=== PATIENT | female | born 1980 | race Caucasian/White ===

== ENCOUNTER 2019-12-10 08:49 | Outpatient (CLI) | payer MEDICARE, MEDICAID, SELFPAY ==
--- NOTE | 2019-12-10 06:00 | DI.RAD_ITS ---
EXAM: XR PAIN CLINIC LUMBAR SP 2V CLINICAL HISTORY: Dx: Lumbar Spondylosis TECHNIQUE: 2D and realtime digital imaging was performed. CONTRAST MATERIAL: Refer to procedure report. COMPARISON: No exams were available for comparison FINDINGS: Fluoroscopy was provided for Dr. Ortega during the performance of a lumbar medial branch block. Please refer to the procedure report for complete details. Fluoro time: 48.8 seconds IMPRESSION:
[2019-12-10 09:15] VITALS: BP 132/88; PULSE 89; RESP 18; TEMP 36.8; O2SAT 98
--- NOTE | 2019-12-10 09:17 | PDOC.PAIN_ITS ---
Pain Clinic Procedure Note Procedure Note Procedure Note: Lumbar/Sacral Medial Branch Blocks RENETTA DODGE has been referred to the [facility] for lumbar/sacral medial branch blocks. COMMENTS: patient received good pain relief from prior left sided diagnostic lumbar medial branch nerve block performed by Dr Cerna. She is here for confirmatory left sided lumbar medial branch nerve block Patient was interviewed and the medical record reviewed. There were no medical, pharmacologic, radiographic or other structural contraindications to attempting fluoroscopically guided local anesthetic lumbar/sacral medial branch blocks. Risks and expected side effects as well as potential benefit of the procedure were reviewed and voiced concerns addressed. The printed consent form was signed and witnessed. Standard time-out procedure was performed. Patient was placed in the prone position on the fluoroscopy table and automated blood pressure cuff and pulse oximeter applied. The skin entry points for approaching the anatomic target points of the segmental medial branches of left L3, L4, L5-DR were identified with anfluoroscopy and marked. Following thorough Chlorhexadine preparation of the skin and draping and 1% lidocaine infiltration of the skin entry points and subcutaneous tissues, a 5'' 22 gauge spinal needle was placed under fluoroscopic guidance down on to the target point for each respective segmental medial branch.Position was confirmed in A/P, oblique and lateral views with 0.25ml of omnipaque 240. Using this method 0.5ml of 2% Lidocaine was injected at each site. Vital signs were stable throughout the procedure and were as recorded in the docflowsheet by the nursing staff. Follow up plans and appointments were discussed and was instructed to keep careful note of how the usual pain was modified by these injections. Specifically was asked to keep a pain diary for the next 24 hours using a numeric pain scale of 0-10 and report these results at the follow-up visit. Post procedure instruction was given as documented in the nursing documentation and having met discharge criteria. Patient was discharged from the [facility]. Based on the medial branches blocked today, if the patient has adequate relief and we are able to proceed to radiofrequency ablation, the treatment should result in the denervation of the left L4-5, L5-S1 facets. We would expect to denervate a total of 2 facets during the radiofrequency ablation. COMMENTS: patient reported pre-procedure pain level as 7 out of 10 and post- procedure pain level as 0 out of 10. Please note patient was very tearful and sensitive to needle placement throughout the procedure, she was tachycardic with HR to 120s briefly because she felt it was a shooting pain down the left buttock. Her vital signs were monitored and remained stable. She was able to finish the rest of her procedure. I performed the entire procedure. Parul Ortega MD Pain Management CC: Maggi Orr
[2019-12-10] MEDS: Lidocaine 2% Pres-Free 5 ML VIAL IJ (10:19)
[2019-12-10] MEDS: Omnipaque 240 MG/ML 50 ML BTL IJ (10:19)
== END 2019-12-10 09:09 ==
PROVIDERS: PCP Nurse Practitioner; Visit Provider Internal Medicine
DX: M47.816 Spondylosis without myelopathy or radiculopathy, lumbar region (principal)
CPT/HCPCS: 64493; 64494; 64495; 72100; Q9967

== ENCOUNTER 2020-02-25 07:38 | Outpatient (CLI) | payer MEDICARE, MEDICAID, SELFPAY ==
--- NOTE | 2020-02-25 06:00 | DI.RAD_ITS ---
EXAM: XR PAIN CLINIC LUMBAR SP 2V CLINICAL HISTORY: Lumbar Spondylosis TECHNIQUE: 2D and realtime digital imaging was performed. Fluoroscopy was provided in the OR COMPARISON: No exams were available for comparison FINDINGS: C-arm fluoroscopy was lysed by Dr. Guzman. Please see Dr. Guzman is procedure note. Hard copy show needles pl aced on the left laterally at what appear to be the L4, L5, S1 levels. IMPRESSION: Fluoroscopy time was 61.6 seconds. RADIATION DOSE DELIVERED:
[2020-02-25 08:02] VITALS: BP 103/62; PULSE 88; RESP 20; TEMP 36.6; O2SAT 100
[2020-02-25] MEDS: Midazolam 2 MG/2 ML VIAL IVP (08:53)
[2020-02-25] MEDS: fentaNYL 100 MCG/2 ML VIAL IVP ×3 (08:54→09:20)
[2020-02-25] MEDS: Lactated Ringers 1,000 ML 80 ML IV (08:54)
[2020-02-25] MEDS: Lidocaine 2% Pres-Free 5 ML VIAL IJ (09:27)
[2020-02-25 09:28] VITALS: BP 140/69; PULSE 68; RESP 18; O2SAT 100
[2020-02-25] MEDS: Bupivacaine 0.5% Pres-Free 10 ML VIAL IJ (09:28)
[2020-02-25] MEDS: Lidocaine 1% Pres-Free 5 ML VIAL IJ (09:28)
[2020-02-25] MEDS: methylPREDNISolone ACETATE 80 MG/ML VIAL IJ (09:30)
--- NOTE | 2020-02-25 09:39 | PDOC.PAIN ---
Pain Clinic Procedure Note Procedure Note Procedure Note: Left Lumbar Radiofrequency with Coolief Machine PROCEDURE NOTE Date of Service: February 25, 2020 Patient: RENETTA DODGE Provider: NANCY CHONG MD Pre Operative Diagnosis: lumbar spondylosis Post Operative Diagnosis: same as above PROCEDURE: Radiofrequency Ablation of medial branches - LEFT L3, L4, L5-DR RENETTA DODGE was brought into the fluoroscopy suite and positioned into the prone position on the fluoroscopy table and allowed to adjust to a position of comfort. A grounding pad was placed on the left thigh. The lumbar region was widely prepped with a chloraprep solution, allowed to air dry and draped in standard sterile surgical fashion. Local anesthesia was provided by 10 mL of 1 % lidocaine delivered with a 25g needle. A 17g 100mm radiofrequency introducer needle was placed to the planned anatomic targets guided with intermittent fluoroscopy with a perpendicular approach to terminally place at the junction of the superior articular process and the transverse process of the left L3, L4, L5-DR and the base of the sacral ala on the left side for the L5 medial branch nerve. The stylets were removed and radiofrequency probes with a 4mm active tip were then inserted. Needle tip position of the probes was verified in the AP, oblique, and lateral views. At each site, the medial branch nerve was stimulated at 2 Hz to a maximum 1-2 volts determined to finalize safe needle and electrode placement. The patient was awake and responsive during this portion of the procedure. Each target was anesthetized with 1mL of 2% LIDOCAINE for anesthesia for lesioning and then each target was lesioned at 80 degrees Celsius for 2 minutes and 30 seconds. Tissue impedences were noted to be between 250 and 500 Ohms. Electrodes and needles were then removed and bandages placed over the needle placement sites, the patient then returned to the supine position on a stretcher and transported to the recovery room without hemodynamic, neurologic, or allergic reactions. Fluoroscopic images were printed for hard copy recording and digitally archived. POST PROCEDURE EVALUATION: IMPRESSION: 1. Summary of procedure. Patient has history of vagal response, extra procedure time was alloted 2. Received total of 1mg of IV versed and 75mcg of IV Fentanyl 4. Patient was particularly sensitive with left L5-DR probe, however, stimulation at 2Hz revealed no myotomal stimulation. patient was able to tolerate procedure without issue. Follow up plans and appointments were discussed with the RENETTA . Post procedure instruction was given as documented in nursing documentation and having met discharge criteria, RENETTA was discharged from the [facility]. COMMENTS: No complications. F/U with our office as needed. I personally performed this entire procedure. Nancy Chong MD Attending Physician
== END 2020-02-25 07:58 ==
PROVIDERS: PCP Nurse Practitioner; Visit Provider Internal Medicine
DX: M47.816 Spondylosis without myelopathy or radiculopathy, lumbar region (principal)
CPT/HCPCS: 64635; 64636; 72100; J1040; J2250; J3010

== ENCOUNTER 2021-11-02 01:06 | Outpatient (CLI) | payer MEDICARE, MEDICAID, SELFPAY ==
--- NOTE | 2021-11-02 08:04 | DI.RAD_ITS ---
Exam(s) XR CHEST 2V PA LATERAL EXAM: XR CHEST 2V PA LATERAL CLINICAL HISTORY: f/u pleural effusion,asthma TECHNIQUE: 2D digital imaging was performed of the chest. Two images were obtained. PA and lateral views were obtained. COMPARISON: No exams were available for comparison FINDINGS: MEDIASTINUM: Normal. HEART: Normal. PULMONARY VASCULATURE: Normal. LUNGS: Linear scarring, atelectasis or pneumonia is seen in the right upper and right middle lobes. The left lung is clear. PLEURAL SPACE: There is a small right pleural effusion. No pneumothorax or left pleural effusion is seen. BONE:Within normal limits for the patient's age. OTHER FINDINGS:Normal. IMPRESSION: 1. Small right pleural effusion. 2. Infiltrate, atelectasis or scarring in the right lung. Please correlate clinically. DATA REPOSITORY: RADIATION DOSE DELIVERED:
== END 2021-11-02 01:26 ==
PROVIDERS: PCP Nurse Practitioner; Visit Provider Surgery
DX: J90 Pleural effusion, not elsewhere classified; R91.8 Other nonspecific abnormal finding of lung field; J45.909 Unspecified asthma, uncomplicated
CPT/HCPCS: 99203; 71046

== ENCOUNTER 2021-11-02 09:20 | Inpatient (IN) | payer MEDICARE, MEDICAID, SELFPAY ==
--- NOTE | 2021-11-02 | DI.CT_ITS ---
Exam(s) CT CHEST WO EXAM: CT CHEST WO CLINICAL HISTORY: chronic cough adn pain. TECHNIQUE: Imaging protocol: Axial computed tomography images were obtained and coronal and sagittal reformatted images were created and reviewed. COMPARISON: CR XR PORTABLE CHEST AP POST LINE from 11/02/2021 FINDINGS: The examination is limited due to patient motion artifact. Tracheobronchial tree: Patent where visualized. Pulmonary parenchyma: Linear infiltrates are seen in the right middle lobe and right lower lobe. The re is a moderate size right effusion. There does appear to be some high-density material in the depe ndent portion of the effusion. The patient had a thoracentesis today prior to the CT scan and air is seen in the right lung base. The high density material may be secondary to the thoracentesis. Ther e is a subjacent atelectasis present. No architectural distortion. Mediastinum and Mili: No dominant adenopathy or fluid collection. There are postsurgical changes in t he stomach and gastroesophageal junction. Thyroid gland: Unremarkable. Pleura: No left pleural effusion or pneumothorax. Heart: The heart is not dilated. No coronary artery calcifications are seen. No pericardial effusion. Aorta: Thoracic aorta non-dilated. Upper abdomen: Status post cholecystectomy. Lymph nodes: Within normal limits. Soft tissues: Unremarkable. Bones:Within normal limits for the patient's age. IMPRESSION: 1. The patient is status post right thoracentesis. There is a tiny basilar pneumothorax. 2. Moderate size right pleural effusion. There is some high density material seen in the dependent p ortion of the effusion which may represent hemorrhage. Soft tissue masses cannot be excluded. 3. Linear infiltrates in the right middle and right lower lobes. This may represent atelectasis, sca rring or pneumonia. 4. Postsurgical changes seen at the gastroesophageal junction and stomach. RADIATION DOSE DELIVERED: 710.89mGy.cm Total DLP 710.89mGy.cm Total DLP DATA REPOSITORY: All CT scans at this facility are submitted to the National Radiology Data Registry (NRDR) Dose Index Registry (DIR) with the [employer] (ACR). RADIATION OPTIMIZATION: All CT scans at this facility use at least one of these dose optimization te chniques: automated exposure control; mA and/or kV adjustment per patient size (includes targeted exa ms where dose is matched to clinical indication); or iterative reconstruction.
[2021-11-02 09:47] VITALS: BP 132/87; PULSE 90; RESP 16; TEMP 36.6; O2SAT 97
[2021-11-02 10:08] LABS: Source Nasal/Nares
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
[2021-11-02] MEDS: Acetaminophen 325 MG TAB 650 MG PO (12:16)
[2021-11-02 12:22] LABS: COVID-19 PCR Negative (Negative)
[2021-11-02 12:45] VITALS: BP 138/85; PULSE 88; RESP 17; TEMP 36.9; O2SAT 95
[2021-11-02] MEDS: Sodium Bicarbonate 50 MEQ/50 ML VIAL (13:08)
[2021-11-02] MEDS: Lidocaine 1% Pres-Free 5 ML VIAL IJ (13:08)
[2021-11-02] MEDS: Lidocaine 1% Multi-Dose 50 ML VIAL (13:15)
--- NOTE | 2021-11-02 13:20 | PAPNONF_PTH ---
PATIENT: Shirley Hooper LOC: U#:[id number] AGE/SX: 41/F ROOM: RE11/03/[address]: Cristal Arevalo : 1980 BED: A DIS: 11/10/2021 SPEC #: [id number] RECD: 11/02/21 18:10 STATUS: TRAVIS REQ #: [id number] [place]: 11/02/21 13:[address]: Angella Martinez DEPT: [facility] Cytology RECD BY: Kellie Cline ENTERED: 11/02/21 18:11 SP TYPE: ALTA FERNANDEZ DR: Maggi Orr MD Tissues: 1 - BODY FLUID CYTO(NOT S/U/N/EM)[facility] Procedures: BODY FLUID CYTO(NOT SPU/UR/NIP/ENDOM)[facility] Comments: [id number] (TOTAL VOLUME = 35 ml, SENT FRESH)
--- NOTE | 2021-11-02 13:33 | ROE_ITS ---
Date of service: 11/02/21 Time of Service: 13:34 Operative Note Operative Note DATE OF PROCEDURE: 11/02/21 PRE-OP DIAGNOSIS: pleural effusioin POST-OP DIAGNOSIS: same PROCEDURE: right thorcocentisi SURGEON: Janine Hinton ANESTHESIA TYPE: Local By Surgeon Refer to Anesthesia Record ESTIMATED BLOOD LOSS: 0 PATHOLOGY: other COMPLICATIONS: None Patient was transported to: PACU Patient's condition: stable Procedure Description: REPORT OF OPERATION Operative Note Operative Note Pt is here today for thoracentesis for symptoms of shortness of breath. Chest x-ray was reviewed prior to beginning the procedure. Informed consent was obtained explaining risks and benefits of the procedure, including but not limited to bleeding, infection, pneumothorax, recurrence, complications of anesthesia, and other unforetold complications. PROCEDURE: The patient is brought to the procedure room and placed in the seated position. Ultrasound is used to localize the pocket on the right chest. The area is marked and then prepped and draped in the usual sterile fashion using a ChloraPrep scrub solution. 25 cc's of 1% Lidocaine is used to an esthetize the T10 interspace. The small jemal is made with a #11 blade. The needle and catheter is then inserted over the top of the rib, aspirating as it is inserted. The needle is then removed. 110 cc's of bloody fluid is evacuated. The catheter is removed; pressure is held. Sterile compression dressing is applied. Portable chest x-ray shows no pneumothorax. Pt is given instructions in wound care, activity, medications, and warning signs: SOB, increasing in pain, chest pain, redness or temperature- if these occur, come to ED.
--- NOTE | 2021-11-02 13:59 | DI.RAD_ITS ---
Exam(s) XR PORTABLE CHEST AP POST LINE EXAM: XR PORTABLE CHEST AP POST LINE CLINICAL HISTORY: s/p thoro TECHNIQUE: 2D digital imaging was performed of the chest. One image was obtained. An AP view was ob tained. COMPARISON: CR XR CHEST 2V PA LATERAL from 11/02/2021 FINDINGS: MEDIASTINUM: Normal. HEART: Normal. PULMONARY VASCULATURE: Normal. LUNGS: Stable linear densities are seen in the right lung base. PLEURAL SPACE: There is a persistent small right pleural effusion. There does not appear to be any s ignificant change compared to the prior examination from earlier in the day. No pneumothorax is pres ent. BONE:Within normal limits for the patient's age. OTHER FINDINGS:Normal. IMPRESSION: Small pleural effusion. No pneumothorax following thoracentesis. DATA REPOSITORY: RADIATION DOSE DELIVERED:
[2021-11-02] MEDS: Gabapentin 600 MG TAB PO ×2 (14:16→19:55)
[2021-11-02] MEDS: Docusate Sodium 100 MG CAP PO (14:17)
[2021-11-02 15:01] LABS: Mononuclear Cells 54 %; Polynuclear Cells 46 %
[2021-11-02 15:23] VITALS: RESP 8
[2021-11-02] MEDS: Baclofen 10 MG TAB PO ×2 (15:23→19:55)
[2021-11-02] MEDS: Albuterol/Ipratropium 3 ML UPD VIAL UPD (15:23)
[2021-11-02 15:41] VITALS: BP 130/74; PULSE 92; RESP 16; TEMP 36.2; O2SAT 96
[2021-11-02 16:22] LABS: Abs Immature Grans 0.04 10^3/uL (0.0-0.06); Absolute Basophil Count 0.08 10^3/uL (0.0-0.2); Absolute Eosinophil Count 0.58 10^3/uL (0.0-0.7); Absolute Lymphocyte Count 1.42 10^3/uL (1.2-3.4); Absolute Monocyte Count 0.49 10^3/uL (0.1-0.8); Absolute Neutrophil Count 5.76 10^3/uL (1.2-6.7); Eosinophils % 6.9; HCT 32.6 % (36.0-46.0); HGB 9.7 g/dL (11.2-15.7); Immature Grans % 0.5; MCH 27.9 pg (27.0-33.0); MCHC 29.8 % (32.0-36.0); MCV 93.7 fL (80-95); MPV 8.6 fL (8.0-11.0); Monocytes % 5.9; Neutrophils % 68.7; Nucleated RBC 0 %; Platelet Count 267 10^3/uL (130-400); RBC 3.48 10^6/uL (3.93-5.22); RDW 13.8 % (11.7-14.6); RDW-SD 47.6 fL; WBC 8.37 10^3/uL (4.4-10.8)
[2021-11-02 16:36] LABS: ALT 24 U/L (14-59); AST 17 U/L (15-37); Alkaline Phosphatase 119 U/L (46-116); Anion Gap 6.3 mmol/L (3-11); BUN 15 mg/dL (7-18); Bilirubin, Total 0.2 mg/dL (0.2-1.0); CO2 28.7 mmol/L (21.0-32.0); CREATININE 0.9 mg/dL (0.55-1.02); Calcium 8.7 mg/dL (8.5-10.1); Chloride 102 mmol/L (98-107); Glucose 118 mg/dL (74-106); LDH 254 U/L (81-234); Sodium 137 mmol/L (136-145); Total Protein 7.3 g/dL (6.4-8.2)
[2021-11-02 17:18] VITALS: PULSE 86; RESP 20; O2SAT 96
[2021-11-02] MEDS: buPROPion 100 MG TAB 200 MG PO (19:54)
[2021-11-02] MEDS: Celecoxib 100 MG CAP PO (19:55)
[2021-11-02] MEDS: busPIRone 5 MG TAB 10 MG PO (19:55)
[2021-11-02] MEDS: Budesonide/Formoterol 80/4.5 6.9 GM 60 PUFF INH IH (19:56)
[2021-11-02] MEDS: Amitriptyline 50 MG TAB 100 MG PO (21:37)
[2021-11-02] MEDS: Benzonatate 100 MG CAP PO (21:38)
[2021-11-02] MEDS: cloNIDine 0.1 MG TAB 0.2 MG PO (21:38)
[2021-11-02] MEDS: Pantoprazole 40 MG TABCR PO (21:38)
[2021-11-02] MEDS: diphenhydrAMINE 25 MG CAP PO (21:38)
[2021-11-02 22:55] LABS: Glucose, Fluid 105 mg/dL (See Note)
[2021-11-02 23:42] VITALS: BP 123/74; PULSE 90; RESP 16; TEMP 36.6; O2SAT 97
[2021-11-03] MEDS: Acetaminophen 325 MG TAB 650 MG PO ×3 (05:42→21:15)
[2021-11-03 07:25] LABS: Abs Immature Grans 0.03 10^3/uL (0.0-0.06); Absolute Basophil Count 0.08 10^3/uL (0.0-0.2); Absolute Eosinophil Count 0.58 10^3/uL (0.0-0.7); Absolute Lymphocyte Count 1.44 10^3/uL (1.2-3.4); Absolute Monocyte Count 0.63 10^3/uL (0.1-0.8); Absolute Neutrophil Count 5.28 10^3/uL (1.2-6.7); Eosinophils % 7.2; HCT 30.5 % (36.0-46.0); Immature Grans % 0.4; Lymphocytes % 17.9; MCH 27.4 pg (27.0-33.0); MCHC 29.5 % (32.0-36.0); MPV 8.5 fL (8.0-11.0); Monocytes % 7.8; Neutrophils % 65.7; Nucleated RBC 0 %; Platelet Count 249 10^3/uL (130-400); RBC 3.28 10^6/uL (3.93-5.22); RDW 13.9 % (11.7-14.6); RDW-SD 47.6 fL; WBC 8.04 10^3/uL (4.4-10.8)
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
[2021-11-03 07:33] LABS: Anion Gap 6.1 mmol/L (3-11); BUN 15 mg/dL (7-18); CO2 28.9 mmol/L (21.0-32.0); CREATININE 0.8 mg/dL (0.55-1.02); Calcium 8.1 mg/dL (8.5-10.1); Chloride 104 mmol/L (98-107); Glucose 97 mg/dL (74-106); Potassium 4.5 mmol/L (3.5-5.1); Sodium 139 mmol/L (136-145)
[2021-11-03 07:39] VITALS: BP 122/81; PULSE 82; RESP 18; TEMP 36.5; O2SAT 95
[2021-11-03] MEDS: Baclofen 10 MG TAB PO ×3 (07:48→21:16)
[2021-11-03] MEDS: Budesonide/Formoterol 80/4.5 6.9 GM 60 PUFF INH IH (07:49)
[2021-11-03] MEDS: Cetirizine 10 MG TAB PO (07:50)
[2021-11-03] MEDS: Celecoxib 100 MG CAP PO ×2 (07:50→21:15)
[2021-11-03] MEDS: busPIRone 5 MG TAB 10 MG PO ×2 (07:50→21:17)
[2021-11-03] MEDS: buPROPion 100 MG TAB 200 MG PO ×2 (07:50→21:17)
--- NOTE | 2021-11-03 07:50 | W.PM.PROGNOT ---
Date of Service Date of service: 11/03/21 Time of Service: 07:50 Assessment and Plan Assessment and plan (1) Pleuritic chest pain: Status: Acute (2) Pleural effusion: Status: Acute Assessment and plan: s/p thoracentesis yesterday 11/02; Only 110ccs of bloody fluid was evacuated Ecchymosis around thoracentesis incision site. Appears she is developing a hematoma. Encouraged continued use of ice. Awaiting fluid sample results Encouraged sitting in a chair and ambulating as tolerated. Subjective Subjective Interval history since last seen: Arrive with the patient sitting up in the chair. She states she slept with the CPAP machine last night and that went well. She expressed the right side of her back is sore this morning and she currently has an ice pack on it. Denies any chest pain or SOB. Exam Const General: cooperative, healthy appearing and comfortable Orientation: alert and oriented x3 Resp Effort & Inspection: normal respiratory effort, no audible wheezes and cough Auscultation: diminished lung sounds Skin Other: Right side of back- Thoracentesis incision noted. Mild swelling around this location with ecchymosis. Objective Last Vital Signs Temp 36.5 C 11/03/21 07:39 Pulse 82 11/03/21 07:39 Resp 18 11/03/21 07:39 BP 122/81 11/03/21 07:39 Pulse Ox 95 11/03/21 07:39 Laboratory Results - last 24 hr 11/02/21 11/02/21 11/02/21 10:00 13:20 13:20 WBC RBC Hgb Hct MCV MCH MCHC RDW Plt Count MPV Immature Gran % Neutrophils % Lymphocytes % Monocytes % Eosinophils % Basophils % Nucleated RBC % Absolute Neutrophils Absolute Lymphocytes Absolute Monocytes Absolute Eosinophils Absolute Basophils Sodium Potassium Chloride Carbon Dioxide Anion Gap BUN Creatinine Estimated GFR/1.73 m2 Glucose Calcium Total Bilirubin AST ALT Alkaline Phosphatase Lactate Dehydrogenase Total Protein Albumin Fluid Type Fluid Source Fluid Color Fluid Clarity Fluid pH Fluid WBC Fld Polynuclear WBCs % 46 Fluid Mononuclear Cell 54 Fluid Other Cells Fluid Glucose 105 Fluid Total Protein Fluid Albumin Fluid LDH Fluid Lipase CSF Lyme DNA Comment CSF B.burgdorferi (PCR) CSF B.mayonii (PCR) CSF B.eron/afzel PCR Lyme Specimen Source COVID-19 Source Nasal/Nares SARS-CoV-2 (PCR) Negative AFB Source AFB Bld Cult Final Res AFB Report Status Path Cons Comment 11/02/21 11/02/21 11/02/21 13:32 13:33 13:38 WBC RBC Hgb Hct MCV MCH MCHC RDW Plt Count MPV Immature Gran % Neutrophils % Lymphocytes % Monocytes % Eosinophils % Basophils % Nucleated RBC % Absolute Neutrophils Absolute Lymphocytes Absolute Monocytes Absolute Eosinophils Absolute Basophils Sodium Potassium Chloride Carbon Dioxide Anion Gap BUN Creatinine Estimated GFR/1.73 m2 Glucose Calcium Total Bilirubin AST ALT Alkaline Phosphatase Lactate Dehydrogenase Total Protein Albumin Fluid Type Fluid Source Cancelled Fluid Color Fluid Clarity Fluid pH Cancelled Fluid WBC Fld Polynuclear WBCs % Fluid Mononuclear Cell Fluid Other Cells Fluid Glucose Fluid Total Protein Fluid Albumin Fluid LDH Fluid Lipase CSF Lyme DNA Comment Cancelled CSF B.burgdorferi (PCR) Cancelled CSF B.mayonii (PCR) Cancelled CSF B.eron/afzel PCR Cancelled Lyme Specimen Source Cancelled COVID-19 Source SARS-CoV-2 (PCR) AFB Source Cancelled AFB Bld Cult Final Res Cancelled AFB Report Status Cancelled Path Cons Comment 11/02/21 11/02/21 11/02/21 13:39 13:40 13:43 WBC RBC Hgb Hct MCV MCH MCHC RDW Plt Count MPV Immature Gran % Neutrophils % Lymphocytes % Monocytes % Eosinophils % Basophils % Nucleated RBC % Absolute Neutrophils Absolute Lymphocytes Absolute Monocytes Absolute Eosinophils Absolute Basophils Sodium Potassium Chloride Carbon Dioxide Anion Gap BUN Creatinine Estimated GFR/1.73 m2 Glucose Calcium Total Bilirubin AST ALT Alkaline Phosphatase Lactate Dehydrogenase Total Protein Albumin Fluid Type Cancelled Fluid Source Cancelled Fluid Color Fluid Clarity Fluid pH Cancelled Fluid WBC Fld Polynuclear WBCs % Fluid Mononuclear Cell Fluid Other Cells Fluid Glucose Cancelled Fluid Total Protein Fluid Albumin Fluid LDH Cancelled Fluid Lipase CSF Lyme DNA Comment CSF B.burgdorferi (PCR) CSF B.mayonii (PCR) CSF B.eron/afzel PCR Lyme Specimen Source COVID-19 Source SARS-CoV-2 (PCR) AFB Source AFB Bld Cult Final Res AFB Report Status Path Cons Comment 11/02/21 11/02/21 11/02/21 13:44 13:55 13:55 WBC RBC Hgb Hct MCV MCH MCHC RDW Plt Count MPV Immature Gran % Neutrophils % Lymphocytes % Monocytes % Eosinophils % Basophils % Nucleated RBC % Absolute Neutrophils Absolute Lymphocytes Absolute Monocytes Absolute Eosinophils Absolute Basophils Sodium Potassium Chloride Carbon Dioxide Anion Gap BUN Creatinine Estimated GFR/1.73 m2 Glucose Calcium Total Bilirubin AST ALT Alkaline Phosphatase Lactate Dehydrogenase Total Protein Albumin Fluid Type Cancelled Cancelled Fluid Source Cancelled Fluid Color Cancelled Fluid Clarity Cancelled Fluid pH Fluid WBC Cancelled Fld Polynuclear WBCs % Cancelled Fluid Mononuclear Cell Cancelled Fluid Other Cells Cancelled Fluid Glucose Fluid Total Protein Cancelled Fluid Albumin Cancelled Fluid LDH Fluid Lipase Cancelled CSF Lyme DNA Comment CSF B.burgdorferi (PCR) CSF B.mayonii (PCR) CSF B.eron/afzel PCR Lyme Specimen Source COVID-19 Source SARS-CoV-2 (PCR) AFB Source AFB Bld Cult Final Res AFB Report Status Path Cons Comment Cancelled 11/02/21 11/02/21 11/03/21 16:10 16:10 07:10 WBC 8.37 RBC 3.48 L Hgb 9.7 L Hct 32.6 L MCV 93.7 MCH 27.9 MCHC 29.8 L RDW 13.8 Plt Count 267 MPV 8.6 Immature Gran % 0.5 Neutrophils % 68.7 Lymphocytes % 17.0 Monocytes % 5.9 Eosinophils % 6.9 Basophils % 1.0 Nucleated RBC % 0 Absolute Neutrophils 5.76 Absolute Lymphocytes 1.42 Absolute Monocytes 0.49 Absolute Eosinophils 0.58 Absolute Basophils 0.08 Sodium 137 139 Potassium 4.0 4.5 Chloride 102 104 Carbon Dioxide 28.7 28.9 Anion Gap 6.3 6.1 BUN 15 15 Creatinine 0.9 0.8 Estimated GFR/1.73 m2 >= 60.00 >= 60.00 Glucose 118 H 97 Calcium 8.7 8.1 L Total Bilirubin 0.2 AST 17 ALT 24 Alkaline Phosphatase 119 H Lactate Dehydrogenase 254 H Total Protein 7.3 Albumin 3.0 L Fluid Type Fluid Source Fluid Color Fluid Clarity Fluid pH Fluid WBC Fld Polynuclear WBCs % Fluid Mononuclear Cell Fluid Other Cells Fluid Glucose Fluid Total Protein Fluid Albumin Fluid LDH Fluid Lipase CSF Lyme DNA Comment CSF B.burgdorferi (PCR) CSF B.mayonii (PCR) CSF B.eron/afzel PCR Lyme Specimen Source COVID-19 Source SARS-CoV-2 (PCR) AFB Source AFB Bld Cult Final Res AFB Report Status Path Cons Comment 11/03/21 07:10 WBC 8.04 RBC 3.28 L Hgb 9.0 L Hct 30.5 L MCV 93.0 MCH 27.4 MCHC 29.5 L RDW 13.9 Plt Count 249 MPV 8.5 Immature Gran % 0.4 Neutrophils % 65.7 Lymphocytes % 17.9 Monocytes % 7.8 Eosinophils % 7.2 Basophils % 1.0 Nucleated RBC % 0 Absolute Neutrophils 5.28 Absolute Lymphocytes 1.44 Absolute Monocytes 0.63 Absolute Eosinophils 0.58 Absolute Basophils 0.08 Sodium Potassium Chloride Carbon Dioxide Anion Gap BUN Creatinine Estimated GFR/1.73 m2 Glucose Calcium Total Bilirubin AST ALT Alkaline Phosphatase Lactate Dehydrogenase Total Protein Albumin Fluid Type Fluid Source Fluid Color Fluid Clarity Fluid pH Fluid WBC Fld Polynuclear WBCs % Fluid Mononuclear Cell Fluid Other Cells Fluid Glucose Fluid Total Protein Fluid Albumin Fluid LDH Fluid Lipase CSF Lyme DNA Comment CSF B.burgdorferi (PCR) CSF B.mayonii (PCR) CSF B.eron/afzel PCR Lyme Specimen Source COVID-19 Source SARS-CoV-2 (PCR) AFB Source AFB Bld Cult Final Res AFB Report Status Path Cons Comment
[2021-11-03] MEDS: Gabapentin 600 MG TAB PO ×3 (07:51→21:16)
[2021-11-03] MEDS: Pantoprazole 40 MG TABCR PO ×2 (07:52→21:17)
[2021-11-03] MEDS: Benzonatate 100 MG CAP PO ×2 (08:34→21:17)
[2021-11-03] MEDS: Normal Saline Flush 10 ML SYR IVP ×2 (08:35→15:42)
--- NOTE | 2021-11-03 08:47 | PGE_ITS ---
Assessment and Plan Assessment and plan (1) Pleural effusion: Status: Acute Assessment and plan: This is a 41 yo female who is admitted for a pleural effusion in whom I was asked to see for this reason. She is status post thoracentesis that found bloody fluid. On repeat chest CT there is concern for blood in the fluid with a significant amount of fluid still on the right. I see pleural thickening which is concerning for lung entrapment. Ideally the fluid would be fully evacuated to assess whether her lung re-inflates or not. We will await the return of the pleural and blood studies and I will set her up to see me in clinic to review these and come up with a plan moving forward. Right Pleural effusion - would recommend re-attempt at thoracentesis to try and evacuate the space - will await all results to return - will arrange for outpatient follow up Asthma - I will increase her Symbicort back up to the 160-4.5 dosing as there is no active infection suspected - albuterol HFA prn - Duoneb prn General Date Of Service Date of service: 11/03/21 Time of Service: 08:47 Reason for Consult: Pleural Effusion Subjective 24 Hour Events: Had thoracentesis yesterday, only 100cc's of bloody fluid able to be liberated Had chest CT Note Note: She is doing ok today. She is having more pain on the right side with coughing since the thora. Thus far the only pleural fluid studies that have returned are glucose (normal) and a few white cells. She also had a chest CT that has double density in the fluid concerning for blood and I do see a thickened pleura concerning for a subacute to chronic process. There was a small amount of air in the space. These findings together have me concerned for lung entrapment versus trapped lung. Given the time course of her symptoms lung entrapment seems most likely. Exam Const General: no acute distress Nutritional Appearance: well nourished [facility] Head: normocephalic Ears: external ears normal and no periauricular adenopathy General nose exam: nasal mucous membranes and turbinates normal Face and sinus: sinuses nontender Mouth: oropharynx normal and moist mucous membranes Teeth and gingiva: dentition normal Eyes General: appearance normal, both eyes and all related structures Pupils: PERRL Neck Neck: normal visual inspection and no lymphadenopathy Chest Chest: normal inspection of the chest Resp Effort & Inspection: normal respiratory effort Auscultation: clear to auscultation bilaterally, diminished lung sounds on the right in the lower lung romero, no rales, no rhonchi and no wheezes Cardio Rate: regular rate Rhythm: regular rhythm Heart Sounds: S1 normal, S2 normal and no murmurs Pulses: radial pulses present bilaterally GI Inspection: normal to inspection Palpation: soft Skin General skin exam: no rashes or lesions noted Neuro General: patient alert, patient awake and patient oriented x3 Extrem General: no clubbing, no cyanosis and edema Laterality: bilateral Psych Mental Status: mental status grossly normal Affect: normal affect Attitude: cooperative Objective Last Vital Signs Temp 36.5 C 11/03/21 07:39 Pulse 82 11/03/21 07:39 Resp 18 11/03/21 07:39 BP 122/81 11/03/21 07:39 Pulse Ox 95 11/03/21 07:39 Laboratory Results - last 24 hr 11/02/21 11/02/21 11/02/21 10:00 13:20 13:20 WBC RBC Hgb Hct MCV MCH MCHC RDW Plt Count MPV Immature Gran % Neutrophils % Lymphocytes % Monocytes % Eosinophils % Basophils % Nucleated RBC % Absolute Neutrophils Absolute Lymphocytes Absolute Monocytes Absolute Eosinophils Absolute Basophils Sodium Potassium Chloride Carbon Dioxide Anion Gap BUN Creatinine Estimated GFR/1.73 m2 Glucose Calcium Total Bilirubin AST ALT Alkaline Phosphatase Lactate Dehydrogenase Total Protein Albumin Fluid Type Fluid Source Fluid Color Fluid Clarity Fluid pH Fluid WBC Fld Polynuclear WBCs % 46 Fluid Mononuclear Cell 54 Fluid Other Cells Fluid Glucose 105 Fluid Total Protein Fluid Albumin Fluid LDH Fluid Lipase CSF Lyme DNA Comment CSF B.burgdorferi (PCR) CSF B.mayonii (PCR) CSF B.eron/afzel PCR Lyme Specimen Source COVID-19 Source Nasal/Nares SARS-CoV-2 (PCR) Negative AFB Source AFB Bld Cult Final Res AFB Report Status Path Cons Comment Add-On Test Request 11/02/21 11/02/21 11/02/21 13:32 13:33 13:38 WBC RBC Hgb Hct MCV MCH MCHC RDW Plt Count MPV Immature Gran % Neutrophils % Lymphocytes % Monocytes % Eosinophils % Basophils % Nucleated RBC % Absolute Neutrophils Absolute Lymphocytes Absolute Monocytes Absolute Eosinophils Absolute Basophils Sodium Potassium Chloride Carbon Dioxide Anion Gap BUN Creatinine Estimated GFR/1.73 m2 Glucose Calcium Total Bilirubin AST ALT Alkaline Phosphatase Lactate Dehydrogenase Total Protein Albumin Fluid Type Fluid Source Cancelled Fluid Color Fluid Clarity Fluid pH Cancelled Fluid WBC Fld Polynuclear WBCs % Fluid Mononuclear Cell Fluid Other Cells Fluid Glucose Fluid Total Protein Fluid Albumin Fluid LDH Fluid Lipase CSF Lyme DNA Comment Cancelled CSF B.burgdorferi (PCR) Cancelled CSF B.mayonii (PCR) Cancelled CSF B.eron/afzel PCR Cancelled Lyme Specimen Source Cancelled COVID-19 Source SARS-CoV-2 (PCR) AFB Source Cancelled AFB Bld Cult Final Res Cancelled AFB Report Status Cancelled Path Cons Comment Add-On Test Request 11/02/21 11/02/21 11/02/21 13:39 13:40 13:43 WBC RBC Hgb Hct MCV MCH MCHC RDW Plt Count MPV Immature Gran % Neutrophils % Lymphocytes % Monocytes % Eosinophils % Basophils % Nucleated RBC % Absolute Neutrophils Absolute Lymphocytes Absolute Monocytes Absolute Eosinophils Absolute Basophils Sodium Potassium Chloride Carbon Dioxide Anion Gap BUN Creatinine Estimated GFR/1.73 m2 Glucose Calcium Total Bilirubin AST ALT Alkaline Phosphatase Lactate Dehydrogenase Total Protein Albumin Fluid Type Cancelled Fluid Source Cancelled Fluid Color Fluid Clarity Fluid pH Cancelled Fluid WBC Fld Polynuclear WBCs % Fluid Mononuclear Cell Fluid Other Cells Fluid Glucose Cancelled Fluid Total Protein Fluid Albumin Fluid LDH Cancelled Fluid Lipase CSF Lyme DNA Comment CSF B.burgdorferi (PCR) CSF B.mayonii (PCR) CSF B.eron/afzel PCR Lyme Specimen Source COVID-19 Source SARS-CoV-2 (PCR) AFB Source AFB Bld Cult Final Res AFB Report Status Path Cons Comment Add-On Test Request 11/02/21 11/02/21 11/02/21 13:44 13:55 13:55 WBC RBC Hgb Hct MCV MCH MCHC RDW Plt Count MPV Immature Gran % Neutrophils % Lymphocytes % Monocytes % Eosinophils % Basophils % Nucleated RBC % Absolute Neutrophils Absolute Lymphocytes Absolute Monocytes Absolute Eosinophils Absolute Basophils Sodium Potassium Chloride Carbon Dioxide Anion Gap BUN Creatinine Estimated GFR/1.73 m2 Glucose Calcium Total Bilirubin AST ALT Alkaline Phosphatase Lactate Dehydrogenase Total Protein Albumin Fluid Type Cancelled Cancelled Fluid Source Cancelled Fluid Color Cancelled Fluid Clarity Cancelled Fluid pH Fluid WBC Cancelled Fld Polynuclear WBCs % Cancelled Fluid Mononuclear Cell Cancelled Fluid Other Cells Cancelled Fluid Glucose Fluid Total Protein Cancelled Fluid Albumin Cancelled Fluid LDH Fluid Lipase Cancelled CSF Lyme DNA Comment CSF B.burgdorferi (PCR) CSF B.mayonii (PCR) CSF B.eron/afzel PCR Lyme Specimen Source COVID-19 Source SARS-CoV-2 (PCR) AFB Source AFB Bld Cult Final Res AFB Report Status Path Cons Comment Cancelled Add-On Test Request 11/02/21 11/02/21 11/03/21 16:10 16:10 07:10 WBC 8.37 RBC 3.48 L Hgb 9.7 L Hct 32.6 L MCV 93.7 MCH 27.9 MCHC 29.8 L RDW 13.8 Plt Count 267 MPV 8.6 Immature Gran % 0.5 Neutrophils % 68.7 Lymphocytes % 17.0 Monocytes % 5.9 Eosinophils % 6.9 Basophils % 1.0 Nucleated RBC % 0 Absolute Neutrophils 5.76 Absolute Lymphocytes 1.42 Absolute Monocytes 0.49 Absolute Eosinophils 0.58 Absolute Basophils 0.08 Sodium 137 139 Potassium 4.0 4.5 Chloride 102 104 Carbon Dioxide 28.7 28.9 Anion Gap 6.3 6.1 BUN 15 15 Creatinine 0.9 0.8 Estimated GFR/1.73 m2 >= 60.00 >= 60.00 Glucose 118 H 97 Calcium 8.7 8.1 L Total Bilirubin 0.2 AST 17 ALT 24 Alkaline Phosphatase 119 H Lactate Dehydrogenase 254 H Total Protein 7.3 Albumin 3.0 L Fluid Type Fluid Source Fluid Color Fluid Clarity Fluid pH Fluid WBC Fld Polynuclear WBCs % Fluid Mononuclear Cell Fluid Other Cells Fluid Glucose Fluid Total Protein Fluid Albumin Fluid LDH Fluid Lipase CSF Lyme DNA Comment CSF B.burgdorferi (PCR) CSF B.mayonii (PCR) CSF B.eron/afzel PCR Lyme Specimen Source COVID-19 Source SARS-CoV-2 (PCR) AFB Source AFB Bld Cult Final Res AFB Report Status Path Cons Comment Add-On Test Request 11/03/21 11/03/21 07:10 Unknown WBC 8.04 RBC 3.28 L Hgb 9.0 L Hct 30.5 L MCV 93.0 MCH 27.4 MCHC 29.5 L RDW 13.9 Plt Count 249 MPV 8.5 Immature Gran % 0.4 Neutrophils % 65.7 Lymphocytes % 17.9 Monocytes % 7.8 Eosinophils % 7.2 Basophils % 1.0 Nucleated RBC % 0 Absolute Neutrophils 5.28 Absolute Lymphocytes 1.44 Absolute Monocytes 0.63 Absolute Eosinophils 0.58 Absolute Basophils 0.08 Sodium Potassium Chloride Carbon Dioxide Anion Gap BUN Creatinine Estimated GFR/1.73 m2 Glucose Calcium Total Bilirubin AST ALT Alkaline Phosphatase Lactate Dehydrogenase Total Protein Albumin Fluid Type Fluid Source Fluid Color Fluid Clarity Fluid pH Fluid WBC Fld Polynuclear WBCs % Fluid Mononuclear Cell Fluid Other Cells Fluid Glucose Fluid Total Protein Fluid Albumin Fluid LDH Fluid Lipase CSF Lyme DNA Comment CSF B.burgdorferi (PCR) CSF B.mayonii (PCR) CSF B.eron/afzel PCR Lyme Specimen Source COVID-19 Source SARS-CoV-2 (PCR) AFB Source AFB Bld Cult Final Res AFB Report Status Path Cons Comment Add-On Test Request TNP Results Medications Medications: Active Medications Generic Name Dose Route Start Last Admin Trade Name Freq PRN Reason Stop Dose Admin Acetaminophen 650 mg 11/02/21 09:19 11/03/21 05:42 Acetaminophen 325 Mg Tab PO 650 mg Q4H PRN PRN Administration Pain Hydrocodone Bitart/Acetaminophen 1 tab 11/02/21 09:25 11/03/21 02:34 Hydrocodone 7.5/Acetaminophen 325 Tab PO 1 tab Q8H PRN PRN Administration Al Hydrox/Mg Hydrox/Simethicone 30 ml 11/02/21 09:19 Mylanta Suspension 30 Ml Cup PO Q4H PRN PRN Albuterol Sulfate 2 puff 11/02/21 13:28 Albuterol Hfa 8 Gm 60 Puff Inh IH Q4H PRN PRN Albuterol/Ipratropium 3 ml 11/02/21 13:27 11/02/21 15:23 Albuterol/Ipratropium 3 Ml Upd Vial UPD 3 ml Q4H PRN PRN Administration Amitriptyline HCl 100 mg 11/02/21 22:00 11/02/21 21:37 Amitriptyline 50 Mg Tab PO 100 mg HS ANNIE Administration Baclofen 10 mg 11/02/21 14:00 11/03/21 07:48 Baclofen 10 Mg Tab PO 10 mg TID ANNIE Administration Benzonatate 100 mg 11/02/21 18:51 11/03/21 08:34 Benzonatate 100 Mg Cap PO 100 mg TID PRN PRN Administration cough Budesonide/Formoterol Fumarate 2 puff 11/02/21 20:00 11/03/21 07:49 Budesonide/Formoterol 80/4.5 6.9 Gm 60 Puff Inh IH 2 puffs BID ANNIE Administration Bupropion HCl 200 mg 11/02/21 20:00 11/03/21 07:50 Bupropion 100 Mg Tab PO 200 mg BID ANNIE Administration Buspirone HCl 10 mg 11/02/21 20:00 11/03/21 07:50 Buspirone 5 Mg Tab PO 10 mg BID ANNIE Administration Celecoxib 100 mg 11/02/21 20:00 11/03/21 07:50 Celecoxib 100 Mg Cap PO 100 mg BID ANNIE Administration Cetirizine HCl 10 mg 11/03/21 08:30 11/03/21 07:50 Cetirizine 10 Mg Tab PO 10 mg DAILY ANNIE Administration Clonidine 0.2 mg 11/02/21 14:00 11/02/21 21:38 Clonidine 0.1 Mg Tab PO 0.2 mg TID PRN PRN Administration Device 1 each 11/02/21 10:00 Inhaler, Assist Device MC DIRECTED ANNIE Diphenhydramine HCl 25 mg 11/02/21 20:38 11/02/21 21:38 Diphenhydramine 25 Mg Cap PO 25 mg HS PRN PRN Administration Docusate Sodium 100 mg 11/02/21 14:00 11/03/21 07:51 Docusate Sodium 100 Mg Cap PO Not Given TID ANNIE Gabapentin 600 mg 11/02/21 14:00 11/03/21 07:51 Gabapentin 600 Mg Tab PO 600 mg TID ANNIE Administration Sodium Chloride 500 mls @ 0 mls/hr 11/02/21 09:19 Saline 500ml Bag IV PRN PRN As Directed IV Miscellaneous Supplies 1 each 11/02/21 09:30 Iv Access IV DIRECTED ANNIE Magnesium Hydroxide 30 ml 11/02/21 09:19 Milk Of Magnesia 30 Ml Cup PO DIRECTED PRN Ondansetron HCl 4 mg 11/02/21 09:19 Ondansetron 4 Mg/2 Ml Vial IVP Q4H PRN PRN Ondansetron HCl 4 mg 11/02/21 09:25 Ondansetron O.D.T. 4 Mg Tabef PO Q8H PRN PRN Pantoprazole Sodium 40 mg 11/03/21 07:30 11/03/21 07:52 Pantoprazole 40 Mg Tabcr PO 40 mg BID@0730,1999 ANNIE Administration Pt's Own Phentermine 1 each 11/03/21 07:30 11/03/21 08:35 37.5 Mg Tablet PO 1 each DAILY@0730 [facility] Administration Sodium Chloride 0 ml 11/02/21 09:19 11/03/21 08:35 Normal Saline Flush 10 Ml Syr IVP 10 ml PRN PRN Administration Allergies ampicillin Allergy (Intermediate, Unverified 11/02/21 08:26) rash cephalexin [From Keflex] Allergy (Intermediate, Unverified 11/02/21 08:26) Itching enoxaparin [From Lovenox] Allergy (Intermediate, Unverified 11/02/21 08:26) hives heparin Allergy (Intermediate, Unverified 11/02/21 08:26) hives ketorolac [From Toradol] Allergy (Intermediate, Unverified 11/02/21 08:26) hives tramadol Allergy (Intermediate, Unverified 11/02/21 08:26) itching diclofenac Allergy (Unknown, Unverified 11/02/21 08:26) meperidine Allergy (Verified 11/02/21 08:26) hives erythromycin base Adverse Reaction (Intermediate, Unverified 11/02/21 08:26) stomach ache morphine Adverse Reaction (Intermediate, Unverified 11/02/21 08:26) hallucinations codeine Adverse Reaction (Mild, Unverified 11/02/21 08:26) constipation Labs Result Diagrams: 11/03/21 07:10 11/03/21 07:10 Labs: 11/02/21 13:37 Pleural Body Fluid Culture - Pending 11/02/21 13:37 Pleural Gram Stain - Final 11/02/21 13:37 Pleural Anaerobic Culture - Pending Laboratory Tests Range/Units 11/02/21 11/02/21 11/02/21 10:00 13:20 13:20 WBC (4.4-10.8) 10^3/uL RBC (3.93-5.22) 10^6/uL Hgb (11.2-15.7) g/dL Hct (36.0-46.0) % MCV (80-95) fL MCH (27.0-33.0) pg MCHC (32.0-36.0) % RDW (11.7-14.6) % Plt Count (130-400) 10^3/uL MPV (8.0-11.0) fL Immature Gran % Neutrophils % Lymphocytes % Monocytes % Eosinophils % Basophils % Nucleated RBC % % Absolute Neutrophils (1.2-6.7) 10^3/uL Absolute Lymphocytes (1.2-3.4) 10^3/uL Absolute Monocytes (0.1-0.8) 10^3/uL Absolute Eosinophils (0.0-0.7) 10^3/uL Absolute Basophils (0.0-0.2) 10^3/uL Sodium (136-145) mmol/L Potassium (3.5-5.1) mmol/L Chloride (98-107) mmol/L Carbon Dioxide (21.0-32.0) mmol/L Anion Gap (3-11) mmol/L BUN (7-18) mg/dL Creatinine (0.55-1.02) mg/dL Estimated GFR/1.73 m2 (mL/min/1.73m2) Glucose (74-106) mg/dL Calcium (8.5-10.1) mg/dL Total Bilirubin (0.2-1.0) mg/dL AST (15-37) U/L ALT (14-59) U/L Alkaline Phosphatase (46-116) U/L Lactate Dehydrogenase (81-234) U/L Total Protein (6.4-8.2) g/dL Albumin (3.4-5.0) g/dL Fluid Type Fluid Source Fluid Color Fluid Clarity Fluid pH Fluid WBC Fld Polynuclear WBCs % % 46 Fluid Mononuclear Cell % 54 Fluid Other Cells Fluid Glucose (See Note) mg/dL 105 Fluid Total Protein Fluid Albumin Fluid LDH Fluid Lipase CSF Lyme DNA Comment CSF B.burgdorferi (PCR) CSF B.mayonii (PCR) CSF B.eron/afzel PCR Lyme Specimen Source COVID-19 Source Nasal/Nares SARS-CoV-2 (PCR) (Negative) Negative AFB Source AFB Bld Cult Final Res AFB Report Status Path Cons Comment Add-On Test Request Range/Units 11/02/21 11/02/21 11/02/21 13:32 13:33 13:38 WBC (4.4-10.8) 10^3/uL RBC (3.93-5.22) 10^6/uL Hgb (11.2-15.7) g/dL Hct (36.0-46.0) % MCV (80-95) fL MCH (27.0-33.0) pg MCHC (32.0-36.0) % RDW (11.7-14.6) % Plt Count (130-400) 10^3/uL MPV (8.0-11.0) fL Immature Gran % Neutrophils % Lymphocytes % Monocytes % Eosinophils % Basophils % Nucleated RBC % % Absolute Neutrophils (1.2-6.7) 10^3/uL Absolute Lymphocytes (1.2-3.4) 10^3/uL Absolute Monocytes (0.1-0.8) 10^3/uL Absolute Eosinophils (0.0-0.7) 10^3/uL Absolute Basophils (0.0-0.2) 10^3/uL Sodium (136-145) mmol/L Potassium (3.5-5.1) mmol/L Chloride (98-107) mmol/L Carbon Dioxide (21.0-32.0) mmol/L Anion Gap (3-11) mmol/L BUN (7-18) mg/dL Creatinine (0.55-1.02) mg/dL Estimated GFR/1.73 m2 (mL/min/1.73m2) Glucose (74-106) mg/dL Calcium (8.5-10.1) mg/dL Total Bilirubin (0.2-1.0) mg/dL AST (15-37) U/L ALT (14-59) U/L Alkaline Phosphatase (46-116) U/L Lactate Dehydrogenase (81-234) U/L Total Protein (6.4-8.2) g/dL Albumin (3.4-5.0) g/dL Fluid Type Fluid Source Cancelled Fluid Color Fluid Clarity Fluid pH Cancelled Fluid WBC Fld Polynuclear WBCs % % Fluid Mononuclear Cell % Fluid Other Cells Fluid Glucose (See Note) mg/dL Fluid Total Protein Fluid Albumin Fluid LDH Fluid Lipase CSF Lyme DNA Comment Cancelled CSF B.burgdorferi (PCR) Cancelled CSF B.mayonii (PCR) Cancelled CSF B.eron/afzel PCR Cancelled Lyme Specimen Source Cancelled COVID-19 Source SARS-CoV-2 (PCR) (Negative) AFB Source Cancelled AFB Bld Cult Final Res Cancelled AFB Report Status Cancelled Path Cons Comment Add-On Test Request Range/Units 11/02/21 11/02/21 11/02/21 13:39 13:40 13:43 WBC (4.4-10.8) 10^3/uL RBC (3.93-5.22) 10^6/uL Hgb (11.2-15.7) g/dL Hct (36.0-46.0) % MCV (80-95) fL MCH (27.0-33.0) pg MCHC (32.0-36.0) % RDW (11.7-14.6) % Plt Count (130-400) 10^3/uL MPV (8.0-11.0) fL Immature Gran % Neutrophils % Lymphocytes % Monocytes % Eosinophils % Basophils % Nucleated RBC % % Absolute Neutrophils (1.2-6.7) 10^3/uL Absolute Lymphocytes (1.2-3.4) 10^3/uL Absolute Monocytes (0.1-0.8) 10^3/uL Absolute Eosinophils (0.0-0.7) 10^3/uL Absolute Basophils (0.0-0.2) 10^3/uL Sodium (136-145) mmol/L Potassium (3.5-5.1) mmol/L Chloride (98-107) mmol/L Carbon Dioxide (21.0-32.0) mmol/L Anion Gap (3-11) mmol/L BUN (7-18) mg/dL Creatinine (0.55-1.02) mg/dL Estimated GFR/1.73 m2 (mL/min/1.73m2) Glucose (74-106) mg/dL Calcium (8.5-10.1) mg/dL Total Bilirubin (0.2-1.0) mg/dL AST (15-37) U/L ALT (14-59) U/L Alkaline Phosphatase (46-116) U/L Lactate Dehydrogenase (81-234) U/L Total Protein (6.4-8.2) g/dL Albumin (3.4-5.0) g/dL Fluid Type Cancelled Fluid Source Cancelled Fluid Color Fluid Clarity Fluid pH Cancelled Fluid WBC Fld Polynuclear WBCs % % Fluid Mononuclear Cell % Fluid Other Cells Fluid Glucose (See Note) mg/dL Cancelled Fluid Total Protein Fluid Albumin Fluid LDH Cancelled Fluid Lipase CSF Lyme DNA Comment CSF B.burgdorferi (PCR) CSF B.mayonii (PCR) CSF B.eron/afzel PCR Lyme Specimen Source COVID-19 Source SARS-CoV-2 (PCR) (Negative) AFB Source AFB Bld Cult Final Res AFB Report Status Path Cons Comment Add-On Test Request Range/Units 11/02/21 11/02/21 11/02/21 13:44 13:55 13:55 WBC (4.4-10.8) 10^3/uL RBC (3.93-5.22) 10^6/uL Hgb (11.2-15.7) g/dL Hct (36.0-46.0) % MCV (80-95) fL MCH (27.0-33.0) pg MCHC (32.0-36.0) % RDW (11.7-14.6) % Plt Count (130-400) 10^3/uL MPV (8.0-11.0) fL Immature Gran % Neutrophils % Lymphocytes % Monocytes % Eosinophils % Basophils % Nucleated RBC % % Absolute Neutrophils (1.2-6.7) 10^3/uL Absolute Lymphocytes (1.2-3.4) 10^3/uL Absolute Monocytes (0.1-0.8) 10^3/uL Absolute Eosinophils (0.0-0.7) 10^3/uL Absolute Basophils (0.0-0.2) 10^3/uL Sodium (136-145) mmol/L Potassium (3.5-5.1) mmol/L Chloride (98-107) mmol/L Carbon Dioxide (21.0-32.0) mmol/L Anion Gap (3-11) mmol/L BUN (7-18) mg/dL Creatinine (0.55-1.02) mg/dL Estimated GFR/1.73 m2 (mL/min/1.73m2) Glucose (74-106) mg/dL Calcium (8.5-10.1) mg/dL Total Bilirubin (0.2-1.0) mg/dL AST (15-37) U/L ALT (14-59) U/L Alkaline Phosphatase (46-116) U/L Lactate Dehydrogenase (81-234) U/L Total Protein (6.4-8.2) g/dL Albumin (3.4-5.0) g/dL Fluid Type Cancelled Cancelled Fluid Source Cancelled Fluid Color Cancelled Fluid Clarity Cancelled Fluid pH Fluid WBC Cancelled Fld Polynuclear WBCs % % Cancelled Fluid Mononuclear Cell % Cancelled Fluid Other Cells Cancelled Fluid Glucose (See Note) mg/dL Fluid Total Protein Cancelled Fluid Albumin Cancelled Fluid LDH Fluid Lipase Cancelled CSF Lyme DNA Comment CSF B.burgdorferi (PCR) CSF B.mayonii (PCR) CSF B.eron/afzel PCR Lyme Specimen Source COVID-19 Source SARS-CoV-2 (PCR) (Negative) AFB Source AFB Bld Cult Final Res AFB Report Status Path Cons Comment Cancelled Add-On Test Request Range/Units 11/02/21 11/02/21 11/03/21 16:10 16:10 07:10 WBC (4.4-10.8) 10^3/uL 8.37 RBC (3.93-5.22) 10^6/uL 3.48 L Hgb (11.2-15.7) g/dL 9.7 L Hct (36.0-46.0) % 32.6 L MCV (80-95) fL 93.7 MCH (27.0-33.0) pg 27.9 MCHC (32.0-36.0) % 29.8 L RDW (11.7-14.6) % 13.8 Plt Count (130-400) 10^3/uL 267 MPV (8.0-11.0) fL 8.6 Immature Gran % 0.5 Neutrophils % 68.7 Lymphocytes % 17.0 Monocytes % 5.9 Eosinophils % 6.9 Basophils % 1.0 Nucleated RBC % % 0 Absolute Neutrophils (1.2-6.7) 10^3/uL 5.76 Absolute Lymphocytes (1.2-3.4) 10^3/uL 1.42 Absolute Monocytes (0.1-0.8) 10^3/uL 0.49 Absolute Eosinophils (0.0-0.7) 10^3/uL 0.58 Absolute Basophils (0.0-0.2) 10^3/uL 0.08 Sodium (136-145) mmol/L 137 139 Potassium (3.5-5.1) mmol/L 4.0 4.5 Chloride (98-107) mmol/L 102 104 Carbon Dioxide (21.0-32.0) mmol/L 28.7 28.9 Anion Gap (3-11) mmol/L 6.3 6.1 BUN (7-18) mg/dL 15 15 Creatinine (0.55-1.02) mg/dL 0.9 0.8 Estimated GFR/1.73 m2 (mL/min/1.73m2) >= 60.00 >= 60.00 Glucose (74-106) mg/dL 118 H 97 Calcium (8.5-10.1) mg/dL 8.7 8.1 L Total Bilirubin (0.2-1.0) mg/dL 0.2 AST (15-37) U/L 17 ALT (14-59) U/L 24 Alkaline Phosphatase (46-116) U/L 119 H Lactate Dehydrogenase (81-234) U/L 254 H Total Protein (6.4-8.2) g/dL 7.3 Albumin (3.4-5.0) g/dL 3.0 L Fluid Type Fluid Source Fluid Color Fluid Clarity Fluid pH Fluid WBC Fld Polynuclear WBCs % % Fluid Mononuclear Cell % Fluid Other Cells Fluid Glucose (See Note) mg/dL Fluid Total Protein Fluid Albumin Fluid LDH Fluid Lipase CSF Lyme DNA Comment CSF B.burgdorferi (PCR) CSF B.mayonii (PCR) CSF B.eron/afzel PCR Lyme Specimen Source COVID-19 Source SARS-CoV-2 (PCR) (Negative) AFB Source AFB Bld Cult Final Res AFB Report Status Path Cons Comment Add-On Test Request Range/Units 11/03/21 11/03/21 07:10 Unknown WBC (4.4-10.8) 10^3/uL 8.04 RBC (3.93-5.22) 10^6/uL 3.28 L Hgb (11.2-15.7) g/dL 9.0 L Hct (36.0-46.0) % 30.5 L MCV (80-95) fL 93.0 MCH (27.0-33.0) pg 27.4 MCHC (32.0-36.0) % 29.5 L RDW (11.7-14.6) % 13.9 Plt Count (130-400) 10^3/uL 249 MPV (8.0-11.0) fL 8.5 Immature Gran % 0.4 Neutrophils % 65.7 Lymphocytes % 17.9 Monocytes % 7.8 Eosinophils % 7.2 Basophils % 1.0 Nucleated RBC % % 0 Absolute Neutrophils (1.2-6.7) 10^3/uL 5.28 Absolute Lymphocytes (1.2-3.4) 10^3/uL 1.44 Absolute Monocytes (0.1-0.8) 10^3/uL 0.63 Absolute Eosinophils (0.0-0.7) 10^3/uL 0.58 Absolute Basophils (0.0-0.2) 10^3/uL 0.08 Sodium (136-145) mmol/L Potassium (3.5-5.1) mmol/L Chloride (98-107) mmol/L Carbon Dioxide (21.0-32.0) mmol/L Anion Gap (3-11) mmol/L BUN (7-18) mg/dL Creatinine (0.55-1.02) mg/dL Estimated GFR/1.73 m2 (mL/min/1.73m2) Glucose (74-106) mg/dL Calcium (8.5-10.1) mg/dL Total Bilirubin (0.2-1.0) mg/dL AST (15-37) U/L ALT (14-59) U/L Alkaline Phosphatase (46-116) U/L Lactate Dehydrogenase (81-234) U/L Total Protein (6.4-8.2) g/dL Albumin (3.4-5.0) g/dL Fluid Type Fluid Source Fluid Color Fluid Clarity Fluid pH Fluid WBC Fld Polynuclear WBCs % % Fluid Mononuclear Cell % Fluid Other Cells Fluid Glucose (See Note) mg/dL Fluid Total Protein Fluid Albumin Fluid LDH Fluid Lipase CSF Lyme DNA Comment CSF B.burgdorferi (PCR) CSF B.mayonii (PCR) CSF B.eron/afzel PCR Lyme Specimen Source COVID-19 Source SARS-CoV-2 (PCR) (Negative) AFB Source AFB Bld Cult Final Res AFB Report Status Path Cons Comment Add-On Test Request MIGDALIA
[2021-11-03 09:01] LABS: Cyclic Citrullinated Peptide <2.5 U/mL (<5.0)
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
[2021-11-03 11:14] VITALS: BP 132/94; PULSE 110; RESP 20; TEMP 37.3; O2SAT 96
[2021-11-03] MEDS: Ondansetron 4 MG/2 ML VIAL IVP ×2 (14:49→21:31)
--- NOTE | 2021-11-03 15:00 | DI.RAD_ITS ---
Exam(s) XR PORTABLE CHEST AP EXAM: XR PORTABLE CHEST AP CLINICAL HISTORY: s/p thoracenthesis. TECHNIQUE: 2D digital imaging was performed. COMPARISON: CR XR PORTABLE CHEST AP POST LINE from 11/02/2021 FINDINGS: Heart size is upper normal. The mediastinum is not widened. Left lung is clear. Some mild infiltrate in the right lung base is again evident and there is mild b lunting of right costophrenic angle but less than yesterday. No pneumothorax evident. No significan t osseous findings. IMPRESSION: Mild right lung base infiltrate. Small amount of remaining right pleural fluid, less than yesterday. No pneumothorax. DATA REPOSITORY: RADIATION DOSE DELIVERED: All CT scans at this facility use at least one of these dose optimization techniques: automated exposure control; mA and/or kV adjustment per patient size (includes targeted e xams where dose is matched to clinical indication); or iterative reconstruction.
[2021-11-03] MEDS: HYDROmorphone 2 MG/ML VIAL 1 MG IVP (15:05)
[2021-11-03 15:11] LABS: ANA Interpretation Negative (Negative)
--- NOTE | 2021-11-03 15:30 | W.PM.OP ---
Date of service: 11/03/21 Time of Service: 14:30 Operative Note Operative Note DATE OF PROCEDURE: 11/02/21 PRE-OP DIAGNOSIS: Right Pleural effusion, chronic cough POST-OP DIAGNOSIS: same PROCEDURE: Right sided thoracenthesis SURGEON: Angella Martinez ANESTHESIA TYPE: Local By Surgeon (30 cc of 1% Lidocaine) Refer to Anesthesia Record ESTIMATED BLOOD LOSS: 0 PATHOLOGY: none sent COMPLICATIONS: None Patient was transported to: no change Patient's condition: stable Procedure Description: After informed consent was obtained the patient was asked to sit at the edge of the bed with her feet on a step stool. The patient was given a table with a pillow to lean against. The back was exposed. The patients name, , procedure to be done and side, allergies and antibiotic given were reviewed. Fire risk was assessed. Next the back was prepped and draped in a standard fashion with chlorhexidine around the previous thoracenthesis site. The thoracenthesis kit was opened in a sterile fashion. 10 cc of 1% Lidocaine was injected into the dermis, subcutaneous tissue and down between the ribs. 20 cc of 2% Lidocaine was injected in the subcutaneous tissue down to the pleura. A small incision was then made with an 11 blade. The needle and sheath were then slowly introduced until I was able to suction some fluid. At this point the sheath was advanced and the needle was pulled back. The sheeth was then attached to tubing and to a suction bottle. 50 cc of fluid was removed. I felt that I was not getting all the way into the chest cavity. The sheeth was removed. A percutaneous chest tube was opened and introduced into the chest cavity. As soon as I was able to aspirate some fluid the needle was removed. 600 cc of bloody fluid was removed. The chest tube was removed and a band aid was applied. The patient was placed back on the [facility] and taken back to [facility] in stable condition. The patient tolerated the procedure well and there were no immediate complications. A chest XRay was ordered and there was no pneumothorax.
[2021-11-03] MEDS: Ketorolac 30 MG/ML VIAL IVP ×2 (15:42→20:54)
[2021-11-03 15:54] VITALS: BP 118/79; PULSE 95; RESP 18; TEMP 36.9; O2SAT 95
--- NOTE | 2021-11-03 16:31 | DI.RAD_ITS ---
Exam(s) XR PORTABLE CHEST AP EXAM: XR PORTABLE CHEST AP CLINICAL HISTORY: Dyspnea after thorocentesis. TECHNIQUE: 2D digital imaging was performed. COMPARISON: CT CT CHEST WO from 11/02/2021 CR XR PORTABLE CHEST AP from 11/03/2021 FINDINGS: Heart size is upper normal. The mediastinum is not widened. Small right-sided pneumothorax. However, this is probably related to the new absence of the previous ly present right pleural effusion. Mild increased markings in the lower half the right lung field. Opposite-left lung is clear. No pleural effusion on the left side. IMPRESSION: Post evacuation pneumothorax right side DATA REPOSITORY: RADIATION DOSE DELIVERED: All CT scans at this facility use at least one of these dose optimization techniques: automated exposure control; mA and/or kV adjustment per patient size (includes targeted e xams where dose is matched to clinical indication); or iterative reconstruction.
[2021-11-03 20:36] LABS: Rheumatoid Factor <8.6 IU/mL (<12.0)
[2021-11-03] MEDS: diphenhydrAMINE 25 MG CAP PO (21:15)
[2021-11-03] MEDS: Docusate Sodium 100 MG CAP PO (21:16)
[2021-11-03] MEDS: Amitriptyline 50 MG TAB 100 MG PO (21:16)
[2021-11-03] MEDS: cloNIDine 0.1 MG TAB 0.2 MG PO (21:17)
[2021-11-03] MEDS: Budesonide/Formoterol 160/4.5 6 GM 60 PUFF INH IH (21:17)
[2021-11-03 23:23] VITALS: BP 120/78; PULSE 93; RESP 18; TEMP 36.6; O2SAT 95
[2021-11-04] VITALS (74 sets, daily range): BP systolic 106–139; BP diastolic 61–97; PULSE 98–154; RESP 11–32; TEMP 36.3–39.5; O2SAT 80–100; BMI 36.8
--- NOTE | 2021-11-04 | DI.RAD_ITS ---
Exam(s) XR PORTABLE CHEST AP POST LINE EXAM: XR PORTABLE CHEST AP POST LINE CLINICAL HISTORY: s/p chest tube TECHNIQUE: 2D digital imaging was performed of the chest. Images were obtained. PA and lateral v iews were obtained. COMPARISON: CR XR PORTABLE CHEST AP POST LINE from 11/02/2021 CR XR PORTABLE CHEST AP from 11/03/2021 CR XR PORTABLE CHEST AP from 11/04/[address] CHEST/ABD/PEL W from 11/04/2021 FINDINGS: MEDIASTINUM: Normal. HEART: Normal. PULMONARY VASCULATURE: Normal. LUNGS: Multifocal airspace opacities are again seen without significant change. PLEURAL SPACE: There is a small right pneumothorax. There is a new opacity seen in the right mid kiko g which may represent a large right pleural effusion or possible new lung consolidation. No left ple ural effusion or left pneumothorax. BONE:Within normal limits for the patient's age. OTHER FINDINGS:There is been interval placement of a right-sided chest tube. This tip is directed me dially at the right mid hemithorax. The distal side hole of the chest tube appears to reside outside the rib margin. IMPRESSION: 1. New right chest tube. The distal side hole appears to reside outside of the rib margin. Please c orrelate clinically. 2. Right pleural effusion and right pneumothorax. 3. Multifocal opacities in the lungs consistent with pneumonia. No significant change. 4. New large opacity in the right mid lung. This may represent pleural effusion or possible new lung consolidation. DATA REPOSITORY: RADIATION DOSE DELIVERED:
--- NOTE | 2021-11-04 | DI.US_ITS ---
APPROVED REPORT EXAM: Comprehensive 2D, Doppler, and color-flow Echocardiogram Patient Location: In-Patient Investigator Cash Shortage: Hamida Chamberlain RDCS (AE) Indications: Obese HTN, Pleural effusion, Chest pain Other Information Study Quality: Fair. Technically limited study due to body habitus, inability to position patient exa m done supine bedside. Conclusion Normal left ventricular size and systolic function. Estimated ejection fraction is 60%. Wall motion is normal The right ventricle appears mildly dilated. Right ventricular systolic function could not be accurat jame assessed The left atrium is normal in size. The right atrium appears mildly dilated There is no structural or hemodynamically significant valvular disease Sinus tachycardia was present throughout the test, rate approximately 125 Wall motion Left Ventricle The left ventricle is normal size. The left ventricular systolic function is normal. The left ventric ular ejection fraction is within the normal range. There is normal left ventricular wall thickness. T here is normal LV segmental wall motion. There is no ventricular septal defect visualized. LVEF is 58 %. Right Ventricle Right ventricle is borderline dilated. Right ventricular systolic function is grossly normal. Atria The left atrium size is normal. Right atrium is mildly dilated. The interatrial septum is intact with no evidence for an atrial septal defect. Aortic Valve The aortic valve is normal in structure. Aortic valve is trileaflet. There is no aortic valvular sten osis. No aortic regurgitation is present. Mitral Valve The mitral valve is normal in structure. No evidence of mitral valve stenosis. Trace mitral regurgita tion. Tricuspid Valve The tricuspid valve is normal in structure. There is no tricuspid valve stenosis. Trace tricuspid reg urgitation. Pulmonic Valve The pulmonary valve is normal in structure. There is no pulmonic valvular stenosis. Trace pulmonic re gurgitation. Great Vessels The aortic root is normal in size. The ascending aorta is normal in size. Aortic arch is not well vis ualized. The IVC was not visualized. Pericardium Technically limited sub costal imaging. 2D Dimensions IVSD d PLAX 0.92 cm F: 0.6-1.0 LV Vol A2C d MOD 147.9 mL LVPW d PLAX 0.95 cm F: 0.6 - 1.0 LV Vol A4C d MOD 134.0 mL LVID d PLAX 4.96 cm F: 3.8 - 5.2 LA vol/ BSA A4C s A-L 20.2 mL/m2 LVDs 3.40 cm F: 2.2 - 3.5 LA Area A4C s MOD 17.32 cm2 Ao Root d 2.89 cm F: 2.7 - 3.3 LV EF A4C MOD 58.4 % Ao Asc Diam d 3.36 cm F: 2.3 - 3.1 LV EF A2C MOD 57.1 % LV EF Teichholz 58.6 % LV EF Biplane MOD 57.5 % LVEF (Yun's) 57.50 % F: 54 - 74 SV 82.00 mL LV Volume 101.34 mL F: 46 - 106 SV Index 34.55 mL/m2 LV Volume Index 42.75 mL/m2 F: 29 - 61 LV Vol Biplane MOD 142.6 mL FS 31.05 % M-Mode TAPSE 2.11 cm (M/F) >1.7 Aortic Valve LVOT Area 3.28 cm2 AoV Area Vmax 2.60 cm2 LVOT Vmax 1.16 m/s AoV Area/ BSA (Vmax) 1.10 cm2/m2 LVOT Mean Duran. 0.74 m/s CLAUDETTE Mean Duran. 2.32 cm2 LVOT Peak Grad 5.4 mmHg CLAUDETTE Mean Duran. Index 0.98 cm2/m2 LVOT Mean Grad 2.6 mmHg LVOT VTI 0.162 m LVOT Diam s 2.00 cm AoV Vmax 1.46 m/s Velocity Ratio 0.79 AoV Mean Duran. 1.04 m/s AoV Peak Grad 8.5 mmHg LVOT SV 53.16 mL AoV Mean Grad 4.8 mmHg AoV VTI 0.196 m AoV Area VTI 2.71 cm2 AoV Area/ BSA (VTI) 1.14 cm/m2 Mitral Valve MV VTI 0.143 m MV Area VTI 3.71 (4.0-6.0 cm2) Pulmonary Valve PV Vmax 1.17 (0.5-1.5 m/s) RVOT Peak Gr. 3.79 mmHg PV Peak Grad 5.5 mmHg RVOT Mean Gr. 1.95 mmHg PV Mean Grad 3.1 mmHg RVOT VTI 0.129 m PV VTI 0.166 m RVOT Vmax 0.97 m/s Tricuspid Valve TR Peak Grad 22.2 mmHg TR Vmax 2.36 m/s
--- NOTE | 2021-11-04 | DI.CT_ITS ---
Exam(s) CT CHEST/ABD/PEL W EXAM: CT CHEST/ABD/PEL W CLINICAL HISTORY: SOB, recurrent effusion. TECHNIQUE: Imaging Protocol: Axial computed tomography images with coronal and sagittal reformatted images were created and reviewed CONTRAST MATERIAL: Intravenous: Omnipaque 350 Contrast volume:100 ml Oral: None COMPARISON: CT CT CHEST WO from 11/02/2021 CR XR PORTABLE CHEST AP from 11/04/[address] SCAN 11/02/2021 FINDINGS: CHEST: LUNGS: There is a right hydropneumothorax. Size is approximately equal to the size of the right pleu ral effusion which was evident on the CT scan 2 days ago. Multiple air-gas bubbles are noted within the fluid which is either procedure related or possibly related to infectious process.. In addition, there is significant increase in bilateral infiltrates when compared to the CT scan of 2 days ago. Involves all lobes both lungs, commensurate with what is seen on today's chest x-ray. MEDIASTINUM: There is no hilar nor mediastinal adenopathy. No evidence of mediastinal hematoma. CARDIAC: Heart size is normal. There is no pericardial effusion.Caliber of the thoracic aorta is wit hin normal limits. OSSEOUS: No significant osseous lesions.No fractures.. ABDOMEN: (Motion artifact) There is no ascites. No free air. There appears to be evidence of prior bariatric surgery. Yuri li mb is somewhat dilated. [place] excluded stomach is not dilated. Colon is not collapsed and indeed i s filled with abundant fecal material. LIVER: No evidence of hepatic laceration. No subcapsular hematoma. No significant focal hepatic fin dings. GALLBLADDER/BILIARY: The gallbladder is surgically absent. CBD is not dilated. PANCREAS: No evidence of obvious pancreatic mass nor dilatation of the pancreatic duct. SPLEEN: Spleen is not enlarged. There are no intrasplenic lesions. Splenic and portal veins are quinn nt. ADRENALS: There are no significant adrenal masses. KIDNEYS: There are small nonobstructive calculi noted in both kidneys. There is a tiny benign cyst i n the superior pole the left kidney. No solid renal masses. No hydronephrosis.. No abnormal perine phric fluid. ABDOMINAL AORTA: Abdominal aorta is not enlarged. LYMPH NODES: There is no retroperitoneal nor paraaortic adenopathy. ABDOMINAL WALL: No evidence of significant anterior abdominal wall nor inguinal hernia. GI: As above. PELVIS: LYMPH NODES: There is no intrapelvic nor inguinal adenopathy. GI: Appendix is difficult to visualize but no evidence of obvious acute appendicitis.Redundant sigmoi d. This reaches up to the transverse colon. URINARY BLADDER: No calculi nor masses evident REPRODUCTIVE: IUD in the uterine cavity noted. No adnexal masses. OSSEOUS: No significant osseous lesions. There are 2 fusion devices across the left sacroiliac joint. There is a healed fracture of the ipsil ateral left inferior pubic ramus. No acute fractures evident. IMPRESSION: 1. Compared to the CT scan of 11/02/2021 (2 days ago) there is now a right-sided hydropneumothorax wi th approximately equal total size to the pleural effusion which was evident on the prior CT scan list ed above. However, there are now multiple air-gas bubbles/pockets of air within this right pleural c ollection which probably indicates loculation and possible infectious process such as pyothorax. 2. In addition, there are now extensive infiltrates in both lung romero which were not evident 2 days ago. There is no pleural effusion on the opposite-left side. 3. In the abdomen there is evidence of prior bariatric surgery and cholecystectomy. The Yuri limb is somewhat dilated but there does not appear to be a high-grade bowel obstruction. The colon is not c ollapsed. Sigmoid is redundant. 4. Bilateral nonobstructive calculi noted in both kidneys. 5. IUD in the uterine canal (which appears to be in satisfactory position). RADIATION DOSE DELIVERED: 2,135.75mGy.cm Total DLP DATA REPOSITORY: All CT scans at this facility are submitted to the National Radiology Data Registry (NRDR) Dose Index Registry (DIR) with the [employer] ([employer]). RADIATION OPTIMIZATION: All CT scans at this facility use at least one of these dose optimization te chniques: automated exposure control; mA and/or kV adjustment per patient size (includes targeted exa ms where dose is matched to clinical indication); or iterative reconstruction.
[2021-11-04] MEDS: Ondansetron 4 MG/2 ML VIAL IVP (04:55)
[2021-11-04] MEDS: Ketorolac 30 MG/ML VIAL IVP ×2 (05:00→11:31)
[2021-11-04] MEDS: ACETAMINOPHEN 1,000 MG/100 ML BTL 400 MG IVPB ×2 (07:35→19:26)
--- NOTE | 2021-11-04 08:04 | NUR.NOTE ---
Nursing Note: Around 0445 pt called RN into the room. Pt stated that she was freezing. The room was cold. Pt asked for the heat to be turned up to 70 and wanted some warm blankets. Pts had heating pad for pain control. Pt complained of increased nausea and ABD cramping. IV Zofran and IV toradol Given per NOV. Pt was instructed to call if her pain or nausea didn't get better or became worse. Pt fell asleep soon after medication administration.
[2021-11-04 08:14] LABS: Abs Immature Grans 0.05 10^3/uL (0.0-0.06); Absolute Basophil Count 0.08 10^3/uL (0.0-0.2); Absolute Eosinophil Count 0.47 10^3/uL (0.0-0.7); Absolute Lymphocyte Count 0.48 10^3/uL (1.2-3.4); Absolute Monocyte Count 0.41 10^3/uL (0.1-0.8); Basophils % 0.5; HCT 33.7 % (36.0-46.0); HGB 9.9 g/dL (11.2-15.7); Immature Grans % 0.3; Lymphocytes % 3.1; MCH 27.7 pg (27.0-33.0); MCHC 29.4 % (32.0-36.0); MCV 94.4 fL (80-95); MPV 8.5 fL (8.0-11.0); Monocytes % 2.6; Neutrophils % 90.5; Nucleated RBC 0 %; Platelet Count 256 10^3/uL (130-400); RBC 3.57 10^6/uL (3.93-5.22); RDW 14.1 % (11.7-14.6); RDW-SD 48.4 fL; WBC 15.63 10^3/uL (4.4-10.8)
[2021-11-04 08:15] LABS: Absolute Neutrophil Count 14.15 10^3/uL (1.2-6.7)
--- NOTE | 2021-11-04 08:25 | DI.RAD_ITS ---
Exam(s) XR PORTABLE CHEST AP EXAM: XR PORTABLE CHEST AP CLINICAL HISTORY: SOB, decreased 02 sats. TECHNIQUE: 2D digital imaging was performed. COMPARISON: CR XR PORTABLE CHEST AP from 11/03/2021 FINDINGS: Heart size is upper normal. The mediastinum is not widened. There is significant increasing bilateral infiltrates throughout both lung romero. The size of the post thoracentesis right pneumothorax is unchanged from yesterday. IMPRESSION: Significant deterioration. There are now infiltrates throughout both lung romero. Right-sided pneum othorax is unchanged in size from yesterday. DATA REPOSITORY: RADIATION DOSE DELIVERED: All CT scans at this facility use at least one of these dose optimization techniques: automated exposure control; mA and/or kV adjustment per patient size (includes targeted e xams where dose is matched to clinical indication); or iterative reconstruction.
[2021-11-04] MEDS: Budesonide/Formoterol 160/4.5 6 GM 60 PUFF INH IH ×2 (08:33→20:43)
[2021-11-04 08:57] LABS: D-Dimer 4332 ng/mlFEU (<500)
[2021-11-04 09:39] LABS: C-Reactive Protein 7.42 mg/dL (0.0-0.3)
[2021-11-04 09:51] LABS: Lab Add On Test DONE
[2021-11-04 09:55] LABS: Bilirubin Negative (Negative); Blood Negative (Negative); Clarity Clear (Clear); Glucose Negative (Negative); Ketones Negative (Negative); Leukocyte Esterase Negative (Negative); Nitrite Negative (Negative); Specific Gravity >= 1.030 (1.005-1.025); Urobilinogen 0.2 EU/dL (Up TO 0.2); pH 5.5 (5-8)
[2021-11-04 10:20] LABS: NT-proBNP 28 pg/mL (<300)
[2021-11-04 10:23] LABS: Fluid Type, Lipase Pleural; Fluid Type: Pleural; Lipase, BF 20 U/L; Triglycerides, BF 61 mg/dL
[2021-11-04 10:24] LABS: Fluid Type Pleural; Protein,Total, BF 4.3 g/dL
[2021-11-04] MEDS: Baclofen 10 MG TAB PO ×2 (11:21→19:27)
[2021-11-04] MEDS: buPROPion 100 MG TAB 200 MG PO ×2 (11:21→19:27)
[2021-11-04] MEDS: Celecoxib 100 MG CAP PO ×2 (11:22→19:27)
[2021-11-04] MEDS: busPIRone 5 MG TAB 10 MG PO ×2 (11:22→19:28)
[2021-11-04] MEDS: Cetirizine 10 MG TAB PO (11:22)
[2021-11-04] MEDS: Docusate Sodium 100 MG CAP PO ×2 (11:22→19:27)
[2021-11-04] MEDS: Gabapentin 600 MG TAB PO ×2 (11:23→19:27)
[2021-11-04] MEDS: Pantoprazole 40 MG TABCR PO ×2 (11:23→19:27)
[2021-11-04] MEDS: Normal Saline Flush 10 ML SYR IVP ×3 (11:31→19:32)
[2021-11-04 11:50] LABS: dsDNA Ab, IgG <12.3 IU/mL (<30.0)
[2021-11-04 12:27] LABS: Source Nasal/Nares
[2021-11-04 13:10] LABS: COVID-19 PCR Negative (Negative); Influenza A PCR Negative (Negative); Influenza B PCR Negative (Negative); RSV PCR Negative (Negative)
[2021-11-04] MEDS: levoFLOXacin 750 MG/150 ML BAG 100 MG IVPB (14:42)
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
[2021-11-04] MEDS: Normal Saline 500 ML 80 ML IV (16:30)
--- NOTE | 2021-11-04 16:31 | PDOC.CMPRO ---
Care Management Progress Note S/O: Shirley continues to be closely monitored and treated. Right sided thoracenthesis completed today, 600cc fluid extracted. CM continues to follow. A: 41 year old female admitted to [facility] 11/03/21 for pleuritis, cough, PE P: Shirley was admitted for a pleural effusion. She is being followed by Pulmonolgy and anticipating having another thoracentesis with pleural and blood studies today. Studies will take time to result, and outpatient follow up appointment will be scheduled. She will follow up with her community providers and transport via private vehicle with significant other.
[2021-11-04] MEDS: Bupivacaine 0.25% Pres-Free 30 ML VIAL (17:35)
--- NOTE | 2021-11-04 19:04 | DI.VRAD_ITS ---
PROCEDURE INFORMATION: Exam: XR Chest Exam date and time: 11/04/2021 6:40 PM Age: 41 years old Clinical indication: Other: S/P chest tube TECHNIQUE: Imaging protocol: XR of the chest. Views: 1 view. COMPARISON: CT CHEST/ABD/PEL W 11/04/2021 10:34 AM FINDINGS: Tubes, catheters and devices: There is a new right-sided chest tube with its tip projecting at the right mid hemithorax. The distal side hole of the chest tube appears to reside outside the rib margin. Lungs: Again noted is large airspace opacity in the right mid-lower lung, without clear change, likely representing pneumonia. There are other scattered small nodular branching airspace opacities suggesting multifocal bronchopneumonia, without change. There is no pulmonary vascular congestion. Pleural spaces: There is a small pneumothorax lateral to the right mid and lower lung, without clear change in overall size since prior study. There is a small right pleural effusion which is likely decreased in size. Heart/Mediastinum: Heart size is likely near the upper limits of normal. Bones/joints: Unremarkable. IMPRESSION: 1. New right chest tube as described above. The distal side hole of the tube resides outside the rib margin. Consider advancing. 2. Small right pneumothorax, without clear change in size since prior study. 3. Small right pleural effusion, likely decreased in size since prior study. 4. Multifocal airspace opacities, without clear change from prior study, suggesting multifocal bronchopneumonia. Dictated and Authenticated by: Nils Hoffman MD. Ordering:RIOS Mehta MD
[2021-11-04 19:57] LABS: Clarity Cloudy; Nucleated Cells 2027 uL (0); Source Pleural
[2021-11-04 19:58] LABS: Mononuclear Cells 3 %; Polynuclear Cells 97 %
--- NOTE | 2021-11-04 20:25 | ROE_ITS ---
Date of service: 11/04/21 Time of Service: 20:26 Operative Note Operative Note DATE OF PROCEDURE: 11/02/21 PRE-OP DIAGNOSIS: infected fluid collection POST-OP DIAGNOSIS: same PROCEDURE: right chest tube SURGEON: Janine Hinton ANESTHESIA TYPE: Local By Surgeon and General LMA/ETT Refer to Anesthesia Record ESTIMATED BLOOD LOSS: 50 PATHOLOGY: other COMPLICATIONS: None Patient was transported to: ICU Patient's condition: stable Findings: 100cc fluid from chest Procedure Description: PROCEDURE SUMMARY: Informed consent was obtained explaining the risk vs benefits including but not limited to: bleeding, infection, damage to lung, complications of anesthesia. ?A timeout was performed and after the chest x-ray was reviewed, the appropriate side was confirmed and marked.? The patient was prepped and draped in a sterile manner using chlorhexidine scrub after the patient was positioned in the usual fashion. A total of _30 ml of .35% Marcaine was used to anesthetize the skin, subcutaneous tissue, superior aspect of the rib periosteum and parietal pleura. A 2 cm incision was then made parallel to the rib in the midaxillary line at the level of the 5th_ rib. The subcutaneous tissue superficial and superior to the rib was dissected bluntly to the level of the pleura. The pleura was then enter ed bluntly. _Bloody fluid was noted from the pleural space. It was not purulent. The disruption in the parietal pleura was expanded bluntly and a finger was inserted and swept carefully in all directions. A 24_ Filipino chest tube was then inserted using my finger as a guide. The chest tube was directed _superiorly and inserted easily. The chest tube was sutured to the skin at the insertion site, a nd connected securely with tape to a pleurovac. A sterile occlusive dressing was placed over the insertion site. No immediate complications were noted. A post- procedure chest x-ray is pending at the time of this note.??
[2021-11-04] MEDS: HYDROmorphone 2 MG/ML VIAL 0.5 MG IVP (20:30)
--- NOTE | 2021-11-04 22:26 | W.ANESPOSTOP ---
Postoperative Evaluation Date, Time and Location Date Performed: 11/04/21 Time Performed: 22:27 Patient Location: Intensive Care Unit Vital Signs Most Recent Imported Vital Signs: Most Recent Vital Signs Temp Pulse Resp BP Pulse Ox 36.3 C L 103 H 16 116/70 98 11/04/21 18:15 11/04/21 20:00 11/04/21 20:05 11/04/21 20:00 11/04/21 20:05 Pain Score Most Recent Pain Score: Most Recent Pain Score Pain Level 3 11/04/21 18:15 Assessment Mental Status: Awake (Alert & Oriented to Patient Baseline) Airway and Respiratory Function: Patent airway with normal (patient baseline) respiratory exam Cardiovascular Function: Hemodynamically Stable Hydration Status: Adequately Hydrated Nausea & Vomiting: No Nausea or Vomiting Pain: Pt. Denies Any Pain Peripheral Nerve Block: Patient did not receive a nerve block
[2021-11-04] MEDS: Amitriptyline 50 MG TAB 100 MG PO (23:58)
[2021-11-05] VITALS (38 sets, daily range): BP systolic 104–140; BP diastolic 57–86; PULSE 83–128; RESP 6–27; TEMP 36.6–37.2; O2SAT 88–100; BMI 36.8
--- NOTE | 2021-11-05 00:38 | NUR.NOTE ---
No void for patient since prior to OR. Off going RN estimated time to be before 1830 on 11/04/21 when pt arrived to ICU. During my assessment on patient around 2345 I bladder scanned for less than 35ml of urine. Pt declined need to void. Will continue to monitor and will reassess with bladder scan if no void. Nursing Note:
[2021-11-05] MEDS: HYDROmorphone 2 MG/ML VIAL 0.5 MG IVP (06:09)
[2021-11-05 06:36] LABS: Abs Immature Grans 0.08 10^3/uL (0.0-0.06); Absolute Eosinophil Count 0.68 10^3/uL (0.0-0.7); Basophils % 0.4; Eosinophils % 3.1; HCT 29.5 % (36.0-46.0); HGB 8.5 g/dL (11.2-15.7); Immature Grans % 0.4; Lymphocytes % 4.5; MCH 27.5 pg (27.0-33.0); MCHC 28.8 % (32.0-36.0); MCV 95.5 fL (80-95); MPV 8.8 fL (8.0-11.0); Monocytes % 2.8; Neutrophils % 88.8; Nucleated RBC 0 %; Platelet Count 244 10^3/uL (130-400); RBC 3.09 10^6/uL (3.93-5.22); RDW 14.1 % (11.7-14.6); RDW-SD 49.2 fL; WBC 22.09 10^3/uL (4.4-10.8)
[2021-11-05 06:46] LABS: Anion Gap 2.3 mmol/L (3-11); BUN 16 mg/dL (7-18); CO2 30.7 mmol/L (21.0-32.0); CREATININE 0.8 mg/dL (0.55-1.02); Calcium 8.2 mg/dL (8.5-10.1); Chloride 102 mmol/L (98-107); Glucose 120 mg/dL (74-106); Potassium 3.9 mmol/L (3.5-5.1); Sodium 135 mmol/L (136-145)
[2021-11-05 06:48] LABS: Absolute Basophil Count 0.09 10^3/uL (0.0-0.2); Absolute Monocyte Count 0.62 10^3/uL (0.1-0.8); Absolute Neutrophil Count 19.62 10^3/uL (1.2-6.7)
[2021-11-05 06:49] LABS: Absolute Lymphocyte Count 0.99 10^3/uL (1.2-3.4)
--- NOTE | 2021-11-05 08:30 | DI.RAD_ITS ---
Exam(s) XR PORTABLE CHEST AP EXAM: XR PORTABLE CHEST AP CLINICAL HISTORY: chest tube TECHNIQUE: 2D digital imaging was performed of the chest. One image was obtained. An AP view was ob tained. COMPARISON: CR,XR XR PORTABLE CHEST AP POST LINE from 11/04/2021 FINDINGS: MEDIASTINUM: Normal. HEART: Normal. PULMONARY VASCULATURE: Normal. LUNGS: Interval decrease in size in the opacity in the right mid lung. There are persistent bilatera l airspace opacities consistent with pneumonia. PLEURAL SPACE: There is a persistent right pleural effusion. No left pleural effusion is seen. Ther e does appear to be a tiny right pneumothorax. No left pneumothorax. BONE:Within normal limits for the patient's age. OTHER FINDINGS:There is a right chest tube in place. There does appear to be some retraction of the chest tube compared to the prior examination. IMPRESSION: DATA REPOSITORY: RADIATION DOSE DELIVERED:
[2021-11-05] MEDS: Budesonide/Formoterol 160/4.5 6 GM 60 PUFF INH IH ×2 (08:31→20:40)
[2021-11-05] MEDS: Albuterol/Ipratropium 3 ML UPD VIAL UPD ×2 (08:32→12:35)
[2021-11-05] MEDS: ACETAMINOPHEN 1,000 MG/100 ML BTL 400 MG IVPB ×2 (08:33→18:13)
[2021-11-05] MEDS: Normal Saline Flush 10 ML SYR IVP (08:34)
[2021-11-05] MEDS: Celecoxib 100 MG CAP PO ×2 (08:35→20:42)
[2021-11-05] MEDS: buPROPion 100 MG TAB 200 MG PO ×2 (08:35→20:41)
[2021-11-05] MEDS: Cetirizine 10 MG TAB PO (08:35)
[2021-11-05] MEDS: Docusate Sodium 100 MG CAP PO ×3 (08:35→20:43)
[2021-11-05] MEDS: busPIRone 5 MG TAB 10 MG PO ×2 (08:35→20:42)
[2021-11-05] MEDS: Pantoprazole 40 MG TABCR PO ×2 (08:36→20:43)
[2021-11-05] MEDS: CEFEPIME 2 GM in Normal Saline 100 ML IVPB ×2 (08:36→20:42)
[2021-11-05] MEDS: Baclofen 10 MG TAB PO ×3 (08:36→20:39)
[2021-11-05] MEDS: Gabapentin 600 MG TAB PO ×3 (08:36→20:43)
--- NOTE | 2021-11-05 08:44 | PGE_ITS ---
Date of Service Date of service: 11/04/21 Time of Service: 08:44 Assessment and Plan Assessment and plan (1) Pleural effusion: Status: Acute Assessment and plan: Bloody effusion. Repeat CT shows re-accumulation of fluid and now with infiltrates. thoracentesis x 2; now with chest tube. Low output. Small amount of hemoptysis. Bronchoscopy today. Coag studies pending. WBC elevated today to 15. Infectious vs inflammatory. COVID repeat neg. Influenza neg. Cefepime initiated. (2) Diabetes: Status: Chronic Assessment and plan: Random glucose levels have been normal. (3) Pleuritic chest pain: Status: Acute Assessment and plan: Related to pulmonary process; pleural effusion. Prn hydrocodone or dilaudid. Subjective Subjective Patient reports: nausea, vomiting and fever; denies shortness of breath Interval history since last seen: Pt has become tachycardic, febrile. Exam Narrative Exam Narrative: Lying in bed. Conversant. No acute distress Const General: cooperative Nutritional Appearance: obese Orientation: alert and oriented x3 Eyes General: appearance normal, both eyes and all related structures Sclera: sclerae normal Resp Effort & Inspection: normal respiratory effort Auscultation: diminished lung sounds Cardio Rate: tachycardic Rhythm: regular rhythm GI Palpation: soft and nontender Skin General skin exam: no rashes or lesions noted Extrem General: no calf tenderness and edema (nonpitting) Laterality: bilateral Psych Appearance: grossly normal Speech and Movement: speech and movement normal Affect: normal affect Objective Last Vital Signs Temp 36.7 C 11/05/21 04:05 Pulse 102 H 11/05/21 06:00 Resp 9 L 11/05/21 06:00 BP 126/78 11/05/21 06:00 Pulse Ox 99 11/05/21 06:00 Laboratory Results - last 24 hr 11/02/21 11/02/21 11/02/21 13:20 13:20 13:20 WBC RBC Hgb Hct MCV MCH MCHC RDW Plt Count MPV Immature Gran % Neutrophils % Lymphocytes % Monocytes % Eosinophils % Basophils % Nucleated RBC % Absolute Neutrophils Absolute Lymphocytes Absolute Monocytes Absolute Eosinophils Absolute Basophils D-Dimer Sodium Potassium Chloride Carbon Dioxide Anion Gap BUN Creatinine Estimated GFR/1.73 m2 Glucose Calcium C-Reactive Protein NT-Pro-B Natriuret Pep Urine Color Urine Clarity Urine pH Ur Specific [place] Urine Protein Urine Ketones Urine Blood Urine Nitrite Urine Bilirubin Urine Urobilinogen Ur Leukocyte Esterase Urine Glucose Fluid Type Pleural Pleural Pleural Fluid Source Fluid Color Fluid Clarity Fluid WBC Fld Polynuclear WBCs % Fluid Mononuclear Cell Fluid Other Cells Fluid Total Protein 4.3 Fluid Lipase 20 Fluid Triglycerides 61 Double Strand DNA Ab COVID-19 Source SARS-CoV-2 (PCR) Influenza Type A (PCR) Influenza Type B (PCR) RSV (PCR) Path Cons Comment Add-On Test Request 11/02/21 11/04/21 11/04/21 16:10 07:58 07:58 WBC RBC Hgb Hct MCV MCH MCHC RDW Plt Count MPV Immature Gran % Neutrophils % Lymphocytes % Monocytes % Eosinophils % Basophils % Nucleated RBC % Absolute Neutrophils Absolute Lymphocytes Absolute Monocytes Absolute Eosinophils Absolute Basophils D-Dimer 4332 H Sodium Potassium Chloride Carbon Dioxide Anion Gap BUN Creatinine Estimated GFR/1.73 m2 Glucose Calcium C-Reactive Protein 7.42 H NT-Pro-B Natriuret Pep Urine Color Urine Clarity Urine pH Ur Specific [place] Urine Protein Urine Ketones Urine Blood Urine Nitrite Urine Bilirubin Urine Urobilinogen Ur Leukocyte Esterase Urine Glucose Fluid Type Fluid Source Fluid Color Fluid Clarity Fluid WBC Fld Polynuclear WBCs % Fluid Mononuclear Cell Fluid Other Cells Fluid Total Protein Fluid Lipase Fluid Triglycerides Double Strand DNA Ab <12.3 COVID-19 Source SARS-CoV-2 (PCR) Influenza Type A (PCR) Influenza Type B (PCR) RSV (PCR) Path Cons Comment Add-On Test Request 11/04/21 11/04/21 11/04/21 08:05 08:05 08:15 WBC RBC Hgb Hct MCV MCH MCHC RDW Plt Count MPV Immature Gran % Neutrophils % Lymphocytes % Monocytes % Eosinophils % Basophils % Nucleated RBC % Absolute Neutrophils Absolute Lymphocytes Absolute Monocytes Absolute Eosinophils Absolute Basophils D-Dimer Sodium Potassium Chloride Carbon Dioxide Anion Gap BUN Creatinine Estimated GFR/1.73 m2 Glucose Calcium C-Reactive Protein NT-Pro-B Natriuret Pep 28 Urine Color Yellow Urine Clarity Clear Urine pH 5.5 Ur Specific [place] >= 1.030 H Urine Protein Negative Urine Ketones Negative Urine Blood Negative Urine Nitrite Negative Urine Bilirubin Negative Urine Urobilinogen 0.2 Ur Leukocyte Esterase Negative Urine Glucose Negative Fluid Type Fluid Source Fluid Color Fluid Clarity Fluid WBC Fld Polynuclear WBCs % Fluid Mononuclear Cell Fluid Other Cells Fluid Total Protein Fluid Lipase Fluid Triglycerides Double Strand DNA Ab COVID-19 Source SARS-CoV-2 (PCR) Influenza Type A (PCR) Influenza Type B (PCR) RSV (PCR) Path Cons Comment Add-On Test Request DONE 11/04/21 11/04/21 11/04/21 12:10 17:29 20:07 WBC RBC Hgb Hct MCV MCH MCHC RDW Plt Count MPV Immature Gran % Neutrophils % Lymphocytes % Monocytes % Eosinophils % Basophils % Nucleated RBC % Absolute Neutrophils Absolute Lymphocytes Absolute Monocytes Absolute Eosinophils Absolute Basophils D-Dimer Sodium Potassium Chloride Carbon Dioxide Anion Gap BUN Creatinine Estimated GFR/1.73 m2 Glucose Calcium C-Reactive Protein NT-Pro-B Natriuret Pep Urine Color Urine Clarity Urine pH Ur Specific [place] Urine Protein Urine Ketones Urine Blood Urine Nitrite Urine Bilirubin Urine Urobilinogen Ur Leukocyte Esterase Urine Glucose Fluid Type Fluid Source Pleural Cancelled Fluid Color Red Cancelled Fluid Clarity Cloudy Cancelled Fluid WBC 2027 Cancelled Fld Polynuclear WBCs % 97 Cancelled Fluid Mononuclear Cell 3 Cancelled Fluid Other Cells Cancelled Fluid Total Protein Fluid Lipase Fluid Triglycerides Double Strand DNA Ab COVID-19 Source Nasal/Nares SARS-CoV-2 (PCR) Negative Influenza Type A (PCR) Negative Influenza Type B (PCR) Negative RSV (PCR) Negative Path Cons Comment Cancelled Add-On Test Request 11/05/21 11/05/21 06:10 06:10 WBC 22.09 H D RBC 3.09 L Hgb 8.5 L Hct 29.5 L MCV 95.5 H MCH 27.5 MCHC 28.8 L RDW 14.1 Plt Count 244 MPV 8.8 Immature Gran % 0.4 Neutrophils % 88.8 Lymphocytes % 4.5 Monocytes % 2.8 Eosinophils % 3.1 Basophils % 0.4 Nucleated RBC % 0 Absolute Neutrophils 19.62 H Absolute Lymphocytes 0.99 L Absolute Monocytes 0.62 Absolute Eosinophils 0.68 Absolute Basophils 0.09 D-Dimer Sodium 135 L Potassium 3.9 Chloride 102 Carbon Dioxide 30.7 Anion Gap 2.3 L BUN 16 Creatinine 0.8 Estimated GFR/1.73 m2 >= 60.00 Glucose 120 H Calcium 8.2 L C-Reactive Protein NT-Pro-B Natriuret Pep Urine Color Urine Clarity Urine pH Ur Specific [place] Urine Protein Urine Ketones Urine Blood Urine Nitrite Urine Bilirubin Urine Urobilinogen Ur Leukocyte Esterase Urine Glucose Fluid Type Fluid Source Fluid Color Fluid Clarity Fluid WBC Fld Polynuclear WBCs % Fluid Mononuclear Cell Fluid Other Cells Fluid Total Protein Fluid Lipase Fluid Triglycerides Double Strand DNA Ab COVID-19 Source SARS-CoV-2 (PCR) Influenza Type A (PCR) Influenza Type B (PCR) RSV (PCR) Path Cons Comment Add-On Test Request
[2021-11-05 09:02] LABS: INR 1.1 (0.9-1.1); PTT Activated 27.6 sec (21.0-27.5); Prothrombin Time 11.1 sec (9.3-11.0)
[2021-11-05] MEDS: HYDROmorphone 2 MG/ML VIAL 1 MG IVP ×2 (09:05→10:55)
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
--- NOTE | 2021-11-05 09:48 | W.PULMPROG ---
Assessment and Plan Assessment and plan (1) Pleural effusion: Status: Acute (2) Pulmonary infiltrate: Status: Acute (3) Leukocytosis: Status: Acute (4) Respiratory failure with hypoxia: Status: Acute Assessment and plan: This is a 41 yo female who is admitted for a pleural effusion in whom I was asked to see for this reason. She is status post thoracentesis that found bloody fluid. On repeat chest CT there is concern for blood in the fluid with a significant amount of fluid still on the right. I see pleural thickening which is concerning for lung entrapment.She had a repeat thoracentesis which did evacuate more blood and found residual air, again lending to a likely lung entrapment - it is possible the lung will never re-expand. I do not think we need to continue the chest tube for this reason. I am very concerned about the new infiltrates in addition with the reported hemoptysis. We still do not have a good cause for the blood in the pleural space and I worry that given the fast appearance of these pulmonary infiltrates, it could be alveolar hemorrhage. Alternative diagnoses for this would include inflammatory or infectious, although the lack of these abnormalities seen on the scan 2 days prior makes these less likely - but still possible. We will broaden antibiotics to cover for infection and will do some more non-invasive work up for this. I do recommend bronchoscopy to rule out alveolar hemorrhage and to send the fluid for further analysis to work up the infiltrates. She is splinting which could be worsening her pulmonary shunt resulting in hypoxia, although I was able to down titrate her O2 this morning Right hemothorax, likely lung entrapment - minimal output, lung not inflated - can likely remove the chest tube as lung will probably not inflate - pleural fluid studies non-revealing aside from it being blood Pulmonary infiltrates and hemoptysis - will plan for bronchoscopy with sequential BAL's today at 11am - will also send fluid for cell diff, bacterial and fungal culture, cytology - consent signed and in chart - urine antigens for histo, blasto, s. pneumo and legionella ordered - recommend cefepime for now in place of Levaquin - would get MRSA nares and consider treatment with vanco or linezolid if positive - blood and pleural fluid culture negative to date Hypoxic respiratory failure - supplemental O2 as needed - treatment of pain to allow for good tidal breathing - incentive spirometry - hold off on Acapella until alveolar hemorrhage has been ruled out General Date Of Service Date of service: 11/05/21 Time of Service: 07:30 Reason for Consult: Pleural effusion Abnormal chest CT Subjective Note Note: She had a chest tube placed yesterday in the setting of air and remaining blood in the pleural space. On the CXR it does appear as though the proximal port is outside of the chest. She also had a repeat CT which shows hydropneumothorax, now with multilobar infiltrates that were not present on the scan from 2 days prior. She was also moved to the ICU given increasing O2 requirements. She is having pain from the chest tube. She is taking more shallow breaths due to the pain. She does endorse some small amount of hemoptysis yesterday. It was blood streaked sputum with no clots. Exam Const General: no acute distress Nutritional Appearance: well nourished HENMT Head: normocephalic Ears: external ears normal and no periauricular adenopathy General nose exam: nasal mucous membranes and turbinates normal Face and sinus: sinuses nontender Mouth: oropharynx normal and moist mucous membranes Teeth and gingiva: dentition normal Eyes General: appearance normal, both eyes and all related structures Pupils: PERRL Neck Neck: normal visual inspection and no lymphadenopathy Chest Chest: normal inspection of the chest Resp Effort & Inspection: normal respiratory effort Auscultation: clear to auscultation bilaterally, diminished lung sounds, no rales, no rhonchi and no wheezes Objective Last Vital Signs Temp 36.8 C 11/05/21 08:48 Pulse 102 H 11/05/21 06:00 Resp 9 L 11/05/21 06:00 BP 126/78 11/05/21 06:00 Pulse Ox 99 11/05/21 06:00 Laboratory Results - last 24 hr 11/02/21 11/02/21 11/02/21 13:20 13:20 13:20 WBC RBC Hgb Hct MCV MCH MCHC RDW Plt Count MPV Immature Gran % Neutrophils % Lymphocytes % Monocytes % Eosinophils % Basophils % Nucleated RBC % Absolute Neutrophils Absolute Lymphocytes Absolute Monocytes Absolute Eosinophils Absolute Basophils PT INR APTT Sodium Potassium Chloride Carbon Dioxide Anion Gap BUN Creatinine Estimated GFR/1.73 m2 Glucose Calcium NT-Pro-B Natriuret Pep Urine Color Urine Clarity Urine pH Ur Specific [place] Urine Protein Urine Ketones Urine Blood Urine Nitrite Urine Bilirubin Urine Urobilinogen Ur Leukocyte Esterase Urine Glucose Fluid Type Pleural Pleural Pleural Fluid Source Fluid Color Fluid Clarity Fluid WBC Fld Polynuclear WBCs % Fluid Mononuclear Cell Fluid Other Cells Fluid Total Protein 4.3 Fluid Lipase 20 Fluid Triglycerides 61 Double Strand DNA Ab COVID-19 Source SARS-CoV-2 (PCR) Influenza Type A (PCR) Influenza Type B (PCR) RSV (PCR) Path Cons Comment Add-On Test Request 11/02/21 11/04/21 11/04/21 16:10 08:05 08:05 WBC RBC Hgb Hct MCV MCH MCHC RDW Plt Count MPV Immature Gran % Neutrophils % Lymphocytes % Monocytes % Eosinophils % Basophils % Nucleated RBC % Absolute Neutrophils Absolute Lymphocytes Absolute Monocytes Absolute Eosinophils Absolute Basophils PT INR APTT Sodium Potassium Chloride Carbon Dioxide Anion Gap BUN Creatinine Estimated GFR/1.73 m2 Glucose Calcium NT-Pro-B Natriuret Pep 28 Urine Color Urine Clarity Urine pH Ur Specific [place] Urine Protein Urine Ketones Urine Blood Urine Nitrite Urine Bilirubin Urine Urobilinogen Ur Leukocyte Esterase Urine Glucose Fluid Type Fluid Source Fluid Color Fluid Clarity Fluid WBC Fld Polynuclear WBCs % Fluid Mononuclear Cell Fluid Other Cells Fluid Total Protein Fluid Lipase Fluid Triglycerides Double Strand DNA Ab <12.3 COVID-19 Source SARS-CoV-2 (PCR) Influenza Type A (PCR) Influenza Type B (PCR) RSV (PCR) Path Cons Comment Add-On Test Request DONE 11/04/21 11/04/21 11/04/21 08:15 12:10 17:29 WBC RBC Hgb Hct MCV MCH MCHC RDW Plt Count MPV Immature Gran % Neutrophils % Lymphocytes % Monocytes % Eosinophils % Basophils % Nucleated RBC % Absolute Neutrophils Absolute Lymphocytes Absolute Monocytes Absolute Eosinophils Absolute Basophils PT INR APTT Sodium Potassium Chloride Carbon Dioxide Anion Gap BUN Creatinine Estimated GFR/1.73 m2 Glucose Calcium NT-Pro-B Natriuret Pep Urine Color Yellow Urine Clarity Clear Urine pH 5.5 Ur Specific [place] >= 1.030 H Urine Protein Negative Urine Ketones Negative Urine Blood Negative Urine Nitrite Negative Urine Bilirubin Negative Urine Urobilinogen 0.2 Ur Leukocyte Esterase Negative Urine Glucose Negative Fluid Type Fluid Source Pleural Fluid Color Red Fluid Clarity Cloudy Fluid WBC 2027 Fld Polynuclear WBCs % 97 Fluid Mononuclear Cell 3 Fluid Other Cells Fluid Total Protein Fluid Lipase Fluid Triglycerides Double Strand DNA Ab COVID-19 Source Nasal/Nares SARS-CoV-2 (PCR) Negative Influenza Type A (PCR) Negative Influenza Type B (PCR) Negative RSV (PCR) Negative Path Cons Comment Add-On Test Request 11/04/21 11/05/21 11/05/21 20:07 06:10 06:10 WBC 22.09 H D RBC 3.09 L Hgb 8.5 L Hct 29.5 L MCV 95.5 H MCH 27.5 MCHC 28.8 L RDW 14.1 Plt Count 244 MPV 8.8 Immature Gran % 0.4 Neutrophils % 88.8 Lymphocytes % 4.5 Monocytes % 2.8 Eosinophils % 3.1 Basophils % 0.4 Nucleated RBC % 0 Absolute Neutrophils 19.62 H Absolute Lymphocytes 0.99 L Absolute Monocytes 0.62 Absolute Eosinophils 0.68 Absolute Basophils 0.09 PT INR APTT Sodium 135 L Potassium 3.9 Chloride 102 Carbon Dioxide 30.7 Anion Gap 2.3 L BUN 16 Creatinine 0.8 Estimated GFR/1.73 m2 >= 60.00 Glucose 120 H Calcium 8.2 L NT-Pro-B Natriuret Pep Urine Color Urine Clarity Urine pH Ur Specific [place] Urine Protein Urine Ketones Urine Blood Urine Nitrite Urine Bilirubin Urine Urobilinogen Ur Leukocyte Esterase Urine Glucose Fluid Type Fluid Source Cancelled Fluid Color Cancelled Fluid Clarity Cancelled Fluid WBC Cancelled Fld Polynuclear WBCs % Cancelled Fluid Mononuclear Cell Cancelled Fluid Other Cells Cancelled Fluid Total Protein Fluid Lipase Fluid Triglycerides Double Strand DNA Ab COVID-19 Source SARS-CoV-2 (PCR) Influenza Type A (PCR) Influenza Type B (PCR) RSV (PCR) Path Cons Comment Cancelled Add-On Test Request 11/05/21 08:05 WBC RBC Hgb Hct MCV MCH MCHC RDW Plt Count MPV Immature Gran % Neutrophils % Lymphocytes % Monocytes % Eosinophils % Basophils % Nucleated RBC % Absolute Neutrophils Absolute Lymphocytes Absolute Monocytes Absolute Eosinophils Absolute Basophils PT 11.1 H INR 1.1 APTT 27.6 H Sodium Potassium Chloride Carbon Dioxide Anion Gap BUN Creatinine Estimated GFR/1.73 m2 Glucose Calcium NT-Pro-B Natriuret Pep Urine Color Urine Clarity Urine pH Ur Specific [place] Urine Protein Urine Ketones Urine Blood Urine Nitrite Urine Bilirubin Urine Urobilinogen Ur Leukocyte Esterase Urine Glucose Fluid Type Fluid Source Fluid Color Fluid Clarity Fluid WBC Fld Polynuclear WBCs % Fluid Mononuclear Cell Fluid Other Cells Fluid Total Protein Fluid Lipase Fluid Triglycerides Double Strand DNA Ab COVID-19 Source SARS-CoV-2 (PCR) Influenza Type A (PCR) Influenza Type B (PCR) RSV (PCR) Path Cons Comment Add-On Test Request Results Medications Medications: Active Medications Generic Name Dose Route Start Last Admin Trade Name Freq PRN Reason Stop Dose Admin Hydrocodone Bitart/Acetaminophen 1 tab 11/02/21 09:25 11/05/21 04:03 Hydrocodone 7.5/Acetaminophen 325 Tab PO 2 tab Q8H PRN PRN Administration Al Hydrox/Mg Hydrox/Simethicone 30 ml 11/02/21 09:19 Mylanta Suspension 30 Ml Cup PO Q4H PRN PRN Albuterol Sulfate 2 puff 11/02/21 13:28 Albuterol Hfa 8 Gm 60 Puff Inh IH Q4H PRN PRN Albuterol/Ipratropium 3 ml 11/02/21 13:27 11/05/21 08:32 Albuterol/Ipratropium 3 Ml Upd Vial UPD 3 ml Q4H PRN PRN Administration Amitriptyline HCl 100 mg 11/02/21 22:00 11/04/21 23:58 Amitriptyline 50 Mg Tab PO 100 mg HS ANNIE Administration Baclofen 10 mg 11/02/21 14:00 11/05/21 08:36 Baclofen 10 Mg Tab PO 10 mg TID ANNIE Administration Benzonatate 100 mg 11/02/21 18:51 11/03/21 21:17 Benzonatate 100 Mg Cap PO 100 mg TID PRN PRN Administration cough Budesonide/Formoterol Fumarate 2 puff 11/03/21 20:00 11/05/21 08:31 Budesonide/Formoterol 160/4.5 6 Gm 60 Puff Inh IH 2 puff BID ANNIE Administration Bupropion HCl 200 mg 11/02/21 20:00 11/05/21 08:35 Bupropion 100 Mg Tab PO 200 mg BID ANNIE Administration Buspirone HCl 10 mg 11/02/21 20:00 11/05/21 08:35 Buspirone 5 Mg Tab PO 10 mg BID ANNIE Administration Celecoxib 100 mg 11/02/21 20:00 11/05/21 08:35 Celecoxib 100 Mg Cap PO 100 mg BID ANNIE Administration Cetirizine HCl 10 mg 11/03/21 08:30 11/05/21 08:35 Cetirizine 10 Mg Tab PO 10 mg DAILY ANNIE Administration Clonidine 0.2 mg 11/02/21 14:00 11/03/21 21:17 Clonidine 0.1 Mg Tab PO 0.2 mg TID PRN PRN Administration Device 1 each 11/02/21 10:00 Inhaler, Assist Device MC DIRECTED ANNIE Diphenhydramine HCl 25 mg 11/02/21 20:38 11/03/21 21:15 Diphenhydramine 25 Mg Cap PO 25 mg HS PRN PRN Administration Diphenhydramine HCl 25 mg 11/05/21 08:02 Diphenhydramine 25 Mg Cap PO Q4H PRN PRN Docusate Sodium 100 mg 11/02/21 14:00 11/05/21 08:35 Docusate Sodium 100 Mg Cap PO 100 mg TID ANNIE Administration Gabapentin 600 mg 11/02/21 14:00 11/05/21 08:36 Gabapentin 600 Mg Tab PO 600 mg TID ANNIE Administration Hydromorphone HCl 0.5 mg 11/04/21 18:41 11/05/21 06:09 Hydromorphone 2 Mg/Ml Vial IVP 0.5 mg Q4H PRN PRN Administration Hydromorphone HCl 1 mg 11/05/21 09:30 Hydromorphone 2 Mg/Ml Vial IVP Q2H PRN PRN Sodium Chloride 500 mls @ 0 mls/hr 11/02/21 09:19 11/04/21 20:37 Saline 500ml Bag IV Infused PRN PRN Infusion As Directed Ringer's Solution 1,000 mls @ 50 mls/hr 11/04/21 14:30 IV INFUSION ANNIE Acetaminophen 1,000 mg in 100 mls @ 400 mls/hr 11/04/21 19:00 11/05/21 08:33 Ofirmev IVPB 400 mls/hr Q12H ANNIE Administration Cefepime HCl 2 gm/ Sodium 100 mls @ 200 mls/hr 11/05/21 08:00 11/05/21 08:36 Chloride IVPB 200 mls/hr Q12H ANNIE Administration IV Miscellaneous Supplies 1 each 11/02/21 09:30 Iv Access IV DIRECTED ANNIE Lidocaine HCl 50 ml 11/03/21 11:45 Lidocaine 2% Multi-Dose 50 Ml Vial IJ DIRECTED ANNIE Magnesium Hydroxide 30 ml 11/02/21 09:19 Milk Of Magnesia 30 Ml Cup PO DIRECTED PRN Ondansetron HCl 4 mg 11/02/21 09:19 11/04/21 04:55 Ondansetron 4 Mg/2 Ml Vial IVP 4 mg Q4H PRN PRN Administration Ondansetron HCl 4 mg 11/02/21 09:25 Ondansetron O.D.T. 4 Mg Tabef PO Q8H PRN PRN Pantoprazole Sodium 40 mg 11/03/21 07:30 11/05/21 08:36 Pantoprazole 40 Mg Tabcr PO 40 mg BID@729,1999 [facility] Administration Pt's Own Phentermine 1 each 11/03/21 07:30 11/04/21 14:56 37.5 Mg Tablet PO Not Given DAILY@729 [facility] Sodium Chloride 0 ml 11/02/21 09:19 11/05/21 08:34 Normal Saline Flush 10 Ml Syr IVP 10 ml PRN PRN Administration Allergies ampicillin Allergy (Intermediate, Unverified 11/02/21 08:26) rash cephalexin [From Keflex] Allergy (Intermediate, Unverified 11/02/21 08:26) Itching enoxaparin [From Lovenox] Allergy (Intermediate, Unverified 11/02/21 08:26) hives heparin Allergy (Intermediate, Unverified 11/02/21 08:26) hives ketorolac [From Toradol] Allergy (Intermediate, Unverified 11/02/21 08:26) hives tramadol Allergy (Intermediate, Unverified 11/02/21 08:26) itching diclofenac Allergy (Unknown, Unverified 11/02/21 08:26) meperidine Allergy (Verified 11/02/21 08:26) hives erythromycin base Adverse Reaction (Intermediate, Unverified 11/02/21 08:26) stomach ache morphine Adverse Reaction (Intermediate, Unverified 11/02/21 08:26) hallucinations codeine Adverse Reaction (Mild, Unverified 11/02/21 08:26) constipation Labs Result Diagrams: 11/05/21 06:10 11/05/21 06:10 Labs: 11/04/21 17:29 Pleural Body Fluid Culture - Pending 11/04/21 17:29 Pleural Gram Stain - Final 11/04/21 17:29 Pleural Anaerobic Culture - Pending 11/02/21 13:37 Pleural Anaerobic Culture - Preliminary 11/02/21 13:37 Pleural Body Fluid Culture - Preliminary 11/02/21 13:37 Pleural Gram Stain - Final 11/04/21 08:05 Blood Blood Culture - Pending 11/04/21 07:58 Blood Blood Culture - Pending Laboratory Tests Range/Units 11/02/21 11/02/21 11/02/21 10:00 13:20 13:20 WBC (4.4-10.8) 10^3/uL RBC (3.93-5.22) 10^6/uL Hgb (11.2-15.7) g/dL Hct (36.0-46.0) % MCV (80-95) fL MCH (27.0-33.0) pg MCHC (32.0-36.0) % RDW (11.7-14.6) % Plt Count (130-400) 10^3/uL MPV (8.0-11.0) fL Immature Gran % Neutrophils % Lymphocytes % Monocytes % Eosinophils % Basophils % Nucleated RBC % % Absolute Neutrophils (1.2-6.7) 10^3/uL Absolute Lymphocytes (1.2-3.4) 10^3/uL Absolute Monocytes (0.1-0.8) 10^3/uL Absolute Eosinophils (0.0-0.7) 10^3/uL Absolute Basophils (0.0-0.2) 10^3/uL PT (9.3-11.0) sec INR (0.9-1.1) APTT (21.0-27.5) sec D-Dimer (<500) ng/mlFEU Sodium (136-145) mmol/L Potassium (3.5-5.1) mmol/L Chloride (98-107) mmol/L Carbon Dioxide (21.0-32.0) mmol/L Anion Gap (3-11) mmol/L BUN (7-18) mg/dL Creatinine (0.55-1.02) mg/dL Estimated GFR/1.73 m2 (mL/min/1.73m2) Glucose (74-106) mg/dL Calcium (8.5-10.1) mg/dL Total Bilirubin (0.2-1.0) mg/dL AST (15-37) U/L ALT (14-59) U/L Alkaline Phosphatase (46-116) U/L Lactate Dehydrogenase (81-234) U/L C-Reactive Protein (0.0-0.3) mg/dL NT-Pro-B Natriuret Pep (<300) pg/mL Total Protein (6.4-8.2) g/dL Albumin (3.4-5.0) g/dL Urine Color (Yellow) Urine Clarity (Clear) Urine pH (5-8) Ur Specific [place] (1.005-1.025) Urine Protein (Negative) mg/dL Urine Ketones (Negative) mg/dL Urine Blood (Negative) Urine Nitrite (Negative) Urine Bilirubin (Negative) Urine Urobilinogen (Up TO 0.2) EU/dL Ur Leukocyte Esterase (Negative) Urine Glucose (Negative) mg/dL Fluid Type Pleural Fluid Source Fluid Color Fluid Clarity Fluid pH Fluid WBC Fld Polynuclear WBCs % % Fluid Mononuclear Cell % Fluid Other Cells Fluid Glucose (See Note) mg/dL 105 Fluid Total Protein g/dL Fluid Albumin Fluid LDH Fluid Lipase U/L Fluid Triglycerides mg/dL 61 CSF Lyme DNA Comment CSF B.burgdorferi (PCR) CSF B.mayonii (PCR) CSF B.eron/afzel PCR Rheumatoid Factor (<12.0) IU/mL Cyclic Citrull Peptide (<5.0) U/mL <2.5 MARITZA Titer Not Applicable MARITZA Titer 2 Not Applicable MARITZA Titer 3 Not Applicable MARITZA Interpretation (Negative) Negative Double Strand DNA Ab (<30.0) IU/mL Lyme Specimen Source COVID-19 Source Nasal/Nares SARS-CoV-2 (PCR) (Negative) Negative Influenza Type A (PCR) (Negative) Influenza Type B (PCR) (Negative) RSV (PCR) (Negative) AFB Source AFB Bld Cult Final Res AFB Report Status Path Cons Comment Add-On Test Request Range/Units 11/02/21 11/02/21 11/02/21 13:20 13:20 13:20 WBC (4.4-10.8) 10^3/uL RBC (3.93-5.22) 10^6/uL Hgb (11.2-15.7) g/dL Hct (36.0-46.0) % MCV (80-95) fL MCH (27.0-33.0) pg MCHC (32.0-36.0) % RDW (11.7-14.6) % Plt Count (130-400) 10^3/uL MPV (8.0-11.0) fL Immature Gran % Neutrophils % Lymphocytes % Monocytes % Eosinophils % Basophils % Nucleated RBC % % Absolute Neutrophils (1.2-6.7) 10^3/uL Absolute Lymphocytes (1.2-3.4) 10^3/uL Absolute Monocytes (0.1-0.8) 10^3/uL Absolute Eosinophils (0.0-0.7) 10^3/uL Absolute Basophils (0.0-0.2) 10^3/uL PT (9.3-11.0) sec INR (0.9-1.1) APTT (21.0-27.5) sec D-Dimer (<500) ng/mlFEU Sodium (136-145) mmol/L Potassium (3.5-5.1) mmol/L Chloride (98-107) mmol/L Carbon Dioxide (21.0-32.0) mmol/L Anion Gap (3-11) mmol/L BUN (7-18) mg/dL Creatinine (0.55-1.02) mg/dL Estimated GFR/1.73 m2 (mL/min/1.73m2) Glucose (74-106) mg/dL Calcium (8.5-10.1) mg/dL Total Bilirubin (0.2-1.0) mg/dL AST (15-37) U/L ALT (14-59) U/L Alkaline Phosphatase (46-116) U/L Lactate Dehydrogenase (81-234) U/L C-Reactive Protein (0.0-0.3) mg/dL NT-Pro-B Natriuret Pep (<300) pg/mL Total Protein (6.4-8.2) g/dL Albumin (3.4-5.0) g/dL Urine Color (Yellow) Urine Clarity (Clear) Urine pH (5-8) Ur Specific [place] (1.005-1.025) Urine Protein (Negative) mg/dL Urine Ketones (Negative) mg/dL Urine Blood (Negative) Urine Nitrite (Negative) Urine Bilirubin (Negative) Urine Urobilinogen (Up TO 0.2) EU/dL Ur Leukocyte Esterase (Negative) Urine Glucose (Negative) mg/dL Fluid Type Pleural Cancelled Fluid Source Fluid Color Fluid Clarity Fluid pH Fluid WBC Fld Polynuclear WBCs % % 46 Fluid Mononuclear Cell % 54 Fluid Other Cells Fluid Glucose (See Note) mg/dL Fluid Total Protein g/dL Fluid Albumin Fluid LDH Cancelled Fluid Lipase U/L 20 Fluid Triglycerides mg/dL CSF Lyme DNA Comment CSF B.burgdorferi (PCR) CSF B.mayonii (PCR) CSF B.eron/afzel PCR Rheumatoid Factor (<12.0) IU/mL Cyclic Citrull Peptide (<5.0) U/mL MARITZA Titer MARITZA Titer 2 MARITZA Titer 3 MARITZA Interpretation (Negative) Double Strand DNA Ab (<30.0) IU/mL Lyme Specimen Source COVID-19 Source SARS-CoV-2 (PCR) (Negative) Influenza Type A (PCR) (Negative) Influenza Type B (PCR) (Negative) RSV (PCR) (Negative) AFB Source AFB Bld Cult Final Res AFB Report Status Path Cons Comment SEE COMMENT Add-On Test Request Range/Units 11/02/21 11/02/21 11/02/21 13:20 13:32 13:33 WBC (4.4-10.8) 10^3/uL RBC (3.93-5.22) 10^6/uL Hgb (11.2-15.7) g/dL Hct (36.0-46.0) % MCV (80-95) fL MCH (27.0-33.0) pg MCHC (32.0-36.0) % RDW (11.7-14.6) % Plt Count (130-400) 10^3/uL MPV (8.0-11.0) fL Immature Gran % Neutrophils % Lymphocytes % Monocytes % Eosinophils % Basophils % Nucleated RBC % % Absolute Neutrophils (1.2-6.7) 10^3/uL Absolute Lymphocytes (1.2-3.4) 10^3/uL Absolute Monocytes (0.1-0.8) 10^3/uL Absolute Eosinophils (0.0-0.7) 10^3/uL Absolute Basophils (0.0-0.2) 10^3/uL PT (9.3-11.0) sec INR (0.9-1.1) APTT (21.0-27.5) sec D-Dimer (<500) ng/mlFEU Sodium (136-145) mmol/L Potassium (3.5-5.1) mmol/L Chloride (98-107) mmol/L Carbon Dioxide (21.0-32.0) mmol/L Anion Gap (3-11) mmol/L BUN (7-18) mg/dL Creatinine (0.55-1.02) mg/dL Estimated GFR/1.73 m2 (mL/min/1.73m2) Glucose (74-106) mg/dL Calcium (8.5-10.1) mg/dL Total Bilirubin (0.2-1.0) mg/dL AST (15-37) U/L ALT (14-59) U/L Alkaline Phosphatase (46-116) U/L Lactate Dehydrogenase (81-234) U/L C-Reactive Protein (0.0-0.3) mg/dL NT-Pro-B Natriuret Pep (<300) pg/mL Total Protein (6.4-8.2) g/dL Albumin (3.4-5.0) g/dL Urine Color (Yellow) Urine Clarity (Clear) Urine pH (5-8) Ur Specific [place] (1.005-1.025) Urine Protein (Negative) mg/dL Urine Ketones (Negative) mg/dL Urine Blood (Negative) Urine Nitrite (Negative) Urine Bilirubin (Negative) Urine Urobilinogen (Up TO 0.2) EU/dL Ur Leukocyte Esterase (Negative) Urine Glucose (Negative) mg/dL Fluid Type Pleural Fluid Source Cancelled Fluid Color Fluid Clarity Fluid pH Cancelled Fluid WBC Fld Polynuclear WBCs % % Fluid Mononuclear Cell % Fluid Other Cells Fluid Glucose (See Note) mg/dL Fluid Total Protein g/dL 4.3 Fluid Albumin Fluid LDH Fluid Lipase U/L Fluid Triglycerides mg/dL CSF Lyme DNA Comment Cancelled CSF B.burgdorferi (PCR) Cancelled CSF B.mayonii (PCR) Cancelled CSF B.eron/afzel PCR Cancelled Rheumatoid Factor (<12.0) IU/mL Cyclic Citrull Peptide (<5.0) U/mL MARITZA Titer MARITZA Titer 2 MARITZA Titer 3 MARITZA Interpretation (Negative) Double Strand DNA Ab (<30.0) IU/mL Lyme Specimen Source Cancelled COVID-19 Source SARS-CoV-2 (PCR) (Negative) Influenza Type A (PCR) (Negative) Influenza Type B (PCR) (Negative) RSV (PCR) (Negative) AFB Source AFB Bld Cult Final Res AFB Report Status Path Cons Comment Add-On Test Request Range/Units 11/02/21 11/02/21 11/02/21 13:38 13:39 13:40 WBC (4.4-10.8) 10^3/uL RBC (3.93-5.22) 10^6/uL Hgb (11.2-15.7) g/dL Hct (36.0-46.0) % MCV (80-95) fL MCH (27.0-33.0) pg MCHC (32.0-36.0) % RDW (11.7-14.6) % Plt Count (130-400) 10^3/uL MPV (8.0-11.0) fL Immature Gran % Neutrophils % Lymphocytes % Monocytes % Eosinophils % Basophils % Nucleated RBC % % Absolute Neutrophils (1.2-6.7) 10^3/uL Absolute Lymphocytes (1.2-3.4) 10^3/uL Absolute Monocytes (0.1-0.8) 10^3/uL Absolute Eosinophils (0.0-0.7) 10^3/uL Absolute Basophils (0.0-0.2) 10^3/uL PT (9.3-11.0) sec INR (0.9-1.1) APTT (21.0-27.5) sec D-Dimer (<500) ng/mlFEU Sodium (136-145) mmol/L Potassium (3.5-5.1) mmol/L Chloride (98-107) mmol/L Carbon Dioxide (21.0-32.0) mmol/L Anion Gap (3-11) mmol/L BUN (7-18) mg/dL Creatinine (0.55-1.02) mg/dL Estimated GFR/1.73 m2 (mL/min/1.73m2) Glucose (74-106) mg/dL Calcium (8.5-10.1) mg/dL Total Bilirubin (0.2-1.0) mg/dL AST (15-37) U/L ALT (14-59) U/L Alkaline Phosphatase (46-116) U/L Lactate Dehydrogenase (81-234) U/L C-Reactive Protein (0.0-0.3) mg/dL NT-Pro-B Natriuret Pep (<300) pg/mL Total Protein (6.4-8.2) g/dL Albumin (3.4-5.0) g/dL Urine Color (Yellow) Urine Clarity (Clear) Urine pH (5-8) Ur Specific [place] (1.005-1.025) Urine Protein (Negative) mg/dL Urine Ketones (Negative) mg/dL Urine Blood (Negative) Urine Nitrite (Negative) Urine Bilirubin (Negative) Urine Urobilinogen (Up TO 0.2) EU/dL Ur Leukocyte Esterase (Negative) Urine Glucose (Negative) mg/dL Fluid Type Cancelled Fluid Source Cancelled Fluid Color Fluid Clarity Fluid pH Cancelled Fluid WBC Fld Polynuclear WBCs % % Fluid Mononuclear Cell % Fluid Other Cells Fluid Glucose (See Note) mg/dL Fluid Total Protein g/dL Fluid Albumin Fluid LDH Cancelled Fluid Lipase U/L Fluid Triglycerides mg/dL CSF Lyme DNA Comment CSF B.burgdorferi (PCR) CSF B.mayonii (PCR) CSF B.eron/afzel PCR Rheumatoid Factor (<12.0) IU/mL Cyclic Citrull Peptide (<5.0) U/mL MARITZA Titer MARITZA Titer 2 MARITZA Titer 3 MARITZA Interpretation (Negative) Double Strand DNA Ab (<30.0) IU/mL Lyme Specimen Source COVID-19 Source SARS-CoV-2 (PCR) (Negative) Influenza Type A (PCR) (Negative) Influenza Type B (PCR) (Negative) RSV (PCR) (Negative) AFB Source Cancelled AFB Bld Cult Final Res Cancelled AFB Report Status Cancelled Path Cons Comment Add-On Test Request Range/Units 11/02/21 11/02/21 11/02/21 13:43 13:44 13:55 WBC (4.4-10.8) 10^3/uL RBC (3.93-5.22) 10^6/uL Hgb (11.2-15.7) g/dL Hct (36.0-46.0) % MCV (80-95) fL MCH (27.0-33.0) pg MCHC (32.0-36.0) % RDW (11.7-14.6) % Plt Count (130-400) 10^3/uL MPV (8.0-11.0) fL Immature Gran % Neutrophils % Lymphocytes % Monocytes % Eosinophils % Basophils % Nucleated RBC % % Absolute Neutrophils (1.2-6.7) 10^3/uL Absolute Lymphocytes (1.2-3.4) 10^3/uL Absolute Monocytes (0.1-0.8) 10^3/uL Absolute Eosinophils (0.0-0.7) 10^3/uL Absolute Basophils (0.0-0.2) 10^3/uL PT (9.3-11.0) sec INR (0.9-1.1) APTT (21.0-27.5) sec D-Dimer (<500) ng/mlFEU Sodium (136-145) mmol/L Potassium (3.5-5.1) mmol/L Chloride (98-107) mmol/L Carbon Dioxide (21.0-32.0) mmol/L Anion Gap (3-11) mmol/L BUN (7-18) mg/dL Creatinine (0.55-1.02) mg/dL Estimated GFR/1.73 m2 (mL/min/1.73m2) Glucose (74-106) mg/dL Calcium (8.5-10.1) mg/dL Total Bilirubin (0.2-1.0) mg/dL AST (15-37) U/L ALT (14-59) U/L Alkaline Phosphatase (46-116) U/L Lactate Dehydrogenase (81-234) U/L C-Reactive Protein (0.0-0.3) mg/dL NT-Pro-B Natriuret Pep (<300) pg/mL Total Protein (6.4-8.2) g/dL Albumin (3.4-5.0) g/dL Urine Color (Yellow) Urine Clarity (Clear) Urine pH (5-8) Ur Specific [place] (1.005-1.025) Urine Protein (Negative) mg/dL Urine Ketones (Negative) mg/dL Urine Blood (Negative) Urine Nitrite (Negative) Urine Bilirubin (Negative) Urine Urobilinogen (Up TO 0.2) EU/dL Ur Leukocyte Esterase (Negative) Urine Glucose (Negative) mg/dL Fluid Type Cancelled Fluid Source Cancelled Fluid Color Cancelled Fluid Clarity Cancelled Fluid pH Fluid WBC Cancelled Fld Polynuclear WBCs % % Cancelled Fluid Mononuclear Cell % Cancelled Fluid Other Cells Cancelled Fluid Glucose (See Note) mg/dL Cancelled Fluid Total Protein g/dL Cancelled Fluid Albumin Fluid LDH Fluid Lipase U/L Fluid Triglycerides mg/dL CSF Lyme DNA Comment CSF B.burgdorferi (PCR) CSF B.mayonii (PCR) CSF B.eron/afzel PCR Rheumatoid Factor (<12.0) IU/mL Cyclic Citrull Peptide (<5.0) U/mL MARITZA Titer MARITZA Titer 2 MARITZA Titer 3 MARITZA Interpretation (Negative) Double Strand DNA Ab (<30.0) IU/mL Lyme Specimen Source COVID-19 Source SARS-CoV-2 (PCR) (Negative) Influenza Type A (PCR) (Negative) Influenza Type B (PCR) (Negative) RSV (PCR) (Negative) AFB Source AFB Bld Cult Final Res AFB Report Status Path Cons Comment Cancelled Add-On Test Request Range/Units 11/02/21 11/02/21 11/02/21 13:55 16:10 16:10 WBC (4.4-10.8) 10^3/uL 8.37 RBC (3.93-5.22) 10^6/uL 3.48 L Hgb (11.2-15.7) g/dL 9.7 L Hct (36.0-46.0) % 32.6 L MCV (80-95) fL 93.7 MCH (27.0-33.0) pg 27.9 MCHC (32.0-36.0) % 29.8 L RDW (11.7-14.6) % 13.8 Plt Count (130-400) 10^3/uL 267 MPV (8.0-11.0) fL 8.6 Immature Gran % 0.5 Neutrophils % 68.7 Lymphocytes % 17.0 Monocytes % 5.9 Eosinophils % 6.9 Basophils % 1.0 Nucleated RBC % % 0 Absolute Neutrophils (1.2-6.7) 10^3/uL 5.76 Absolute Lymphocytes (1.2-3.4) 10^3/uL 1.42 Absolute Monocytes (0.1-0.8) 10^3/uL 0.49 Absolute Eosinophils (0.0-0.7) 10^3/uL 0.58 Absolute Basophils (0.0-0.2) 10^3/uL 0.08 PT (9.3-11.0) sec INR (0.9-1.1) APTT (21.0-27.5) sec D-Dimer (<500) ng/mlFEU Sodium (136-145) mmol/L 137 Potassium (3.5-5.1) mmol/L 4.0 Chloride (98-107) mmol/L 102 Carbon Dioxide (21.0-32.0) mmol/L 28.7 Anion Gap (3-11) mmol/L 6.3 BUN (7-18) mg/dL 15 Creatinine (0.55-1.02) mg/dL 0.9 Estimated GFR/1.73 m2 (mL/min/1.73m2) >= 60.00 Glucose (74-106) mg/dL 118 H Calcium (8.5-10.1) mg/dL 8.7 Total Bilirubin (0.2-1.0) mg/dL 0.2 AST (15-37) U/L 17 ALT (14-59) U/L 24 Alkaline Phosphatase (46-116) U/L 119 H Lactate Dehydrogenase (81-234) U/L 254 H C-Reactive Protein (0.0-0.3) mg/dL NT-Pro-B Natriuret Pep (<300) pg/mL Total Protein (6.4-8.2) g/dL 7.3 Albumin (3.4-5.0) g/dL 3.0 L Urine Color (Yellow) Urine Clarity (Clear) Urine pH (5-8) Ur Specific [place] (1.005-1.025) Urine Protein (Negative) mg/dL Urine Ketones (Negative) mg/dL Urine Blood (Negative) Urine Nitrite (Negative) Urine Bilirubin (Negative) Urine Urobilinogen (Up TO 0.2) EU/dL Ur Leukocyte Esterase (Negative) Urine Glucose (Negative) mg/dL Fluid Type Cancelled Fluid Source Fluid Color Fluid Clarity Fluid pH Fluid WBC Fld Polynuclear WBCs % % Fluid Mononuclear Cell % Fluid Other Cells Fluid Glucose (See Note) mg/dL Fluid Total Protein g/dL Fluid Albumin Cancelled Fluid LDH Fluid Lipase U/L Cancelled Fluid Triglycerides mg/dL CSF Lyme DNA Comment CSF B.burgdorferi (PCR) CSF B.mayonii (PCR) CSF B.eron/afzel PCR Rheumatoid Factor (<12.0) IU/mL Cyclic Citrull Peptide (<5.0) U/mL MARITZA Titer MARITZA Titer 2 MARITZA Titer 3 MARITZA Interpretation (Negative) Double Strand DNA Ab (<30.0) IU/mL Lyme Specimen Source COVID-19 Source SARS-CoV-2 (PCR) (Negative) Influenza Type A (PCR) (Negative) Influenza Type B (PCR) (Negative) RSV (PCR) (Negative) AFB Source AFB Bld Cult Final Res AFB Report Status Path Cons Comment Add-On Test Request Range/Units 11/02/21 11/03/21 11/03/21 16:10 07:10 07:10 WBC (4.4-10.8) 10^3/uL 8.04 RBC (3.93-5.22) 10^6/uL 3.28 L Hgb (11.2-15.7) g/dL 9.0 L Hct (36.0-46.0) % 30.5 L MCV (80-95) fL 93.0 MCH (27.0-33.0) pg 27.4 MCHC (32.0-36.0) % 29.5 L RDW (11.7-14.6) % 13.9 Plt Count (130-400) 10^3/uL 249 MPV (8.0-11.0) fL 8.5 Immature Gran % 0.4 Neutrophils % 65.7 Lymphocytes % 17.9 Monocytes % 7.8 Eosinophils % 7.2 Basophils % 1.0 Nucleated RBC % % 0 Absolute Neutrophils (1.2-6.7) 10^3/uL 5.28 Absolute Lymphocytes (1.2-3.4) 10^3/uL 1.44 Absolute Monocytes (0.1-0.8) 10^3/uL 0.63 Absolute Eosinophils (0.0-0.7) 10^3/uL 0.58 Absolute Basophils (0.0-0.2) 10^3/uL 0.08 PT (9.3-11.0) sec INR (0.9-1.1) APTT (21.0-27.5) sec D-Dimer (<500) ng/mlFEU Sodium (136-145) mmol/L 139 Potassium (3.5-5.1) mmol/L 4.5 Chloride (98-107) mmol/L 104 Carbon Dioxide (21.0-32.0) mmol/L 28.9 Anion Gap (3-11) mmol/L 6.1 BUN (7-18) mg/dL 15 Creatinine (0.55-1.02) mg/dL 0.8 Estimated GFR/1.73 m2 (mL/min/1.73m2) >= 60.00 Glucose (74-106) mg/dL 97 Calcium (8.5-10.1) mg/dL 8.1 L Total Bilirubin (0.2-1.0) mg/dL AST (15-37) U/L ALT (14-59) U/L Alkaline Phosphatase (46-116) U/L Lactate Dehydrogenase (81-234) U/L C-Reactive Protein (0.0-0.3) mg/dL NT-Pro-B Natriuret Pep (<300) pg/mL Total Protein (6.4-8.2) g/dL Albumin (3.4-5.0) g/dL Urine Color (Yellow) Urine Clarity (Clear) Urine pH (5-8) Ur Specific [place] (1.005-1.025) Urine Protein (Negative) mg/dL Urine Ketones (Negative) mg/dL Urine Blood (Negative) Urine Nitrite (Negative) Urine Bilirubin (Negative) Urine Urobilinogen (Up TO 0.2) EU/dL Ur Leukocyte Esterase (Negative) Urine Glucose (Negative) mg/dL Fluid Type Fluid Source Fluid Color Fluid Clarity Fluid pH Fluid WBC Fld Polynuclear WBCs % % Fluid Mononuclear Cell % Fluid Other Cells Fluid Glucose (See Note) mg/dL Fluid Total Protein g/dL Fluid Albumin Fluid LDH Fluid Lipase U/L Fluid Triglycerides mg/dL CSF Lyme DNA Comment CSF B.burgdorferi (PCR) CSF B.mayonii (PCR) CSF B.eron/afzel PCR Rheumatoid Factor (<12.0) IU/mL <8.6 Cyclic Citrull Peptide (<5.0) U/mL MARITZA Titer MARITZA Titer 2 MARITZA Titer 3 MARITZA Interpretation (Negative) Double Strand DNA Ab (<30.0) IU/mL <12.3 Lyme Specimen Source COVID-19 Source SARS-CoV-2 (PCR) (Negative) Influenza Type A (PCR) (Negative) Influenza Type B (PCR) (Negative) RSV (PCR) (Negative) AFB Source AFB Bld Cult Final Res AFB Report Status Path Cons Comment Add-On Test Request Range/Units 11/03/21 11/04/21 11/04/21 Unknown 07:58 07:58 WBC (4.4-10.8) 10^3/uL 15.63 H D RBC (3.93-5.22) 10^6/uL 3.57 L Hgb (11.2-15.7) g/dL 9.9 L Hct (36.0-46.0) % 33.7 L MCV (80-95) fL 94.4 MCH (27.0-33.0) pg 27.7 MCHC (32.0-36.0) % 29.4 L RDW (11.7-14.6) % 14.1 Plt Count (130-400) 10^3/uL 256 MPV (8.0-11.0) fL 8.5 Immature Gran % 0.3 Neutrophils % 90.5 Lymphocytes % 3.1 Monocytes % 2.6 Eosinophils % 3.0 Basophils % 0.5 Nucleated RBC % % 0 Absolute Neutrophils (1.2-6.7) 10^3/uL 14.15 H Absolute Lymphocytes (1.2-3.4) 10^3/uL 0.48 L Absolute Monocytes (0.1-0.8) 10^3/uL 0.41 Absolute Eosinophils (0.0-0.7) 10^3/uL 0.47 Absolute Basophils (0.0-0.2) 10^3/uL 0.08 PT (9.3-11.0) sec INR (0.9-1.1) APTT (21.0-27.5) sec D-Dimer (<500) ng/mlFEU 4332 H Sodium (136-145) mmol/L Potassium (3.5-5.1) mmol/L Chloride (98-107) mmol/L Carbon Dioxide (21.0-32.0) mmol/L Anion Gap (3-11) mmol/L BUN (7-18) mg/dL Creatinine (0.55-1.02) mg/dL Estimated GFR/1.73 m2 (mL/min/1.73m2) Glucose (74-106) mg/dL Calcium (8.5-10.1) mg/dL Total Bilirubin (0.2-1.0) mg/dL AST (15-37) U/L ALT (14-59) U/L Alkaline Phosphatase (46-116) U/L Lactate Dehydrogenase (81-234) U/L C-Reactive Protein (0.0-0.3) mg/dL NT-Pro-B Natriuret Pep (<300) pg/mL Total Protein (6.4-8.2) g/dL Albumin (3.4-5.0) g/dL Urine Color (Yellow) Urine Clarity (Clear) Urine pH (5-8) Ur Specific [place] (1.005-1.025) Urine Protein (Negative) mg/dL Urine Ketones (Negative) mg/dL Urine Blood (Negative) Urine Nitrite (Negative) Urine Bilirubin (Negative) Urine Urobilinogen (Up TO 0.2) EU/dL Ur Leukocyte Esterase (Negative) Urine Glucose (Negative) mg/dL Fluid Type Fluid Source Fluid Color Fluid Clarity Fluid pH Fluid WBC Fld Polynuclear WBCs % % Fluid Mononuclear Cell % Fluid Other Cells Fluid Glucose (See Note) mg/dL Fluid Total Protein g/dL Fluid Albumin Fluid LDH Fluid Lipase U/L Fluid Triglycerides mg/dL CSF Lyme DNA Comment CSF B.burgdorferi (PCR) CSF B.mayonii (PCR) CSF B.eron/afzel PCR Rheumatoid Factor (<12.0) IU/mL Cyclic Citrull Peptide (<5.0) U/mL MARITZA Titer MARITZA Titer 2 MARITZA Titer 3 MARITZA Interpretation (Negative) Double Strand DNA Ab (<30.0) IU/mL Lyme Specimen Source COVID-19 Source SARS-CoV-2 (PCR) (Negative) Influenza Type A (PCR) (Negative) Influenza Type B (PCR) (Negative) RSV (PCR) (Negative) AFB Source AFB Bld Cult Final Res AFB Report Status Path Cons Comment Add-On Test Request TNP Range/Units 11/04/21 11/04/21 11/04/21 07:58 08:05 08:05 WBC (4.4-10.8) 10^3/uL RBC (3.93-5.22) 10^6/uL Hgb (11.2-15.7) g/dL Hct (36.0-46.0) % MCV (80-95) fL MCH (27.0-33.0) pg MCHC (32.0-36.0) % RDW (11.7-14.6) % Plt Count (130-400) 10^3/uL MPV (8.0-11.0) fL Immature Gran % Neutrophils % Lymphocytes % Monocytes % Eosinophils % Basophils % Nucleated RBC % % Absolute Neutrophils (1.2-6.7) 10^3/uL Absolute Lymphocytes (1.2-3.4) 10^3/uL Absolute Monocytes (0.1-0.8) 10^3/uL Absolute Eosinophils (0.0-0.7) 10^3/uL Absolute Basophils (0.0-0.2) 10^3/uL PT (9.3-11.0) sec INR (0.9-1.1) APTT (21.0-27.5) sec D-Dimer (<500) ng/mlFEU Sodium (136-145) mmol/L Potassium (3.5-5.1) mmol/L Chloride (98-107) mmol/L Carbon Dioxide (21.0-32.0) mmol/L Anion Gap (3-11) mmol/L BUN (7-18) mg/dL Creatinine (0.55-1.02) mg/dL Estimated GFR/1.73 m2 (mL/min/1.73m2) Glucose (74-106) mg/dL Calcium (8.5-10.1) mg/dL Total Bilirubin (0.2-1.0) mg/dL AST (15-37) U/L ALT (14-59) U/L Alkaline Phosphatase (46-116) U/L Lactate Dehydrogenase (81-234) U/L C-Reactive Protein (0.0-0.3) mg/dL 7.42 H NT-Pro-B Natriuret Pep (<300) pg/mL 28 Total Protein (6.4-8.2) g/dL Albumin (3.4-5.0) g/dL Urine Color (Yellow) Urine Clarity (Clear) Urine pH (5-8) Ur Specific [place] (1.005-1.025) Urine Protein (Negative) mg/dL Urine Ketones (Negative) mg/dL Urine Blood (Negative) Urine Nitrite (Negative) Urine Bilirubin (Negative) Urine Urobilinogen (Up TO 0.2) EU/dL Ur Leukocyte Esterase (Negative) Urine Glucose (Negative) mg/dL Fluid Type Fluid Source Fluid Color Fluid Clarity Fluid pH Fluid WBC Fld Polynuclear WBCs % % Fluid Mononuclear Cell % Fluid Other Cells Fluid Glucose (See Note) mg/dL Fluid Total Protein g/dL Fluid Albumin Fluid LDH Fluid Lipase U/L Fluid Triglycerides mg/dL CSF Lyme DNA Comment CSF B.burgdorferi (PCR) CSF B.mayonii (PCR) CSF B.eron/afzel PCR Rheumatoid Factor (<12.0) IU/mL Cyclic Citrull Peptide (<5.0) U/mL MARITZA Titer MARITZA Titer 2 MARITZA Titer 3 MARITZA Interpretation (Negative) Double Strand DNA Ab (<30.0) IU/mL Lyme Specimen Source COVID-19 Source SARS-CoV-2 (PCR) (Negative) Influenza Type A (PCR) (Negative) Influenza Type B (PCR) (Negative) RSV (PCR) (Negative) AFB Source AFB Bld Cult Final Res AFB Report Status Path Cons Comment Add-On Test Request DONE Range/Units 11/04/21 11/04/21 11/04/21 08:15 08:35 12:10 WBC (4.4-10.8) 10^3/uL RBC (3.93-5.22) 10^6/uL Hgb (11.2-15.7) g/dL Hct (36.0-46.0) % MCV (80-95) fL MCH (27.0-33.0) pg MCHC (32.0-36.0) % RDW (11.7-14.6) % Plt Count (130-400) 10^3/uL MPV (8.0-11.0) fL Immature Gran % Neutrophils % Lymphocytes % Monocytes % Eosinophils % Basophils % Nucleated RBC % % Absolute Neutrophils (1.2-6.7) 10^3/uL Absolute Lymphocytes (1.2-3.4) 10^3/uL Absolute Monocytes (0.1-0.8) 10^3/uL Absolute Eosinophils (0.0-0.7) 10^3/uL Absolute Basophils (0.0-0.2) 10^3/uL PT (9.3-11.0) sec INR (0.9-1.1) APTT (21.0-27.5) sec D-Dimer (<500) ng/mlFEU Sodium (136-145) mmol/L Potassium (3.5-5.1) mmol/L Chloride (98-107) mmol/L Carbon Dioxide (21.0-32.0) mmol/L Anion Gap (3-11) mmol/L BUN (7-18) mg/dL Creatinine (0.55-1.02) mg/dL Estimated GFR/1.73 m2 (mL/min/1.73m2) Glucose (74-106) mg/dL Calcium (8.5-10.1) mg/dL Total Bilirubin (0.2-1.0) mg/dL AST (15-37) U/L ALT (14-59) U/L Alkaline Phosphatase (46-116) U/L Lactate Dehydrogenase (81-234) U/L C-Reactive Protein (0.0-0.3) mg/dL Cancelled NT-Pro-B Natriuret Pep (<300) pg/mL Total Protein (6.4-8.2) g/dL Albumin (3.4-5.0) g/dL Urine Color (Yellow) Yellow Urine Clarity (Clear) Clear Urine pH (5-8) 5.5 Ur Specific [place] (1.005-1.025) >= 1.030 H Urine Protein (Negative) mg/dL Negative Urine Ketones (Negative) mg/dL Negative Urine Blood (Negative) Negative Urine Nitrite (Negative) Negative Urine Bilirubin (Negative) Negative Urine Urobilinogen (Up TO 0.2) EU/dL 0.2 Ur Leukocyte Esterase (Negative) Negative Urine Glucose (Negative) mg/dL Negative Fluid Type Fluid Source Fluid Color Fluid Clarity Fluid pH Fluid WBC Fld Polynuclear WBCs % % Fluid Mononuclear Cell % Fluid Other Cells Fluid Glucose (See Note) mg/dL Fluid Total Protein g/dL Fluid Albumin Fluid LDH Fluid Lipase U/L Fluid Triglycerides mg/dL CSF Lyme DNA Comment CSF B.burgdorferi (PCR) CSF B.mayonii (PCR) CSF B.eron/afzel PCR Rheumatoid Factor (<12.0) IU/mL Cyclic Citrull Peptide (<5.0) U/mL MARITZA Titer MARITZA Titer 2 MARITZA Titer 3 MARITZA Interpretation (Negative) Double Strand DNA Ab (<30.0) IU/mL Lyme Specimen Source COVID-19 Source Nasal/Nares SARS-CoV-2 (PCR) (Negative) Negative Influenza Type A (PCR) (Negative) Negative Influenza Type B (PCR) (Negative) Negative RSV (PCR) (Negative) Negative AFB Source AFB Bld Cult Final Res AFB Report Status Path Cons Comment Add-On Test Request Range/Units 11/04/21 11/04/21 11/05/21 17:29 20:07 06:10 WBC (4.4-10.8) 10^3/uL RBC (3.93-5.22) 10^6/uL Hgb (11.2-15.7) g/dL Hct (36.0-46.0) % MCV (80-95) fL MCH (27.0-33.0) pg MCHC (32.0-36.0) % RDW (11.7-14.6) % Plt Count (130-400) 10^3/uL MPV (8.0-11.0) fL Immature Gran % Neutrophils % Lymphocytes % Monocytes % Eosinophils % Basophils % Nucleated RBC % % Absolute Neutrophils (1.2-6.7) 10^3/uL Absolute Lymphocytes (1.2-3.4) 10^3/uL Absolute Monocytes (0.1-0.8) 10^3/uL Absolute Eosinophils (0.0-0.7) 10^3/uL Absolute Basophils (0.0-0.2) 10^3/uL PT (9.3-11.0) sec INR (0.9-1.1) APTT (21.0-27.5) sec D-Dimer (<500) ng/mlFEU Sodium (136-145) mmol/L 135 L Potassium (3.5-5.1) mmol/L 3.9 Chloride (98-107) mmol/L 102 Carbon Dioxide (21.0-32.0) mmol/L 30.7 Anion Gap (3-11) mmol/L 2.3 L BUN (7-18) mg/dL 16 Creatinine (0.55-1.02) mg/dL 0.8 Estimated GFR/1.73 m2 (mL/min/1.73m2) >= 60.00 Glucose (74-106) mg/dL 120 H Calcium (8.5-10.1) mg/dL 8.2 L Total Bilirubin (0.2-1.0) mg/dL AST (15-37) U/L ALT (14-59) U/L Alkaline Phosphatase (46-116) U/L Lactate Dehydrogenase (81-234) U/L C-Reactive Protein (0.0-0.3) mg/dL NT-Pro-B Natriuret Pep (<300) pg/mL Total Protein (6.4-8.2) g/dL Albumin (3.4-5.0) g/dL Urine Color (Yellow) Urine Clarity (Clear) Urine pH (5-8) Ur Specific [place] (1.005-1.025) Urine Protein (Negative) mg/dL Urine Ketones (Negative) mg/dL Urine Blood (Negative) Urine Nitrite (Negative) Urine Bilirubin (Negative) Urine Urobilinogen (Up TO 0.2) EU/dL Ur Leukocyte Esterase (Negative) Urine Glucose (Negative) mg/dL Fluid Type Fluid Source Pleural Cancelled Fluid Color Red Cancelled Fluid Clarity Cloudy Cancelled Fluid pH Fluid WBC 2027 Cancelled Fld Polynuclear WBCs % % 97 Cancelled Fluid Mononuclear Cell % 3 Cancelled Fluid Other Cells Cancelled Fluid Glucose (See Note) mg/dL Fluid Total Protein g/dL Fluid Albumin Fluid LDH Fluid Lipase U/L Fluid Triglycerides mg/dL CSF Lyme DNA Comment CSF B.burgdorferi (PCR) CSF B.mayonii (PCR) CSF B.eron/afzel PCR Rheumatoid Factor (<12.0) IU/mL Cyclic Citrull Peptide (<5.0) U/mL MARITZA Titer MARITZA Titer 2 MARITZA Titer 3 MARITZA Interpretation (Negative) Double Strand DNA Ab (<30.0) IU/mL Lyme Specimen Source COVID-19 Source SARS-CoV-2 (PCR) (Negative) Influenza Type A (PCR) (Negative) Influenza Type B (PCR) (Negative) RSV (PCR) (Negative) AFB Source AFB Bld Cult Final Res AFB Report Status Path Cons Comment Cancelled Add-On Test Request Range/Units 11/05/21 11/05/21 06:10 08:05 WBC (4.4-10.8) 10^3/uL 22.09 H D RBC (3.93-5.22) 10^6/uL 3.09 L Hgb (11.2-15.7) g/dL 8.5 L Hct (36.0-46.0) % 29.5 L MCV (80-95) fL 95.5 H MCH (27.0-33.0) pg 27.5 MCHC (32.0-36.0) % 28.8 L RDW (11.7-14.6) % 14.1 Plt Count (130-400) 10^3/uL 244 MPV (8.0-11.0) fL 8.8 Immature Gran % 0.4 Neutrophils % 88.8 Lymphocytes % 4.5 Monocytes % 2.8 Eosinophils % 3.1 Basophils % 0.4 Nucleated RBC % % 0 Absolute Neutrophils (1.2-6.7) 10^3/uL 19.62 H Absolute Lymphocytes (1.2-3.4) 10^3/uL 0.99 L Absolute Monocytes (0.1-0.8) 10^3/uL 0.62 Absolute Eosinophils (0.0-0.7) 10^3/uL 0.68 Absolute Basophils (0.0-0.2) 10^3/uL 0.09 PT (9.3-11.0) sec 11.1 H INR (0.9-1.1) 1.1 APTT (21.0-27.5) sec 27.6 H D-Dimer (<500) ng/mlFEU Sodium (136-145) mmol/L Potassium (3.5-5.1) mmol/L Chloride (98-107) mmol/L Carbon Dioxide (21.0-32.0) mmol/L Anion Gap (3-11) mmol/L BUN (7-18) mg/dL Creatinine (0.55-1.02) mg/dL Estimated GFR/1.73 m2 (mL/min/1.73m2) Glucose (74-106) mg/dL Calcium (8.5-10.1) mg/dL Total Bilirubin (0.2-1.0) mg/dL AST (15-37) U/L ALT (14-59) U/L Alkaline Phosphatase (46-116) U/L Lactate Dehydrogenase (81-234) U/L C-Reactive Protein (0.0-0.3) mg/dL NT-Pro-B Natriuret Pep (<300) pg/mL Total Protein (6.4-8.2) g/dL Albumin (3.4-5.0) g/dL Urine Color (Yellow) Urine Clarity (Clear) Urine pH (5-8) Ur Specific [place] (1.005-1.025) Urine Protein (Negative) mg/dL Urine Ketones (Negative) mg/dL Urine Blood (Negative) Urine Nitrite (Negative) Urine Bilirubin (Negative) Urine Urobilinogen (Up TO 0.2) EU/dL Ur Leukocyte Esterase (Negative) Urine Glucose (Negative) mg/dL Fluid Type Fluid Source Fluid Color Fluid Clarity Fluid pH Fluid WBC Fld Polynuclear WBCs % % Fluid Mononuclear Cell % Fluid Other Cells Fluid Glucose (See Note) mg/dL Fluid Total Protein g/dL Fluid Albumin Fluid LDH Fluid Lipase U/L Fluid Triglycerides mg/dL CSF Lyme DNA Comment CSF B.burgdorferi (PCR) CSF B.mayonii (PCR) CSF B.eron/afzel PCR Rheumatoid Factor (<12.0) IU/mL Cyclic Citrull Peptide (<5.0) U/mL MARITZA Titer MARITZA Titer 2 MARITZA Titer 3 MARITZA Interpretation (Negative) Double Strand DNA Ab (<30.0) IU/mL Lyme Specimen Source COVID-19 Source SARS-CoV-2 (PCR) (Negative) Influenza Type A (PCR) (Negative) Influenza Type B (PCR) (Negative) RSV (PCR) (Negative) AFB Source AFB Bld Cult Final Res AFB Report Status Path Cons Comment Add-On Test Request
[2021-11-05 10:14] LABS: Lab Add On Test DONE
[2021-11-05] MEDS: Lactated Ringers 1,000 ML 50 ML IV (11:29)
--- NOTE | 2021-11-05 11:47 | PAPNONF_PTH ---
PATIENT: Shirley Hooper LOC: [id number] AGE/SX: 41/F ROOM: [id number] RE11/03/[address]: Cristal Arevalo : 1980 BED: A DIS: 11/10/2021 SPEC #: [id number] RECD: 11/05/21 13:07 STATUS: TRAVIS REChata #: [id number] [place]: 11/05/21 11:[address]: Angella Martinez DEPT: [facility] Cytology RECD BY: Kellie Cline ENTERED: 11/05/21 13:08 SP TYPE: ALTA FERNANDEZ DR: Maggi Orr MD Tissues: 1 - BODY FLUID CYTO(NOT S/U/N/EM)[facility] Procedures: BODY FLUID CYTO(NOT SPU/UR/NIP/ENDOM)[facility] Comments: [id number] (TOTAL VOLUME = 15 ml, SENT FRESH)
--- NOTE | 2021-11-05 12:37 | ROE_ITS ---
Date of service: 11/05/21 Time of Service: 11:30 Operative Note Operative Note DATE OF PROCEDURE: 11/02/21 PRE-OP DIAGNOSIS: Pulmonary Infiltrates POST-OP DIAGNOSIS: other (Pneumonia) PROCEDURE: Flexible Bronchoscopy with BAL of RML and [place] SURGEON: Aileen Vizcarra Refer to Anesthesia Record ESTIMATED BLOOD LOSS: 50 PATHOLOGY: other Patient was transported to: PACU Patient's condition: stable Procedure Description: Bronchoscopy Date:11/05/21 Time:1130 Indication: Pulmonary Infiltrates Procedure performed: Flexible bronchoscopy with BAL x2 Sedation plan: General Anesthesia Medications used: see separate anesthesia record Informed consent was obtained after the risks and benefits or the procedure were discussed. That patient was intubated with an 8.0 ETT without difficulty. A proper and complete OR compliant time out was performed. The therapeutic 6.2mm Olympus bronchoscope was inserted through the ETT. 1cc of 1% topical lidocaine was used to anesthetize the britney. The trachea was midline and without lesion or injury. The mucosa appeared friable with diffuse regions of irritation with relative sparring of the lower lobes and there were no signs of tracheomalacia. The britney was sharp. All bronchial subsegments were visualized within each lobe. There was a moderate soumt of white to yellow, thick and difficult to mobilize mucus present in the bilateral upper lobes, RML and lingula. A bronchoalveolar lavage was performed in the NEWTON. A total of 120 cc of saline was administered with a return of 20cc. The fluid was slightly cloudy and pink in color with visible cellularity and mucus plugs present. There was no evidence of diffuse alveolar hemorrhage in this lobe. A bronchoalveolar lavage was completed in the RML. A total of 120cc of saline was administered with a return of 50cc. Ther fluid was cloudy and pink with significant amount of cellularity with dense and large mucus plugs. In each location bleeding assessment was compl eted after the BAL, there was no active bleeding seen. The bronchoscope was then removed and the case terminated. The patient was taken to PACU in stable condition. Samples collected:RML BAL and NEWTON BAL Testing ordered:In each: cell diff, bacterial, fungal and AFB cultures Complications: Post operative wheezing - anesthesia to administer Duoneb while in PACU. Aileen Vizcarra MD Pulmonary [facility] Critical Care Medicine
--- NOTE | 2021-11-05 12:52 | W.PM.PROGNOT ---
Date of Service Date of service: 11/05/21 Time of Service: 12:53 Assessment and Plan Assessment and plan (1) Respiratory failure with hypoxia: Status: Acute Assessment and plan: -POD #0 s/p bilateral bronchoscopy with BAL, fluid studies pending -Right chest tube removed -Remains in ICU due to acute illness -Continue IV antibiotics -d/c IV fluids, patient eating and tolerating diet per RN -Continue PRN analgesics as written -Pulmonology and medicine consults and recommendations appreciated -Needs encouragement for PT, encourage ambulation/activity -Cough and deep breathing exercises, incentive spirometry -AM chest x-rays reviewed, repeat ordered for AM tomorrow (2) Leukocytosis: Status: Acute (3) Pulmonary infiltrate: Status: Acute (4) Pleuritic chest pain: Status: Acute (5) Diabetes: Status: Chronic (6) Pleural effusion: Status: Acute Exam Const General: comfortable, no acute distress and ill appearing Nutritional Appearance: obese Chest Chest: other (right chest tube removed) Resp Effort & Inspection: normal respiratory effort, no audible wheezes, no grunting, not labored, no nasal flaring and other (nasal cannula in place) Cardio Rate: tachycardic Rhythm: regular rhythm Neuro General: other (resting quietly) Objective Last Vital Signs Temp 98.8 F 11/05/21 12:50 Pulse 109 H 11/05/21 12:50 Resp 9 L 11/05/21 12:50 BP 128/82 11/05/21 12:50 Pulse Ox 96 11/05/21 12:50 Laboratory Results - last 24 hr 11/02/21 11/04/21 11/04/21 16:10 12:10 17:29 WBC RBC Hgb Hct MCV MCH MCHC RDW Plt Count MPV Immature Gran % Neutrophils % Lymphocytes % Monocytes % Eosinophils % Basophils % Nucleated RBC % Absolute Neutrophils Absolute Lymphocytes Absolute Monocytes Absolute Eosinophils Absolute Basophils PT INR APTT Sodium Potassium Chloride Carbon Dioxide Anion Gap BUN Creatinine Estimated GFR/1.73 m2 Glucose Calcium Fluid Source Pleural Fluid Color Red Fluid Clarity Cloudy Fluid WBC 2027 Fld Polynuclear WBCs % 97 Fluid Mononuclear Cell 3 Fluid Other Cells Double Strand DNA Ab <12.3 SARS-CoV-2 (PCR) Negative Influenza Type A (PCR) Negative Influenza Type B (PCR) Negative RSV (PCR) Negative AFB Source AFB Culture Final Res Fungal Specimen Source Fungal Culture Status Fungal Culture Final Fungal Smear Result M. Tuberculosis PCR Path Cons Comment AFB Smear (Ref Lab) Add-On Test Request 11/04/21 11/05/21 11/05/21 20:07 06:10 06:10 WBC 22.09 H D RBC 3.09 L Hgb 8.5 L Hct 29.5 L MCV 95.5 H MCH 27.5 MCHC 28.8 L RDW 14.1 Plt Count 244 MPV 8.8 Immature Gran % 0.4 Neutrophils % 88.8 Lymphocytes % 4.5 Monocytes % 2.8 Eosinophils % 3.1 Basophils % 0.4 Nucleated RBC % 0 Absolute Neutrophils 19.62 H Absolute Lymphocytes 0.99 L Absolute Monocytes 0.62 Absolute Eosinophils 0.68 Absolute Basophils 0.09 PT INR APTT Sodium 135 L Potassium 3.9 Chloride 102 Carbon Dioxide 30.7 Anion Gap 2.3 L BUN 16 Creatinine 0.8 Estimated GFR/1.73 m2 >= 60.00 Glucose 120 H Calcium 8.2 L Fluid Source Cancelled Fluid Color Cancelled Fluid Clarity Cancelled Fluid WBC Cancelled Fld Polynuclear WBCs % Cancelled Fluid Mononuclear Cell Cancelled Fluid Other Cells Cancelled Double Strand DNA Ab SARS-CoV-2 (PCR) Influenza Type A (PCR) Influenza Type B (PCR) RSV (PCR) AFB Source AFB Culture Final Res Fungal Specimen Source Fungal Culture Status Fungal Culture Final Fungal Smear Result M. Tuberculosis PCR Path Cons Comment Cancelled AFB Smear (Ref Lab) Add-On Test Request 11/05/21 11/05/21 11/05/21 08:05 08:05 12:02 WBC RBC Hgb Hct MCV MCH MCHC RDW Plt Count MPV Immature Gran % Neutrophils % Lymphocytes % Monocytes % Eosinophils % Basophils % Nucleated RBC % Absolute Neutrophils Absolute Lymphocytes Absolute Monocytes Absolute Eosinophils Absolute Basophils PT 11.1 H INR 1.1 APTT 27.6 H Sodium Potassium Chloride Carbon Dioxide Anion Gap BUN Creatinine Estimated GFR/1.73 m2 Glucose Calcium Fluid Source Cancelled Fluid Color Cancelled Fluid Clarity Cancelled Fluid WBC Cancelled Fld Polynuclear WBCs % Cancelled Fluid Mononuclear Cell Cancelled Fluid Other Cells Cancelled Double Strand DNA Ab SARS-CoV-2 (PCR) Influenza Type A (PCR) Influenza Type B (PCR) RSV (PCR) AFB Source AFB Culture Final Res Fungal Specimen Source Fungal Culture Status Fungal Culture Final Fungal Smear Result M. Tuberculosis PCR Path Cons Comment Cancelled AFB Smear (Ref Lab) Add-On Test Request DONE 11/05/21 11/05/21 11/05/21 12:03 12:16 12:16 WBC RBC Hgb Hct MCV MCH MCHC RDW Plt Count MPV Immature Gran % Neutrophils % Lymphocytes % Monocytes % Eosinophils % Basophils % Nucleated RBC % Absolute Neutrophils Absolute Lymphocytes Absolute Monocytes Absolute Eosinophils Absolute Basophils PT INR APTT Sodium Potassium Chloride Carbon Dioxide Anion Gap BUN Creatinine Estimated GFR/1.73 m2 Glucose Calcium Fluid Source Fluid Color Fluid Clarity Fluid WBC Fld Polynuclear WBCs % Fluid Mononuclear Cell Fluid Other Cells Double Strand DNA Ab SARS-CoV-2 (PCR) Influenza Type A (PCR) Influenza Type B (PCR) RSV (PCR) AFB Source Cancelled Cancelled AFB Culture Final Res Cancelled Cancelled Fungal Specimen Source Cancelled Cancelled Fungal Culture Status Cancelled Cancelled Fungal Culture Final Cancelled Cancelled Fungal Smear Result Cancelled Cancelled M. Tuberculosis PCR Cancelled Cancelled Path Cons Comment AFB Smear (Ref Lab) Cancelled Cancelled Add-On Test Request 11/05/21 12:17 WBC RBC Hgb Hct MCV MCH MCHC RDW Plt Count MPV Immature Gran % Neutrophils % Lymphocytes % Monocytes % Eosinophils % Basophils % Nucleated RBC % Absolute Neutrophils Absolute Lymphocytes Absolute Monocytes Absolute Eosinophils Absolute Basophils PT INR APTT Sodium Potassium Chloride Carbon Dioxide Anion Gap BUN Creatinine Estimated GFR/1.73 m2 Glucose Calcium Fluid Source Fluid Color Fluid Clarity Fluid WBC Fld Polynuclear WBCs % Fluid Mononuclear Cell Fluid Other Cells Double Strand DNA Ab SARS-CoV-2 (PCR) Influenza Type A (PCR) Influenza Type B (PCR) RSV (PCR) AFB Source AFB Culture Final Res Fungal Specimen Source Cancelled Fungal Culture Status Cancelled Fungal Culture Final Cancelled Fungal Smear Result Cancelled M. Tuberculosis PCR Path Cons Comment AFB Smear (Ref Lab) Add-On Test Request
--- NOTE | 2021-11-05 12:57 | DI.RAD_ITS ---
Exam(s) XR PORTABLE CHEST AP EXAM: XR PORTABLE CHEST AP CLINICAL HISTORY: s/p bronch. TECHNIQUE: 2D digital imaging was performed of the chest. One image was obtained. An AP view was ob tained. COMPARISON: CR XR PORTABLE CHEST AP from 11/05/2021 FINDINGS: MEDIASTINUM: Normal. HEART: Normal. PULMONARY VASCULATURE: Normal. LUNGS: There does appear to be worsening of the bilateral opacities in the lungs. The opacity in the central aspect of the right lung appears stable. PLEURAL SPACE: There does appear to be a persistent small right pneumothorax. There is a right pleur al effusion. No left pneumothorax or pleural effusion is seen. BONE:Within normal limits for the patient's age. OTHER FINDINGS:The right chest tube is stable compared to the examination from 11/05/2021 at 9:42 a.m. IMPRESSION: DATA REPOSITORY: RADIATION DOSE DELIVERED:
--- NOTE | 2021-11-05 13:18 | W.ANESPOSTOP ---
Postoperative Evaluation Date, Time and Location Date Performed: 11/05/21 Time Performed: 12:50 Patient Location: PACU Vital Signs Most Recent Imported Vital Signs: Most Recent Vital Signs Temp Pulse Resp BP Pulse Ox 37.1 C 109 H 9 L 128/82 96 11/05/21 12:50 11/05/21 12:50 11/05/21 12:50 11/05/21 12:50 11/05/21 12:50 Most Recent Vital Signs Temp Pulse Resp BP Pulse Ox 36.3 C L 103 H 16 116/70 98 11/04/21 18:15 11/04/21 20:00 11/04/21 20:05 11/04/21 20:00 11/04/21 20:05 Pain Score Most Recent Pain Score: Most Recent Pain Score Pain Level 8 11/05/21 10:55 Assessment Mental Status: Arousable with meaningful communication Airway and Respiratory Function: Patent airway with normal (patient baseline) respiratory exam (As per baseline from ICU) Cardiovascular Function: Hemodynamically Stable (sinus tachycardia) and Receiving care as an inpatient Hydration Status: Adequately Hydrated Nausea & Vomiting: No Nausea or Vomiting Pain: Pt. Denies Any Pain Peripheral Nerve Block: Patient did not receive a nerve block
[2021-11-05 13:21] LABS: Myeloperoxidase Ab IgG <0.2 U; Proteinase 3 Ab (PR3) <0.2 U
--- NOTE | 2021-11-05 13:49 | PDOC.CMPRO ---
- If Service Date Differs Date of service: 11/05/21 Time of Service: 13:49 Care Management Progress Note S/O: Shirley continues to be closely monitored and treated in the ICU. Shirley went to the OR for a Flexible Bronchoscopy with BAL of RML and NEWTON today. Cultures are pending. She is s/p Right sided thoracenthesis yesterday, which yielded 600cc fluid. continues to follow. A: 41 year old female admitted to [facility] 11/03/21 for pleuritis, cough, PE P: Shirley was admitted for a pleural effusion. She is being followed by Pulmonolgy. Anticipate studies will take time to result, and outpatient follow up appointment will be scheduled. She will follow up with her community providers and transport via private vehicle with significant other.
[2021-11-05] MEDS: Normal Saline 500 ML 250 ML IV (16:53)
[2021-11-05 17:06] LABS: HCT 27.9 % (36.0-46.0); HGB 8.1 g/dL (11.2-15.7)
--- NOTE | 2021-11-05 17:07 | PHA.REVIEW ---
Pharmacy Admission Review - Admission Clinical Review (Last Reviewed 11/03/21 @ 09:24 by Stevenson Salazar MD) Respiratory failure with hypoxia (Acute) Leukocytosis (Acute) Pulmonary infiltrate (Acute) Pleuritic chest pain (Acute) Pleural effusion (Acute) ampicillin Allergy (Intermediate, Unverified 11/02/21 08:26) rash cephalexin [From Keflex] Allergy (Intermediate, Unverified 11/02/21 08:26) Itching enoxaparin [From Lovenox] Allergy (Intermediate, Unverified 11/02/21 08:26) hives heparin Allergy (Intermediate, Unverified 11/02/21 08:26) hives ketorolac [From Toradol] Allergy (Intermediate, Unverified 11/02/21 08:26) hives tramadol Allergy (Intermediate, Unverified 11/02/21 08:26) itching diclofenac Allergy (Unknown, Unverified 11/02/21 08:26) meperidine Allergy (Verified 11/02/21 08:26) hives erythromycin base Adverse Reaction (Intermediate, Unverified 11/02/21 08:26) stomach ache morphine Adverse Reaction (Intermediate, Unverified 11/02/21 08:26) hallucinations codeine Adverse Reaction (Mild, Unverified 11/02/21 08:26) constipation Resuscitation Status Full Code Height 5 ft 11 in Weight 119.748 kg - Renal Dosing Renal Dosing: BUN 16 mg/dL (7-18) 11/05/21 06:10 Creatinine 0.8 mg/dL (0.55-1.02) 11/05/21 06:10 Medications needing adjustments: Reviewed (SCr: 0.8, eCrCl: 129.4mL/min (using adjusted body weight). All medications dosed appropriately.) - Anticoagulation Anticoagulation: Hgb 8.1 g/dL (11.2-15.7) L 11/05/21 17:00 Hct 27.9 % (36.0-46.0) L 11/05/21 17:00 Plt Count 244 10^3/uL (130-400) 11/05/21 06:10 INR 1.1 (0.9-1.1) 11/05/21 08:05 Creatinine 0.8 mg/dL (0.55-1.02) 11/05/21 06:10 DVT Prophylaxis: N/A (Currently not on DVT prophylaxis, surgical patient with possible bleed.) - Opiate Usage Evaluate Pain Scale/Pains Meds: Reviewed (Pain scale ratings 8-9 today. Hydrocodone/APAP 7.5/325mg and Hydromorphone 0.5-1mg PRN ordered.) Scheduled Bowel Reg ordered if on Opiates?: Yes (Docusate ANNIE) - Relevant Labs Sodium 135 mmol/L (136-145) L 11/05/21 06:10 Potassium 3.9 mmol/L (3.5-5.1) 11/05/21 06:10 Chloride 102 mmol/L (98-107) 11/05/21 06:10 C-Reactive Protein Cancelled 11/04/21 08:35 - DM Control DM Control: Glucose 120 mg/dL (74-106) H 11/05/21 06:10 Insulin Dosing: N/A - Heart Failure/CT Heart Failure/CT: NT-Pro-B Natriuret Pep 28 pg/mL (<300) 11/04/21 08:05 EF%, ROBE's, B-Blockers, Diuretics: N/A - BP Control BP Control: Blood Pressure 132/66 Blood Pressure 131/78 Blood Pressure 120/74 Blood Pressure 126/86 Blood Pressure 121/80 Blood Pressure 128/82 Blood Pressure 128/82 Blood Pressure 116/73 Blood Pressure 113/61 Blood Pressure 132/76 Blood Pressure 121/63 Blood Pressure 124/77 Blood Pressure 113/61 Blood Pressure 128/63 Blood Pressure 118/65 Blood Pressure 132/76 Blood Pressure 140/83 Blood Pressure 140/83 Blood Pressure 104/79 Blood Pressure 119/83 Blood Pressure 126/78 If elevated: Reviewed (Blood pressure within normal limits this admission.) - Qtc Review If Elevated: N/A - IV to PO Switch IV Medications: Reviewed - Home Meds Home Med List reviewed: Reviewed - Current meds Current Medication Order Review: Reviewed - Comments Comments/Follow Ups: Continue to monitor labs, vitals and for medication changes. Antibiotic Activity - Pharmacy Antibiotic Review Pharmacy Antibiotic Activity: Reviewed, no change (Cefepime 2gm Q12H - day 1.)
[2021-11-05 17:10] LABS: Fibrinogen 689 mg/dL (171-384)
--- NOTE | 2021-11-05 17:14 | W.PM.PROGNOT ---
Date of Service Date of service: 11/05/21 Time of Service: 17:55 Assessment and Plan Assessment and plan (1) Respiratory failure with hypoxia: Status: Acute (2) Leukocytosis: Status: Acute (3) Pulmonary infiltrate: Status: Acute (4) Pleuritic chest pain: Status: Acute (5) Diabetes: Status: Chronic (6) Pleural effusion: Status: Acute Assessment and plan: -CT removed -don't remove chest dressing until Monday -cont IS & oulm toilet start accapella on Monday -s/p bronch and BAL. Extensive plugging removed. -walk PT ordered. D/c lovelace once she is up and walking -supportive care abx:cefepime DVT: scd (allergy heparin/lovenox) hgb 8.1 fe studies pd. hx of gastric bypass & iron defn anemia. albumin 3.1- protein supplements (7) MARITZA positive: (8) Asthma, chronic: (9) Borderline personality disorder: (10) Celiac disease: (11) GERD (gastroesophageal reflux disease): (12) Migraine: (13) Sleep apnea: Subjective Subjective Interval history since last seen: pt had 80cc bloody fluid out overnight. no airleak. Tube is outside of the chest on xray today. pt c/o severe pain w/ tube. no temps over night. No n/v. pt last bn 11/03. Exam Resp Other: no air leak. minimal bloody effussion incision c/d/i. tube removed Cardio Other: NSR GI Other: obese nontentder +BM +yeast under skin folds Extrem Other: no c/c/e Objective Last Vital Signs Temp 37.2 C 11/05/21 15:50 Pulse 109 H 11/05/21 14:00 Resp 22 11/05/21 14:01 BP 132/66 11/05/21 14:00 Pulse Ox 98 11/05/21 14:01 Laboratory Results - last 24 hr 11/03/21 11/04/21 11/04/21 07:10 17:29 20:07 WBC RBC Hgb Hct MCV MCH MCHC RDW Plt Count MPV Immature Gran % Neutrophils % Lymphocytes % Monocytes % Eosinophils % Basophils % Nucleated RBC % Absolute Neutrophils Absolute Lymphocytes Absolute Monocytes Absolute Eosinophils Absolute Basophils PT INR APTT Sodium Potassium Chloride Carbon Dioxide Anion Gap BUN Creatinine Estimated GFR/1.73 m2 Glucose Calcium Fluid Source Pleural Cancelled Fluid Color Red Cancelled Fluid Clarity Cloudy Cancelled Fluid WBC 2027 Cancelled Fld Polynuclear WBCs % 97 Cancelled Fluid Mononuclear Cell 3 Cancelled Fluid Other Cells Cancelled Proteinase 3 (PR3) <0.2 Myeloperoxidase Ab <0.2 AFB Source AFB Culture Final Res Fungal Specimen Source Fungal Culture Status Fungal Culture Final Fungal Smear Result M. Tuberculosis PCR Path Cons Comment Cancelled AFB Smear (Ref Lab) Add-On Test Request 11/05/21 11/05/21 11/05/21 06:10 06:10 08:05 WBC 22.09 H D RBC 3.09 L Hgb 8.5 L Hct 29.5 L MCV 95.5 H MCH 27.5 MCHC 28.8 L RDW 14.1 Plt Count 244 MPV 8.8 Immature Gran % 0.4 Neutrophils % 88.8 Lymphocytes % 4.5 Monocytes % 2.8 Eosinophils % 3.1 Basophils % 0.4 Nucleated RBC % 0 Absolute Neutrophils 19.62 H Absolute Lymphocytes 0.99 L Absolute Monocytes 0.62 Absolute Eosinophils 0.68 Absolute Basophils 0.09 PT 11.1 H INR 1.1 APTT 27.6 H Sodium 135 L Potassium 3.9 Chloride 102 Carbon Dioxide 30.7 Anion Gap 2.3 L BUN 16 Creatinine 0.8 Estimated GFR/1.73 m2 >= 60.00 Glucose 120 H Calcium 8.2 L Fluid Source Fluid Color Fluid Clarity Fluid WBC Fld Polynuclear WBCs % Fluid Mononuclear Cell Fluid Other Cells Proteinase 3 (PR3) Myeloperoxidase Ab AFB Source AFB Culture Final Res Fungal Specimen Source Fungal Culture Status Fungal Culture Final Fungal Smear Result M. Tuberculosis PCR Path Cons Comment AFB Smear (Ref Lab) Add-On Test Request 11/05/21 11/05/21 11/05/21 08:05 12:02 12:03 WBC RBC Hgb Hct MCV MCH MCHC RDW Plt Count MPV Immature Gran % Neutrophils % Lymphocytes % Monocytes % Eosinophils % Basophils % Nucleated RBC % Absolute Neutrophils Absolute Lymphocytes Absolute Monocytes Absolute Eosinophils Absolute Basophils PT INR APTT Sodium Potassium Chloride Carbon Dioxide Anion Gap BUN Creatinine Estimated GFR/1.73 m2 Glucose Calcium Fluid Source Cancelled Fluid Color Cancelled Fluid Clarity Cancelled Fluid WBC Cancelled Fld Polynuclear WBCs % Cancelled Fluid Mononuclear Cell Cancelled Fluid Other Cells Cancelled Proteinase 3 (PR3) Myeloperoxidase Ab AFB Source Cancelled AFB Culture Final Res Cancelled Fungal Specimen Source Cancelled Fungal Culture Status Cancelled Fungal Culture Final Cancelled Fungal Smear Result Cancelled M. Tuberculosis PCR Cancelled Path Cons Comment Cancelled AFB Smear (Ref Lab) Cancelled Add-On Test Request DONE 11/05/21 11/05/21 11/05/21 12:16 12:16 12:17 WBC RBC Hgb Hct MCV MCH MCHC RDW Plt Count MPV Immature Gran % Neutrophils % Lymphocytes % Monocytes % Eosinophils % Basophils % Nucleated RBC % Absolute Neutrophils Absolute Lymphocytes Absolute Monocytes Absolute Eosinophils Absolute Basophils PT INR APTT Sodium Potassium Chloride Carbon Dioxide Anion Gap BUN Creatinine Estimated GFR/1.73 m2 Glucose Calcium Fluid Source Fluid Color Fluid Clarity Fluid WBC Fld Polynuclear WBCs % Fluid Mononuclear Cell Fluid Other Cells Proteinase 3 (PR3) Myeloperoxidase Ab AFB Source Cancelled AFB Culture Final Res Cancelled Fungal Specimen Source Cancelled Cancelled Fungal Culture Status Cancelled Cancelled Fungal Culture Final Cancelled Cancelled Fungal Smear Result Cancelled Cancelled M. Tuberculosis PCR Cancelled Path Cons Comment AFB Smear (Ref Lab) Cancelled Add-On Test Request 11/05/21 17:00 WBC RBC Hgb 8.1 L Hct 27.9 L MCV MCH MCHC RDW Plt Count MPV Immature Gran % Neutrophils % Lymphocytes % Monocytes % Eosinophils % Basophils % Nucleated RBC % Absolute Neutrophils Absolute Lymphocytes Absolute Monocytes Absolute Eosinophils Absolute Basophils PT INR APTT Sodium Potassium Chloride Carbon Dioxide Anion Gap BUN Creatinine Estimated GFR/1.73 m2 Glucose Calcium Fluid Source Fluid Color Fluid Clarity Fluid WBC Fld Polynuclear WBCs % Fluid Mononuclear Cell Fluid Other Cells Proteinase 3 (PR3) Myeloperoxidase Ab AFB Source AFB Culture Final Res Fungal Specimen Source Fungal Culture Status Fungal Culture Final Fungal Smear Result M. Tuberculosis PCR Path Cons Comment AFB Smear (Ref Lab) Add-On Test Request
[2021-11-05] MEDS: cloNIDine 0.1 MG TAB 0.2 MG PO (17:57)
[2021-11-05 18:33] LABS: Lab Add On Test DONE
[2021-11-05 18:48] LABS: Iron 14 ug/dL (50-170); Total Iron Binding Capacity 235 ug/dL (250-450); Transferrin Sat 6 % (15-50)
[2021-11-05 19:01] LABS: Ferritin 189 ng/mL (8-252)
[2021-11-05] MEDS: Amitriptyline 50 MG TAB 100 MG PO (20:43)
[2021-11-06] VITALS (8 sets, daily range): BP systolic 113–132; BP diastolic 60–80; PULSE 86–107; RESP 11–19; TEMP 36.5–37; O2SAT 94–99
--- NOTE | 2021-11-06 | DI.RAD_ITS ---
Exam(s) XR PORTABLE CHEST AP EXAM: XR PORTABLE CHEST AP CLINICAL HISTORY: f/u removal of chest tube TECHNIQUE: 2D digital imaging was performed of the chest. One image was obtained. An AP view was ob tained. COMPARISON: CR XR PORTABLE CHEST AP from 11/05/2021 FINDINGS: MEDIASTINUM: Normal. HEART: Normal. PULMONARY VASCULATURE: Normal. LUNGS: There are bilateral airspace opacities. There has been some improvement of the right lung com pared to the prior examination. PLEURAL SPACE: There is a small right pleural effusion. No left pleural effusion. No pneumothorax i s identified. BONE:Within normal limits for the patient's age. OTHER FINDINGS:There has been interval removal of the right chest tube. IMPRESSION: 1. Interval removal of the right thoracostomy tube without demonstrable pneumothorax. 2. Bilateral pulmonary opacities. There has been slight improvement in the appearance of the left giovanna ng compared to the prior examination. 3. Small right pleural effusion. DATA REPOSITORY: RADIATION DOSE DELIVERED:
[2021-11-06] MEDS: HYDROmorphone 2 MG/ML VIAL 0.5 MG IVP (03:07)
[2021-11-06 07:10] LABS: Abs Immature Grans 0.07 10^3/uL (0.0-0.06); Absolute Basophil Count 0.06 10^3/uL (0.0-0.2); Absolute Lymphocyte Count 1.18 10^3/uL (1.2-3.4); Absolute Monocyte Count 0.62 10^3/uL (0.1-0.8); Basophils % 0.4; HCT 26.3 % (36.0-46.0); HGB 7.8 g/dL (11.2-15.7); Immature Grans % 0.5; Lymphocytes % 8.5; MCH 28.1 pg (27.0-33.0); MCHC 29.7 % (32.0-36.0); MCV 94.6 fL (80-95); Monocytes % 4.5; Neutrophils % 81.1; Nucleated RBC 0 %; Platelet Count 218 10^3/uL (130-400); RBC 2.78 10^6/uL (3.93-5.22); RDW 13.9 % (11.7-14.6); RDW-SD 47.8 fL; WBC 13.88 10^3/uL (4.4-10.8)
[2021-11-06 07:12] LABS: Absolute Eosinophil Count 0.69 10^3/uL (0.0-0.7); Absolute Neutrophil Count 11.26 10^3/uL (1.2-6.7)
[2021-11-06 07:16] LABS: Anion Gap 5.9 mmol/L (3-11); BUN 12 mg/dL (7-18); CO2 30.1 mmol/L (21.0-32.0); CREATININE 0.7 mg/dL (0.55-1.02); Chloride 103 mmol/L (98-107); Glucose 96 mg/dL (74-106); Potassium 4.2 mmol/L (3.5-5.1); Sodium 139 mmol/L (136-145)
[2021-11-06 07:23] LABS: Hemoglobin A1C 5.2 % (<5.7)
[2021-11-06 07:41] LABS: Diff Comment Diff Reviewed
[2021-11-06 07:42] LABS: Basophilic Stippling Present; Hypochromasia 2+; Stomatocytes 2+
[2021-11-06 07:44] LABS: Poikilocytes 1+
[2021-11-06] MEDS: Budesonide/Formoterol 160/4.5 6 GM 60 PUFF INH IH ×2 (07:46→21:28)
[2021-11-06 07:47] LABS: Folate 5.1 ng/mL (8.6-20.0); Vitamin B12 > 2000 pg/mL (193-986)
[2021-11-06] MEDS: ACETAMINOPHEN 1,000 MG/100 ML BTL 400 MG IVPB (07:49)
[2021-11-06] MEDS: buPROPion 100 MG TAB 200 MG PO ×2 (07:50→21:25)
[2021-11-06] MEDS: busPIRone 5 MG TAB 10 MG PO ×2 (07:50→20:28)
[2021-11-06] MEDS: Celecoxib 100 MG CAP PO ×2 (07:50→20:28)
[2021-11-06] MEDS: Baclofen 10 MG TAB PO ×3 (07:50→20:28)
[2021-11-06] MEDS: CEFEPIME 2 GM in Normal Saline 100 ML IVPB (07:50)
[2021-11-06] MEDS: Pantoprazole 40 MG TABCR PO ×2 (07:50→20:28)
[2021-11-06] MEDS: Cetirizine 10 MG TAB PO (07:50)
[2021-11-06] MEDS: Docusate Sodium 100 MG CAP PO ×3 (07:51→20:32)
[2021-11-06] MEDS: Protein Nutritional Supplement 16 GM 1 OUNCE PACKET PO (07:51)
[2021-11-06] MEDS: Gabapentin 600 MG TAB PO ×3 (07:51→20:29)
--- NOTE | 2021-11-06 09:39 | DI.VRAD_ITS ---
PROCEDURE INFORMATION: Exam: XR Chest Exam date and time: 11/06/2021 8:48 AM Age: 41 years old Clinical indication: Shortness of breath TECHNIQUE: Imaging protocol: XR of the chest. Views: 1 view. COMPARISON: CR XR PORTABLE CHEST AP 11/05/2021 12:39 PM FINDINGS: Tubes, catheters and devices: Thoracostomy tube has been removed from the right chest. No definite pneumothorax identified.. Lungs: Diffuse bilateral opacities may represent multifocal pneumonia including COVID.. Pleural spaces: Small right pleural effusion. Heart/Mediastinum: Unremarkable. No cardiomegaly. Bones/joints: Unremarkable. IMPRESSION: 1. Diffuse bilateral opacities may represent multifocal pneumonia including COVID.. 2. Thoracostomy tube has been removed from the right chest. No definite pneumothorax identified.. 3. Small right pleural effusion. Dictated and Authenticated by: Corey Bradford MD. Ordering:CHILANGO Bee MD
--- NOTE | 2021-11-06 11:41 | W.PM.PROGNOT ---
Date of Service Date of service: 11/06/21 Time of Service: 11:41 Assessment and Plan Assessment and plan (1) Respiratory failure with hypoxia: Status: Acute (2) Leukocytosis: Status: Acute (3) Pulmonary infiltrate: Status: Acute (4) Pleuritic chest pain: Status: Acute (5) Diabetes: Status: Chronic (6) Pleural effusion: Status: Acute Assessment and plan: -PPD #1 s/p bronch and BAL w/ extensive mucous plugging removed. -S/p chest tube placement and removal; don't remove dressing until Monday -Incentive spirometry and pulmonary toilet, OK to start accapella on Monday -PT ordered, patient was out of bed to chair today, encourage walking. -Godinez has been removed -Continue supportive care -Abx: Cefepime -DVT: scd (allergy heparin/lovenox) -Downgrade out of ICU (7) MARITZA positive: (8) Asthma, chronic: (9) Borderline personality disorder: (10) Celiac disease: (11) GERD (gastroesophageal reflux disease): (12) Migraine: (13) Sleep apnea: Exam Narrative Exam Narrative: Feeling better today, easier to take deep breaths. Continues to cough, complains of pain from chest tube site. Const General: comfortable, no acute distress and ill appearing Nutritional Appearance: obese Chest Chest: other (right chest tube removed) Resp Effort & Inspection: normal respiratory effort, no audible wheezes, cough Quality of cough: dry, no grunting, not labored, no nasal flaring and other (nasal cannula in place) Cardio Rate: tachycardic Rhythm: regular rhythm Neuro General: other (resting quietly) Objective Last Vital Signs Temp 98.4 F 11/06/21 09:11 Pulse 104 H 11/06/21 09:11 Resp 12 11/06/21 09:11 BP 114/60 11/06/21 09:11 Pulse Ox 94 11/06/21 09:11 Laboratory Results - last 24 hr 11/03/21 11/05/21 11/05/21 07:10 06:10 06:10 WBC RBC Hgb Hct MCV MCH MCHC RDW Plt Count MPV Immature Gran % Neutrophils % Lymphocytes % Monocytes % Eosinophils % Basophils % Nucleated RBC % Absolute Neutrophils Absolute Lymphocytes Absolute Monocytes Absolute Eosinophils Absolute Basophils RBC Morphology Hypochromasia Poikilocytosis Basophilic Stippling Stomatocytes Fibrinogen Sodium Potassium Chloride Carbon Dioxide Anion Gap BUN Creatinine Estimated GFR/1.73 m2 Glucose Hemoglobin A1c Calcium Iron 14 L TIBC 235 L Transferrin % Sat 6 L Ferritin Vitamin B12 Folate Fluid Source Fluid Color Fluid Clarity Fluid WBC Fld Polynuclear WBCs % Fluid Mononuclear Cell Fluid Other Cells Proteinase 3 (PR3) <0.2 Myeloperoxidase Ab <0.2 AFB Source AFB Culture Final Res Fungal Specimen Source Fungal Culture Status Fungal Culture Final Fungal Smear Result M. Tuberculosis PCR Path Cons Comment AFB Smear (Ref Lab) Add-On Test Request DONE 11/05/21 11/05/21 11/05/21 06:10 08:05 12:02 WBC RBC Hgb Hct MCV MCH MCHC RDW Plt Count MPV Immature Gran % Neutrophils % Lymphocytes % Monocytes % Eosinophils % Basophils % Nucleated RBC % Absolute Neutrophils Absolute Lymphocytes Absolute Monocytes Absolute Eosinophils Absolute Basophils RBC Morphology Hypochromasia Poikilocytosis Basophilic Stippling Stomatocytes Fibrinogen 689 H Sodium Potassium Chloride Carbon Dioxide Anion Gap BUN Creatinine Estimated GFR/1.73 m2 Glucose Hemoglobin A1c Calcium Iron TIBC Transferrin % Sat Ferritin 189 Vitamin B12 Folate Fluid Source Cancelled Fluid Color Cancelled Fluid Clarity Cancelled Fluid WBC Cancelled Fld Polynuclear WBCs % Cancelled Fluid Mononuclear Cell Cancelled Fluid Other Cells Cancelled Proteinase 3 (PR3) Myeloperoxidase Ab AFB Source AFB Culture Final Res Fungal Specimen Source Fungal Culture Status Fungal Culture Final Fungal Smear Result M. Tuberculosis PCR Path Cons Comment Cancelled AFB Smear (Ref Lab) Add-On Test Request 11/05/21 11/05/21 11/05/21 12:03 12:16 12:16 WBC RBC Hgb Hct MCV MCH MCHC RDW Plt Count MPV Immature Gran % Neutrophils % Lymphocytes % Monocytes % Eosinophils % Basophils % Nucleated RBC % Absolute Neutrophils Absolute Lymphocytes Absolute Monocytes Absolute Eosinophils Absolute Basophils RBC Morphology Hypochromasia Poikilocytosis Basophilic Stippling Stomatocytes Fibrinogen Sodium Potassium Chloride Carbon Dioxide Anion Gap BUN Creatinine Estimated GFR/1.73 m2 Glucose Hemoglobin A1c Calcium Iron TIBC Transferrin % Sat Ferritin Vitamin B12 Folate Fluid Source Fluid Color Fluid Clarity Fluid WBC Fld Polynuclear WBCs % Fluid Mononuclear Cell Fluid Other Cells Proteinase 3 (PR3) Myeloperoxidase Ab AFB Source Cancelled Cancelled AFB Culture Final Res Cancelled Cancelled Fungal Specimen Source Cancelled Cancelled Fungal Culture Status Cancelled Cancelled Fungal Culture Final Cancelled Cancelled Fungal Smear Result Cancelled Cancelled M. Tuberculosis PCR Cancelled Cancelled Path Cons Comment AFB Smear (Ref Lab) Cancelled Cancelled Add-On Test Request 11/05/21 11/05/21 11/06/21 12:17 17:00 06:12 WBC RBC Hgb 8.1 L Hct 27.9 L MCV MCH MCHC RDW Plt Count MPV Immature Gran % Neutrophils % Lymphocytes % Monocytes % Eosinophils % Basophils % Nucleated RBC % Absolute Neutrophils Absolute Lymphocytes Absolute Monocytes Absolute Eosinophils Absolute Basophils RBC Morphology Hypochromasia Poikilocytosis Basophilic Stippling Stomatocytes Fibrinogen Sodium Potassium Chloride Carbon Dioxide Anion Gap BUN Creatinine Estimated GFR/1.73 m2 Glucose Hemoglobin A1c Calcium Iron TIBC Transferrin % Sat Ferritin Vitamin B12 > 2000 H Folate 5.1 L Fluid Source Fluid Color Fluid Clarity Fluid WBC Fld Polynuclear WBCs % Fluid Mononuclear Cell Fluid Other Cells Proteinase 3 (PR3) Myeloperoxidase Ab AFB Source AFB Culture Final Res Fungal Specimen Source Cancelled Fungal Culture Status Cancelled Fungal Culture Final Cancelled Fungal Smear Result Cancelled M. Tuberculosis PCR Path Cons Comment AFB Smear (Ref Lab) Add-On Test Request 11/06/21 11/06/21 11/06/21 06:12 06:12 06:12 WBC 13.88 H D RBC 2.78 L Hgb 7.8 L Hct 26.3 L MCV 94.6 MCH 28.1 MCHC 29.7 L RDW 13.9 Plt Count 218 MPV 9.0 Immature Gran % 0.5 Neutrophils % 81.1 Lymphocytes % 8.5 Monocytes % 4.5 Eosinophils % 5.0 Basophils % 0.4 Nucleated RBC % 0 Absolute Neutrophils 11.26 H Absolute Lymphocytes 1.18 L Absolute Monocytes 0.62 Absolute Eosinophils 0.69 Absolute Basophils 0.06 RBC Morphology See Below Hypochromasia 2+ Poikilocytosis 1+ Basophilic Stippling Present Stomatocytes 2+ Fibrinogen Sodium 139 Potassium 4.2 Chloride 103 Carbon Dioxide 30.1 Anion Gap 5.9 BUN 12 Creatinine 0.7 Estimated GFR/1.73 m2 >= 60.00 Glucose 96 Hemoglobin A1c 5.2 Calcium 8.0 L Iron TIBC Transferrin % Sat Ferritin Vitamin B12 Folate Fluid Source Fluid Color Fluid Clarity Fluid WBC Fld Polynuclear WBCs % Fluid Mononuclear Cell Fluid Other Cells Proteinase 3 (PR3) Myeloperoxidase Ab AFB Source AFB Culture Final Res Fungal Specimen Source Fungal Culture Status Fungal Culture Final Fungal Smear Result M. Tuberculosis PCR Path Cons Comment AFB Smear (Ref Lab) Add-On Test Request
--- NOTE | 2021-11-06 12:17 | IN_ITS ---
Date of service: 11/06/21 Time of Service: 09:00 PT Notes Visit Reasons: Pleuritis,Chronic Cough,Pleural Effusion Physical Therapy Inpatient Initial Evaluation Date: 11/06/21 Referring Doctor: Janine Hinton PT Orders: PT CONSULT: Eval and treat Precautions: Fall. Standard. Patient Profile/Admitting Diagnosis: Shirley is a 41-year-old female that had pneumonia a month ago followed by pleuritis and pleaural effusion. On 11/02/2021 she underwent thoracenthesis. On 11/05/21 she had bronchoscopy performed. Right sided chest pain present and increases with activity. Reports weakness in legs due to pneumonia. PMHX: See EMR Social History/Home Situation: Lives with boris? and his child, 9 steps to enter, laundry is downstairs but does not have to access. No AD at baseline. Equipment Owned/DME: None Subjective: Cleared by nursing to see patient and patient is agreeable to PT. Patient is sitting up in chair at time of consult and connected to telemetry oxygen via nasal cannula. Objective: General Observation: Flat affect, particularly motivated Mental Status: A&O x3 Pain: Right chest, particularly with scooting self up in chair ROM: Right Upper Extremity: Shoulder Flexion WFL. Shoulder abduction WFL. Elbow flexion WFL. Wrist flexion WFL. Opening and closing of hand WFL. Left Upper Extremity: Shoulder Flexion WFL. Shoulder abduction WFL. Elbow flexion WFL. Wrist flexion WFL. Opening and closing of hand WFL. Right Lower Extremity: Hip flexion WFL. Hip abduction WFL. Knee flexion WFL. Ankle dorsiflexion WFL. Ankle plantarflexion WFL. Left Lower Extremity: Hip flexion WFL. Hip abduction WFL. Knee flexion WFL. Ankle dorsiflexion WFL. Ankle plantarflexion WFL. Strength: Right Upper Extremity: Grossly 4+/5 Left Upper Extremity: Grossly 4+/5 Right Lower Extremity: Grossly 4+/5 Left Lower Extremity: Grossly 4+/5 Sensation: Intact as to pain and pressure on bilateral lower extremities. Bed Mobility/Transfers: Supine to sit: Nursing reports independent Sit to supine: Nursing reports independent Sit to stand: SBA Stand to sit: SBA Gait: Ambulated 5 ft in room independently with FWW HEP: given exercises for shoulder AROM into flexion, abduction, and ER; seated LAQ, seated heel raises, supine heel slides, supine SLR Balance: Static Sitting: Normal Dynamic Sitting: Good Static Standing: Good Dynamic Standing: Fair Special Tests: Mobility Limitations Standardized Measure [facility] AM-PAC 6 clicks Basic Mobility Inpatient Short Form: Raw Score: 17 CMS Score: 50.57% Informed Consent/Education: Patient instructed in purpose of PT consult and plan of care. Assessment: Patient presents with clinical signs and symptoms consistent with current/admitting diagnoses that have resulted to mobility limitations, gait instability, generalized weakness, and impairment of motor control as demonstrated by the following impairment level findings: 1. Decreased strength to upper and lower extremity major muscle groups 2. Impaired sitting/standing balance 3. Impaired activity tolerance 4. Limitation of joint range of motion in right shoulder secondary to pain Impairments are contributing to the following functional limitations: 1. Decreased efficiency with transfers 2. Inability to safely ambulate without assistive device 4. Increase completion time for mobility ADL performance 5. Increased fall risk 6. Inability to negotiate steps alone safely Patient is assessed as a Moderate complexity based on the following: History: 41year old female with impairment level findings, functional limitations, and past medical history as indicated above Examination: Demonstrable impairment in strength, balance, and mobility level with underlying impairments and functional limitations as documented above Presentation: Decision Making: Moderate complexity Goals: Goals x1 week 1. Supine-Sit: independent 2. Sit-Supine: independent 3. Sit-Stand: independent 4. Stand-Sit: independent 5. Bed-Chair: independent 6. Chair-Bed: independent 7. Independent gait on level surface with use of least restrictive device for at least 300 feet without report of pain nor dyspnea 8. Independent stair negotiation while holding onto bilateral rails for at least 10 steps without report of pain nor dyspnea 9. Independent with home exercise program 10. Good static and dynamic standing balance/tolerance Plan of Care/Treatment Plan: 1-2x/day, 7 days/week x 1 week. Plan of care has been reviewed with the [employer] providing the service under Physical Therapy direction. Initiate Physical Therapy intervention for strengthening, bed mobility, transfers, gait, stairs, balance training, and use of assistive device. Discharge Plan DISCHARGE RECOMMENDATIONS: Home with outpatient PT TREATMENT CODE/TIME: 9:00-9:20 (20 minutes), [id number] Thank you for the opportunity to participate in the care of this patient. Giulia Arias, PT, DPT, OCS [facility], [place]
--- NOTE | 2021-11-06 13:21 | PGE_ITS ---
Date of Service Date of service: 11/06/21 Time of Service: 13:21 Assessment and Plan Assessment and plan (1) Pleural effusion: Status: Acute Assessment and plan: Hemothorax. S/p removal of chest tube yesterday as well as s/p bronchoscopy. Pleural fluid cx: NGTD. CXR better. Continue empiric cefipime. (2) Pneumonia: Status: Acute Assessment and plan: Secretions seen in bronchoscopy were purulent. Continue empiric cefepime. (3) Diabetes: Status: Chronic Assessment and plan: BGs here nml. A1C was 5.2, but done but may not be accurate in acute anemia. Check fructosamine. The patient requests liberalization of her diet. (4) Pleuritic chest pain: Status: Acute Assessment and plan: Due to above. Continue prn opioids. (5) Folate deficiency anemia: Status: Acute Assessment and plan: replete folate. (6) DVT prophylaxis: Status: Acute Assessment and plan: SCDs. Chemical DVT ppx is contraindicated in setting of hemothorax. (7) Discharge planning issues: Status: Acute Assessment and plan: Full code. Ok to transfer out of ICU. Discussed with Dr Ruiz. Subjective Subjective Interval history since last seen: Feels a little better than yesterday. Endorses dizziness when she stands up, nausea when she sits up, R-sided chest/back pain, shortness of breath at rest. Requests O2 bleed in through CPAP (O2 sats drop without it). On 3L of O2 by ME at this time. No fevers since 11/04/21 at 09:41 am. Exam Narrative Exam Narrative: General: Pleasant obese female who appears comfortable but tired in bed, A&Ox3, no dyspnea/tachypnea on 3L of O2 by ME HEENT: EOMI, MMM Heart: RRR, no m/r/g Lungs: Decreased breath sounds at B bases; puplish hematoma at site of prior thoracenthesis R back Abdomen: soft, nontender, nondistended Extremities: +1 BLE edema, symmetric Objective Last Vital Signs Temp 36.9 C 11/06/21 09:11 Pulse 104 H 11/06/21 09:11 Resp 12 11/06/21 09:11 BP 114/60 11/06/21 09:11 Pulse Ox 94 11/06/21 09:11 Laboratory Results - last 24 hr 11/03/21 11/05/21 11/05/21 07:10 06:10 06:10 WBC RBC Hgb Hct MCV MCH MCHC RDW Plt Count MPV Immature Gran % Neutrophils % Lymphocytes % Monocytes % Eosinophils % Basophils % Nucleated RBC % Absolute Neutrophils Absolute Lymphocytes Absolute Monocytes Absolute Eosinophils Absolute Basophils RBC Morphology Hypochromasia Poikilocytosis Basophilic Stippling Stomatocytes Fibrinogen Sodium Potassium Chloride Carbon Dioxide Anion Gap BUN Creatinine Estimated GFR/1.73 m2 Glucose Hemoglobin A1c Calcium Iron 14 L TIBC 235 L Transferrin % Sat 6 L Ferritin Vitamin B12 Folate Proteinase 3 (PR3) <0.2 Myeloperoxidase Ab <0.2 Add-On Test Request DONE 11/05/21 11/05/21 11/05/21 06:10 08:05 17:00 WBC RBC Hgb 8.1 L Hct 27.9 L MCV MCH MCHC RDW Plt Count MPV Immature Gran % Neutrophils % Lymphocytes % Monocytes % Eosinophils % Basophils % Nucleated RBC % Absolute Neutrophils Absolute Lymphocytes Absolute Monocytes Absolute Eosinophils Absolute Basophils RBC Morphology Hypochromasia Poikilocytosis Basophilic Stippling Stomatocytes Fibrinogen 689 H Sodium Potassium Chloride Carbon Dioxide Anion Gap BUN Creatinine Estimated GFR/1.73 m2 Glucose Hemoglobin A1c Calcium Iron TIBC Transferrin % Sat Ferritin 189 Vitamin B12 Folate Proteinase 3 (PR3) Myeloperoxidase Ab Add-On Test Request 11/06/21 11/06/21 11/06/21 06:12 06:12 06:12 WBC 13.88 H D RBC 2.78 L Hgb 7.8 L Hct 26.3 L MCV 94.6 MCH 28.1 MCHC 29.7 L RDW 13.9 Plt Count 218 MPV 9.0 Immature Gran % 0.5 Neutrophils % 81.1 Lymphocytes % 8.5 Monocytes % 4.5 Eosinophils % 5.0 Basophils % 0.4 Nucleated RBC % 0 Absolute Neutrophils 11.26 H Absolute Lymphocytes 1.18 L Absolute Monocytes 0.62 Absolute Eosinophils 0.69 Absolute Basophils 0.06 RBC Morphology See Below Hypochromasia 2+ Poikilocytosis 1+ Basophilic Stippling Present Stomatocytes 2+ Fibrinogen Sodium 139 Potassium 4.2 Chloride 103 Carbon Dioxide 30.1 Anion Gap 5.9 BUN 12 Creatinine 0.7 Estimated GFR/1.73 m2 >= 60.00 Glucose 96 Hemoglobin A1c Calcium 8.0 L Iron TIBC Transferrin % Sat Ferritin Vitamin B12 > 2000 H Folate 5.1 L Proteinase 3 (PR3) Myeloperoxidase Ab Add-On Test Request 11/06/21 06:12 WBC RBC Hgb Hct MCV MCH MCHC RDW Plt Count MPV Immature Gran % Neutrophils % Lymphocytes % Monocytes % Eosinophils % Basophils % Nucleated RBC % Absolute Neutrophils Absolute Lymphocytes Absolute Monocytes Absolute Eosinophils Absolute Basophils RBC Morphology Hypochromasia Poikilocytosis Basophilic Stippling Stomatocytes Fibrinogen Sodium Potassium Chloride Carbon Dioxide Anion Gap BUN Creatinine Estimated GFR/1.73 m2 Glucose Hemoglobin A1c 5.2 Calcium Iron TIBC Transferrin % Sat Ferritin Vitamin B12 Folate Proteinase 3 (PR3) Myeloperoxidase Ab Add-On Test Request Objective Narrative Objective Narrative: CXR: 1. Interval removal of the right thoracostomy tube without demonstrable pneu mothorax. 2. Bilateral pulmonary opacities.? There has been slight improvement in the appearance of the left lung compared to the prior examination. 3. Small right pleural effusion.?
[2021-11-06] MEDS: Acetaminophen 500 MG TAB 1000 MG PO ×2 (15:25→22:21)
[2021-11-06] MEDS: Azithromycin 250 MG TAB 500 MG PO (16:26)
[2021-11-06] MEDS: HYDROmorphone 2 MG TAB PO ×2 (16:27→20:28)
[2021-11-06] MEDS: Amitriptyline 50 MG TAB 100 MG PO (21:28)
[2021-11-06 22:06] LABS: Legionella Ag Detection Urine Negative (Negative)
--- NOTE | 2021-11-06 22:45 | NUR.NOTE ---
Nursing Note: arrived on the floor from the ICU estimated time 21:40
[2021-11-07] VITALS (7 sets, daily range): BP systolic 119–157; BP diastolic 75–91; PULSE 91–114; RESP 16–20; TEMP 36.5–36.8; O2SAT 95–100
[2021-11-07] MEDS: HYDROmorphone 2 MG TAB PO ×4 (05:17→21:14)
[2021-11-07 06:30] LABS: Abs Immature Grans 0.04 10^3/uL (0.0-0.06); Absolute Basophil Count 0.08 10^3/uL (0.0-0.2); Absolute Lymphocyte Count 1.05 10^3/uL (1.2-3.4); Absolute Monocyte Count 0.48 10^3/uL (0.1-0.8); Basophils % 0.8; Eosinophils % 8.4; HCT 27.7 % (36.0-46.0); HGB 8.2 g/dL (11.2-15.7); Immature Grans % 0.4; MCH 27.8 pg (27.0-33.0); MCHC 29.6 % (32.0-36.0); MCV 93.9 fL (80-95); MPV 8.7 fL (8.0-11.0); Neutrophils % 74.4; Nucleated RBC 0 %; Platelet Count 214 10^3/uL (130-400); RBC 2.95 10^6/uL (3.93-5.22); RDW 13.7 % (11.7-14.6); RDW-SD 47.4 fL; WBC 9.52 10^3/uL (4.4-10.8)
[2021-11-07 06:37] LABS: Anion Gap 0 mmol/L (3-11); BUN 11 mg/dL (7-18); CREATININE 0.8 mg/dL (0.55-1.02); Calcium 8.2 mg/dL (8.5-10.1); Chloride 104 mmol/L (98-107); Glucose 98 mg/dL (74-106); Potassium 3.9 mmol/L (3.5-5.1); Sodium 138 mmol/L (136-145)
[2021-11-07 06:40] LABS: Absolute Neutrophil Count 7.08 10^3/uL (1.2-6.7)
[2021-11-07 06:41] LABS: Hemoglobin A1C 5.4 % (<5.7)
[2021-11-07] MEDS: buPROPion 100 MG TAB 200 MG PO ×2 (08:02→21:12)
[2021-11-07] MEDS: Celecoxib 100 MG CAP PO ×2 (08:02→21:13)
[2021-11-07] MEDS: Cetirizine 10 MG TAB PO (08:03)
[2021-11-07] MEDS: Pantoprazole 40 MG TABCR PO ×2 (08:03→21:13)
[2021-11-07] MEDS: Gabapentin 600 MG TAB PO ×3 (08:03→21:14)
[2021-11-07] MEDS: Docusate Sodium 100 MG CAP PO ×3 (08:03→21:13)
[2021-11-07] MEDS: Baclofen 10 MG TAB PO ×3 (08:04→21:14)
[2021-11-07] MEDS: Folic Acid 1 MG TAB PO (08:04)
[2021-11-07] MEDS: busPIRone 5 MG TAB 10 MG PO ×2 (08:04→21:11)
[2021-11-07] MEDS: Budesonide/Formoterol 160/4.5 6 GM 60 PUFF INH IH ×2 (08:05→21:20)
[2021-11-07] MEDS: Protein Nutritional Supplement 16 GM 1 OUNCE PACKET PO (08:05)
[2021-11-07] MEDS: Acetaminophen 500 MG TAB 1000 MG PO (08:15)
[2021-11-07] MEDS: Benzonatate 100 MG CAP PO (08:17)
--- NOTE | 2021-11-07 08:30 | DI.RAD_ITS ---
Exam(s) XR PORTABLE CHEST AP EXAM: XR PORTABLE CHEST AP CLINICAL HISTORY: plerual effussion TECHNIQUE: 2D digital imaging was performed of the chest. One image was obtained. An AP view was ob tained. COMPARISON: CR,XR XR PORTABLE CHEST AP from 11/06/2021 FINDINGS: MEDIASTINUM: Normal. HEART: Normal. PULMONARY VASCULATURE: Normal. LUNGS: Persistent bilateral patchy pulmonary infiltrates. There may be slight improvement in the rig ht lung. PLEURAL SPACE: There is a persistent small right pleural effusion. There is a persistent lucency marci ng the lateral chest wall which may represent a residual pneumothorax. It is unchanged. BONE:Within normal limits for the patient's age. OTHER FINDINGS:Normal. IMPRESSION: DATA REPOSITORY: RADIATION DOSE DELIVERED:
--- NOTE | 2021-11-07 10:50 | W.PM.PROGNOT ---
Date of Service Date of service: 11/07/21 Time of Service: 10:50 Assessment and Plan Assessment and plan (1) Respiratory failure with hypoxia: Status: Acute (2) Leukocytosis: Status: Acute (3) Pulmonary infiltrate: Status: Acute (4) Pleuritic chest pain: Status: Acute (5) Diabetes: Status: Chronic (6) Pleural effusion: Status: Acute Assessment and plan: -Clinically improving. -PPD #2 s/p bronch and BAL w/ extensive mucous plugging removed. -S/p chest tube placement and removal; don't remove dressing until Monday -Incentive spirometry and pulmonary toilet, OK to start accapella on Monday -PT ordered, patient getting up to use restroom independently, encourage walking. -Continue supportive care, wean nasal cannula as tolerated -AM chest x-ray ordered for tomorrow -24h without abx, leukocytosis resolved. Cx negative to date. -Further studies pending, -Cytology from thoracentesis with RBC/WBC no bacteria, no malignant cells identified. Exudative effusion. -DVT: scd (allergy heparin/lovenox) (7) MARITZA positive: Assessment and plan: -Likely incidental, other rheumatologic markers negative thus far (8) Asthma, chronic: (9) Borderline personality disorder: (10) Celiac disease: (11) GERD (gastroesophageal reflux disease): (12) Migraine: (13) Sleep apnea: Subjective Subjective Patient reports: no new complaints, feels better, voiding w/o difficulty and bowel movement Exam Narrative Exam Narrative: Continues to feel better, says she woke up gasping for air as a result of forgetting to replace her CPAP overnight. Const General: comfortable, no acute distress and ill appearing Nutritional Appearance: obese Chest Chest: other (right chest tube removed) Resp Effort & Inspection: normal respiratory effort, no audible wheezes, cough Quality of cough: dry, no grunting, not labored, no nasal flaring and other (nasal cannula in place) Cardio Rate: regular rate Rhythm: regular rhythm Back/Spine/Pelvis Back: other (mild ecchymosis around previous thoracentesis site, bandaid in place) Skin General skin exam: ecchymosis (around thoracentesis site and scattered areas on arms) Neuro General: other (resting quietly) Objective Last Vital Signs Temp 97.9 F 11/07/21 07:52 Pulse 91 H 02/13/22 07:52 Resp 16 11/07/21 07:52 BP 144/85 H 11/07/21 07:52 Pulse Ox 96 11/07/21 07:52 Laboratory Results - last 24 hr 11/05/21 11/07/21 11/07/21 18:30 06:00 06:00 WBC RBC Hgb Hct MCV MCH MCHC RDW Plt Count MPV Immature Gran % Neutrophils % Lymphocytes % Monocytes % Eosinophils % Basophils % Nucleated RBC % Absolute Neutrophils Absolute Lymphocytes Absolute Monocytes Absolute Eosinophils Absolute Basophils Sodium 138 Potassium 3.9 Chloride 104 Carbon Dioxide 34.0 H Anion Gap 0 L BUN 11 Creatinine 0.8 Estimated GFR/1.73 m2 >= 60.00 Glucose 98 Hemoglobin A1c 5.4 Calcium 8.2 L Magnesium 2.0 Urine Legionella Ag Negative 11/07/21 06:00 WBC 9.52 D RBC 2.95 L Hgb 8.2 L Hct 27.7 L MCV 93.9 MCH 27.8 MCHC 29.6 L RDW 13.7 Plt Count 214 MPV 8.7 Immature Gran % 0.4 Neutrophils % 74.4 Lymphocytes % 11.0 Monocytes % 5.0 Eosinophils % 8.4 Basophils % 0.8 Nucleated RBC % 0 Absolute Neutrophils 7.08 H Absolute Lymphocytes 1.05 L Absolute Monocytes 0.48 Absolute Eosinophils 0.80 H Absolute Basophils 0.08 Sodium Potassium Chloride Carbon Dioxide Anion Gap BUN Creatinine Estimated GFR/1.73 m2 Glucose Hemoglobin A1c Calcium Magnesium Urine Legionella Ag
--- NOTE | 2021-11-07 12:57 | PT.INTREAT ---
Date of service: 11/07/21 Time of Service: 10:00 PT Notes Visit Reasons: Pleuritis,Chronic Cough,Pleural Effusion Inpatient Physical Therapy Treatment Note [facility] Date: 11/07/2021 PRECAUTIONS:Fall, standard SUBJECTIVE: Would like to brush her teeth and put her contacts in after having a bowel movement. OBJECTIVE: PAIN: Bad POOL from coughing, requested to not walk outside of room due to this. BED MOBILITY/TRANSFERS Sit-stand: I Stand-sit: I GAIT Assistive Device: FWW Weight bearing: Full Assist: I Distance: 15ft, Walked with patient from bathroom to bed. Indicated due to POOL pain she did not want to walk out into hallway. Found patient requesting assist with wiping herself post bowel movement today. Assistance was given and patient requested to stand post bowel movement to brush her dentures and apply her contacts at sink. SBA only with this. (approximately 10 minutes) THEREX: Reviewed HEP she was given yesterday. Patient was able to perform all UE / LE exercises for 10 reps each. Limited ROM with right UE due to continued rib region pain. ASSESSMENT: Tolerated today's session well. PLAN: Continue to advance ambulation and ther exercises as able to tolerate for improved ADL function. TREATMENT CODE/TIME: 39221 x 2, 10 to 10:30 (30 minutes)
--- NOTE | 2021-11-07 14:20 | DI.VRAD_ITS ---
Addendum created by Adi Smith MD on 11/07/2021 2:32:07 PM EST: Findings were discussed with Dr. Betancourt at 11/07/2021 2:31 PM EST. Initial report created on 11/07/2021 2:20:20 PM EST: PROCEDURE INFORMATION: Exam: XR Chest Exam date and time: 11/07/2021 1:29 PM Age: 41 years old Clinical indication: Other: Pleural effusion TECHNIQUE: Imaging protocol: XR of the chest. Views: 1 view. COMPARISON: 1. XR PORTABLE CHEST AP 11/06/2021 9:[address] CHEST/ABD/PEL W 11/04/2021 10:34 AM FINDINGS: Lungs: Patchy bilateral pulmonary opacities consistent with pneumonia with gradual improvement since at least November 06, 2021. Pleural spaces: Slightly diminished right pleural effusion. Stable approximately 1 cm loculated lateral right pneumothorax. Heart/Mediastinum: Unremarkable. No cardiomegaly. Bones/joints: Unremarkable. IMPRESSION: Findings most consistent with gradually resolving pneumonia and slightly diminished right pleural effusion with stable loculated right lateral pneumothorax since chest tube removal. Dictated and Authenticated by: Adi Smith MD. Ordering:RIOS Mehta MD
--- NOTE | 2021-11-07 15:02 | W.PM.PROGNOT ---
Date of Service Date of service: 11/07/21 Time of Service: 15:02 Assessment and Plan Assessment and plan (1) Pleural effusion: Status: Acute Assessment and plan: Hemothorax. S/p removal of chest tube as well as s/p bronchoscopy (POD 2). Cultures negative; however, there is improvement of infiltrates on CXR. There is also a component of fluid overload. Discussed with general surgery: now that she has an IV, IV abx are resumed with plans to complete a 5 day course. Start lasix. Check TSH. Echo reviewed: LVEF was 60%; no evidence of R heart failure. Continue empiric cefipime day 2/5. (2) Pneumonia: Status: Acute Assessment and plan: Secretions seen in bronchoscopy were purulent. Continue empiric cefepime day 2/5. The patient missed about 24 hrs of abx due to lack of IV access. (3) Diabetes: Status: Chronic Assessment and plan: BGs here nml. A1C was 5.2, but done but may not be accurate in acute anemia. Await fructosamine. The patient requests liberalization of her diet. (4) Pleuritic chest pain: Status: Acute Assessment and plan: Due to above. Continue prn opioids. (5) Folate deficiency anemia: Status: Acute Assessment and plan: replete folate. (6) DVT prophylaxis: Status: Acute Assessment and plan: SCDs. Chemical DVT ppx is contraindicated in setting of hemothorax. (7) Discharge planning issues: Status: Acute Assessment and plan: Full code. Discussed with Dr Ruiz. Subjective Subjective Interval history since last seen: Continues to have a nonproductive cough. Feels KNOWLES, but not SOB at rest. Has chest pain/back pain on the R where the chest tube was inserted. Denies dizziness, nausea. Has an IV at this time. Exam Narrative Exam Narrative: General: Pleasant obese female who appears comfortable and looks better; A&Ox3, no dyspnea/tachypnea on NC. HEENT: EOMI, MMM Heart: RRR, no m/r/g Lungs: Expiratory rhonchi and rales B; decreased breath sounds at R base Abdomen: soft, nontender, nondistended Extremities: +1 BLE edema, symmetric Objective Last Vital Signs Temp 36.6 C 11/07/21 07:52 Pulse 91 H 11/07/21 07:52 Resp 16 02/13/22 07:52 BP 144/85 H 11/07/21 07:52 Pulse Ox 96 11/07/21 07:52 Laboratory Results - last 24 hr 11/05/21 11/07/21 11/07/21 18:30 06:00 06:00 WBC RBC Hgb Hct MCV MCH MCHC RDW Plt Count MPV Immature Gran % Neutrophils % Lymphocytes % Monocytes % Eosinophils % Basophils % Nucleated RBC % Absolute Neutrophils Absolute Lymphocytes Absolute Monocytes Absolute Eosinophils Absolute Basophils Sodium 138 Potassium 3.9 Chloride 104 Carbon Dioxide 34.0 H Anion Gap 0 L BUN 11 Creatinine 0.8 Estimated GFR/1.73 m2 >= 60.00 Glucose 98 Hemoglobin A1c 5.4 Calcium 8.2 L Magnesium 2.0 Urine Legionella Ag Negative 11/07/21 06:00 WBC 9.52 D RBC 2.95 L Hgb 8.2 L Hct 27.7 L MCV 93.9 MCH 27.8 MCHC 29.6 L RDW 13.7 Plt Count 214 MPV 8.7 Immature Gran % 0.4 Neutrophils % 74.4 Lymphocytes % 11.0 Monocytes % 5.0 Eosinophils % 8.4 Basophils % 0.8 Nucleated RBC % 0 Absolute Neutrophils 7.08 H Absolute Lymphocytes 1.05 L Absolute Monocytes 0.48 Absolute Eosinophils 0.80 H Absolute Basophils 0.08 Sodium Potassium Chloride Carbon Dioxide Anion Gap BUN Creatinine Estimated GFR/1.73 m2 Glucose Hemoglobin A1c Calcium Magnesium Urine Legionella Ag
[2021-11-07] MEDS: ACETAMINOPHEN 1,000 MG/100 ML BTL 400 MG IVPB (15:34)
[2021-11-07] MEDS: Normal Saline Flush 10 ML SYR (15:34)
[2021-11-07] MEDS: Furosemide 20 MG/2 ML VIAL IVP (15:34)
[2021-11-07] MEDS: CEFEPIME 2 GM in Normal Saline 100 ML IVPB ×2 (16:03→23:49)
[2021-11-07] MEDS: Amitriptyline 50 MG TAB 100 MG PO (21:13)
[2021-11-07] MEDS: Normal Saline Flush 10 ML SYR IVP (23:55)
[2021-11-08] VITALS (7 sets, daily range): BP systolic 122–150; BP diastolic 72–91; PULSE 90–108; RESP 16–20; TEMP 36.7–37.6; O2SAT 93–99
[2021-11-08] MEDS: HYDROmorphone 2 MG TAB PO ×3 (06:11→21:47)
[2021-11-08 07:17] LABS: Abs Immature Grans 0.03 10^3/uL (0.0-0.06); Absolute Basophil Count 0.05 10^3/uL (0.0-0.2); Absolute Eosinophil Count 0.59 10^3/uL (0.0-0.7); Absolute Lymphocyte Count 1.07 10^3/uL (1.2-3.4); Absolute Monocyte Count 0.35 10^3/uL (0.1-0.8); Absolute Neutrophil Count 4.12 10^3/uL (1.2-6.7); Basophils % 0.8; Eosinophils % 9.5; HCT 30.4 % (36.0-46.0); HGB 8.9 g/dL (11.2-15.7); Immature Grans % 0.5; Lymphocytes % 17.2; MCH 27.6 pg (27.0-33.0); MCHC 29.3 % (32.0-36.0); MCV 94.4 fL (80-95); MPV 8.6 fL (8.0-11.0); Monocytes % 5.6; Neutrophils % 66.4; Nucleated RBC 0 %; Platelet Count 262 10^3/uL (130-400); RBC 3.22 10^6/uL (3.93-5.22); RDW 13.4 % (11.7-14.6); RDW-SD 46.6 fL; WBC 6.21 10^3/uL (4.4-10.8)
[2021-11-08 07:42] LABS: Anion Gap 5.4 mmol/L (3-11); BUN 12 mg/dL (7-18); CO2 35.6 mmol/L (21.0-32.0); CREATININE 0.8 mg/dL (0.55-1.02); Calcium 8.6 mg/dL (8.5-10.1); Chloride 101 mmol/L (98-107); Glucose 96 mg/dL (74-106); Potassium 3.8 mmol/L (3.5-5.1); Sodium 142 mmol/L (136-145)
[2021-11-08 07:50] LABS: Procalcitonin 2.6 ng/mL
[2021-11-08] MEDS: busPIRone 5 MG TAB 10 MG PO ×2 (07:58→21:38)
[2021-11-08] MEDS: Protein Nutritional Supplement 16 GM 1 OUNCE PACKET PO (07:58)
[2021-11-08] MEDS: Folic Acid 1 MG TAB PO (07:58)
[2021-11-08] MEDS: Celecoxib 100 MG CAP PO ×2 (07:58→21:38)
[2021-11-08] MEDS: Baclofen 10 MG TAB PO ×3 (07:58→21:37)
[2021-11-08] MEDS: Gabapentin 600 MG TAB PO ×3 (07:58→21:37)
[2021-11-08] MEDS: Cetirizine 10 MG TAB PO (07:58)
[2021-11-08] MEDS: Docusate Sodium 100 MG CAP PO ×3 (07:58→21:37)
[2021-11-08] MEDS: buPROPion 100 MG TAB 200 MG PO ×2 (07:58→21:38)
[2021-11-08] MEDS: Furosemide 20 MG TAB PO (07:58)
[2021-11-08] MEDS: CEFEPIME 2 GM in Normal Saline 100 ML IVPB ×2 (07:59→15:38)
[2021-11-08] MEDS: Normal Saline Flush 10 ML SYR IVP ×2 (07:59→15:38)
[2021-11-08] MEDS: Budesonide/Formoterol 160/4.5 6 GM 60 PUFF INH IH ×2 (07:59→21:47)
[2021-11-08] MEDS: Pantoprazole 40 MG TABCR PO ×2 (07:59→21:36)
[2021-11-08 08:02] LABS: FREE T4 1.18 ng/dL (0.76-1.46)
[2021-11-08] MEDS: Acetaminophen 500 MG TAB 1000 MG PO ×2 (08:09→21:47)
--- NOTE | 2021-11-08 08:45 | W.PULMPROG ---
Assessment and Plan Assessment and plan (1) Pleural effusion: Status: Acute (2) Respiratory failure with hypoxia: Status: Acute (3) Trapped lung: Status: Acute (4) Pneumonia: Status: Acute Assessment and plan: This is a 41 yo female who is admitted for a pleural effusion in whom I was asked to see for this reason. She is status post thoracentesis x2 that found bloody fluid. On repeat chest CT there is concern for blood in the fluid with a significant amount of fluid still on the right. I see pleural thickening which is concerning for lung entrapment/trapped lung. She had a chest tube inserted which was subsequently removed once it was evident that no more fluid and air was not being evacuated. Additionally on recurrent CXR's there is still prescence of the air without any improvements or worsening, which again is evidence of lung entrapment. She had complained of low volume hemoptysis so did have concerns for a vasculitis given her clinical decline as well. I performed a bronchoscopy on 11/05/21 that ruled out diffuse alveolar hemorrhage and found alot of thick white to yellow mucus and airway inflammation consistent with a bacterial pneumonia. A BAL of the RML and NEWTON was performed. Results are not showing up in our system as of yet. I called [facility] who informed my that no bacteria or fungi was seen on staining and that the cultures are in process. They had run the cell differential on the BAL's which are completed and faxed them to my office since they had not resulted in our system yet. The BAL's found 81% neutrophils and 72% neutrophils in the RML and [place]WT[place] respectively, again consistent with a bacterial pneumonia. Right trapped lung with hemothorax - no further intervention required - I have set up a f/u appointment for her with me for future management of this Bacterial Pneumonia - on cefepime, would recommend a total antibiotic course of 10 days - can switch to PO Levaquin on D/C - I will plan for repeat imaging as an outpatient - MRSA nares negative - no further CXR's required unless she has a clinical change Hypoxic respiratory failure - supplemental O2 as needed - will need an ambulatory pulse ox prior to discharge - incentive spirometry - ok to start Acapella therapy Asthma - continue Symbicort 160-4.5 2 puffs bid - continue prn albuterol General Date Of Service Date of service: 11/08/21 Time of Service: 08:00 Reason for Consult: Abnormal chest CT, hypoxia, pleural effusion Subjective Note Note: Shirley has significantly improved over the weekend. There was confusion about the antibiotics and whether or not she had pneumonia which resulted in her missing 24 hours of cefepime in addition to access issues. I reassured her that she certainly does have pneumonia and that all of her bronchoscopy results are pending. It is unlikely that we will get an actual bug back since she has been on antibiotics. She is feeling good but states she gets lightheaded when walking and thinks it is related to her oxygen levels. Exam Const General: no acute distress Nutritional Appearance: well nourished [facility] Head: normocephalic Ears: external ears normal and no periauricular adenopathy General nose exam: nasal mucous membranes and turbinates normal Face and sinus: sinuses nontender Mouth: oropharynx normal and moist mucous membranes Teeth and gingiva: dentition normal Eyes General: appearance normal, both eyes and all related structures Pupils: PERRL Neck Neck: normal visual inspection and no lymphadenopathy Chest Chest: normal inspection of the chest Resp Effort & Inspection: normal respiratory effort Auscultation: clear to auscultation bilaterally, diminished lung sounds, no rales, no rhonchi and no wheezes Objective Last Vital Signs Temp 36.9 C 11/08/21 07:59 Pulse 90 11/08/21 07:59 Resp 16 11/08/21 07:59 BP 128/80 11/08/21 07:59 Pulse Ox 97 11/08/21 07:59 Laboratory Results - last 24 hr 11/08/21 11/08/21 11/08/21 06:20 06:20 06:20 WBC 6.21 D RBC 3.22 L Hgb 8.9 L Hct 30.4 L MCV 94.4 MCH 27.6 MCHC 29.3 L RDW 13.4 Plt Count 262 MPV 8.6 Immature Gran % 0.5 Neutrophils % 66.4 Lymphocytes % 17.2 Monocytes % 5.6 Eosinophils % 9.5 Basophils % 0.8 Nucleated RBC % 0 Absolute Neutrophils 4.12 Absolute Lymphocytes 1.07 L Absolute Monocytes 0.35 Absolute Eosinophils 0.59 Absolute Basophils 0.05 Sodium 142 Potassium 3.8 Chloride 101 Carbon Dioxide 35.6 H Anion Gap 5.4 BUN 12 Creatinine 0.8 Estimated GFR/1.73 m2 >= 60.00 Glucose 96 Calcium 8.6 Magnesium 2.0 Procalcitonin 2.6 TSH 4.70 H Free T4 1.18 Results Medications Medications: Active Medications Generic Name Dose Route Start Last Admin Trade Name Freq PRN Reason Stop Dose Admin Acetaminophen 1,000 mg 11/06/21 13:27 11/08/21 08:09 Acetaminophen 500 Mg Tab PO 1,000 mg Q6H PRN PRN Administration Hydrocodone Bitart/Acetaminophen 1 tab 11/02/21 09:25 11/08/21 00:08 Hydrocodone 7.5/Acetaminophen 325 Tab PO 1 tab Q8H PRN PRN Administration Al Hydrox/Mg Hydrox/Simethicone 30 ml 11/02/21 09:19 Mylanta Suspension 30 Ml Cup PO Q4H PRN PRN Albuterol Sulfate 2 puff 11/02/21 13:28 Albuterol Hfa 8 Gm 60 Puff Inh IH Q4H PRN PRN Albuterol/Ipratropium 3 ml 11/02/21 13:27 11/05/21 12:35 Albuterol/Ipratropium 3 Ml Upd Vial UPD 3 ml Q4H PRN PRN Administration Amitriptyline HCl 100 mg 11/02/21 22:00 11/07/21 21:13 Amitriptyline 50 Mg Tab PO 100 mg HS ANNIE Administration Baclofen 10 mg 11/02/21 14:00 11/08/21 07:58 Baclofen 10 Mg Tab PO 10 mg TID ANNIE Administration Benzonatate 100 mg 11/02/21 18:51 11/07/21 08:17 Benzonatate 100 Mg Cap PO 100 mg TID PRN PRN Administration cough Budesonide/Formoterol Fumarate 2 puff 11/03/21 20:00 11/08/21 07:59 Budesonide/Formoterol 160/4.5 6 Gm 60 Puff Inh IH 2 puff BID ANNIE Administration Bupropion HCl 200 mg 11/02/21 20:00 11/08/21 07:58 Bupropion 100 Mg Tab PO 200 mg BID ANNIE Administration Buspirone HCl 10 mg 11/02/21 20:00 11/08/21 07:58 Buspirone 5 Mg Tab PO 10 mg BID ANNIE Administration Celecoxib 100 mg 11/02/21 20:00 11/08/21 07:58 Celecoxib 100 Mg Cap PO 100 mg BID ANNIE Administration Cetirizine HCl 10 mg 11/03/21 08:30 11/08/21 07:58 Cetirizine 10 Mg Tab PO 10 mg DAILY ANNIE Administration Clonidine 0.2 mg 11/02/21 14:00 11/05/21 17:57 Clonidine 0.1 Mg Tab PO 0.2 mg TID PRN PRN Administration Device 1 each 11/02/21 10:00 Inhaler, Assist Device MC DIRECTED ANNIE Diphenhydramine HCl 25 mg 11/02/21 20:38 11/03/21 21:15 Diphenhydramine 25 Mg Cap PO 25 mg HS PRN PRN Administration Diphenhydramine HCl 25 mg 11/05/21 08:02 Diphenhydramine 25 Mg Cap PO Q4H PRN PRN Docusate Sodium 100 mg 11/02/21 14:00 11/08/21 07:58 Docusate Sodium 100 Mg Cap PO 100 mg TID ANNIE Administration Folic Acid 1 mg 11/07/21 08:30 11/08/21 07:58 Folic Acid 1 Mg Tab PO 1 mg DAILY ANNIE Administration Furosemide 20 mg 11/08/21 08:30 11/08/21 07:58 Furosemide 20 Mg Tab PO 20 mg DAILY ANNIE Administration Gabapentin 600 mg 11/02/21 14:00 11/08/21 07:58 Gabapentin 600 Mg Tab PO 600 mg TID ANNIE Administration Hydromorphone HCl 2 mg 11/06/21 16:05 11/08/21 06:11 Hydromorphone 2 Mg Tab PO 2 mg Q4H PRN PRN Administration Cefepime HCl 2 gm/ Sodium 100 mls @ 200 mls/hr 11/07/21 16:00 11/08/21 07:59 Chloride IVPB 200 mls/hr Q8H ANNIE Administration IV Miscellaneous Supplies 1 each 11/02/21 09:30 Iv Access IV DIRECTED ANNIE Magnesium Hydroxide 30 ml 11/02/21 09:19 Milk Of Magnesia 30 Ml Cup PO DIRECTED PRN Multi-Ingredient Supplement 1 ounce 11/06/21 08:30 11/08/21 07:58 Protein Nutritional Supplement 16 Gm 1 Ounce Packet PO 1 ounce DAILY ANNIE Administration Nystatin 0 gm 11/05/21 17:23 Nystatin Powder 15 Gm Jar TP BID PRN PRN Ondansetron HCl 4 mg 11/02/21 09:25 Ondansetron O.D.T. 4 Mg Tabef PO Q8H PRN PRN Pantoprazole Sodium 40 mg 11/03/21 07:30 11/08/21 07:59 Pantoprazole 40 Mg Tabcr PO 40 mg BID@729,1999 [facility] Administration Pt's Own Phentermine 1 each 11/03/21 07:30 11/08/21 07:59 37.5 Mg Tablet PO Not Given DAILY@0730 [facility] Sodium Chloride 0 ml 11/07/21 15:22 11/08/21 07:59 Normal Saline Flush 10 Ml Syr IVP 10 ml PRN PRN Administration Allergies ampicillin Allergy (Intermediate, Unverified 11/02/21 08:26) rash cephalexin [From Keflex] Allergy (Intermediate, Unverified 11/02/21 08:26) Itching enoxaparin [From Lovenox] Allergy (Intermediate, Unverified 11/02/21 08:26) hives heparin Allergy (Intermediate, Unverified 11/02/21 08:26) hives ketorolac [From Toradol] Allergy (Intermediate, Unverified 11/02/21 08:26) hives tramadol Allergy (Intermediate, Unverified 11/02/21 08:26) itching diclofenac Allergy (Unknown, Unverified 11/02/21 08:26) meperidine Allergy (Verified 11/02/21 08:26) hives erythromycin base Adverse Reaction (Intermediate, Unverified 11/02/21 08:26) stomach ache morphine Adverse Reaction (Intermediate, Unverified 11/02/21 08:26) hallucinations codeine Adverse Reaction (Mild, Unverified 11/02/21 08:26) constipation Labs Result Diagrams: 11/08/21 06:20 11/08/21 06:20 Labs: 11/04/21 08:05 Blood Blood Culture - Preliminary NO GROWTH 72 HOURS 11/04/21 07:58 Blood Blood Culture - Preliminary NO GROWTH 72 HOURS 11/04/21 17:29 Pleural Body Fluid Culture - Preliminary 11/04/21 17:29 Pleural Gram Stain - Final 11/05/21 04:11 Nose MRSA Screen - Final 11/04/21 17:29 Pleural Anaerobic Culture - Preliminary 11/02/21 13:37 Pleural Anaerobic Culture - Preliminary 11/02/21 13:37 Pleural Body Fluid Culture - Preliminary 11/02/21 13:37 Pleural Gram Stain - Final Laboratory Tests Range/Units 11/02/21 11/02/21 11/02/21 10:00 13:20 13:20 WBC (4.4-10.8) 10^3/uL RBC (3.93-5.22) 10^6/uL Hgb (11.2-15.7) g/dL Hct (36.0-46.0) % MCV (80-95) fL MCH (27.0-33.0) pg MCHC (32.0-36.0) % RDW (11.7-14.6) % Plt Count (130-400) 10^3/uL MPV (8.0-11.0) fL Immature Gran % Neutrophils % Lymphocytes % Monocytes % Eosinophils % Basophils % Nucleated RBC % % Absolute Neutrophils (1.2-6.7) 10^3/uL Absolute Lymphocytes (1.2-3.4) 10^3/uL Absolute Monocytes (0.1-0.8) 10^3/uL Absolute Eosinophils (0.0-0.7) 10^3/uL Absolute Basophils (0.0-0.2) 10^3/uL RBC Morphology Hypochromasia Poikilocytosis Basophilic Stippling Stomatocytes PT (9.3-11.0) sec INR (0.9-1.1) APTT (21.0-27.5) sec Fibrinogen (171-384) mg/dL D-Dimer (<500) ng/mlFEU Sodium (136-145) mmol/L Potassium (3.5-5.1) mmol/L Chloride (98-107) mmol/L Carbon Dioxide (21.0-32.0) mmol/L Anion Gap (3-11) mmol/L BUN (7-18) mg/dL Creatinine (0.55-1.02) mg/dL Estimated GFR/1.73 m2 (mL/min/1.73m2) Glucose (74-106) mg/dL Hemoglobin A1c (<5.7) % Calcium (8.5-10.1) mg/dL Magnesium (1.8-2.4) mg/dL Iron (50-170) ug/dL TIBC (250-450) ug/dL Transferrin % Sat (15-50) % Ferritin (8-252) ng/mL Total Bilirubin (0.2-1.0) mg/dL AST (15-37) U/L ALT (14-59) U/L Alkaline Phosphatase (46-116) U/L Lactate Dehydrogenase (81-234) U/L C-Reactive Protein (0.0-0.3) mg/dL NT-Pro-B Natriuret Pep (<300) pg/mL Total Protein (6.4-8.2) g/dL Albumin (3.4-5.0) g/dL Vitamin B12 (193-986) pg/mL Folate (8.6-20.0) ng/mL Procalcitonin ng/mL TSH (0.36-3.74) uIU/mL Free T4 (0.76-1.46) ng/dL Urine Color (Yellow) Urine Clarity (Clear) Urine pH (5-8) Ur Specific [place] (1.005-1.025) Urine Protein (Negative) mg/dL Urine Ketones (Negative) mg/dL Urine Blood (Negative) Urine Nitrite (Negative) Urine Bilirubin (Negative) Urine Urobilinogen (Up TO 0.2) EU/dL Ur Leukocyte Esterase (Negative) Urine Glucose (Negative) mg/dL Fluid Type Pleural Fluid Source Fluid Color Fluid Clarity Fluid pH Fluid WBC Fld Polynuclear WBCs % % Fluid Mononuclear Cell % Fluid Other Cells Fluid Glucose (See Note) mg/dL 105 Fluid Total Protein g/dL Fluid Albumin Fluid LDH Fluid Lipase U/L Fluid Triglycerides mg/dL 61 CSF Lyme DNA Comment CSF B.burgdorferi (PCR) CSF B.mayonii (PCR) CSF B.eron/afzel PCR Rheumatoid Factor (<12.0) IU/mL Cyclic Citrull Peptide (<5.0) U/mL <2.5 MARITZA Titer Not Applicable MARITZA Titer 2 Not Applicable MARITZA Titer 3 Not Applicable MARITAZ Interpretation (Negative) Negative Proteinase 3 (PR3) U Myeloperoxidase Ab U Double Strand DNA Ab (<30.0) IU/mL Lyme Specimen Source COVID-19 Source Nasal/Nares SARS-CoV-2 (PCR) (Negative) Negative Influenza Type A (PCR) (Negative) Influenza Type B (PCR) (Negative) Urine Legionella Ag (Negative) RSV (PCR) (Negative) AFB Source AFB Culture Final Res AFB Bld Cult Final Res AFB Report Status Fungal Specimen Source Fungal Culture Status Fungal Culture Final Fungal Smear Result M. Tuberculosis PCR Path Cons Comment AFB Smear (Ref Lab) Add-On Test Request Range/Units 11/02/21 11/02/21 11/02/21 13:20 13:20 13:20 WBC (4.4-10.8) 10^3/uL RBC (3.93-5.22) 10^6/uL Hgb (11.2-15.7) g/dL Hct (36.0-46.0) % MCV (80-95) fL MCH (27.0-33.0) pg MCHC (32.0-36.0) % RDW (11.7-14.6) % Plt Count (130-400) 10^3/uL MPV (8.0-11.0) fL Immature Gran % Neutrophils % Lymphocytes % Monocytes % Eosinophils % Basophils % Nucleated RBC % % Absolute Neutrophils (1.2-6.7) 10^3/uL Absolute Lymphocytes (1.2-3.4) 10^3/uL Absolute Monocytes (0.1-0.8) 10^3/uL Absolute Eosinophils (0.0-0.7) 10^3/uL Absolute Basophils (0.0-0.2) 10^3/uL RBC Morphology Hypochromasia Poikilocytosis Basophilic Stippling Stomatocytes PT (9.3-11.0) sec INR (0.9-1.1) APTT (21.0-27.5) sec Fibrinogen (171-384) mg/dL D-Dimer (<500) ng/mlFEU Sodium (136-145) mmol/L Potassium (3.5-5.1) mmol/L Chloride (98-107) mmol/L Carbon Dioxide (21.0-32.0) mmol/L Anion Gap (3-11) mmol/L BUN (7-18) mg/dL Creatinine (0.55-1.02) mg/dL Estimated GFR/1.73 m2 (mL/min/1.73m2) Glucose (74-106) mg/dL Hemoglobin A1c (<5.7) % Calcium (8.5-10.1) mg/dL Magnesium (1.8-2.4) mg/dL Iron (50-170) ug/dL TIBC (250-450) ug/dL Transferrin % Sat (15-50) % Ferritin (8-252) ng/mL Total Bilirubin (0.2-1.0) mg/dL AST (15-37) U/L ALT (14-59) U/L Alkaline Phosphatase (46-116) U/L Lactate Dehydrogenase (81-234) U/L C-Reactive Protein (0.0-0.3) mg/dL NT-Pro-B Natriuret Pep (<300) pg/mL Total Protein (6.4-8.2) g/dL Albumin (3.4-5.0) g/dL Vitamin B12 (193-986) pg/mL Folate (8.6-20.0) ng/mL Procalcitonin ng/mL TSH (0.36-3.74) uIU/mL Free T4 (0.76-1.46) ng/dL Urine Color (Yellow) Urine Clarity (Clear) Urine pH (5-8) Ur Specific [place] (1.005-1.025) Urine Protein (Negative) mg/dL Urine Ketones (Negative) mg/dL Urine Blood (Negative) Urine Nitrite (Negative) Urine Bilirubin (Negative) Urine Urobilinogen (Up TO 0.2) EU/dL Ur Leukocyte Esterase (Negative) Urine Glucose (Negative) mg/dL Fluid Type Pleural Cancelled Fluid Source Fluid Color Fluid Clarity Fluid pH Fluid WBC Fld Polynuclear WBCs % % 46 Fluid Mononuclear Cell % 54 Fluid Other Cells Fluid Glucose (See Note) mg/dL Fluid Total Protein g/dL Fluid Albumin Fluid LDH Cancelled Fluid Lipase U/L 20 Fluid Triglycerides mg/dL CSF Lyme DNA Comment CSF B.burgdorferi (PCR) CSF B.mayonii (PCR) CSF B.eron/afzel PCR Rheumatoid Factor (<12.0) IU/mL Cyclic Citrull Peptide (<5.0) U/mL MARITZA Titer MARITZA Titer 2 MARITZA Titer 3 MARITZA Interpretation (Negative) Proteinase 3 (PR3) U Myeloperoxidase Ab U Double Strand DNA Ab (<30.0) IU/mL Lyme Specimen Source COVID-19 Source SARS-CoV-2 (PCR) (Negative) Influenza Type A (PCR) (Negative) Influenza Type B (PCR) (Negative) Urine Legionella Ag (Negative) RSV (PCR) (Negative) AFB Source AFB Culture Final Res AFB Bld Cult Final Res AFB Report Status Fungal Specimen Source Fungal Culture Status Fungal Culture Final Fungal Smear Result M. Tuberculosis PCR Path Cons Comment SEE COMMENT AFB Smear (Ref Lab) Add-On Test Request Range/Units 11/02/21 11/02/21 11/02/21 13:20 13:32 13:33 WBC (4.4-10.8) 10^3/uL RBC (3.93-5.22) 10^6/uL Hgb (11.2-15.7) g/dL Hct (36.0-46.0) % MCV (80-95) fL MCH (27.0-33.0) pg MCHC (32.0-36.0) % RDW (11.7-14.6) % Plt Count (130-400) 10^3/uL MPV (8.0-11.0) fL Immature Gran % Neutrophils % Lymphocytes % Monocytes % Eosinophils % Basophils % Nucleated RBC % % Absolute Neutrophils (1.2-6.7) 10^3/uL Absolute Lymphocytes (1.2-3.4) 10^3/uL Absolute Monocytes (0.1-0.8) 10^3/uL Absolute Eosinophils (0.0-0.7) 10^3/uL Absolute Basophils (0.0-0.2) 10^3/uL RBC Morphology Hypochromasia Poikilocytosis Basophilic Stippling Stomatocytes PT (9.3-11.0) sec INR (0.9-1.1) APTT (21.0-27.5) sec Fibrinogen (171-384) mg/dL D-Dimer (<500) ng/mlFEU Sodium (136-145) mmol/L Potassium (3.5-5.1) mmol/L Chloride (98-107) mmol/L Carbon Dioxide (21.0-32.0) mmol/L Anion Gap (3-11) mmol/L BUN (7-18) mg/dL Creatinine (0.55-1.02) mg/dL Estimated GFR/1.73 m2 (mL/min/1.73m2) Glucose (74-106) mg/dL Hemoglobin A1c (<5.7) % Calcium (8.5-10.1) mg/dL Magnesium (1.8-2.4) mg/dL Iron (50-170) ug/dL TIBC (250-450) ug/dL Transferrin % Sat (15-50) % Ferritin (8-252) ng/mL Total Bilirubin (0.2-1.0) mg/dL AST (15-37) U/L ALT (14-59) U/L Alkaline Phosphatase (46-116) U/L Lactate Dehydrogenase (81-234) U/L C-Reactive Protein (0.0-0.3) mg/dL NT-Pro-B Natriuret Pep (<300) pg/mL Total Protein (6.4-8.2) g/dL Albumin (3.4-5.0) g/dL Vitamin B12 (193-986) pg/mL Folate (8.6-20.0) ng/mL Procalcitonin ng/mL TSH (0.36-3.74) uIU/mL Free T4 (0.76-1.46) ng/dL Urine Color (Yellow) Urine Clarity (Clear) Urine pH (5-8) Ur Specific [place] (1.005-1.025) Urine Protein (Negative) mg/dL Urine Ketones (Negative) mg/dL Urine Blood (Negative) Urine Nitrite (Negative) Urine Bilirubin (Negative) Urine Urobilinogen (Up TO 0.2) EU/dL Ur Leukocyte Esterase (Negative) Urine Glucose (Negative) mg/dL Fluid Type Pleural Fluid Source Cancelled Fluid Color Fluid Clarity Fluid pH Cancelled Fluid WBC Fld Polynuclear WBCs % % Fluid Mononuclear Cell % Fluid Other Cells Fluid Glucose (See Note) mg/dL Fluid Total Protein g/dL 4.3 Fluid Albumin Fluid LDH Fluid Lipase U/L Fluid Triglycerides mg/dL CSF Lyme DNA Comment Cancelled CSF B.burgdorferi (PCR) Cancelled CSF B.mayonii (PCR) Cancelled CSF B.eron/afzel PCR Cancelled Rheumatoid Factor (<12.0) IU/mL Cyclic Citrull Peptide (<5.0) U/mL MARITZA Titer MARIZTA Titer 2 MARITZA Titer 3 MARITZA Interpretation (Negative) Proteinase 3 (PR3) U Myeloperoxidase Ab U Double Strand DNA Ab (<30.0) IU/mL Lyme Specimen Source Cancelled COVID-19 Source SARS-CoV-2 (PCR) (Negative) Influenza Type A (PCR) (Negative) Influenza Type B (PCR) (Negative) Urine Legionella Ag (Negative) RSV (PCR) (Negative) AFB Source AFB Culture Final Res AFB Bld Cult Final Res AFB Report Status Fungal Specimen Source Fungal Culture Status Fungal Culture Final Fungal Smear Result M. Tuberculosis PCR Path Cons Comment AFB Smear (Ref Lab) Add-On Test Request Range/Units 11/02/21 11/02/21 11/02/21 13:38 13:39 13:40 WBC (4.4-10.8) 10^3/uL RBC (3.93-5.22) 10^6/uL Hgb (11.2-15.7) g/dL Hct (36.0-46.0) % MCV (80-95) fL MCH (27.0-33.0) pg MCHC (32.0-36.0) % RDW (11.7-14.6) % Plt Count (130-400) 10^3/uL MPV (8.0-11.0) fL Immature Gran % Neutrophils % Lymphocytes % Monocytes % Eosinophils % Basophils % Nucleated RBC % % Absolute Neutrophils (1.2-6.7) 10^3/uL Absolute Lymphocytes (1.2-3.4) 10^3/uL Absolute Monocytes (0.1-0.8) 10^3/uL Absolute Eosinophils (0.0-0.7) 10^3/uL Absolute Basophils (0.0-0.2) 10^3/uL RBC Morphology Hypochromasia Poikilocytosis Basophilic Stippling Stomatocytes PT (9.3-11.0) sec INR (0.9-1.1) APTT (21.0-27.5) sec Fibrinogen (171-384) mg/dL D-Dimer (<500) ng/mlFEU Sodium (136-145) mmol/L Potassium (3.5-5.1) mmol/L Chloride (98-107) mmol/L Carbon Dioxide (21.0-32.0) mmol/L Anion Gap (3-11) mmol/L BUN (7-18) mg/dL Creatinine (0.55-1.02) mg/dL Estimated GFR/1.73 m2 (mL/min/1.73m2) Glucose (74-106) mg/dL Hemoglobin A1c (<5.7) % Calcium (8.5-10.1) mg/dL Magnesium (1.8-2.4) mg/dL Iron (50-170) ug/dL TIBC (250-450) ug/dL Transferrin % Sat (15-50) % Ferritin (8-252) ng/mL Total Bilirubin (0.2-1.0) mg/dL AST (15-37) U/L ALT (14-59) U/L Alkaline Phosphatase (46-116) U/L Lactate Dehydrogenase (81-234) U/L C-Reactive Protein (0.0-0.3) mg/dL NT-Pro-B Natriuret Pep (<300) pg/mL Total Protein (6.4-8.2) g/dL Albumin (3.4-5.0) g/dL Vitamin B12 (193-986) pg/mL Folate (8.6-20.0) ng/mL Procalcitonin ng/mL TSH (0.36-3.74) uIU/mL Free T4 (0.76-1.46) ng/dL Urine Color (Yellow) Urine Clarity (Clear) Urine pH (5-8) Ur Specific [place] (1.005-1.025) Urine Protein (Negative) mg/dL Urine Ketones (Negative) mg/dL Urine Blood (Negative) Urine Nitrite (Negative) Urine Bilirubin (Negative) Urine Urobilinogen (Up TO 0.2) EU/dL Ur Leukocyte Esterase (Negative) Urine Glucose (Negative) mg/dL Fluid Type Cancelled Fluid Source Cancelled Fluid Color Fluid Clarity Fluid pH Cancelled Fluid WBC Fld Polynuclear WBCs % % Fluid Mononuclear Cell % Fluid Other Cells Fluid Glucose (See Note) mg/dL Fluid Total Protein g/dL Fluid Albumin Fluid LDH Cancelled Fluid Lipase U/L Fluid Triglycerides mg/dL CSF Lyme DNA Comment CSF B.burgdorferi (PCR) CSF B.mayonii (PCR) CSF B.eron/afzel PCR Rheumatoid Factor (<12.0) IU/mL Cyclic Citrull Peptide (<5.0) U/mL MARITZA Titer MARITZA Titer 2 MARITZA Titer 3 MARITZA Interpretation (Negative) Proteinase 3 (PR3) U Myeloperoxidase Ab U Double Strand DNA Ab (<30.0) IU/mL Lyme Specimen Source COVID-19 Source SARS-CoV-2 (PCR) (Negative) Influenza Type A (PCR) (Negative) Influenza Type B (PCR) (Negative) Urine Legionella Ag (Negative) RSV (PCR) (Negative) AFB Source Cancelled AFB Culture Final Res AFB Bld Cult Final Res Cancelled AFB Report Status Cancelled Fungal Specimen Source Fungal Culture Status Fungal Culture Final Fungal Smear Result M. Tuberculosis PCR Path Cons Comment AFB Smear (Ref Lab) Add-On Test Request Range/Units 11/02/21 11/02/21 11/02/21 13:43 13:44 13:55 WBC (4.4-10.8) 10^3/uL RBC (3.93-5.22) 10^6/uL Hgb (11.2-15.7) g/dL Hct (36.0-46.0) % MCV (80-95) fL MCH (27.0-33.0) pg MCHC (32.0-36.0) % RDW (11.7-14.6) % Plt Count (130-400) 10^3/uL MPV (8.0-11.0) fL Immature Gran % Neutrophils % Lymphocytes % Monocytes % Eosinophils % Basophils % Nucleated RBC % % Absolute Neutrophils (1.2-6.7) 10^3/uL Absolute Lymphocytes (1.2-3.4) 10^3/uL Absolute Monocytes (0.1-0.8) 10^3/uL Absolute Eosinophils (0.0-0.7) 10^3/uL Absolute Basophils (0.0-0.2) 10^3/uL RBC Morphology Hypochromasia Poikilocytosis Basophilic Stippling Stomatocytes PT (9.3-11.0) sec INR (0.9-1.1) APTT (21.0-27.5) sec Fibrinogen (171-384) mg/dL D-Dimer (<500) ng/mlFEU Sodium (136-145) mmol/L Potassium (3.5-5.1) mmol/L Chloride (98-107) mmol/L Carbon Dioxide (21.0-32.0) mmol/L Anion Gap (3-11) mmol/L BUN (7-18) mg/dL Creatinine (0.55-1.02) mg/dL Estimated GFR/1.73 m2 (mL/min/1.73m2) Glucose (74-106) mg/dL Hemoglobin A1c (<5.7) % Calcium (8.5-10.1) mg/dL Magnesium (1.8-2.4) mg/dL Iron (50-170) ug/dL TIBC (250-450) ug/dL Transferrin % Sat (15-50) % Ferritin (8-252) ng/mL Total Bilirubin (0.2-1.0) mg/dL AST (15-37) U/L ALT (14-59) U/L Alkaline Phosphatase (46-116) U/L Lactate Dehydrogenase (81-234) U/L C-Reactive Protein (0.0-0.3) mg/dL NT-Pro-B Natriuret Pep (<300) pg/mL Total Protein (6.4-8.2) g/dL Albumin (3.4-5.0) g/dL Vitamin B12 (193-986) pg/mL Folate (8.6-20.0) ng/mL Procalcitonin ng/mL TSH (0.36-3.74) uIU/mL Free T4 (0.76-1.46) ng/dL Urine Color (Yellow) Urine Clarity (Clear) Urine pH (5-8) Ur Specific [place] (1.005-1.025) Urine Protein (Negative) mg/dL Urine Ketones (Negative) mg/dL Urine Blood (Negative) Urine Nitrite (Negative) Urine Bilirubin (Negative) Urine Urobilinogen (Up TO 0.2) EU/dL Ur Leukocyte Esterase (Negative) Urine Glucose (Negative) mg/dL Fluid Type Cancelled Fluid Source Cancelled Fluid Color Cancelled Fluid Clarity Cancelled Fluid pH Fluid WBC Cancelled Fld Polynuclear WBCs % % Cancelled Fluid Mononuclear Cell % Cancelled Fluid Other Cells Cancelled Fluid Glucose (See Note) mg/dL Cancelled Fluid Total Protein g/dL Cancelled Fluid Albumin Fluid LDH Fluid Lipase U/L Fluid Triglycerides mg/dL CSF Lyme DNA Comment CSF B.burgdorferi (PCR) CSF B.mayonii (PCR) CSF B.eron/afzel PCR Rheumatoid Factor (<12.0) IU/mL Cyclic Citrull Peptide (<5.0) U/mL MARITZA Titer MARITZA Titer 2 MARITZA Titer 3 MARITZA Interpretation (Negative) Proteinase 3 (PR3) U Myeloperoxidase Ab U Double Strand DNA Ab (<30.0) IU/mL Lyme Specimen Source COVID-19 Source SARS-CoV-2 (PCR) (Negative) Influenza Type A (PCR) (Negative) Influenza Type B (PCR) (Negative) Urine Legionella Ag (Negative) RSV (PCR) (Negative) AFB Source AFB Culture Final Res AFB Bld Cult Final Res AFB Report Status Fungal Specimen Source Fungal Culture Status Fungal Culture Final Fungal Smear Result M. Tuberculosis PCR Path Cons Comment Cancelled AFB Smear (Ref Lab) Add-On Test Request Range/Units 11/02/21 11/02/21 11/02/21 13:55 16:10 16:10 WBC (4.4-10.8) 10^3/uL 8.37 RBC (3.93-5.22) 10^6/uL 3.48 L Hgb (11.2-15.7) g/dL 9.7 L Hct (36.0-46.0) % 32.6 L MCV (80-95) fL 93.7 MCH (27.0-33.0) pg 27.9 MCHC (32.0-36.0) % 29.8 L RDW (11.7-14.6) % 13.8 Plt Count (130-400) 10^3/uL 267 MPV (8.0-11.0) fL 8.6 Immature Gran % 0.5 Neutrophils % 68.7 Lymphocytes % 17.0 Monocytes % 5.9 Eosinophils % 6.9 Basophils % 1.0 Nucleated RBC % % 0 Absolute Neutrophils (1.2-6.7) 10^3/uL 5.76 Absolute Lymphocytes (1.2-3.4) 10^3/uL 1.42 Absolute Monocytes (0.1-0.8) 10^3/uL 0.49 Absolute Eosinophils (0.0-0.7) 10^3/uL 0.58 Absolute Basophils (0.0-0.2) 10^3/uL 0.08 RBC Morphology Hypochromasia Poikilocytosis Basophilic Stippling Stomatocytes PT (9.3-11.0) sec INR (0.9-1.1) APTT (21.0-27.5) sec Fibrinogen (171-384) mg/dL D-Dimer (<500) ng/mlFEU Sodium (136-145) mmol/L 137 Potassium (3.5-5.1) mmol/L 4.0 Chloride (98-107) mmol/L 102 Carbon Dioxide (21.0-32.0) mmol/L 28.7 Anion Gap (3-11) mmol/L 6.3 BUN (7-18) mg/dL 15 Creatinine (0.55-1.02) mg/dL 0.9 Estimated GFR/1.73 m2 (mL/min/1.73m2) >= 60.00 Glucose (74-106) mg/dL 118 H Hemoglobin A1c (<5.7) % Calcium (8.5-10.1) mg/dL 8.7 Magnesium (1.8-2.4) mg/dL Iron (50-170) ug/dL TIBC (250-450) ug/dL Transferrin % Sat (15-50) % Ferritin (8-252) ng/mL Total Bilirubin (0.2-1.0) mg/dL 0.2 AST (15-37) U/L 17 ALT (14-59) U/L 24 Alkaline Phosphatase (46-116) U/L 119 H Lactate Dehydrogenase (81-234) U/L 254 H C-Reactive Protein (0.0-0.3) mg/dL NT-Pro-B Natriuret Pep (<300) pg/mL Total Protein (6.4-8.2) g/dL 7.3 Albumin (3.4-5.0) g/dL 3.0 L Vitamin B12 (193-986) pg/mL Folate (8.6-20.0) ng/mL Procalcitonin ng/mL TSH (0.36-3.74) uIU/mL Free T4 (0.76-1.46) ng/dL Urine Color (Yellow) Urine Clarity (Clear) Urine pH (5-8) Ur Specific [place] (1.005-1.025) Urine Protein (Negative) mg/dL Urine Ketones (Negative) mg/dL Urine Blood (Negative) Urine Nitrite (Negative) Urine Bilirubin (Negative) Urine Urobilinogen (Up TO 0.2) EU/dL Ur Leukocyte Esterase (Negative) Urine Glucose (Negative) mg/dL Fluid Type Cancelled Fluid Source Fluid Color Fluid Clarity Fluid pH Fluid WBC Fld Polynuclear WBCs % % Fluid Mononuclear Cell % Fluid Other Cells Fluid Glucose (See Note) mg/dL Fluid Total Protein g/dL Fluid Albumin Cancelled Fluid LDH Fluid Lipase U/L Cancelled Fluid Triglycerides mg/dL CSF Lyme DNA Comment CSF B.burgdorferi (PCR) CSF B.mayonii (PCR) CSF B.eron/afzel PCR Rheumatoid Factor (<12.0) IU/mL Cyclic Citrull Peptide (<5.0) U/mL MARITZA Titer MARITZA Titer 2 MARITZA Titer 3 MARITZA Interpretation (Negative) Proteinase 3 (PR3) U Myeloperoxidase Ab U Double Strand DNA Ab (<30.0) IU/mL Lyme Specimen Source COVID-19 Source SARS-CoV-2 (PCR) (Negative) Influenza Type A (PCR) (Negative) Influenza Type B (PCR) (Negative) Urine Legionella Ag (Negative) RSV (PCR) (Negative) AFB Source AFB Culture Final Res AFB Bld Cult Final Res AFB Report Status Fungal Specimen Source Fungal Culture Status Fungal Culture Final Fungal Smear Result M. Tuberculosis PCR Path Cons Comment AFB Smear (Ref Lab) Add-On Test Request Range/Units 11/02/21 11/03/21 11/03/21 16:10 07:10 07:10 WBC (4.4-10.8) 10^3/uL 8.04 RBC (3.93-5.22) 10^6/uL 3.28 L Hgb (11.2-15.7) g/dL 9.0 L Hct (36.0-46.0) % 30.5 L MCV (80-95) fL 93.0 MCH (27.0-33.0) pg 27.4 MCHC (32.0-36.0) % 29.5 L RDW (11.7-14.6) % 13.9 Plt Count (130-400) 10^3/uL 249 MPV (8.0-11.0) fL 8.5 Immature Gran % 0.4 Neutrophils % 65.7 Lymphocytes % 17.9 Monocytes % 7.8 Eosinophils % 7.2 Basophils % 1.0 Nucleated RBC % % 0 Absolute Neutrophils (1.2-6.7) 10^3/uL 5.28 Absolute Lymphocytes (1.2-3.4) 10^3/uL 1.44 Absolute Monocytes (0.1-0.8) 10^3/uL 0.63 Absolute Eosinophils (0.0-0.7) 10^3/uL 0.58 Absolute Basophils (0.0-0.2) 10^3/uL 0.08 RBC Morphology Hypochromasia Poikilocytosis Basophilic Stippling Stomatocytes PT (9.3-11.0) sec INR (0.9-1.1) APTT (21.0-27.5) sec Fibrinogen (171-384) mg/dL D-Dimer (<500) ng/mlFEU Sodium (136-145) mmol/L 139 Potassium (3.5-5.1) mmol/L 4.5 Chloride (98-107) mmol/L 104 Carbon Dioxide (21.0-32.0) mmol/L 28.9 Anion Gap (3-11) mmol/L 6.1 BUN (7-18) mg/dL 15 Creatinine (0.55-1.02) mg/dL 0.8 Estimated GFR/1.73 m2 (mL/min/1.73m2) >= 60.00 Glucose (74-106) mg/dL 97 Hemoglobin A1c (<5.7) % Calcium (8.5-10.1) mg/dL 8.1 L Magnesium (1.8-2.4) mg/dL Iron (50-170) ug/dL TIBC (250-450) ug/dL Transferrin % Sat (15-50) % Ferritin (8-252) ng/mL Total Bilirubin (0.2-1.0) mg/dL AST (15-37) U/L ALT (14-59) U/L Alkaline Phosphatase (46-116) U/L Lactate Dehydrogenase (81-234) U/L C-Reactive Protein (0.0-0.3) mg/dL NT-Pro-B Natriuret Pep (<300) pg/mL Total Protein (6.4-8.2) g/dL Albumin (3.4-5.0) g/dL Vitamin B12 (193-986) pg/mL Folate (8.6-20.0) ng/mL Procalcitonin ng/mL TSH (0.36-3.74) uIU/mL Free T4 (0.76-1.46) ng/dL Urine Color (Yellow) Urine Clarity (Clear) Urine pH (5-8) Ur Specific [place] (1.005-1.025) Urine Protein (Negative) mg/dL Urine Ketones (Negative) mg/dL Urine Blood (Negative) Urine Nitrite (Negative) Urine Bilirubin (Negative) Urine Urobilinogen (Up TO 0.2) EU/dL Ur Leukocyte Esterase (Negative) Urine Glucose (Negative) mg/dL Fluid Type Fluid Source Fluid Color Fluid Clarity Fluid pH Fluid WBC Fld Polynuclear WBCs % % Fluid Mononuclear Cell % Fluid Other Cells Fluid Glucose (See Note) mg/dL Fluid Total Protein g/dL Fluid Albumin Fluid LDH Fluid Lipase U/L Fluid Triglycerides mg/dL CSF Lyme DNA Comment CSF B.burgdorferi (PCR) CSF B.mayonii (PCR) CSF B.eron/afzel PCR Rheumatoid Factor (<12.0) IU/mL <8.6 Cyclic Citrull Peptide (<5.0) U/mL MARITZA Titer MARITZA Titer 2 MARITZA Titer 3 MARITZA Interpretation (Negative) Proteinase 3 (PR3) U Myeloperoxidase Ab U Double Strand DNA Ab (<30.0) IU/mL <12.3 Lyme Specimen Source COVID-19 Source SARS-CoV-2 (PCR) (Negative) Influenza Type A (PCR) (Negative) Influenza Type B (PCR) (Negative) Urine Legionella Ag (Negative) RSV (PCR) (Negative) AFB Source AFB Culture Final Res AFB Bld Cult Final Res AFB Report Status Fungal Specimen Source Fungal Culture Status Fungal Culture Final Fungal Smear Result M. Tuberculosis PCR Path Cons Comment AFB Smear (Ref Lab) Add-On Test Request Range/Units 11/03/21 11/03/21 11/04/21 07:10 Unknown 07:58 WBC (4.4-10.8) 10^3/uL 15.63 H D RBC (3.93-5.22) 10^6/uL 3.57 L Hgb (11.2-15.7) g/dL 9.9 L Hct (36.0-46.0) % 33.7 L MCV (80-95) fL 94.4 MCH (27.0-33.0) pg 27.7 MCHC (32.0-36.0) % 29.4 L RDW (11.7-14.6) % 14.1 Plt Count (130-400) 10^3/uL 256 MPV (8.0-11.0) fL 8.5 Immature Gran % 0.3 Neutrophils % 90.5 Lymphocytes % 3.1 Monocytes % 2.6 Eosinophils % 3.0 Basophils % 0.5 Nucleated RBC % % 0 Absolute Neutrophils (1.2-6.7) 10^3/uL 14.15 H Absolute Lymphocytes (1.2-3.4) 10^3/uL 0.48 L Absolute Monocytes (0.1-0.8) 10^3/uL 0.41 Absolute Eosinophils (0.0-0.7) 10^3/uL 0.47 Absolute Basophils (0.0-0.2) 10^3/uL 0.08 RBC Morphology Hypochromasia Poikilocytosis Basophilic Stippling Stomatocytes PT (9.3-11.0) sec INR (0.9-1.1) APTT (21.0-27.5) sec Fibrinogen (171-384) mg/dL D-Dimer (<500) ng/mlFEU Sodium (136-145) mmol/L Potassium (3.5-5.1) mmol/L Chloride (98-107) mmol/L Carbon Dioxide (21.0-32.0) mmol/L Anion Gap (3-11) mmol/L BUN (7-18) mg/dL Creatinine (0.55-1.02) mg/dL Estimated GFR/1.73 m2 (mL/min/1.73m2) Glucose (74-106) mg/dL Hemoglobin A1c (<5.7) % Calcium (8.5-10.1) mg/dL Magnesium (1.8-2.4) mg/dL Iron (50-170) ug/dL TIBC (250-450) ug/dL Transferrin % Sat (15-50) % Ferritin (8-252) ng/mL Total Bilirubin (0.2-1.0) mg/dL AST (15-37) U/L ALT (14-59) U/L Alkaline Phosphatase (46-116) U/L Lactate Dehydrogenase (81-234) U/L C-Reactive Protein (0.0-0.3) mg/dL NT-Pro-B Natriuret Pep (<300) pg/mL Total Protein (6.4-8.2) g/dL Albumin (3.4-5.0) g/dL Vitamin B12 (193-986) pg/mL Folate (8.6-20.0) ng/mL Procalcitonin ng/mL TSH (0.36-3.74) uIU/mL Free T4 (0.76-1.46) ng/dL Urine Color (Yellow) Urine Clarity (Clear) Urine pH (5-8) Ur Specific [place] (1.005-1.025) Urine Protein (Negative) mg/dL Urine Ketones (Negative) mg/dL Urine Blood (Negative) Urine Nitrite (Negative) Urine Bilirubin (Negative) Urine Urobilinogen (Up TO 0.2) EU/dL Ur Leukocyte Esterase (Negative) Urine Glucose (Negative) mg/dL Fluid Type Fluid Source Fluid Color Fluid Clarity Fluid pH Fluid WBC Fld Polynuclear WBCs % % Fluid Mononuclear Cell % Fluid Other Cells Fluid Glucose (See Note) mg/dL Fluid Total Protein g/dL Fluid Albumin Fluid LDH Fluid Lipase U/L Fluid Triglycerides mg/dL CSF Lyme DNA Comment CSF B.burgdorferi (PCR) CSF B.mayonii (PCR) CSF B.eron/afzel PCR Rheumatoid Factor (<12.0) IU/mL Cyclic Citrull Peptide (<5.0) U/mL MARITZA Titer MARITZA Titer 2 MARITZA Titer 3 MARITZA Interpretation (Negative) Proteinase 3 (PR3) U <0.2 Myeloperoxidase Ab U <0.2 Double Strand DNA Ab (<30.0) IU/mL Lyme Specimen Source COVID-19 Source SARS-CoV-2 (PCR) (Negative) Influenza Type A (PCR) (Negative) Influenza Type B (PCR) (Negative) Urine Legionella Ag (Negative) RSV (PCR) (Negative) AFB Source AFB Culture Final Res AFB Bld Cult Final Res AFB Report Status Fungal Specimen Source Fungal Culture Status Fungal Culture Final Fungal Smear Result M. Tuberculosis PCR Path Cons Comment AFB Smear (Ref Lab) Add-On Test Request TNP Range/Units 11/04/21 11/04/21 11/04/21 07:58 07:58 08:05 WBC (4.4-10.8) 10^3/uL RBC (3.93-5.22) 10^6/uL Hgb (11.2-15.7) g/dL Hct (36.0-46.0) % MCV (80-95) fL MCH (27.0-33.0) pg MCHC (32.0-36.0) % RDW (11.7-14.6) % Plt Count (130-400) 10^3/uL MPV (8.0-11.0) fL Immature Gran % Neutrophils % Lymphocytes % Monocytes % Eosinophils % Basophils % Nucleated RBC % % Absolute Neutrophils (1.2-6.7) 10^3/uL Absolute Lymphocytes (1.2-3.4) 10^3/uL Absolute Monocytes (0.1-0.8) 10^3/uL Absolute Eosinophils (0.0-0.7) 10^3/uL Absolute Basophils (0.0-0.2) 10^3/uL RBC Morphology Hypochromasia Poikilocytosis Basophilic Stippling Stomatocytes PT (9.3-11.0) sec INR (0.9-1.1) APTT (21.0-27.5) sec Fibrinogen (171-384) mg/dL D-Dimer (<500) ng/mlFEU 4332 H Sodium (136-145) mmol/L Potassium (3.5-5.1) mmol/L Chloride (98-107) mmol/L Carbon Dioxide (21.0-32.0) mmol/L Anion Gap (3-11) mmol/L BUN (7-18) mg/dL Creatinine (0.55-1.02) mg/dL Estimated GFR/1.73 m2 (mL/min/1.73m2) Glucose (74-106) mg/dL Hemoglobin A1c (<5.7) % Calcium (8.5-10.1) mg/dL Magnesium (1.8-2.4) mg/dL Iron (50-170) ug/dL TIBC (250-450) ug/dL Transferrin % Sat (15-50) % Ferritin (8-252) ng/mL Total Bilirubin (0.2-1.0) mg/dL AST (15-37) U/L ALT (14-59) U/L Alkaline Phosphatase (46-116) U/L Lactate Dehydrogenase (81-234) U/L C-Reactive Protein (0.0-0.3) mg/dL 7.42 H NT-Pro-B Natriuret Pep (<300) pg/mL Total Protein (6.4-8.2) g/dL Albumin (3.4-5.0) g/dL Vitamin B12 (193-986) pg/mL Folate (8.6-20.0) ng/mL Procalcitonin ng/mL TSH (0.36-3.74) uIU/mL Free T4 (0.76-1.46) ng/dL Urine Color (Yellow) Urine Clarity (Clear) Urine pH (5-8) Ur Specific [place] (1.005-1.025) Urine Protein (Negative) mg/dL Urine Ketones (Negative) mg/dL Urine Blood (Negative) Urine Nitrite (Negative) Urine Bilirubin (Negative) Urine Urobilinogen (Up TO 0.2) EU/dL Ur Leukocyte Esterase (Negative) Urine Glucose (Negative) mg/dL Fluid Type Fluid Source Fluid Color Fluid Clarity Fluid pH Fluid WBC Fld Polynuclear WBCs % % Fluid Mononuclear Cell % Fluid Other Cells Fluid Glucose (See Note) mg/dL Fluid Total Protein g/dL Fluid Albumin Fluid LDH Fluid Lipase U/L Fluid Triglycerides mg/dL CSF Lyme DNA Comment CSF B.burgdorferi (PCR) CSF B.mayonii (PCR) CSF B.eron/afzel PCR Rheumatoid Factor (<12.0) IU/mL Cyclic Citrull Peptide (<5.0) U/mL MARITZA Titer MARITZA Titer 2 MARITZA Titer 3 MARITZA Interpretation (Negative) Proteinase 3 (PR3) U Myeloperoxidase Ab U Double Strand DNA Ab (<30.0) IU/mL Lyme Specimen Source COVID-19 Source SARS-CoV-2 (PCR) (Negative) Influenza Type A (PCR) (Negative) Influenza Type B (PCR) (Negative) Urine Legionella Ag (Negative) RSV (PCR) (Negative) AFB Source AFB Culture Final Res AFB Bld Cult Final Res AFB Report Status Fungal Specimen Source Fungal Culture Status Fungal Culture Final Fungal Smear Result M. Tuberculosis PCR Path Cons Comment AFB Smear (Ref Lab) Add-On Test Request DONE Range/Units 11/04/21 11/04/21 11/04/21 08:05 08:15 08:35 WBC (4.4-10.8) 10^3/uL RBC (3.93-5.22) 10^6/uL Hgb (11.2-15.7) g/dL Hct (36.0-46.0) % MCV (80-95) fL MCH (27.0-33.0) pg MCHC (32.0-36.0) % RDW (11.7-14.6) % Plt Count (130-400) 10^3/uL MPV (8.0-11.0) fL Immature Gran % Neutrophils % Lymphocytes % Monocytes % Eosinophils % Basophils % Nucleated RBC % % Absolute Neutrophils (1.2-6.7) 10^3/uL Absolute Lymphocytes (1.2-3.4) 10^3/uL Absolute Monocytes (0.1-0.8) 10^3/uL Absolute Eosinophils (0.0-0.7) 10^3/uL Absolute Basophils (0.0-0.2) 10^3/uL RBC Morphology Hypochromasia Poikilocytosis Basophilic Stippling Stomatocytes PT (9.3-11.0) sec INR (0.9-1.1) APTT (21.0-27.5) sec Fibrinogen (171-384) mg/dL D-Dimer (<500) ng/mlFEU Sodium (136-145) mmol/L Potassium (3.5-5.1) mmol/L Chloride (98-107) mmol/L Carbon Dioxide (21.0-32.0) mmol/L Anion Gap (3-11) mmol/L BUN (7-18) mg/dL Creatinine (0.55-1.02) mg/dL Estimated GFR/1.73 m2 (mL/min/1.73m2) Glucose (74-106) mg/dL Hemoglobin A1c (<5.7) % Calcium (8.5-10.1) mg/dL Magnesium (1.8-2.4) mg/dL Iron (50-170) ug/dL TIBC (250-450) ug/dL Transferrin % Sat (15-50) % Ferritin (8-252) ng/mL Total Bilirubin (0.2-1.0) mg/dL AST (15-37) U/L ALT (14-59) U/L Alkaline Phosphatase (46-116) U/L Lactate Dehydrogenase (81-234) U/L C-Reactive Protein (0.0-0.3) mg/dL Cancelled NT-Pro-B Natriuret Pep (<300) pg/mL 28 Total Protein (6.4-8.2) g/dL Albumin (3.4-5.0) g/dL Vitamin B12 (193-986) pg/mL Folate (8.6-20.0) ng/mL Procalcitonin ng/mL TSH (0.36-3.74) uIU/mL Free T4 (0.76-1.46) ng/dL Urine Color (Yellow) Yellow Urine Clarity (Clear) Clear Urine pH (5-8) 5.5 Ur Specific [place] (1.005-1.025) >= 1.030 H Urine Protein (Negative) mg/dL Negative Urine Ketones (Negative) mg/dL Negative Urine Blood (Negative) Negative Urine Nitrite (Negative) Negative Urine Bilirubin (Negative) Negative Urine Urobilinogen (Up TO 0.2) EU/dL 0.2 Ur Leukocyte Esterase (Negative) Negative Urine Glucose (Negative) mg/dL Negative Fluid Type Fluid Source Fluid Color Fluid Clarity Fluid pH Fluid WBC Fld Polynuclear WBCs % % Fluid Mononuclear Cell % Fluid Other Cells Fluid Glucose (See Note) mg/dL Fluid Total Protein g/dL Fluid Albumin Fluid LDH Fluid Lipase U/L Fluid Triglycerides mg/dL CSF Lyme DNA Comment CSF B.burgdorferi (PCR) CSF B.mayonii (PCR) CSF B.eron/afzel PCR Rheumatoid Factor (<12.0) IU/mL Cyclic Citrull Peptide (<5.0) U/mL MARITZA Titer MARITZA Titer 2 MARITZA Titer 3 MARITZA Interpretation (Negative) Proteinase 3 (PR3) U Myeloperoxidase Ab U Double Strand DNA Ab (<30.0) IU/mL Lyme Specimen Source COVID-19 Source SARS-CoV-2 (PCR) (Negative) Influenza Type A (PCR) (Negative) Influenza Type B (PCR) (Negative) Urine Legionella Ag (Negative) RSV (PCR) (Negative) AFB Source AFB Culture Final Res AFB Bld Cult Final Res AFB Report Status Fungal Specimen Source Fungal Culture Status Fungal Culture Final Fungal Smear Result M. Tuberculosis PCR Path Cons Comment AFB Smear (Ref Lab) Add-On Test Request Range/Units 11/04/21 11/04/21 11/04/21 12:10 17:29 20:07 WBC (4.4-10.8) 10^3/uL RBC (3.93-5.22) 10^6/uL Hgb (11.2-15.7) g/dL Hct (36.0-46.0) % MCV (80-95) fL MCH (27.0-33.0) pg MCHC (32.0-36.0) % RDW (11.7-14.6) % Plt Count (130-400) 10^3/uL MPV (8.0-11.0) fL Immature Gran % Neutrophils % Lymphocytes % Monocytes % Eosinophils % Basophils % Nucleated RBC % % Absolute Neutrophils (1.2-6.7) 10^3/uL Absolute Lymphocytes (1.2-3.4) 10^3/uL Absolute Monocytes (0.1-0.8) 10^3/uL Absolute Eosinophils (0.0-0.7) 10^3/uL Absolute Basophils (0.0-0.2) 10^3/uL RBC Morphology Hypochromasia Poikilocytosis Basophilic Stippling Stomatocytes PT (9.3-11.0) sec INR (0.9-1.1) APTT (21.0-27.5) sec Fibrinogen (171-384) mg/dL D-Dimer (<500) ng/mlFEU Sodium (136-145) mmol/L Potassium (3.5-5.1) mmol/L Chloride (98-107) mmol/L Carbon Dioxide (21.0-32.0) mmol/L Anion Gap (3-11) mmol/L BUN (7-18) mg/dL Creatinine (0.55-1.02) mg/dL Estimated GFR/1.73 m2 (mL/min/1.73m2) Glucose (74-106) mg/dL Hemoglobin A1c (<5.7) % Calcium (8.5-10.1) mg/dL Magnesium (1.8-2.4) mg/dL Iron (50-170) ug/dL TIBC (250-450) ug/dL Transferrin % Sat (15-50) % Ferritin (8-252) ng/mL Total Bilirubin (0.2-1.0) mg/dL AST (15-37) U/L ALT (14-59) U/L Alkaline Phosphatase (46-116) U/L Lactate Dehydrogenase (81-234) U/L C-Reactive Protein (0.0-0.3) mg/dL NT-Pro-B Natriuret Pep (<300) pg/mL Total Protein (6.4-8.2) g/dL Albumin (3.4-5.0) g/dL Vitamin B12 (193-986) pg/mL Folate (8.6-20.0) ng/mL Procalcitonin ng/mL TSH (0.36-3.74) uIU/mL Free T4 (0.76-1.46) ng/dL Urine Color (Yellow) Urine Clarity (Clear) Urine pH (5-8) Ur Specific [place] (1.005-1.025) Urine Protein (Negative) mg/dL Urine Ketones (Negative) mg/dL Urine Blood (Negative) Urine Nitrite (Negative) Urine Bilirubin (Negative) Urine Urobilinogen (Up TO 0.2) EU/dL Ur Leukocyte Esterase (Negative) Urine Glucose (Negative) mg/dL Fluid Type Fluid Source Pleural Cancelled Fluid Color Red Cancelled Fluid Clarity Cloudy Cancelled Fluid pH Fluid WBC 2027 Cancelled Fld Polynuclear WBCs % % 97 Cancelled Fluid Mononuclear Cell % 3 Cancelled Fluid Other Cells Cancelled Fluid Glucose (See Note) mg/dL Fluid Total Protein g/dL Fluid Albumin Fluid LDH Fluid Lipase U/L Fluid Triglycerides mg/dL CSF Lyme DNA Comment CSF B.burgdorferi (PCR) CSF B.mayonii (PCR) CSF B.eron/afzel PCR Rheumatoid Factor (<12.0) IU/mL Cyclic Citrull Peptide (<5.0) U/mL MARITZA Titer MARITZA Titer 2 MARITZA Titer 3 MARITZA Interpretation (Negative) Proteinase 3 (PR3) U Myeloperoxidase Ab U Double Strand DNA Ab (<30.0) IU/mL Lyme Specimen Source COVID-19 Source Nasal/Nares SARS-CoV-2 (PCR) (Negative) Negative Influenza Type A (PCR) (Negative) Negative Influenza Type B (PCR) (Negative) Negative Urine Legionella Ag (Negative) RSV (PCR) (Negative) Negative AFB Source AFB Culture Final Res AFB Bld Cult Final Res AFB Report Status Fungal Specimen Source Fungal Culture Status Fungal Culture Final Fungal Smear Result M. Tuberculosis PCR Path Cons Comment Cancelled AFB Smear (Ref Lab) Add-On Test Request Range/Units 11/05/21 11/05/21 11/05/21 06:10 06:10 06:10 WBC (4.4-10.8) 10^3/uL 22.09 H D RBC (3.93-5.22) 10^6/uL 3.09 L Hgb (11.2-15.7) g/dL 8.5 L Hct (36.0-46.0) % 29.5 L MCV (80-95) fL 95.5 H MCH (27.0-33.0) pg 27.5 MCHC (32.0-36.0) % 28.8 L RDW (11.7-14.6) % 14.1 Plt Count (130-400) 10^3/uL 244 MPV (8.0-11.0) fL 8.8 Immature Gran % 0.4 Neutrophils % 88.8 Lymphocytes % 4.5 Monocytes % 2.8 Eosinophils % 3.1 Basophils % 0.4 Nucleated RBC % % 0 Absolute Neutrophils (1.2-6.7) 10^3/uL 19.62 H Absolute Lymphocytes (1.2-3.4) 10^3/uL 0.99 L Absolute Monocytes (0.1-0.8) 10^3/uL 0.62 Absolute Eosinophils (0.0-0.7) 10^3/uL 0.68 Absolute Basophils (0.0-0.2) 10^3/uL 0.09 RBC Morphology Hypochromasia Poikilocytosis Basophilic Stippling Stomatocytes PT (9.3-11.0) sec INR (0.9-1.1) APTT (21.0-27.5) sec Fibrinogen (171-384) mg/dL D-Dimer (<500) ng/mlFEU Sodium (136-145) mmol/L 135 L Potassium (3.5-5.1) mmol/L 3.9 Chloride (98-107) mmol/L 102 Carbon Dioxide (21.0-32.0) mmol/L 30.7 Anion Gap (3-11) mmol/L 2.3 L BUN (7-18) mg/dL 16 Creatinine (0.55-1.02) mg/dL 0.8 Estimated GFR/1.73 m2 (mL/min/1.73m2) >= 60.00 Glucose (74-106) mg/dL 120 H Hemoglobin A1c (<5.7) % Calcium (8.5-10.1) mg/dL 8.2 L Magnesium (1.8-2.4) mg/dL Iron (50-170) ug/dL TIBC (250-450) ug/dL Transferrin % Sat (15-50) % Ferritin (8-252) ng/mL Total Bilirubin (0.2-1.0) mg/dL AST (15-37) U/L ALT (14-59) U/L Alkaline Phosphatase (46-116) U/L Lactate Dehydrogenase (81-234) U/L C-Reactive Protein (0.0-0.3) mg/dL NT-Pro-B Natriuret Pep (<300) pg/mL Total Protein (6.4-8.2) g/dL Albumin (3.4-5.0) g/dL Vitamin B12 (193-986) pg/mL Folate (8.6-20.0) ng/mL Procalcitonin ng/mL TSH (0.36-3.74) uIU/mL Free T4 (0.76-1.46) ng/dL Urine Color (Yellow) Urine Clarity (Clear) Urine pH (5-8) Ur Specific [place] (1.005-1.025) Urine Protein (Negative) mg/dL Urine Ketones (Negative) mg/dL Urine Blood (Negative) Urine Nitrite (Negative) Urine Bilirubin (Negative) Urine Urobilinogen (Up TO 0.2) EU/dL Ur Leukocyte Esterase (Negative) Urine Glucose (Negative) mg/dL Fluid Type Fluid Source Fluid Color Fluid Clarity Fluid pH Fluid WBC Fld Polynuclear WBCs % % Fluid Mononuclear Cell % Fluid Other Cells Fluid Glucose (See Note) mg/dL Fluid Total Protein g/dL Fluid Albumin Fluid LDH Fluid Lipase U/L Fluid Triglycerides mg/dL CSF Lyme DNA Comment CSF B.burgdorferi (PCR) CSF B.mayonii (PCR) CSF B.eron/afzel PCR Rheumatoid Factor (<12.0) IU/mL Cyclic Citrull Peptide (<5.0) U/mL MARITZA Titer MARITZA Titer 2 MARITZA Titer 3 MARITZA Interpretation (Negative) Proteinase 3 (PR3) U Myeloperoxidase Ab U Double Strand DNA Ab (<30.0) IU/mL Lyme Specimen Source COVID-19 Source SARS-CoV-2 (PCR) (Negative) Influenza Type A (PCR) (Negative) Influenza Type B (PCR) (Negative) Urine Legionella Ag (Negative) RSV (PCR) (Negative) AFB Source AFB Culture Final Res AFB Bld Cult Final Res AFB Report Status Fungal Specimen Source Fungal Culture Status Fungal Culture Final Fungal Smear Result M. Tuberculosis PCR Path Cons Comment AFB Smear (Ref Lab) Add-On Test Request DONE Range/Units 11/05/21 11/05/21 11/05/21 06:10 06:10 08:05 WBC (4.4-10.8) 10^3/uL RBC (3.93-5.22) 10^6/uL Hgb (11.2-15.7) g/dL Hct (36.0-46.0) % MCV (80-95) fL MCH (27.0-33.0) pg MCHC (32.0-36.0) % RDW (11.7-14.6) % Plt Count (130-400) 10^3/uL MPV (8.0-11.0) fL Immature Gran % Neutrophils % Lymphocytes % Monocytes % Eosinophils % Basophils % Nucleated RBC % % Absolute Neutrophils (1.2-6.7) 10^3/uL Absolute Lymphocytes (1.2-3.4) 10^3/uL Absolute Monocytes (0.1-0.8) 10^3/uL Absolute Eosinophils (0.0-0.7) 10^3/uL Absolute Basophils (0.0-0.2) 10^3/uL RBC Morphology Hypochromasia Poikilocytosis Basophilic Stippling Stomatocytes PT (9.3-11.0) sec 11.1 H INR (0.9-1.1) 1.1 APTT (21.0-27.5) sec 27.6 H Fibrinogen (171-384) mg/dL D-Dimer (<500) ng/mlFEU Sodium (136-145) mmol/L Potassium (3.5-5.1) mmol/L Chloride (98-107) mmol/L Carbon Dioxide (21.0-32.0) mmol/L Anion Gap (3-11) mmol/L BUN (7-18) mg/dL Creatinine (0.55-1.02) mg/dL Estimated GFR/1.73 m2 (mL/min/1.73m2) Glucose (74-106) mg/dL Hemoglobin A1c (<5.7) % Calcium (8.5-10.1) mg/dL Magnesium (1.8-2.4) mg/dL Iron (50-170) ug/dL 14 L TIBC (250-450) ug/dL 235 L Transferrin % Sat (15-50) % 6 L Ferritin (8-252) ng/mL 189 Total Bilirubin (0.2-1.0) mg/dL AST (15-37) U/L ALT (14-59) U/L Alkaline Phosphatase (46-116) U/L Lactate Dehydrogenase (81-234) U/L C-Reactive Protein (0.0-0.3) mg/dL NT-Pro-B Natriuret Pep (<300) pg/mL Total Protein (6.4-8.2) g/dL Albumin (3.4-5.0) g/dL Vitamin B12 (193-986) pg/mL Folate (8.6-20.0) ng/mL Procalcitonin ng/mL TSH (0.36-3.74) uIU/mL Free T4 (0.76-1.46) ng/dL Urine Color (Yellow) Urine Clarity (Clear) Urine pH (5-8) Ur Specific [place] (1.005-1.025) Urine Protein (Negative) mg/dL Urine Ketones (Negative) mg/dL Urine Blood (Negative) Urine Nitrite (Negative) Urine Bilirubin (Negative) Urine Urobilinogen (Up TO 0.2) EU/dL Ur Leukocyte Esterase (Negative) Urine Glucose (Negative) mg/dL Fluid Type Fluid Source Fluid Color Fluid Clarity Fluid pH Fluid WBC Fld Polynuclear WBCs % % Fluid Mononuclear Cell % Fluid Other Cells Fluid Glucose (See Note) mg/dL Fluid Total Protein g/dL Fluid Albumin Fluid LDH Fluid Lipase U/L Fluid Triglycerides mg/dL CSF Lyme DNA Comment CSF B.burgdorferi (PCR) CSF B.mayonii (PCR) CSF B.eron/afzel PCR Rheumatoid Factor (<12.0) IU/mL Cyclic Citrull Peptide (<5.0) U/mL MARITZA Titer MARITZA Titer 2 MARITZA Titer 3 MARITZA Interpretation (Negative) Proteinase 3 (PR3) U Myeloperoxidase Ab U Double Strand DNA Ab (<30.0) IU/mL Lyme Specimen Source COVID-19 Source SARS-CoV-2 (PCR) (Negative) Influenza Type A (PCR) (Negative) Influenza Type B (PCR) (Negative) Urine Legionella Ag (Negative) RSV (PCR) (Negative) AFB Source AFB Culture Final Res AFB Bld Cult Final Res AFB Report Status Fungal Specimen Source Fungal Culture Status Fungal Culture Final Fungal Smear Result M. Tuberculosis PCR Path Cons Comment AFB Smear (Ref Lab) Add-On Test Request Range/Units 11/05/21 11/05/21 11/05/21 08:05 08:05 12:02 WBC (4.4-10.8) 10^3/uL RBC (3.93-5.22) 10^6/uL Hgb (11.2-15.7) g/dL Hct (36.0-46.0) % MCV (80-95) fL MCH (27.0-33.0) pg MCHC (32.0-36.0) % RDW (11.7-14.6) % Plt Count (130-400) 10^3/uL MPV (8.0-11.0) fL Immature Gran % Neutrophils % Lymphocytes % Monocytes % Eosinophils % Basophils % Nucleated RBC % % Absolute Neutrophils (1.2-6.7) 10^3/uL Absolute Lymphocytes (1.2-3.4) 10^3/uL Absolute Monocytes (0.1-0.8) 10^3/uL Absolute Eosinophils (0.0-0.7) 10^3/uL Absolute Basophils (0.0-0.2) 10^3/uL RBC Morphology Hypochromasia Poikilocytosis Basophilic Stippling Stomatocytes PT (9.3-11.0) sec INR (0.9-1.1) APTT (21.0-27.5) sec Fibrinogen (171-384) mg/dL 689 H D-Dimer (<500) ng/mlFEU Sodium (136-145) mmol/L Potassium (3.5-5.1) mmol/L Chloride (98-107) mmol/L Carbon Dioxide (21.0-32.0) mmol/L Anion Gap (3-11) mmol/L BUN (7-18) mg/dL Creatinine (0.55-1.02) mg/dL Estimated GFR/1.73 m2 (mL/min/1.73m2) Glucose (74-106) mg/dL Hemoglobin A1c (<5.7) % Calcium (8.5-10.1) mg/dL Magnesium (1.8-2.4) mg/dL Iron (50-170) ug/dL TIBC (250-450) ug/dL Transferrin % Sat (15-50) % Ferritin (8-252) ng/mL Total Bilirubin (0.2-1.0) mg/dL AST (15-37) U/L ALT (14-59) U/L Alkaline Phosphatase (46-116) U/L Lactate Dehydrogenase (81-234) U/L C-Reactive Protein (0.0-0.3) mg/dL NT-Pro-B Natriuret Pep (<300) pg/mL Total Protein (6.4-8.2) g/dL Albumin (3.4-5.0) g/dL Vitamin B12 (193-986) pg/mL Folate (8.6-20.0) ng/mL Procalcitonin ng/mL TSH (0.36-3.74) uIU/mL Free T4 (0.76-1.46) ng/dL Urine Color (Yellow) Urine Clarity (Clear) Urine pH (5-8) Ur Specific [place] (1.005-1.025) Urine Protein (Negative) mg/dL Urine Ketones (Negative) mg/dL Urine Blood (Negative) Urine Nitrite (Negative) Urine Bilirubin (Negative) Urine Urobilinogen (Up TO 0.2) EU/dL Ur Leukocyte Esterase (Negative) Urine Glucose (Negative) mg/dL Fluid Type Fluid Source Cancelled Fluid Color Cancelled Fluid Clarity Cancelled Fluid pH Fluid WBC Cancelled Fld Polynuclear WBCs % % Cancelled Fluid Mononuclear Cell % Cancelled Fluid Other Cells Cancelled Fluid Glucose (See Note) mg/dL Fluid Total Protein g/dL Fluid Albumin Fluid LDH Fluid Lipase U/L Fluid Triglycerides mg/dL CSF Lyme DNA Comment CSF B.burgdorferi (PCR) CSF B.mayonii (PCR) CSF B.eron/afzel PCR Rheumatoid Factor (<12.0) IU/mL Cyclic Citrull Peptide (<5.0) U/mL MARITZA Titer MARITZA Titer 2 MARITZA Titer 3 MARITZA Interpretation (Negative) Proteinase 3 (PR3) U Myeloperoxidase Ab U Double Strand DNA Ab (<30.0) IU/mL Lyme Specimen Source COVID-19 Source SARS-CoV-2 (PCR) (Negative) Influenza Type A (PCR) (Negative) Influenza Type B (PCR) (Negative) Urine Legionella Ag (Negative) RSV (PCR) (Negative) AFB Source AFB Culture Final Res AFB Bld Cult Final Res AFB Report Status Fungal Specimen Source Fungal Culture Status Fungal Culture Final Fungal Smear Result M. Tuberculosis PCR Path Cons Comment Cancelled AFB Smear (Ref Lab) Add-On Test Request DONE Range/Units 11/05/21 11/05/21 11/05/21 12:03 12:16 12:16 WBC (4.4-10.8) 10^3/uL RBC (3.93-5.22) 10^6/uL Hgb (11.2-15.7) g/dL Hct (36.0-46.0) % MCV (80-95) fL MCH (27.0-33.0) pg MCHC (32.0-36.0) % RDW (11.7-14.6) % Plt Count (130-400) 10^3/uL MPV (8.0-11.0) fL Immature Gran % Neutrophils % Lymphocytes % Monocytes % Eosinophils % Basophils % Nucleated RBC % % Absolute Neutrophils (1.2-6.7) 10^3/uL Absolute Lymphocytes (1.2-3.4) 10^3/uL Absolute Monocytes (0.1-0.8) 10^3/uL Absolute Eosinophils (0.0-0.7) 10^3/uL Absolute Basophils (0.0-0.2) 10^3/uL RBC Morphology Hypochromasia Poikilocytosis Basophilic Stippling Stomatocytes PT (9.3-11.0) sec INR (0.9-1.1) APTT (21.0-27.5) sec Fibrinogen (171-384) mg/dL D-Dimer (<500) ng/mlFEU Sodium (136-145) mmol/L Potassium (3.5-5.1) mmol/L Chloride (98-107) mmol/L Carbon Dioxide (21.0-32.0) mmol/L Anion Gap (3-11) mmol/L BUN (7-18) mg/dL Creatinine (0.55-1.02) mg/dL Estimated GFR/1.73 m2 (mL/min/1.73m2) Glucose (74-106) mg/dL Hemoglobin A1c (<5.7) % Calcium (8.5-10.1) mg/dL Magnesium (1.8-2.4) mg/dL Iron (50-170) ug/dL TIBC (250-450) ug/dL Transferrin % Sat (15-50) % Ferritin (8-252) ng/mL Total Bilirubin (0.2-1.0) mg/dL AST (15-37) U/L ALT (14-59) U/L Alkaline Phosphatase (46-116) U/L Lactate Dehydrogenase (81-234) U/L C-Reactive Protein (0.0-0.3) mg/dL NT-Pro-B Natriuret Pep (<300) pg/mL Total Protein (6.4-8.2) g/dL Albumin (3.4-5.0) g/dL Vitamin B12 (193-986) pg/mL Folate (8.6-20.0) ng/mL Procalcitonin ng/mL TSH (0.36-3.74) uIU/mL Free T4 (0.76-1.46) ng/dL Urine Color (Yellow) Urine Clarity (Clear) Urine pH (5-8) Ur Specific [place] (1.005-1.025) Urine Protein (Negative) mg/dL Urine Ketones (Negative) mg/dL Urine Blood (Negative) Urine Nitrite (Negative) Urine Bilirubin (Negative) Urine Urobilinogen (Up TO 0.2) EU/dL Ur Leukocyte Esterase (Negative) Urine Glucose (Negative) mg/dL Fluid Type Fluid Source Fluid Color Fluid Clarity Fluid pH Fluid WBC Fld Polynuclear WBCs % % Fluid Mononuclear Cell % Fluid Other Cells Fluid Glucose (See Note) mg/dL Fluid Total Protein g/dL Fluid Albumin Fluid LDH Fluid Lipase U/L Fluid Triglycerides mg/dL CSF Lyme DNA Comment CSF B.burgdorferi (PCR) CSF B.mayonii (PCR) CSF B.eron/afzel PCR Rheumatoid Factor (<12.0) IU/mL Cyclic Citrull Peptide (<5.0) U/mL MARITZA Titer MARITZA Titer 2 MARITZA Titer 3 MARITZA Interpretation (Negative) Proteinase 3 (PR3) U Myeloperoxidase Ab U Double Strand DNA Ab (<30.0) IU/mL Lyme Specimen Source COVID-19 Source SARS-CoV-2 (PCR) (Negative) Influenza Type A (PCR) (Negative) Influenza Type B (PCR) (Negative) Urine Legionella Ag (Negative) RSV (PCR) (Negative) AFB Source Cancelled Cancelled AFB Culture Final Res Cancelled Cancelled AFB Bld Cult Final Res AFB Report Status Fungal Specimen Source Cancelled Cancelled Fungal Culture Status Cancelled Cancelled Fungal Culture Final Cancelled Cancelled Fungal Smear Result Cancelled Cancelled M. Tuberculosis PCR Cancelled Cancelled Path Cons Comment AFB Smear (Ref Lab) Cancelled Cancelled Add-On Test Request Range/Units 11/05/21 11/05/21 11/05/21 12:17 17:00 18:30 WBC (4.4-10.8) 10^3/uL RBC (3.93-5.22) 10^6/uL Hgb (11.2-15.7) g/dL 8.1 L Hct (36.0-46.0) % 27.9 L MCV (80-95) fL MCH (27.0-33.0) pg MCHC (32.0-36.0) % RDW (11.7-14.6) % Plt Count (130-400) 10^3/uL MPV (8.0-11.0) fL Immature Gran % Neutrophils % Lymphocytes % Monocytes % Eosinophils % Basophils % Nucleated RBC % % Absolute Neutrophils (1.2-6.7) 10^3/uL Absolute Lymphocytes (1.2-3.4) 10^3/uL Absolute Monocytes (0.1-0.8) 10^3/uL Absolute Eosinophils (0.0-0.7) 10^3/uL Absolute Basophils (0.0-0.2) 10^3/uL RBC Morphology Hypochromasia Poikilocytosis Basophilic Stippling Stomatocytes PT (9.3-11.0) sec INR (0.9-1.1) APTT (21.0-27.5) sec Fibrinogen (171-384) mg/dL D-Dimer (<500) ng/mlFEU Sodium (136-145) mmol/L Potassium (3.5-5.1) mmol/L Chloride (98-107) mmol/L Carbon Dioxide (21.0-32.0) mmol/L Anion Gap (3-11) mmol/L BUN (7-18) mg/dL Creatinine (0.55-1.02) mg/dL Estimated GFR/1.73 m2 (mL/min/1.73m2) Glucose (74-106) mg/dL Hemoglobin A1c (<5.7) % Calcium (8.5-10.1) mg/dL Magnesium (1.8-2.4) mg/dL Iron (50-170) ug/dL TIBC (250-450) ug/dL Transferrin % Sat (15-50) % Ferritin (8-252) ng/mL Total Bilirubin (0.2-1.0) mg/dL AST (15-37) U/L ALT (14-59) U/L Alkaline Phosphatase (46-116) U/L Lactate Dehydrogenase (81-234) U/L C-Reactive Protein (0.0-0.3) mg/dL NT-Pro-B Natriuret Pep (<300) pg/mL Total Protein (6.4-8.2) g/dL Albumin (3.4-5.0) g/dL Vitamin B12 (193-986) pg/mL Folate (8.6-20.0) ng/mL Procalcitonin ng/mL TSH (0.36-3.74) uIU/mL Free T4 (0.76-1.46) ng/dL Urine Color (Yellow) Urine Clarity (Clear) Urine pH (5-8) Ur Specific [place] (1.005-1.025) Urine Protein (Negative) mg/dL Urine Ketones (Negative) mg/dL Urine Blood (Negative) Urine Nitrite (Negative) Urine Bilirubin (Negative) Urine Urobilinogen (Up TO 0.2) EU/dL Ur Leukocyte Esterase (Negative) Urine Glucose (Negative) mg/dL Fluid Type Fluid Source Fluid Color Fluid Clarity Fluid pH Fluid WBC Fld Polynuclear WBCs % % Fluid Mononuclear Cell % Fluid Other Cells Fluid Glucose (See Note) mg/dL Fluid Total Protein g/dL Fluid Albumin Fluid LDH Fluid Lipase U/L Fluid Triglycerides mg/dL CSF Lyme DNA Comment CSF B.burgdorferi (PCR) CSF B.mayonii (PCR) CSF B.eron/afzel PCR Rheumatoid Factor (<12.0) IU/mL Cyclic Citrull Peptide (<5.0) U/mL MARITZA Titer MARITZA Titer 2 MARITZA Titer 3 MARITZA Interpretation (Negative) Proteinase 3 (PR3) U Myeloperoxidase Ab U Double Strand DNA Ab (<30.0) IU/mL Lyme Specimen Source COVID-19 Source SARS-CoV-2 (PCR) (Negative) Influenza Type A (PCR) (Negative) Influenza Type B (PCR) (Negative) Urine Legionella Ag (Negative) Negative RSV (PCR) (Negative) AFB Source AFB Culture Final Res AFB Bld Cult Final Res AFB Report Status Fungal Specimen Source Cancelled Fungal Culture Status Cancelled Fungal Culture Final Cancelled Fungal Smear Result Cancelled M. Tuberculosis PCR Path Cons Comment AFB Smear (Ref Lab) Add-On Test Request Range/Units 11/06/21 11/06/21 11/06/21 06:12 06:12 06:12 WBC (4.4-10.8) 10^3/uL 13.88 H D RBC (3.93-5.22) 10^6/uL 2.78 L Hgb (11.2-15.7) g/dL 7.8 L Hct (36.0-46.0) % 26.3 L MCV (80-95) fL 94.6 MCH (27.0-33.0) pg 28.1 MCHC (32.0-36.0) % 29.7 L RDW (11.7-14.6) % 13.9 Plt Count (130-400) 10^3/uL 218 MPV (8.0-11.0) fL 9.0 Immature Gran % 0.5 Neutrophils % 81.1 Lymphocytes % 8.5 Monocytes % 4.5 Eosinophils % 5.0 Basophils % 0.4 Nucleated RBC % % 0 Absolute Neutrophils (1.2-6.7) 10^3/uL 11.26 H Absolute Lymphocytes (1.2-3.4) 10^3/uL 1.18 L Absolute Monocytes (0.1-0.8) 10^3/uL 0.62 Absolute Eosinophils (0.0-0.7) 10^3/uL 0.69 Absolute Basophils (0.0-0.2) 10^3/uL 0.06 RBC Morphology See Below Hypochromasia 2+ Poikilocytosis 1+ Basophilic Stippling Present Stomatocytes 2+ PT (9.3-11.0) sec INR (0.9-1.1) APTT (21.0-27.5) sec Fibrinogen (171-384) mg/dL D-Dimer (<500) ng/mlFEU Sodium (136-145) mmol/L 139 Potassium (3.5-5.1) mmol/L 4.2 Chloride (98-107) mmol/L 103 Carbon Dioxide (21.0-32.0) mmol/L 30.1 Anion Gap (3-11) mmol/L 5.9 BUN (7-18) mg/dL 12 Creatinine (0.55-1.02) mg/dL 0.7 Estimated GFR/1.73 m2 (mL/min/1.73m2) >= 60.00 Glucose (74-106) mg/dL 96 Hemoglobin A1c (<5.7) % Calcium (8.5-10.1) mg/dL 8.0 L Magnesium (1.8-2.4) mg/dL Iron (50-170) ug/dL TIBC (250-450) ug/dL Transferrin % Sat (15-50) % Ferritin (8-252) ng/mL Total Bilirubin (0.2-1.0) mg/dL AST (15-37) U/L ALT (14-59) U/L Alkaline Phosphatase (46-116) U/L Lactate Dehydrogenase (81-234) U/L C-Reactive Protein (0.0-0.3) mg/dL NT-Pro-B Natriuret Pep (<300) pg/mL Total Protein (6.4-8.2) g/dL Albumin (3.4-5.0) g/dL Vitamin B12 (193-986) pg/mL > 2000 H Folate (8.6-20.0) ng/mL 5.1 L Procalcitonin ng/mL TSH (0.36-3.74) uIU/mL Free T4 (0.76-1.46) ng/dL Urine Color (Yellow) Urine Clarity (Clear) Urine pH (5-8) Ur Specific [place] (1.005-1.025) Urine Protein (Negative) mg/dL Urine Ketones (Negative) mg/dL Urine Blood (Negative) Urine Nitrite (Negative) Urine Bilirubin (Negative) Urine Urobilinogen (Up TO 0.2) EU/dL Ur Leukocyte Esterase (Negative) Urine Glucose (Negative) mg/dL Fluid Type Fluid Source Fluid Color Fluid Clarity Fluid pH Fluid WBC Fld Polynuclear WBCs % % Fluid Mononuclear Cell % Fluid Other Cells Fluid Glucose (See Note) mg/dL Fluid Total Protein g/dL Fluid Albumin Fluid LDH Fluid Lipase U/L Fluid Triglycerides mg/dL CSF Lyme DNA Comment CSF B.burgdorferi (PCR) CSF B.mayonii (PCR) CSF B.eron/afzel PCR Rheumatoid Factor (<12.0) IU/mL Cyclic Citrull Peptide (<5.0) U/mL MARITZA Titer MARITZA Titer 2 MARITZA Titer 3 MARITZA Interpretation (Negative) Proteinase 3 (PR3) U Myeloperoxidase Ab U Double Strand DNA Ab (<30.0) IU/mL Lyme Specimen Source COVID-19 Source SARS-CoV-2 (PCR) (Negative) Influenza Type A (PCR) (Negative) Influenza Type B (PCR) (Negative) Urine Legionella Ag (Negative) RSV (PCR) (Negative) AFB Source AFB Culture Final Res AFB Bld Cult Final Res AFB Report Status Fungal Specimen Source Fungal Culture Status Fungal Culture Final Fungal Smear Result M. Tuberculosis PCR Path Cons Comment AFB Smear (Ref Lab) Add-On Test Request Range/Units 11/06/21 11/07/21 11/07/21 06:12 06:00 06:00 WBC (4.4-10.8) 10^3/uL RBC (3.93-5.22) 10^6/uL Hgb (11.2-15.7) g/dL Hct (36.0-46.0) % MCV (80-95) fL MCH (27.0-33.0) pg MCHC (32.0-36.0) % RDW (11.7-14.6) % Plt Count (130-400) 10^3/uL MPV (8.0-11.0) fL Immature Gran % Neutrophils % Lymphocytes % Monocytes % Eosinophils % Basophils % Nucleated RBC % % Absolute Neutrophils (1.2-6.7) 10^3/uL Absolute Lymphocytes (1.2-3.4) 10^3/uL Absolute Monocytes (0.1-0.8) 10^3/uL Absolute Eosinophils (0.0-0.7) 10^3/uL Absolute Basophils (0.0-0.2) 10^3/uL RBC Morphology Hypochromasia Poikilocytosis Basophilic Stippling Stomatocytes PT (9.3-11.0) sec INR (0.9-1.1) APTT (21.0-27.5) sec Fibrinogen (171-384) mg/dL D-Dimer (<500) ng/mlFEU Sodium (136-145) mmol/L 138 Potassium (3.5-5.1) mmol/L 3.9 Chloride (98-107) mmol/L 104 Carbon Dioxide (21.0-32.0) mmol/L 34.0 H Anion Gap (3-11) mmol/L 0 L BUN (7-18) mg/dL 11 Creatinine (0.55-1.02) mg/dL 0.8 Estimated GFR/1.73 m2 (mL/min/1.73m2) >= 60.00 Glucose (74-106) mg/dL 98 Hemoglobin A1c (<5.7) % 5.2 5.4 Calcium (8.5-10.1) mg/dL 8.2 L Magnesium (1.8-2.4) mg/dL 2.0 Iron (50-170) ug/dL TIBC (250-450) ug/dL Transferrin % Sat (15-50) % Ferritin (8-252) ng/mL Total Bilirubin (0.2-1.0) mg/dL AST (15-37) U/L ALT (14-59) U/L Alkaline Phosphatase (46-116) U/L Lactate Dehydrogenase (81-234) U/L C-Reactive Protein (0.0-0.3) mg/dL NT-Pro-B Natriuret Pep (<300) pg/mL Total Protein (6.4-8.2) g/dL Albumin (3.4-5.0) g/dL Vitamin B12 (193-986) pg/mL Folate (8.6-20.0) ng/mL Procalcitonin ng/mL TSH (0.36-3.74) uIU/mL Free T4 (0.76-1.46) ng/dL Urine Color (Yellow) Urine Clarity (Clear) Urine pH (5-8) Ur Specific [place] (1.005-1.025) Urine Protein (Negative) mg/dL Urine Ketones (Negative) mg/dL Urine Blood (Negative) Urine Nitrite (Negative) Urine Bilirubin (Negative) Urine Urobilinogen (Up TO 0.2) EU/dL Ur Leukocyte Esterase (Negative) Urine Glucose (Negative) mg/dL Fluid Type Fluid Source Fluid Color Fluid Clarity Fluid pH Fluid WBC Fld Polynuclear WBCs % % Fluid Mononuclear Cell % Fluid Other Cells Fluid Glucose (See Note) mg/dL Fluid Total Protein g/dL Fluid Albumin Fluid LDH Fluid Lipase U/L Fluid Triglycerides mg/dL CSF Lyme DNA Comment CSF B.burgdorferi (PCR) CSF B.mayonii (PCR) CSF B.eron/afzel PCR Rheumatoid Factor (<12.0) IU/mL Cyclic Citrull Peptide (<5.0) U/mL MARITZA Titer MARITZA Titer 2 MARITZA Titer 3 MARITZA Interpretation (Negative) Proteinase 3 (PR3) U Myeloperoxidase Ab U Double Strand DNA Ab (<30.0) IU/mL Lyme Specimen Source COVID-19 Source SARS-CoV-2 (PCR) (Negative) Influenza Type A (PCR) (Negative) Influenza Type B (PCR) (Negative) Urine Legionella Ag (Negative) RSV (PCR) (Negative) AFB Source AFB Culture Final Res AFB Bld Cult Final Res AFB Report Status Fungal Specimen Source Fungal Culture Status Fungal Culture Final Fungal Smear Result M. Tuberculosis PCR Path Cons Comment AFB Smear (Ref Lab) Add-On Test Request Range/Units 11/07/21 11/08/21 11/08/21 06:00 06:20 06:20 WBC (4.4-10.8) 10^3/uL 9.52 D 6.21 D RBC (3.93-5.22) 10^6/uL 2.95 L 3.22 L Hgb (11.2-15.7) g/dL 8.2 L 8.9 L Hct (36.0-46.0) % 27.7 L 30.4 L MCV (80-95) fL 93.9 94.4 MCH (27.0-33.0) pg 27.8 27.6 MCHC (32.0-36.0) % 29.6 L 29.3 L RDW (11.7-14.6) % 13.7 13.4 Plt Count (130-400) 10^3/uL 214 262 MPV (8.0-11.0) fL 8.7 8.6 Immature Gran % 0.4 0.5 Neutrophils % 74.4 66.4 Lymphocytes % 11.0 17.2 Monocytes % 5.0 5.6 Eosinophils % 8.4 9.5 Basophils % 0.8 0.8 Nucleated RBC % % 0 0 Absolute Neutrophils (1.2-6.7) 10^3/uL 7.08 H 4.12 Absolute Lymphocytes (1.2-3.4) 10^3/uL 1.05 L 1.07 L Absolute Monocytes (0.1-0.8) 10^3/uL 0.48 0.35 Absolute Eosinophils (0.0-0.7) 10^3/uL 0.80 H 0.59 Absolute Basophils (0.0-0.2) 10^3/uL 0.08 0.05 RBC Morphology Hypochromasia Poikilocytosis Basophilic Stippling Stomatocytes PT (9.3-11.0) sec INR (0.9-1.1) APTT (21.0-27.5) sec Fibrinogen (171-384) mg/dL D-Dimer (<500) ng/mlFEU Sodium (136-145) mmol/L 142 Potassium (3.5-5.1) mmol/L 3.8 Chloride (98-107) mmol/L 101 Carbon Dioxide (21.0-32.0) mmol/L 35.6 H Anion Gap (3-11) mmol/L 5.4 BUN (7-18) mg/dL 12 Creatinine (0.55-1.02) mg/dL 0.8 Estimated GFR/1.73 m2 (mL/min/1.73m2) >= 60.00 Glucose (74-106) mg/dL 96 Hemoglobin A1c (<5.7) % Calcium (8.5-10.1) mg/dL 8.6 Magnesium (1.8-2.4) mg/dL 2.0 Iron (50-170) ug/dL TIBC (250-450) ug/dL Transferrin % Sat (15-50) % Ferritin (8-252) ng/mL Total Bilirubin (0.2-1.0) mg/dL AST (15-37) U/L ALT (14-59) U/L Alkaline Phosphatase (46-116) U/L Lactate Dehydrogenase (81-234) U/L C-Reactive Protein (0.0-0.3) mg/dL NT-Pro-B Natriuret Pep (<300) pg/mL Total Protein (6.4-8.2) g/dL Albumin (3.4-5.0) g/dL Vitamin B12 (193-986) pg/mL Folate (8.6-20.0) ng/mL Procalcitonin ng/mL TSH (0.36-3.74) uIU/mL 4.70 H Free T4 (0.76-1.46) ng/dL 1.18 Urine Color (Yellow) Urine Clarity (Clear) Urine pH (5-8) Ur Specific [place] (1.005-1.025) Urine Protein (Negative) mg/dL Urine Ketones (Negative) mg/dL Urine Blood (Negative) Urine Nitrite (Negative) Urine Bilirubin (Negative) Urine Urobilinogen (Up TO 0.2) EU/dL Ur Leukocyte Esterase (Negative) Urine Glucose (Negative) mg/dL Fluid Type Fluid Source Fluid Color Fluid Clarity Fluid pH Fluid WBC Fld Polynuclear WBCs % % Fluid Mononuclear Cell % Fluid Other Cells Fluid Glucose (See Note) mg/dL Fluid Total Protein g/dL Fluid Albumin Fluid LDH Fluid Lipase U/L Fluid Triglycerides mg/dL CSF Lyme DNA Comment CSF B.burgdorferi (PCR) CSF B.mayonii (PCR) CSF B.eron/afzel PCR Rheumatoid Factor (<12.0) IU/mL Cyclic Citrull Peptide (<5.0) U/mL MARITZA Titer MARITZA Titer 2 MARITZA Titer 3 MARITZA Interpretation (Negative) Proteinase 3 (PR3) U Myeloperoxidase Ab U Double Strand DNA Ab (<30.0) IU/mL Lyme Specimen Source COVID-19 Source SARS-CoV-2 (PCR) (Negative) Influenza Type A (PCR) (Negative) Influenza Type B (PCR) (Negative) Urine Legionella Ag (Negative) RSV (PCR) (Negative) AFB Source AFB Culture Final Res AFB Bld Cult Final Res AFB Report Status Fungal Specimen Source Fungal Culture Status Fungal Culture Final Fungal Smear Result M. Tuberculosis PCR Path Cons Comment AFB Smear (Ref Lab) Add-On Test Request Range/Units 11/08/21 06:20 WBC (4.4-10.8) 10^3/uL RBC (3.93-5.22) 10^6/uL Hgb (11.2-15.7) g/dL Hct (36.0-46.0) % MCV (80-95) fL MCH (27.0-33.0) pg MCHC (32.0-36.0) % RDW (11.7-14.6) % Plt Count (130-400) 10^3/uL MPV (8.0-11.0) fL Immature Gran % Neutrophils % Lymphocytes % Monocytes % Eosinophils % Basophils % Nucleated RBC % % Absolute Neutrophils (1.2-6.7) 10^3/uL Absolute Lymphocytes (1.2-3.4) 10^3/uL Absolute Monocytes (0.1-0.8) 10^3/uL Absolute Eosinophils (0.0-0.7) 10^3/uL Absolute Basophils (0.0-0.2) 10^3/uL RBC Morphology Hypochromasia Poikilocytosis Basophilic Stippling Stomatocytes PT (9.3-11.0) sec INR (0.9-1.1) APTT (21.0-27.5) sec Fibrinogen (171-384) mg/dL D-Dimer (<500) ng/mlFEU Sodium (136-145) mmol/L Potassium (3.5-5.1) mmol/L Chloride (98-107) mmol/L Carbon Dioxide (21.0-32.0) mmol/L Anion Gap (3-11) mmol/L BUN (7-18) mg/dL Creatinine (0.55-1.02) mg/dL Estimated GFR/1.73 m2 (mL/min/1.73m2) Glucose (74-106) mg/dL Hemoglobin A1c (<5.7) % Calcium (8.5-10.1) mg/dL Magnesium (1.8-2.4) mg/dL Iron (50-170) ug/dL TIBC (250-450) ug/dL Transferrin % Sat (15-50) % Ferritin (8-252) ng/mL Total Bilirubin (0.2-1.0) mg/dL AST (15-37) U/L ALT (14-59) U/L Alkaline Phosphatase (46-116) U/L Lactate Dehydrogenase (81-234) U/L C-Reactive Protein (0.0-0.3) mg/dL NT-Pro-B Natriuret Pep (<300) pg/mL Total Protein (6.4-8.2) g/dL Albumin (3.4-5.0) g/dL Vitamin B12 (193-986) pg/mL Folate (8.6-20.0) ng/mL Procalcitonin ng/mL 2.6 TSH (0.36-3.74) uIU/mL Free T4 (0.76-1.46) ng/dL Urine Color (Yellow) Urine Clarity (Clear) Urine pH (5-8) Ur Specific [place] (1.005-1.025) Urine Protein (Negative) mg/dL Urine Ketones (Negative) mg/dL Urine Blood (Negative) Urine Nitrite (Negative) Urine Bilirubin (Negative) Urine Urobilinogen (Up TO 0.2) EU/dL Ur Leukocyte Esterase (Negative) Urine Glucose (Negative) mg/dL Fluid Type Fluid Source Fluid Color Fluid Clarity Fluid pH Fluid WBC Fld Polynuclear WBCs % % Fluid Mononuclear Cell % Fluid Other Cells Fluid Glucose (See Note) mg/dL Fluid Total Protein g/dL Fluid Albumin Fluid LDH Fluid Lipase U/L Fluid Triglycerides mg/dL CSF Lyme DNA Comment CSF B.burgdorferi (PCR) CSF B.mayonii (PCR) CSF B.eron/afzel PCR Rheumatoid Factor (<12.0) IU/mL Cyclic Citrull Peptide (<5.0) U/mL MARITZA Titer MARITZA Titer 2 MARITZA Titer 3 MARITZA Interpretation (Negative) Proteinase 3 (PR3) U Myeloperoxidase Ab U Double Strand DNA Ab (<30.0) IU/mL Lyme Specimen Source COVID-19 Source SARS-CoV-2 (PCR) (Negative) Influenza Type A (PCR) (Negative) Influenza Type B (PCR) (Negative) Urine Legionella Ag (Negative) RSV (PCR) (Negative) AFB Source AFB Culture Final Res AFB Bld Cult Final Res AFB Report Status Fungal Specimen Source Fungal Culture Status Fungal Culture Final Fungal Smear Result M. Tuberculosis PCR Path Cons Comment AFB Smear (Ref Lab) Add-On Test Request
--- NOTE | 2021-11-08 08:52 | DI.RAD_ITS ---
Exam(s) XR PORTABLE CHEST AP EXAM: XR PORTABLE CHEST AP CLINICAL HISTORY: multifocal pneumonia, pleural effusion. TECHNIQUE: 2D digital imaging was performed. COMPARISON: CT CT CHEST/ABD/PEL W from 11/04/2021 CR XR PORTABLE CHEST AP from 11/05/2021 CR XR PORTABLE CHEST AP from 11/05/2021 CR,XR XR PORTABLE CHEST AP from 11/06/2021 CR,XR XR PORTABLE CHEST AP from 11/07/2021 FINDINGS: Heart size is unchanged. Mediastinum not widened. There is persistent right pleural effusion extend ing up the sidewall, unchanged and there is also persistent infiltrate in the mid right lung field. Infiltrate in the left lower lobe retrocardiac region is also noted. No obvious pleural effusion on the left side. IMPRESSION: Persistent right infiltrate and right pleural effusion which appears partially loculated.Persistent l eft lower lobe infiltrate. DATA REPOSITORY: RADIATION DOSE DELIVERED: All CT scans at this facility use at least one of these dose optimization techniques: automated exposure control; mA and/or kV adjustment per patient size (includes targeted e xams where dose is matched to clinical indication); or iterative reconstruction.
--- NOTE | 2021-11-08 11:34 | CMPROGNOTE_ITS ---
- If Service Date Differs Date of service: 11/08/21 Time of Service: 11:34 Care Management Progress Note S/O: Shirley shares that she's been having 9 out of 10 headaches. She is wondering if she can get a scheduled pain med as she feels she it takes a long time to get PRN meds. CM will discuss with nursing. She also shares that she gets dizzy with ambulation and needs assistance to and from the bathroom. CM provided education surrounding the use of her call moss. A: 41 year old female admitted to [facility] 11/03/21 for pleuritis, cough, PE P: Shirley was admitted for a pleural effusion. She is being followed by Pulmonolgy. Anticipate studies will take time to result, and outpatient follow up appointment will be scheduled. She will follow up with her community providers and transport via private vehicle with significant other.
[2021-11-08 13:05] LABS: Coag Factor XII Assay 50 % (55 - 180)
--- NOTE | 2021-11-08 14:00 | PGE_ITS ---
Date of Service Date of service: 11/08/21 Time of Service: 13:30 Assessment and Plan Assessment and plan (1) Respiratory failure with hypoxia: Status: Acute (2) Leukocytosis: Status: Acute Assessment and plan: resolved (3) Pulmonary infiltrate: Status: Acute (4) Pleuritic chest pain: Status: Acute Assessment and plan: chronic (5) Diabetes: Status: Chronic (6) Pleural effusion: Status: Acute Assessment and plan: -Clinically improving. -PPD #3 s/p bronch and BAL w/ extensive mucous plugging removed. Cultures negative for bacteria -S/p chest tube placement and removal; don't remove dressing until Monday -Incentive spirometry and pulmonary toilet, OK to start accapella -PT ordered, patient getting up to use restroom independently, encourage walking. -Continue supportive care, wean nasal cannula as tolerated -24h without abx, leukocytosis resolved. Cx negative to date. -Further studies pending, -Cytology from thoracentesis with RBC/WBC no bacteria, no malignant cells identified. Exudative effusion. -DVT: scd (allergy heparin/lovenox) Will transfer care to Hospitalist and Sail Finisher Machine. Thank you Hopefully the patient will not need any more Thoracenthesis but if she does please caqll us (7) MARITZA positive: Assessment and plan: -Likely incidental, other rheumatologic markers negative thus far (8) Asthma, chronic: (9) Borderline personality disorder: (10) Celiac disease: (11) GERD (gastroesophageal reflux disease): (12) Migraine: (13) Sleep apnea: Subjective Subjective Interval history since last seen: Shirley is doing OK. She is still coughing a lot. Most of the time it is non- productive. Continues with chest pain as well. Chest tube was removed on Monday. CXR reviewed- there is a small effusion again and infiltrates. Shirley continues to requiere oxygen especially when trying to ambulate. She feels very weak. Exam Resp Auscultation: clear to auscultation bilaterally and diminished lung sounds on the right in the lower lung romero Cardio Rate: regular rate Rhythm: regular rhythm Objective Last Vital Signs Temp 98.4 F 11/08/21 07:59 Pulse 90 11/08/21 07:59 Resp 16 11/08/21 07:59 BP 128/80 11/08/21 07:59 Pulse Ox 95 11/08/21 09:23 Laboratory Results - last 24 hr 11/04/21 11/05/21 11/08/21 17:29 08:05 06:20 WBC RBC Hgb Hct MCV MCH MCHC RDW Plt Count MPV Immature Gran % Neutrophils % Lymphocytes % Monocytes % Eosinophils % Basophils % Nucleated RBC % Absolute Neutrophils Absolute Lymphocytes Absolute Monocytes Absolute Eosinophils Absolute Basophils Factor XII 50 L Sodium 142 Potassium 3.8 Chloride 101 Carbon Dioxide 35.6 H Anion Gap 5.4 BUN 12 Creatinine 0.8 Estimated GFR/1.73 m2 >= 60.00 Glucose 96 Calcium 8.6 Magnesium 2.0 Procalcitonin TSH 4.70 H Free T4 1.18 Path Cons Comment SEE COMMENT 11/08/21 11/08/21 06:20 06:20 WBC 6.21 D RBC 3.22 L Hgb 8.9 L Hct 30.4 L MCV 94.4 MCH 27.6 MCHC 29.3 L RDW 13.4 Plt Count 262 MPV 8.6 Immature Gran % 0.5 Neutrophils % 66.4 Lymphocytes % 17.2 Monocytes % 5.6 Eosinophils % 9.5 Basophils % 0.8 Nucleated RBC % 0 Absolute Neutrophils 4.12 Absolute Lymphocytes 1.07 L Absolute Monocytes 0.35 Absolute Eosinophils 0.59 Absolute Basophils 0.05 Factor XII Sodium Potassium Chloride Carbon Dioxide Anion Gap BUN Creatinine Estimated GFR/1.73 m2 Glucose Calcium Magnesium Procalcitonin 2.6 TSH Free T4 Path Cons Comment
--- NOTE | 2021-11-08 15:19 | PT.INTREAT ---
Date of service: 11/08/21 Time of Service: 09:40 PT Notes Visit Reasons: Pleuritis,Chronic Cough,Pleural Effusion Inpatient Physical Therapy Treatment Note [facility] Date: 11/08/2021 PRECAUTIONS: Fall, Activity as tolerated SUBJECTIVE: Shirley is pleasant and agreeable to participating in PT. She states that she feels more comfortable using a walker at this time due to limited energy and global weakness. She reports that she has been up independently in her room. OBJECTIVE: Patient refused afternoon PT session, stating that she was in the middle of paperwork. PAIN: No c/o pain BED MOBILITY/TRANSFERS Supine-sit: I Sit-supine: I Sit-stand: I Stand-sit: I Bed-Chair: I Chair-bed: I GAIT Assistive Device: FWW Weight bearing: Full Assist: I Distance: 10' + 75' Deviation: Stand rest x3 due to dizziness and increased LE fatigue STAIRS: Up/ down 3x4 using B rails and a step-to pattern with supervision TOILETING: Patient toileted independently. ASSESSMENT: Patient tolerated session with c/o dizziness and increased LE fatigue with gait training, requiring standing rest x3, though she was able to tolerate a progression in gait distance with FWW support. PLAN: Continue with gait training with least restrictive device for progression toward baseline level of function. TREATMENT CODE/TIME: 23 minutes; 08180 x2 (09:40)
--- NOTE | 2021-11-08 16:19 | W.PM.PROGNOT ---
Date of Service Date of service: 11/08/21 Time of Service: 16:20 Assessment and Plan Assessment and plan (1) Pleural effusion: Status: Acute Assessment and plan: Hemothorax. S/p removal of chest tube as well as s/p bronchoscopy (POD 3). Cultures negative; Improved by CXR. Discussed with Dr Vizcarra: continue antibiotics and lasix. Await fluid studies, bronchoscopy studies. Echo reviewed: LVEF was 60%; no evidence of R heart failure. Continue empiric cefipime day 3/5. (2) Pneumonia: Status: Acute Assessment and plan: Secretions seen in bronchoscopy were purulent. Continue empiric cefepime day 3/5. BAL cx are not yet back The patient missed about 24 hrs of abx due to lack of IV access. (3) Diabetes: Status: Chronic Assessment and plan: BGs here nml. A1C was 5.2, but done but may not be accurate in acute anemia. Await fructosamine. The patient requests liberalization of her diet. (4) Pleuritic chest pain: Status: Acute Assessment and plan: Due to above. Continue prn opioids. (5) Folate deficiency anemia: Status: Acute Assessment and plan: replete folate. (6) DVT prophylaxis: Status: Acute Assessment and plan: SCDs. Chemical DVT ppx is contraindicated in setting of hemothorax. (7) Discharge planning issues: Status: Acute Assessment and plan: Full code. Hospitalists are taking over care from general surgery. Discussed with Dr Vizcarra. Subjective Subjective Interval history since last seen: Reports a headache. States she has a h/o migraines and also takes caffeine pills every day. She has not been drinking coffee since coming to the hospital. She is asking if it's possible to try a pill with caffeine in it. Otherwise, she is doing better. Got dizzy while ambulating with PT. States chest pain on inspiration is much better. No SOB at rest. Denies n/v. Reports a good UOP last night with lasix but not so much today. Exam Narrative Exam Narrative: General: Pleasant obese female, sitting up in a chair, looks better, A&Ox3, no dyspnea/tachypnea on NC. Face less puffy today HEENT: EOMI, MMM Heart: RRR, no m/r/g Lungs: Breath sounds heard at B bases; CTAB. Abdomen: soft, nontender, nondistended Extremities: trace BLE edema, symmetric Objective Last Vital Signs Temp 36.9 C 11/08/21 15:30 Pulse 106 H 11/08/21 15:30 Resp 18 11/08/21 15:30 BP 125/82 11/08/21 15:30 Pulse Ox 99 11/08/21 15:52 Laboratory Results - last 24 hr 11/04/21 11/05/21 11/08/21 17:29 08:05 06:20 WBC RBC Hgb Hct MCV MCH MCHC RDW Plt Count MPV Immature Gran % Neutrophils % Lymphocytes % Monocytes % Eosinophils % Basophils % Nucleated RBC % Absolute Neutrophils Absolute Lymphocytes Absolute Monocytes Absolute Eosinophils Absolute Basophils Factor XII 50 L Sodium 142 Potassium 3.8 Chloride 101 Carbon Dioxide 35.6 H Anion Gap 5.4 BUN 12 Creatinine 0.8 Estimated GFR/1.73 m2 >= 60.00 Glucose 96 Calcium 8.6 Magnesium 2.0 Procalcitonin TSH 4.70 H Free T4 1.18 Path Cons Comment SEE COMMENT 11/08/21 11/08/21 06:20 06:20 WBC 6.21 D RBC 3.22 L Hgb 8.9 L Hct 30.4 L MCV 94.4 MCH 27.6 MCHC 29.3 L RDW 13.4 Plt Count 262 MPV 8.6 Immature Gran % 0.5 Neutrophils % 66.4 Lymphocytes % 17.2 Monocytes % 5.6 Eosinophils % 9.5 Basophils % 0.8 Nucleated RBC % 0 Absolute Neutrophils 4.12 Absolute Lymphocytes 1.07 L Absolute Monocytes 0.35 Absolute Eosinophils 0.59 Absolute Basophils 0.05 Factor XII Sodium Potassium Chloride Carbon Dioxide Anion Gap BUN Creatinine Estimated GFR/1.73 m2 Glucose Calcium Magnesium Procalcitonin 2.6 TSH Free T4 Path Cons Comment
[2021-11-08] MEDS: Butalbital/Acetaminophen/Caffeine 50/325/40 TAB PO (17:14)
[2021-11-08] MEDS: Benzonatate 100 MG CAP PO (21:37)
[2021-11-08] MEDS: Ondansetron O.D.T. 4 MG TABEF PO (21:37)
[2021-11-08] MEDS: Amitriptyline 50 MG TAB 100 MG PO (21:38)
[2021-11-09] MEDS: CEFEPIME 2 GM in Normal Saline 100 ML IVPB ×4 (00:37→23:51)
[2021-11-09] MEDS: Normal Saline Flush 10 ML SYR IVP ×4 (00:37→20:55)
--- NOTE | 2021-11-09 04:07 | NUR.NOTE ---
Nursing Note: at 2114,pt complained of nausea when I entered room, Nausea meds taken from pyxis together with her other nighttime meds. after taking VS and asking for her pain which was 7/10 and discussing medications, pt informed that she had an unwitnessed fall an hour ago. She was trying to arrange her bag and reaching for her things while she is sitting on her chair and slid out from her chair. she initially stated that she hit her buttocks first on the floor, no hitting of head or any other body parts or LOC, but later realized that she used her two hands to hold/touch the floor while she is sliding down from the chair. two MANAGER PRIVACY responded to her call and assisted her back to chair. Pressure of her weight was on her two hands that made it painful and sore. Meds given, kept patient on bed and turn bed alarms on and kept it on low position and informed the Charge nurse immediately. charge nurse informed Hospitalist and Nursing Oil Processing Technician of the fall event. Xrays and imaging ordered, patient refused the imaging despite explaining that it is very important to take imaging after the fall to examine, prevent any complications like fracture, wounds, internal bleeding that might result from the fall, but patient refused consistently. Informed the patient that if ever she change her mind to do the imaging, we are willing to assist and accomodate her for the procedure to push through. Hospitalist, Nursing Oil Processing Technician and Xray Dept informed of patient refusal, Xrays ordered are still open anticipating pt change her mind thereafter. Kept bed alarms on, low position, assisted to go to bathroom and back to bed at all times and applied scds as per pt request.
[2021-11-09] MEDS: Butalbital/Acetaminophen/Caffeine 50/325/40 TAB PO ×2 (06:40→14:01)
[2021-11-09] MEDS: Acetaminophen 500 MG TAB 1000 MG PO ×2 (06:40→20:55)
[2021-11-09] MEDS: HYDROmorphone 2 MG TAB PO (06:40)
[2021-11-09] MEDS: Benzonatate 100 MG CAP PO ×3 (06:40→20:55)
[2021-11-09] MEDS: Pantoprazole 40 MG TABCR PO ×2 (06:41→20:54)
[2021-11-09 07:09] LABS: Abs Immature Grans 0.04 10^3/uL (0.0-0.06); Absolute Basophil Count 0.06 10^3/uL (0.0-0.2); Absolute Eosinophil Count 0.72 10^3/uL (0.0-0.7); Absolute Lymphocyte Count 1.26 10^3/uL (1.2-3.4); Absolute Monocyte Count 0.39 10^3/uL (0.1-0.8); Absolute Neutrophil Count 3.76 10^3/uL (1.2-6.7); Eosinophils % 11.6; HCT 28.6 % (36.0-46.0); HGB 8.4 g/dL (11.2-15.7); Immature Grans % 0.6; Lymphocytes % 20.2; MCH 27.5 pg (27.0-33.0); MCHC 29.4 % (32.0-36.0); MCV 93.5 fL (80-95); MPV 8.8 fL (8.0-11.0); Monocytes % 6.3; Neutrophils % 60.3; Nucleated RBC 0 %; Platelet Count 238 10^3/uL (130-400); RBC 3.06 10^6/uL (3.93-5.22); RDW 13.4 % (11.7-14.6); RDW-SD 45.9 fL; WBC 6.23 10^3/uL (4.4-10.8)
[2021-11-09 07:26] LABS: Anion Gap 3.5 mmol/L (3-11); BUN 13 mg/dL (7-18); CO2 35.5 mmol/L (21.0-32.0); CREATININE 0.8 mg/dL (0.55-1.02); Calcium 8.6 mg/dL (8.5-10.1); Chloride 101 mmol/L (98-107); Glucose 94 mg/dL (74-106); Magnesium 2.1 mg/dL (1.8-2.4); Potassium 4.2 mmol/L (3.5-5.1); Sodium 140 mmol/L (136-145)
--- NOTE | 2021-11-09 07:32 | W.PULMPROG ---
Assessment and Plan Assessment and plan (1) Pleural effusion: Status: Acute (2) Respiratory failure with hypoxia: Status: Acute (3) Trapped lung: Status: Acute (4) Pneumonia: Status: Acute Assessment and plan: This is a 41 yo female who is admitted for a pleural effusion in whom I was asked to see for this reason. She is status post thoracentesis x2 that found bloody fluid. On repeat chest CT there is concern for blood in the fluid with a significant amount of fluid still on the right. I see pleural thickening which is concerning for lung entrapment/trapped lung. She had a chest tube inserted which was subsequently removed once it was evident that no more fluid and air was not being evacuated. Additionally on recurrent CXR's there is still prescence of the air without any improvements or worsening, which again is evidence of lung entrapment. She had complained of low volume hemoptysis so did have concerns for a vasculitis given her clinical decline as well. I performed a bronchoscopy on 11/05/21 that ruled out diffuse alveolar hemorrhage and found alot of thick white to yellow mucus and airway inflammation consistent with a bacterial pneumonia. A BAL of the RML and NEWTON was performed. Results are not showing up in our system as of yet. I called [facility] who informed my that no bacteria or fungi was seen on staining and that the cultures are in process. They had run the cell differential on the BAL's which are completed and faxed them to my office since they had not resulted in our system yet. The BAL's found 81% neutrophils and 72% neutrophils in the RML and NEWTON respectively, again consistent with a bacterial pneumonia. It is unlikely that we will isolate an organism on culture as she had been on antibiotics peior to sample collection. Right trapped lung with hemothorax - no further intervention required - I have set up a f/u appointment for her with me for future management of this Bacterial Pneumonia - on cefepime, would recommend a total antibiotic course of 10 days - can switch to PO Levaquin on D/C - I will plan for repeat imaging as an outpatient - MRSA nares negative - no further CXR's required unless she has a clinical change Hypoxic respiratory failure - supplemental O2 as needed - will need an ambulatory pulse ox prior to discharge - incentive spirometry - Acapella therapy Asthma - continue Symbicort 160-4.5 2 puffs bid - continue prn albuterol General Date Of Service Date of service: 11/09/21 Time of Service: 07:33 Reason for Consult: Pleural effusion, hypoxia, pulmonary infiltrates Subjective Note Note: Shirley is on room air this morning. She continues to improve with antibiotics and diuresis. Exam Const General: no acute distress Nutritional Appearance: well nourished [facility] Head: normocephalic Ears: external ears normal and no periauricular adenopathy General nose exam: nasal mucous membranes and turbinates normal Face and sinus: sinuses nontender Mouth: oropharynx normal and moist mucous membranes Teeth and gingiva: dentition normal Eyes General: appearance normal, both eyes and all related structures Pupils: PERRL Neck Neck: normal visual inspection and no lymphadenopathy Chest Chest: normal inspection of the chest Resp Effort & Inspection: normal respiratory effort Auscultation: clear to auscultation bilaterally, diminished lung sounds, no rales, no rhonchi and no wheezes Cardio Rate: regular rate Heart Sounds: S1 normal and S2 normal GI Inspection: normal to inspection Neuro General: patient alert, patient awake and patient oriented x3 Extrem General: no clubbing, no cyanosis and edema Objective Last Vital Signs Temp 36.7 C 11/08/21 23:43 Pulse 106 H 11/08/21 23:43 Resp 20 11/08/21 23:43 BP 122/72 11/08/21 23:43 Pulse Ox 93 11/08/21 23:43 Laboratory Results - last 24 hr 11/04/21 11/05/21 11/08/21 17:29 08:05 06:20 WBC RBC Hgb Hct MCV MCH MCHC RDW Plt Count MPV Immature Gran % Neutrophils % Lymphocytes % Monocytes % Eosinophils % Basophils % Nucleated RBC % Absolute Neutrophils Absolute Lymphocytes Absolute Monocytes Absolute Eosinophils Absolute Basophils Factor XII 50 L Sodium 142 Potassium 3.8 Chloride 101 Carbon Dioxide 35.6 H Anion Gap 5.4 BUN 12 Creatinine 0.8 Estimated GFR/1.73 m2 >= 60.00 Glucose 96 Calcium 8.6 Magnesium 2.0 Procalcitonin TSH 4.70 H Free T4 1.18 Path Cons Comment SEE COMMENT 11/08/21 11/09/21 11/09/21 06:20 06:15 06:15 WBC 6.23 RBC 3.06 L Hgb 8.4 L Hct 28.6 L MCV 93.5 MCH 27.5 MCHC 29.4 L RDW 13.4 Plt Count 238 MPV 8.8 Immature Gran % 0.6 Neutrophils % 60.3 Lymphocytes % 20.2 Monocytes % 6.3 Eosinophils % 11.6 Basophils % 1.0 Nucleated RBC % 0 Absolute Neutrophils 3.76 Absolute Lymphocytes 1.26 Absolute Monocytes 0.39 Absolute Eosinophils 0.72 H Absolute Basophils 0.06 Factor XII Sodium 140 Potassium 4.2 Chloride 101 Carbon Dioxide 35.5 H Anion Gap 3.5 BUN 13 Creatinine 0.8 Estimated GFR/1.73 m2 >= 60.00 Glucose 94 Calcium 8.6 Magnesium 2.1 Procalcitonin 2.6 TSH Free T4 Path Cons Comment Results Medications Medications: Active Medications Generic Name Dose Route Start Last Admin Trade Name Freq PRN Reason Stop Dose Admin Acetaminophen 1,000 mg 11/06/21 13:27 11/09/21 06:40 Acetaminophen 500 Mg Tab PO 1,000 mg Q6H PRN PRN Administration Acetaminophen/Butalbital/Caffeine 1 tab 11/08/21 21:00 11/09/21 06:40 Butalbital/Acetaminophen/Caffeine 50/325/40 Tab PO 1 tab Q4H PRN PRN Administration Hydrocodone Bitart/Acetaminophen 1 tab 11/02/21 09:25 11/08/21 11:55 Hydrocodone 7.5/Acetaminophen 325 Tab PO 1 tab Q8H PRN PRN Administration Al Hydrox/Mg Hydrox/Simethicone 30 ml 11/02/21 09:19 Mylanta Suspension 30 Ml Cup PO Q4H PRN PRN Albuterol Sulfate 2 puff 11/02/21 13:28 Albuterol Hfa 8 Gm 60 Puff Inh IH Q4H PRN PRN Albuterol/Ipratropium 3 ml 11/02/21 13:27 11/05/21 12:35 Albuterol/Ipratropium 3 Ml Upd Vial UPD 3 ml Q4H PRN PRN Administration Amitriptyline HCl 100 mg 11/02/21 22:00 11/08/21 21:38 Amitriptyline 50 Mg Tab PO 100 mg HS ANNIE Administration Baclofen 10 mg 11/02/21 14:00 11/08/21 21:37 Baclofen 10 Mg Tab PO 10 mg TID ANNIE Administration Benzonatate 100 mg 11/02/21 18:51 11/09/21 06:40 Benzonatate 100 Mg Cap PO 100 mg TID PRN PRN Administration cough Budesonide/Formoterol Fumarate 2 puff 11/03/21 20:00 11/08/21 21:47 Budesonide/Formoterol 160/4.5 6 Gm 60 Puff Inh IH 2 puff BID ANNIE Administration Bupropion HCl 200 mg 11/02/21 20:00 11/08/21 21:38 Bupropion 100 Mg Tab PO 200 mg BID ANNIE Administration Buspirone HCl 10 mg 11/02/21 20:00 11/08/21 21:38 Buspirone 5 Mg Tab PO 10 mg BID ANNIE Administration Celecoxib 100 mg 11/02/21 20:00 11/08/21 21:38 Celecoxib 100 Mg Cap PO 100 mg BID ANNIE Administration Cetirizine HCl 10 mg 11/03/21 08:30 11/08/21 07:58 Cetirizine 10 Mg Tab PO 10 mg DAILY ANNIE Administration Clonidine 0.2 mg 11/02/21 14:00 11/05/21 17:57 Clonidine 0.1 Mg Tab PO 0.2 mg TID PRN PRN Administration Device 1 each 11/02/21 10:00 Inhaler, Assist Device MC DIRECTED ANNIE Diphenhydramine HCl 25 mg 11/02/21 20:38 11/03/21 21:15 Diphenhydramine 25 Mg Cap PO 25 mg HS PRN PRN Administration Diphenhydramine HCl 25 mg 11/05/21 08:02 Diphenhydramine 25 Mg Cap PO Q4H PRN PRN Docusate Sodium 100 mg 11/02/21 14:00 11/08/21 21:37 Docusate Sodium 100 Mg Cap PO 100 mg TID ANNIE Administration Folic Acid 1 mg 11/07/21 08:30 11/08/21 07:58 Folic Acid 1 Mg Tab PO 1 mg DAILY NANIE Administration Furosemide 20 mg 11/08/21 08:30 11/08/21 07:58 Furosemide 20 Mg Tab PO 20 mg DAILY ANNIE Administration Gabapentin 600 mg 11/02/21 14:00 11/08/21 21:37 Gabapentin 600 Mg Tab PO 600 mg TID ANNIE Administration Hydromorphone HCl 2 mg 11/06/21 16:05 11/09/21 06:40 Hydromorphone 2 Mg Tab PO 2 mg Q4H PRN PRN Administration Cefepime HCl 2 gm/ Sodium 100 mls @ 200 mls/hr 11/07/21 16:00 11/09/21 01:10 Chloride IVPB Infused Q8H [facility] Infusion IV Miscellaneous Supplies 1 each 11/02/21 09:30 Iv Access IV DIRECTED ANNIE Magnesium Hydroxide 30 ml 11/02/21 09:19 Milk Of Magnesia 30 Ml Cup PO DIRECTED PRN Multi-Ingredient Supplement 1 ounce 11/06/21 08:30 11/08/21 07:58 Protein Nutritional Supplement 16 Gm 1 Ounce Packet PO 1 ounce DAILY [facility] Administration Nystatin 0 gm 11/05/21 17:23 Nystatin Powder 15 Gm Jar TP BID PRN PRN Ondansetron HCl 4 mg 11/02/21 09:25 11/08/21 21:37 Ondansetron O.D.T. 4 Mg Tabef PO 4 mg Q8H PRN PRN Administration Pantoprazole Sodium 40 mg 11/03/21 07:30 11/09/21 06:41 Pantoprazole 40 Mg Tabcr PO 40 mg BID@07,1999 [facility] Administration Pt's Own Phentermine 1 each 11/03/21 07:30 11/08/21 14:12 37.5 Mg Tablet PO 1 each DAILY@0730 [facility] Administration Sodium Chloride 0 ml 11/07/21 15:22 11/09/21 00:37 Normal Saline Flush 10 Ml Syr IVP 10 ml PRN PRN Administration Allergies ampicillin Allergy (Intermediate, Unverified 11/02/21 08:26) rash cephalexin [From Keflex] Allergy (Intermediate, Unverified 11/02/21 08:26) Itching enoxaparin [From Lovenox] Allergy (Intermediate, Unverified 11/02/21 08:26) hives heparin Allergy (Intermediate, Unverified 11/02/21 08:26) hives ketorolac [From Toradol] Allergy (Intermediate, Unverified 11/02/21 08:26) hives tramadol Allergy (Intermediate, Unverified 11/02/21 08:26) itching diclofenac Allergy (Unknown, Unverified 11/02/21 08:26) meperidine Allergy (Verified 11/02/21 08:26) hives erythromycin base Adverse Reaction (Intermediate, Unverified 11/02/21 08:26) stomach ache morphine Adverse Reaction (Intermediate, Unverified 11/02/21 08:26) hallucinations codeine Adverse Reaction (Mild, Unverified 11/02/21 08:26) constipation Labs Result Diagrams: 11/09/21 06:15 11/09/21 06:15 Labs: 11/04/21 17:29 Pleural Body Fluid Culture - Preliminary 11/04/21 17:29 Pleural Gram Stain - Final 11/04/21 17:29 Pleural Anaerobic Culture - Preliminary 11/02/21 13:37 Pleural Body Fluid Culture - Preliminary 11/02/21 13:37 Pleural Gram Stain - Final 11/02/21 13:37 Pleural Anaerobic Culture - Preliminary 11/04/21 08:05 Blood Blood Culture - Preliminary NO GROWTH 96 HOURS 11/04/21 07:58 Blood Blood Culture - Preliminary NO GROWTH 96 HOURS 11/05/21 04:11 Nose MRSA Screen - Final Laboratory Tests Range/Units 11/02/21 11/02/21 11/02/21 10:00 13:20 13:20 WBC (4.4-10.8) 10^3/uL RBC (3.93-5.22) 10^6/uL Hgb (11.2-15.7) g/dL Hct (36.0-46.0) % MCV (80-95) fL MCH (27.0-33.0) pg MCHC (32.0-36.0) % RDW (11.7-14.6) % Plt Count (130-400) 10^3/uL MPV (8.0-11.0) fL Immature Gran % Neutrophils % Lymphocytes % Monocytes % Eosinophils % Basophils % Nucleated RBC % % Absolute Neutrophils (1.2-6.7) 10^3/uL Absolute Lymphocytes (1.2-3.4) 10^3/uL Absolute Monocytes (0.1-0.8) 10^3/uL Absolute Eosinophils (0.0-0.7) 10^3/uL Absolute Basophils (0.0-0.2) 10^3/uL RBC Morphology Hypochromasia Poikilocytosis Basophilic Stippling Stomatocytes PT (9.3-11.0) sec INR (0.9-1.1) APTT (21.0-27.5) sec Fibrinogen (171-384) mg/dL D-Dimer (<500) ng/mlFEU Factor XII (55 - 180) % Sodium (136-145) mmol/L Potassium (3.5-5.1) mmol/L Chloride (98-107) mmol/L Carbon Dioxide (21.0-32.0) mmol/L Anion Gap (3-11) mmol/L BUN (7-18) mg/dL Creatinine (0.55-1.02) mg/dL Estimated GFR/1.73 m2 (mL/min/1.73m2) Glucose (74-106) mg/dL Hemoglobin A1c (<5.7) % Calcium (8.5-10.1) mg/dL Magnesium (1.8-2.4) mg/dL Iron (50-170) ug/dL TIBC (250-450) ug/dL Transferrin % Sat (15-50) % Ferritin (8-252) ng/mL Total Bilirubin (0.2-1.0) mg/dL AST (15-37) U/L ALT (14-59) U/L Alkaline Phosphatase (46-116) U/L Lactate Dehydrogenase (81-234) U/L C-Reactive Protein (0.0-0.3) mg/dL NT-Pro-B Natriuret Pep (<300) pg/mL Total Protein (6.4-8.2) g/dL Albumin (3.4-5.0) g/dL Vitamin B12 (193-986) pg/mL Folate (8.6-20.0) ng/mL Procalcitonin ng/mL TSH (0.36-3.74) uIU/mL Free T4 (0.76-1.46) ng/dL Urine Color (Yellow) Urine Clarity (Clear) Urine pH (5-8) Ur Specific [place] (1.005-1.025) Urine Protein (Negative) mg/dL Urine Ketones (Negative) mg/dL Urine Blood (Negative) Urine Nitrite (Negative) Urine Bilirubin (Negative) Urine Urobilinogen (Up TO 0.2) EU/dL Ur Leukocyte Esterase (Negative) Urine Glucose (Negative) mg/dL Fluid Type Pleural Fluid Source Fluid Color Fluid Clarity Fluid pH Fluid WBC Fld Polynuclear WBCs % % Fluid Mononuclear Cell % Fluid Other Cells Fluid Glucose (See Note) mg/dL 105 Fluid Total Protein g/dL Fluid Albumin Fluid LDH Fluid Lipase U/L Fluid Triglycerides mg/dL 61 CSF Lyme DNA Comment CSF B.burgdorferi (PCR) CSF B.mayonii (PCR) CSF B.eron/afzel PCR Rheumatoid Factor (<12.0) IU/mL Cyclic Citrull Peptide (<5.0) U/mL <2.5 MARITZA Titer Not Applicable MARITZA Titer 2 Not Applicable MARITZA Titer 3 Not Applicable MARITZA Interpretation (Negative) Negative Proteinase 3 (PR3) U Myeloperoxidase Ab U Double Strand DNA Ab (<30.0) IU/mL Lyme Specimen Source COVID-19 Source Nasal/Nares SARS-CoV-2 (PCR) (Negative) Negative Influenza Type A (PCR) (Negative) Influenza Type B (PCR) (Negative) Urine Legionella Ag (Negative) RSV (PCR) (Negative) AFB Source AFB Culture Final Res AFB Bld Cult Final Res AFB Report Status Fungal Specimen Source Fungal Culture Status Fungal Culture Final Fungal Smear Result M. Tuberculosis PCR Path Cons Comment AFB Smear (Ref Lab) Add-On Test Request Range/Units 11/02/21 11/02/21 11/02/21 13:20 13:20 13:20 WBC (4.4-10.8) 10^3/uL RBC (3.93-5.22) 10^6/uL Hgb (11.2-15.7) g/dL Hct (36.0-46.0) % MCV (80-95) fL MCH (27.0-33.0) pg MCHC (32.0-36.0) % RDW (11.7-14.6) % Plt Count (130-400) 10^3/uL MPV (8.0-11.0) fL Immature Gran % Neutrophils % Lymphocytes % Monocytes % Eosinophils % Basophils % Nucleated RBC % % Absolute Neutrophils (1.2-6.7) 10^3/uL Absolute Lymphocytes (1.2-3.4) 10^3/uL Absolute Monocytes (0.1-0.8) 10^3/uL Absolute Eosinophils (0.0-0.7) 10^3/uL Absolute Basophils (0.0-0.2) 10^3/uL RBC Morphology Hypochromasia Poikilocytosis Basophilic Stippling Stomatocytes PT (9.3-11.0) sec INR (0.9-1.1) APTT (21.0-27.5) sec Fibrinogen (171-384) mg/dL D-Dimer (<500) ng/mlFEU Factor XII (55 - 180) % Sodium (136-145) mmol/L Potassium (3.5-5.1) mmol/L Chloride (98-107) mmol/L Carbon Dioxide (21.0-32.0) mmol/L Anion Gap (3-11) mmol/L BUN (7-18) mg/dL Creatinine (0.55-1.02) mg/dL Estimated GFR/1.73 m2 (mL/min/1.73m2) Glucose (74-106) mg/dL Hemoglobin A1c (<5.7) % Calcium (8.5-10.1) mg/dL Magnesium (1.8-2.4) mg/dL Iron (50-170) ug/dL TIBC (250-450) ug/dL Transferrin % Sat (15-50) % Ferritin (8-252) ng/mL Total Bilirubin (0.2-1.0) mg/dL AST (15-37) U/L ALT (14-59) U/L Alkaline Phosphatase (46-116) U/L Lactate Dehydrogenase (81-234) U/L C-Reactive Protein (0.0-0.3) mg/dL NT-Pro-B Natriuret Pep (<300) pg/mL Total Protein (6.4-8.2) g/dL Albumin (3.4-5.0) g/dL Vitamin B12 (193-986) pg/mL Folate (8.6-20.0) ng/mL Procalcitonin ng/mL TSH (0.36-3.74) uIU/mL Free T4 (0.76-1.46) ng/dL Urine Color (Yellow) Urine Clarity (Clear) Urine pH (5-8) Ur Specific [place] (1.005-1.025) Urine Protein (Negative) mg/dL Urine Ketones (Negative) mg/dL Urine Blood (Negative) Urine Nitrite (Negative) Urine Bilirubin (Negative) Urine Urobilinogen (Up TO 0.2) EU/dL Ur Leukocyte Esterase (Negative) Urine Glucose (Negative) mg/dL Fluid Type Pleural Cancelled Fluid Source Fluid Color Fluid Clarity Fluid pH Fluid WBC Fld Polynuclear WBCs % % 46 Fluid Mononuclear Cell % 54 Fluid Other Cells Fluid Glucose (See Note) mg/dL Fluid Total Protein g/dL Fluid Albumin Fluid LDH Cancelled Fluid Lipase U/L 20 Fluid Triglycerides mg/dL CSF Lyme DNA Comment CSF B.burgdorferi (PCR) CSF B.mayonii (PCR) CSF B.eron/afzel PCR Rheumatoid Factor (<12.0) IU/mL Cyclic Citrull Peptide (<5.0) U/mL MARITZA Titer MARITZA Titer 2 MARITZA Titer 3 MARITZA Interpretation (Negative) Proteinase 3 (PR3) U Myeloperoxidase Ab U Double Strand DNA Ab (<30.0) IU/mL Lyme Specimen Source COVID-19 Source SARS-CoV-2 (PCR) (Negative) Influenza Type A (PCR) (Negative) Influenza Type B (PCR) (Negative) Urine Legionella Ag (Negative) RSV (PCR) (Negative) AFB Source AFB Culture Final Res AFB Bld Cult Final Res AFB Report Status Fungal Specimen Source Fungal Culture Status Fungal Culture Final Fungal Smear Result M. Tuberculosis PCR Path Cons Comment SEE COMMENT AFB Smear (Ref Lab) Add-On Test Request Range/Units 11/02/21 11/02/21 11/02/21 13:20 13:32 13:33 WBC (4.4-10.8) 10^3/uL RBC (3.93-5.22) 10^6/uL Hgb (11.2-15.7) g/dL Hct (36.0-46.0) % MCV (80-95) fL MCH (27.0-33.0) pg MCHC (32.0-36.0) % RDW (11.7-14.6) % Plt Count (130-400) 10^3/uL MPV (8.0-11.0) fL Immature Gran % Neutrophils % Lymphocytes % Monocytes % Eosinophils % Basophils % Nucleated RBC % % Absolute Neutrophils (1.2-6.7) 10^3/uL Absolute Lymphocytes (1.2-3.4) 10^3/uL Absolute Monocytes (0.1-0.8) 10^3/uL Absolute Eosinophils (0.0-0.7) 10^3/uL Absolute Basophils (0.0-0.2) 10^3/uL RBC Morphology Hypochromasia Poikilocytosis Basophilic Stippling Stomatocytes PT (9.3-11.0) sec INR (0.9-1.1) APTT (21.0-27.5) sec Fibrinogen (171-384) mg/dL D-Dimer (<500) ng/mlFEU Factor XII (55 - 180) % Sodium (136-145) mmol/L Potassium (3.5-5.1) mmol/L Chloride (98-107) mmol/L Carbon Dioxide (21.0-32.0) mmol/L Anion Gap (3-11) mmol/L BUN (7-18) mg/dL Creatinine (0.55-1.02) mg/dL Estimated GFR/1.73 m2 (mL/min/1.73m2) Glucose (74-106) mg/dL Hemoglobin A1c (<5.7) % Calcium (8.5-10.1) mg/dL Magnesium (1.8-2.4) mg/dL Iron (50-170) ug/dL TIBC (250-450) ug/dL Transferrin % Sat (15-50) % Ferritin (8-252) ng/mL Total Bilirubin (0.2-1.0) mg/dL AST (15-37) U/L ALT (14-59) U/L Alkaline Phosphatase (46-116) U/L Lactate Dehydrogenase (81-234) U/L C-Reactive Protein (0.0-0.3) mg/dL NT-Pro-B Natriuret Pep (<300) pg/mL Total Protein (6.4-8.2) g/dL Albumin (3.4-5.0) g/dL Vitamin B12 (193-986) pg/mL Folate (8.6-20.0) ng/mL Procalcitonin ng/mL TSH (0.36-3.74) uIU/mL Free T4 (0.76-1.46) ng/dL Urine Color (Yellow) Urine Clarity (Clear) Urine pH (5-8) Ur Specific [place] (1.005-1.025) Urine Protein (Negative) mg/dL Urine Ketones (Negative) mg/dL Urine Blood (Negative) Urine Nitrite (Negative) Urine Bilirubin (Negative) Urine Urobilinogen (Up TO 0.2) EU/dL Ur Leukocyte Esterase (Negative) Urine Glucose (Negative) mg/dL Fluid Type Pleural Fluid Source Cancelled Fluid Color Fluid Clarity Fluid pH Cancelled Fluid WBC Fld Polynuclear WBCs % % Fluid Mononuclear Cell % Fluid Other Cells Fluid Glucose (See Note) mg/dL Fluid Total Protein g/dL 4.3 Fluid Albumin Fluid LDH Fluid Lipase U/L Fluid Triglycerides mg/dL CSF Lyme DNA Comment Cancelled CSF B.burgdorferi (PCR) Cancelled CSF B.mayonii (PCR) Cancelled CSF B.eron/afzel PCR Cancelled Rheumatoid Factor (<12.0) IU/mL Cyclic Citrull Peptide (<5.0) U/mL MARITZA Titer MARITZA Titer 2 MARITZA Titer 3 MARITZA Interpretation (Negative) Proteinase 3 (PR3) U Myeloperoxidase Ab U Double Strand DNA Ab (<30.0) IU/mL Lyme Specimen Source Cancelled COVID-19 Source SARS-CoV-2 (PCR) (Negative) Influenza Type A (PCR) (Negative) Influenza Type B (PCR) (Negative) Urine Legionella Ag (Negative) RSV (PCR) (Negative) AFB Source AFB Culture Final Res AFB Bld Cult Final Res AFB Report Status Fungal Specimen Source Fungal Culture Status Fungal Culture Final Fungal Smear Result M. Tuberculosis PCR Path Cons Comment AFB Smear (Ref Lab) Add-On Test Request Range/Units 11/02/21 11/02/21 11/02/21 13:38 13:39 13:40 WBC (4.4-10.8) 10^3/uL RBC (3.93-5.22) 10^6/uL Hgb (11.2-15.7) g/dL Hct (36.0-46.0) % MCV (80-95) fL MCH (27.0-33.0) pg MCHC (32.0-36.0) % RDW (11.7-14.6) % Plt Count (130-400) 10^3/uL MPV (8.0-11.0) fL Immature Gran % Neutrophils % Lymphocytes % Monocytes % Eosinophils % Basophils % Nucleated RBC % % Absolute Neutrophils (1.2-6.7) 10^3/uL Absolute Lymphocytes (1.2-3.4) 10^3/uL Absolute Monocytes (0.1-0.8) 10^3/uL Absolute Eosinophils (0.0-0.7) 10^3/uL Absolute Basophils (0.0-0.2) 10^3/uL RBC Morphology Hypochromasia Poikilocytosis Basophilic Stippling Stomatocytes PT (9.3-11.0) sec INR (0.9-1.1) APTT (21.0-27.5) sec Fibrinogen (171-384) mg/dL D-Dimer (<500) ng/mlFEU Factor XII (55 - 180) % Sodium (136-145) mmol/L Potassium (3.5-5.1) mmol/L Chloride (98-107) mmol/L Carbon Dioxide (21.0-32.0) mmol/L Anion Gap (3-11) mmol/L BUN (7-18) mg/dL Creatinine (0.55-1.02) mg/dL Estimated GFR/1.73 m2 (mL/min/1.73m2) Glucose (74-106) mg/dL Hemoglobin A1c (<5.7) % Calcium (8.5-10.1) mg/dL Magnesium (1.8-2.4) mg/dL Iron (50-170) ug/dL TIBC (250-450) ug/dL Transferrin % Sat (15-50) % Ferritin (8-252) ng/mL Total Bilirubin (0.2-1.0) mg/dL AST (15-37) U/L ALT (14-59) U/L Alkaline Phosphatase (46-116) U/L Lactate Dehydrogenase (81-234) U/L C-Reactive Protein (0.0-0.3) mg/dL NT-Pro-B Natriuret Pep (<300) pg/mL Total Protein (6.4-8.2) g/dL Albumin (3.4-5.0) g/dL Vitamin B12 (193-986) pg/mL Folate (8.6-20.0) ng/mL Procalcitonin ng/mL TSH (0.36-3.74) uIU/mL Free T4 (0.76-1.46) ng/dL Urine Color (Yellow) Urine Clarity (Clear) Urine pH (5-8) Ur Specific [place] (1.005-1.025) Urine Protein (Negative) mg/dL Urine Ketones (Negative) mg/dL Urine Blood (Negative) Urine Nitrite (Negative) Urine Bilirubin (Negative) Urine Urobilinogen (Up TO 0.2) EU/dL Ur Leukocyte Esterase (Negative) Urine Glucose (Negative) mg/dL Fluid Type Cancelled Fluid Source Cancelled Fluid Color Fluid Clarity Fluid pH Cancelled Fluid WBC Fld Polynuclear WBCs % % Fluid Mononuclear Cell % Fluid Other Cells Fluid Glucose (See Note) mg/dL Fluid Total Protein g/dL Fluid Albumin Fluid LDH Cancelled Fluid Lipase U/L Fluid Triglycerides mg/dL CSF Lyme DNA Comment CSF B.burgdorferi (PCR) CSF B.mayonii (PCR) CSF B.eron/afzel PCR Rheumatoid Factor (<12.0) IU/mL Cyclic Citrull Peptide (<5.0) U/mL MARITZA Titer MARITZA Titer 2 MARITZA Titer 3 MARITZA Interpretation (Negative) Proteinase 3 (PR3) U Myeloperoxidase Ab U Double Strand DNA Ab (<30.0) IU/mL Lyme Specimen Source COVID-19 Source SARS-CoV-2 (PCR) (Negative) Influenza Type A (PCR) (Negative) Influenza Type B (PCR) (Negative) Urine Legionella Ag (Negative) RSV (PCR) (Negative) AFB Source Cancelled AFB Culture Final Res AFB Bld Cult Final Res Cancelled AFB Report Status Cancelled Fungal Specimen Source Fungal Culture Status Fungal Culture Final Fungal Smear Result M. Tuberculosis PCR Path Cons Comment AFB Smear (Ref Lab) Add-On Test Request Range/Units 11/02/21 11/02/21 11/02/21 13:43 13:44 13:55 WBC (4.4-10.8) 10^3/uL RBC (3.93-5.22) 10^6/uL Hgb (11.2-15.7) g/dL Hct (36.0-46.0) % MCV (80-95) fL MCH (27.0-33.0) pg MCHC (32.0-36.0) % RDW (11.7-14.6) % Plt Count (130-400) 10^3/uL MPV (8.0-11.0) fL Immature Gran % Neutrophils % Lymphocytes % Monocytes % Eosinophils % Basophils % Nucleated RBC % % Absolute Neutrophils (1.2-6.7) 10^3/uL Absolute Lymphocytes (1.2-3.4) 10^3/uL Absolute Monocytes (0.1-0.8) 10^3/uL Absolute Eosinophils (0.0-0.7) 10^3/uL Absolute Basophils (0.0-0.2) 10^3/uL RBC Morphology Hypochromasia Poikilocytosis Basophilic Stippling Stomatocytes PT (9.3-11.0) sec INR (0.9-1.1) APTT (21.0-27.5) sec Fibrinogen (171-384) mg/dL D-Dimer (<500) ng/mlFEU Factor XII (55 - 180) % Sodium (136-145) mmol/L Potassium (3.5-5.1) mmol/L Chloride (98-107) mmol/L Carbon Dioxide (21.0-32.0) mmol/L Anion Gap (3-11) mmol/L BUN (7-18) mg/dL Creatinine (0.55-1.02) mg/dL Estimated GFR/1.73 m2 (mL/min/1.73m2) Glucose (74-106) mg/dL Hemoglobin A1c (<5.7) % Calcium (8.5-10.1) mg/dL Magnesium (1.8-2.4) mg/dL Iron (50-170) ug/dL TIBC (250-450) ug/dL Transferrin % Sat (15-50) % Ferritin (8-252) ng/mL Total Bilirubin (0.2-1.0) mg/dL AST (15-37) U/L ALT (14-59) U/L Alkaline Phosphatase (46-116) U/L Lactate Dehydrogenase (81-234) U/L C-Reactive Protein (0.0-0.3) mg/dL NT-Pro-B Natriuret Pep (<300) pg/mL Total Protein (6.4-8.2) g/dL Albumin (3.4-5.0) g/dL Vitamin B12 (193-986) pg/mL Folate (8.6-20.0) ng/mL Procalcitonin ng/mL TSH (0.36-3.74) uIU/mL Free T4 (0.76-1.46) ng/dL Urine Color (Yellow) Urine Clarity (Clear) Urine pH (5-8) Ur Specific [place] (1.005-1.025) Urine Protein (Negative) mg/dL Urine Ketones (Negative) mg/dL Urine Blood (Negative) Urine Nitrite (Negative) Urine Bilirubin (Negative) Urine Urobilinogen (Up TO 0.2) EU/dL Ur Leukocyte Esterase (Negative) Urine Glucose (Negative) mg/dL Fluid Type Cancelled Fluid Source Cancelled Fluid Color Cancelled Fluid Clarity Cancelled Fluid pH Fluid WBC Cancelled Fld Polynuclear WBCs % % Cancelled Fluid Mononuclear Cell % Cancelled Fluid Other Cells Cancelled Fluid Glucose (See Note) mg/dL Cancelled Fluid Total Protein g/dL Cancelled Fluid Albumin Fluid LDH Fluid Lipase U/L Fluid Triglycerides mg/dL CSF Lyme DNA Comment CSF B.burgdorferi (PCR) CSF B.mayonii (PCR) CSF B.eron/afzel PCR Rheumatoid Factor (<12.0) IU/mL Cyclic Citrull Peptide (<5.0) U/mL MARITZA Titer MARITZA Titer 2 MARITZA Titer 3 MARITZA Interpretation (Negative) Proteinase 3 (PR3) U Myeloperoxidase Ab U Double Strand DNA Ab (<30.0) IU/mL Lyme Specimen Source COVID-19 Source SARS-CoV-2 (PCR) (Negative) Influenza Type A (PCR) (Negative) Influenza Type B (PCR) (Negative) Urine Legionella Ag (Negative) RSV (PCR) (Negative) AFB Source AFB Culture Final Res AFB Bld Cult Final Res AFB Report Status Fungal Specimen Source Fungal Culture Status Fungal Culture Final Fungal Smear Result M. Tuberculosis PCR Path Cons Comment Cancelled AFB Smear (Ref Lab) Add-On Test Request Range/Units 11/02/21 11/02/21 11/02/21 13:55 16:10 16:10 WBC (4.4-10.8) 10^3/uL 8.37 RBC (3.93-5.22) 10^6/uL 3.48 L Hgb (11.2-15.7) g/dL 9.7 L Hct (36.0-46.0) % 32.6 L MCV (80-95) fL 93.7 MCH (27.0-33.0) pg 27.9 MCHC (32.0-36.0) % 29.8 L RDW (11.7-14.6) % 13.8 Plt Count (130-400) 10^3/uL 267 MPV (8.0-11.0) fL 8.6 Immature Gran % 0.5 Neutrophils % 68.7 Lymphocytes % 17.0 Monocytes % 5.9 Eosinophils % 6.9 Basophils % 1.0 Nucleated RBC % % 0 Absolute Neutrophils (1.2-6.7) 10^3/uL 5.76 Absolute Lymphocytes (1.2-3.4) 10^3/uL 1.42 Absolute Monocytes (0.1-0.8) 10^3/uL 0.49 Absolute Eosinophils (0.0-0.7) 10^3/uL 0.58 Absolute Basophils (0.0-0.2) 10^3/uL 0.08 RBC Morphology Hypochromasia Poikilocytosis Basophilic Stippling Stomatocytes PT (9.3-11.0) sec INR (0.9-1.1) APTT (21.0-27.5) sec Fibrinogen (171-384) mg/dL D-Dimer (<500) ng/mlFEU Factor XII (55 - 180) % Sodium (136-145) mmol/L 137 Potassium (3.5-5.1) mmol/L 4.0 Chloride (98-107) mmol/L 102 Carbon Dioxide (21.0-32.0) mmol/L 28.7 Anion Gap (3-11) mmol/L 6.3 BUN (7-18) mg/dL 15 Creatinine (0.55-1.02) mg/dL 0.9 Estimated GFR/1.73 m2 (mL/min/1.73m2) >= 60.00 Glucose (74-106) mg/dL 118 H Hemoglobin A1c (<5.7) % Calcium (8.5-10.1) mg/dL 8.7 Magnesium (1.8-2.4) mg/dL Iron (50-170) ug/dL TIBC (250-450) ug/dL Transferrin % Sat (15-50) % Ferritin (8-252) ng/mL Total Bilirubin (0.2-1.0) mg/dL 0.2 AST (15-37) U/L 17 ALT (14-59) U/L 24 Alkaline Phosphatase (46-116) U/L 119 H Lactate Dehydrogenase (81-234) U/L 254 H C-Reactive Protein (0.0-0.3) mg/dL NT-Pro-B Natriuret Pep (<300) pg/mL Total Protein (6.4-8.2) g/dL 7.3 Albumin (3.4-5.0) g/dL 3.0 L Vitamin B12 (193-986) pg/mL Folate (8.6-20.0) ng/mL Procalcitonin ng/mL TSH (0.36-3.74) uIU/mL Free T4 (0.76-1.46) ng/dL Urine Color (Yellow) Urine Clarity (Clear) Urine pH (5-8) Ur Specific [place] (1.005-1.025) Urine Protein (Negative) mg/dL Urine Ketones (Negative) mg/dL Urine Blood (Negative) Urine Nitrite (Negative) Urine Bilirubin (Negative) Urine Urobilinogen (Up TO 0.2) EU/dL Ur Leukocyte Esterase (Negative) Urine Glucose (Negative) mg/dL Fluid Type Cancelled Fluid Source Fluid Color Fluid Clarity Fluid pH Fluid WBC Fld Polynuclear WBCs % % Fluid Mononuclear Cell % Fluid Other Cells Fluid Glucose (See Note) mg/dL Fluid Total Protein g/dL Fluid Albumin Cancelled Fluid LDH Fluid Lipase U/L Cancelled Fluid Triglycerides mg/dL CSF Lyme DNA Comment CSF B.burgdorferi (PCR) CSF B.mayonii (PCR) CSF B.eron/afzel PCR Rheumatoid Factor (<12.0) IU/mL Cyclic Citrull Peptide (<5.0) U/mL MARITZA Titer MARITZA Titer 2 MARITZA Titer 3 MARITZA Interpretation (Negative) Proteinase 3 (PR3) U Myeloperoxidase Ab U Double Strand DNA Ab (<30.0) IU/mL Lyme Specimen Source COVID-19 Source SARS-CoV-2 (PCR) (Negative) Influenza Type A (PCR) (Negative) Influenza Type B (PCR) (Negative) Urine Legionella Ag (Negative) RSV (PCR) (Negative) AFB Source AFB Culture Final Res AFB Bld Cult Final Res AFB Report Status Fungal Specimen Source Fungal Culture Status Fungal Culture Final Fungal Smear Result M. Tuberculosis PCR Path Cons Comment AFB Smear (Ref Lab) Add-On Test Request Range/Units 11/02/21 11/03/21 11/03/21 16:10 07:10 07:10 WBC (4.4-10.8) 10^3/uL 8.04 RBC (3.93-5.22) 10^6/uL 3.28 L Hgb (11.2-15.7) g/dL 9.0 L Hct (36.0-46.0) % 30.5 L MCV (80-95) fL 93.0 MCH (27.0-33.0) pg 27.4 MCHC (32.0-36.0) % 29.5 L RDW (11.7-14.6) % 13.9 Plt Count (130-400) 10^3/uL 249 MPV (8.0-11.0) fL 8.5 Immature Gran % 0.4 Neutrophils % 65.7 Lymphocytes % 17.9 Monocytes % 7.8 Eosinophils % 7.2 Basophils % 1.0 Nucleated RBC % % 0 Absolute Neutrophils (1.2-6.7) 10^3/uL 5.28 Absolute Lymphocytes (1.2-3.4) 10^3/uL 1.44 Absolute Monocytes (0.1-0.8) 10^3/uL 0.63 Absolute Eosinophils (0.0-0.7) 10^3/uL 0.58 Absolute Basophils (0.0-0.2) 10^3/uL 0.08 RBC Morphology Hypochromasia Poikilocytosis Basophilic Stippling Stomatocytes PT (9.3-11.0) sec INR (0.9-1.1) APTT (21.0-27.5) sec Fibrinogen (171-384) mg/dL D-Dimer (<500) ng/mlFEU Factor XII (55 - 180) % Sodium (136-145) mmol/L 139 Potassium (3.5-5.1) mmol/L 4.5 Chloride (98-107) mmol/L 104 Carbon Dioxide (21.0-32.0) mmol/L 28.9 Anion Gap (3-11) mmol/L 6.1 BUN (7-18) mg/dL 15 Creatinine (0.55-1.02) mg/dL 0.8 Estimated GFR/1.73 m2 (mL/min/1.73m2) >= 60.00 Glucose (74-106) mg/dL 97 Hemoglobin A1c (<5.7) % Calcium (8.5-10.1) mg/dL 8.1 L Magnesium (1.8-2.4) mg/dL Iron (50-170) ug/dL TIBC (250-450) ug/dL Transferrin % Sat (15-50) % Ferritin (8-252) ng/mL Total Bilirubin (0.2-1.0) mg/dL AST (15-37) U/L ALT (14-59) U/L Alkaline Phosphatase (46-116) U/L Lactate Dehydrogenase (81-234) U/L C-Reactive Protein (0.0-0.3) mg/dL NT-Pro-B Natriuret Pep (<300) pg/mL Total Protein (6.4-8.2) g/dL Albumin (3.4-5.0) g/dL Vitamin B12 (193-986) pg/mL Folate (8.6-20.0) ng/mL Procalcitonin ng/mL TSH (0.36-3.74) uIU/mL Free T4 (0.76-1.46) ng/dL Urine Color (Yellow) Urine Clarity (Clear) Urine pH (5-8) Ur Specific [place] (1.005-1.025) Urine Protein (Negative) mg/dL Urine Ketones (Negative) mg/dL Urine Blood (Negative) Urine Nitrite (Negative) Urine Bilirubin (Negative) Urine Urobilinogen (Up TO 0.2) EU/dL Ur Leukocyte Esterase (Negative) Urine Glucose (Negative) mg/dL Fluid Type Fluid Source Fluid Color Fluid Clarity Fluid pH Fluid WBC Fld Polynuclear WBCs % % Fluid Mononuclear Cell % Fluid Other Cells Fluid Glucose (See Note) mg/dL Fluid Total Protein g/dL Fluid Albumin Fluid LDH Fluid Lipase U/L Fluid Triglycerides mg/dL CSF Lyme DNA Comment CSF B.burgdorferi (PCR) CSF B.mayonii (PCR) CSF B.eron/afzel PCR Rheumatoid Factor (<12.0) IU/mL <8.6 Cyclic Citrull Peptide (<5.0) U/mL MARITZA Titer MARITZA Titer 2 MARITZA Titer 3 MARITZA Interpretation (Negative) Proteinase 3 (PR3) U Myeloperoxidase Ab U Double Strand DNA Ab (<30.0) IU/mL <12.3 Lyme Specimen Source COVID-19 Source SARS-CoV-2 (PCR) (Negative) Influenza Type A (PCR) (Negative) Influenza Type B (PCR) (Negative) Urine Legionella Ag (Negative) RSV (PCR) (Negative) AFB Source AFB Culture Final Res AFB Bld Cult Final Res AFB Report Status Fungal Specimen Source Fungal Culture Status Fungal Culture Final Fungal Smear Result M. Tuberculosis PCR Path Cons Comment AFB Smear (Ref Lab) Add-On Test Request Range/Units 11/03/21 11/03/21 11/04/21 07:10 Unknown 07:58 WBC (4.4-10.8) 10^3/uL 15.63 H D RBC (3.93-5.22) 10^6/uL 3.57 L Hgb (11.2-15.7) g/dL 9.9 L Hct (36.0-46.0) % 33.7 L MCV (80-95) fL 94.4 MCH (27.0-33.0) pg 27.7 MCHC (32.0-36.0) % 29.4 L RDW (11.7-14.6) % 14.1 Plt Count (130-400) 10^3/uL 256 MPV (8.0-11.0) fL 8.5 Immature Gran % 0.3 Neutrophils % 90.5 Lymphocytes % 3.1 Monocytes % 2.6 Eosinophils % 3.0 Basophils % 0.5 Nucleated RBC % % 0 Absolute Neutrophils (1.2-6.7) 10^3/uL 14.15 H Absolute Lymphocytes (1.2-3.4) 10^3/uL 0.48 L Absolute Monocytes (0.1-0.8) 10^3/uL 0.41 Absolute Eosinophils (0.0-0.7) 10^3/uL 0.47 Absolute Basophils (0.0-0.2) 10^3/uL 0.08 RBC Morphology Hypochromasia Poikilocytosis Basophilic Stippling Stomatocytes PT (9.3-11.0) sec INR (0.9-1.1) APTT (21.0-27.5) sec Fibrinogen (171-384) mg/dL D-Dimer (<500) ng/mlFEU Factor XII (55 - 180) % Sodium (136-145) mmol/L Potassium (3.5-5.1) mmol/L Chloride (98-107) mmol/L Carbon Dioxide (21.0-32.0) mmol/L Anion Gap (3-11) mmol/L BUN (7-18) mg/dL Creatinine (0.55-1.02) mg/dL Estimated GFR/1.73 m2 (mL/min/1.73m2) Glucose (74-106) mg/dL Hemoglobin A1c (<5.7) % Calcium (8.5-10.1) mg/dL Magnesium (1.8-2.4) mg/dL Iron (50-170) ug/dL TIBC (250-450) ug/dL Transferrin % Sat (15-50) % Ferritin (8-252) ng/mL Total Bilirubin (0.2-1.0) mg/dL AST (15-37) U/L ALT (14-59) U/L Alkaline Phosphatase (46-116) U/L Lactate Dehydrogenase (81-234) U/L C-Reactive Protein (0.0-0.3) mg/dL NT-Pro-B Natriuret Pep (<300) pg/mL Total Protein (6.4-8.2) g/dL Albumin (3.4-5.0) g/dL Vitamin B12 (193-986) pg/mL Folate (8.6-20.0) ng/mL Procalcitonin ng/mL TSH (0.36-3.74) uIU/mL Free T4 (0.76-1.46) ng/dL Urine Color (Yellow) Urine Clarity (Clear) Urine pH (5-8) Ur Specific [place] (1.005-1.025) Urine Protein (Negative) mg/dL Urine Ketones (Negative) mg/dL Urine Blood (Negative) Urine Nitrite (Negative) Urine Bilirubin (Negative) Urine Urobilinogen (Up TO 0.2) EU/dL Ur Leukocyte Esterase (Negative) Urine Glucose (Negative) mg/dL Fluid Type Fluid Source Fluid Color Fluid Clarity Fluid pH Fluid WBC Fld Polynuclear WBCs % % Fluid Mononuclear Cell % Fluid Other Cells Fluid Glucose (See Note) mg/dL Fluid Total Protein g/dL Fluid Albumin Fluid LDH Fluid Lipase U/L Fluid Triglycerides mg/dL CSF Lyme DNA Comment CSF B.burgdorferi (PCR) CSF B.mayonii (PCR) CSF B.eron/afzel PCR Rheumatoid Factor (<12.0) IU/mL Cyclic Citrull Peptide (<5.0) U/mL MARITZA Titer MARITZA Titer 2 MARITZA Titer 3 MARITZA Interpretation (Negative) Proteinase 3 (PR3) U <0.2 Myeloperoxidase Ab U <0.2 Double Strand DNA Ab (<30.0) IU/mL Lyme Specimen Source COVID-19 Source SARS-CoV-2 (PCR) (Negative) Influenza Type A (PCR) (Negative) Influenza Type B (PCR) (Negative) Urine Legionella Ag (Negative) RSV (PCR) (Negative) AFB Source AFB Culture Final Res AFB Bld Cult Final Res AFB Report Status Fungal Specimen Source Fungal Culture Status Fungal Culture Final Fungal Smear Result M. Tuberculosis PCR Path Cons Comment AFB Smear (Ref Lab) Add-On Test Request TNP Range/Units 11/04/21 11/04/21 11/04/21 07:58 07:58 08:05 WBC (4.4-10.8) 10^3/uL RBC (3.93-5.22) 10^6/uL Hgb (11.2-15.7) g/dL Hct (36.0-46.0) % MCV (80-95) fL MCH (27.0-33.0) pg MCHC (32.0-36.0) % RDW (11.7-14.6) % Plt Count (130-400) 10^3/uL MPV (8.0-11.0) fL Immature Gran % Neutrophils % Lymphocytes % Monocytes % Eosinophils % Basophils % Nucleated RBC % % Absolute Neutrophils (1.2-6.7) 10^3/uL Absolute Lymphocytes (1.2-3.4) 10^3/uL Absolute Monocytes (0.1-0.8) 10^3/uL Absolute Eosinophils (0.0-0.7) 10^3/uL Absolute Basophils (0.0-0.2) 10^3/uL RBC Morphology Hypochromasia Poikilocytosis Basophilic Stippling Stomatocytes PT (9.3-11.0) sec INR (0.9-1.1) APTT (21.0-27.5) sec Fibrinogen (171-384) mg/dL D-Dimer (<500) ng/mlFEU 4332 H Factor XII (55 - 180) % Sodium (136-145) mmol/L Potassium (3.5-5.1) mmol/L Chloride (98-107) mmol/L Carbon Dioxide (21.0-32.0) mmol/L Anion Gap (3-11) mmol/L BUN (7-18) mg/dL Creatinine (0.55-1.02) mg/dL Estimated GFR/1.73 m2 (mL/min/1.73m2) Glucose (74-106) mg/dL Hemoglobin A1c (<5.7) % Calcium (8.5-10.1) mg/dL Magnesium (1.8-2.4) mg/dL Iron (50-170) ug/dL TIBC (250-450) ug/dL Transferrin % Sat (15-50) % Ferritin (8-252) ng/mL Total Bilirubin (0.2-1.0) mg/dL AST (15-37) U/L ALT (14-59) U/L Alkaline Phosphatase (46-116) U/L Lactate Dehydrogenase (81-234) U/L C-Reactive Protein (0.0-0.3) mg/dL 7.42 H NT-Pro-B Natriuret Pep (<300) pg/mL Total Protein (6.4-8.2) g/dL Albumin (3.4-5.0) g/dL Vitamin B12 (193-986) pg/mL Folate (8.6-20.0) ng/mL Procalcitonin ng/mL TSH (0.36-3.74) uIU/mL Free T4 (0.76-1.46) ng/dL Urine Color (Yellow) Urine Clarity (Clear) Urine pH (5-8) Ur Specific [place] (1.005-1.025) Urine Protein (Negative) mg/dL Urine Ketones (Negative) mg/dL Urine Blood (Negative) Urine Nitrite (Negative) Urine Bilirubin (Negative) Urine Urobilinogen (Up TO 0.2) EU/dL Ur Leukocyte Esterase (Negative) Urine Glucose (Negative) mg/dL Fluid Type Fluid Source Fluid Color Fluid Clarity Fluid pH Fluid WBC Fld Polynuclear WBCs % % Fluid Mononuclear Cell % Fluid Other Cells Fluid Glucose (See Note) mg/dL Fluid Total Protein g/dL Fluid Albumin Fluid LDH Fluid Lipase U/L Fluid Triglycerides mg/dL CSF Lyme DNA Comment CSF B.burgdorferi (PCR) CSF B.mayonii (PCR) CSF B.eron/afzel PCR Rheumatoid Factor (<12.0) IU/mL Cyclic Citrull Peptide (<5.0) U/mL MARITZA Titer MARITZA Titer 2 MARITZA Titer 3 MARITZA Interpretation (Negative) Proteinase 3 (PR3) U Myeloperoxidase Ab U Double Strand DNA Ab (<30.0) IU/mL Lyme Specimen Source COVID-19 Source SARS-CoV-2 (PCR) (Negative) Influenza Type A (PCR) (Negative) Influenza Type B (PCR) (Negative) Urine Legionella Ag (Negative) RSV (PCR) (Negative) AFB Source AFB Culture Final Res AFB Bld Cult Final Res AFB Report Status Fungal Specimen Source Fungal Culture Status Fungal Culture Final Fungal Smear Result M. Tuberculosis PCR Path Cons Comment AFB Smear (Ref Lab) Add-On Test Request DONE Range/Units 11/04/21 11/04/21 11/04/21 08:05 08:15 08:35 WBC (4.4-10.8) 10^3/uL RBC (3.93-5.22) 10^6/uL Hgb (11.2-15.7) g/dL Hct (36.0-46.0) % MCV (80-95) fL MCH (27.0-33.0) pg MCHC (32.0-36.0) % RDW (11.7-14.6) % Plt Count (130-400) 10^3/uL MPV (8.0-11.0) fL Immature Gran % Neutrophils % Lymphocytes % Monocytes % Eosinophils % Basophils % Nucleated RBC % % Absolute Neutrophils (1.2-6.7) 10^3/uL Absolute Lymphocytes (1.2-3.4) 10^3/uL Absolute Monocytes (0.1-0.8) 10^3/uL Absolute Eosinophils (0.0-0.7) 10^3/uL Absolute Basophils (0.0-0.2) 10^3/uL RBC Morphology Hypochromasia Poikilocytosis Basophilic Stippling Stomatocytes PT (9.3-11.0) sec INR (0.9-1.1) APTT (21.0-27.5) sec Fibrinogen (171-384) mg/dL D-Dimer (<500) ng/mlFEU Factor XII (55 - 180) % Sodium (136-145) mmol/L Potassium (3.5-5.1) mmol/L Chloride (98-107) mmol/L Carbon Dioxide (21.0-32.0) mmol/L Anion Gap (3-11) mmol/L BUN (7-18) mg/dL Creatinine (0.55-1.02) mg/dL Estimated GFR/1.73 m2 (mL/min/1.73m2) Glucose (74-106) mg/dL Hemoglobin A1c (<5.7) % Calcium (8.5-10.1) mg/dL Magnesium (1.8-2.4) mg/dL Iron (50-170) ug/dL TIBC (250-450) ug/dL Transferrin % Sat (15-50) % Ferritin (8-252) ng/mL Total Bilirubin (0.2-1.0) mg/dL AST (15-37) U/L ALT (14-59) U/L Alkaline Phosphatase (46-116) U/L Lactate Dehydrogenase (81-234) U/L C-Reactive Protein (0.0-0.3) mg/dL Cancelled NT-Pro-B Natriuret Pep (<300) pg/mL 28 Total Protein (6.4-8.2) g/dL Albumin (3.4-5.0) g/dL Vitamin B12 (193-986) pg/mL Folate (8.6-20.0) ng/mL Procalcitonin ng/mL TSH (0.36-3.74) uIU/mL Free T4 (0.76-1.46) ng/dL Urine Color (Yellow) Yellow Urine Clarity (Clear) Clear Urine pH (5-8) 5.5 Ur Specific [place] (1.005-1.025) >= 1.030 H Urine Protein (Negative) mg/dL Negative Urine Ketones (Negative) mg/dL Negative Urine Blood (Negative) Negative Urine Nitrite (Negative) Negative Urine Bilirubin (Negative) Negative Urine Urobilinogen (Up TO 0.2) EU/dL 0.2 Ur Leukocyte Esterase (Negative) Negative Urine Glucose (Negative) mg/dL Negative Fluid Type Fluid Source Fluid Color Fluid Clarity Fluid pH Fluid WBC Fld Polynuclear WBCs % % Fluid Mononuclear Cell % Fluid Other Cells Fluid Glucose (See Note) mg/dL Fluid Total Protein g/dL Fluid Albumin Fluid LDH Fluid Lipase U/L Fluid Triglycerides mg/dL CSF Lyme DNA Comment CSF B.burgdorferi (PCR) CSF B.mayonii (PCR) CSF B.eron/afzel PCR Rheumatoid Factor (<12.0) IU/mL Cyclic Citrull Peptide (<5.0) U/mL MARITZA Titer MARITZA Titer 2 MARITZA Titer 3 MARITZA Interpretation (Negative) Proteinase 3 (PR3) U Myeloperoxidase Ab U Double Strand DNA Ab (<30.0) IU/mL Lyme Specimen Source COVID-19 Source SARS-CoV-2 (PCR) (Negative) Influenza Type A (PCR) (Negative) Influenza Type B (PCR) (Negative) Urine Legionella Ag (Negative) RSV (PCR) (Negative) AFB Source AFB Culture Final Res AFB Bld Cult Final Res AFB Report Status Fungal Specimen Source Fungal Culture Status Fungal Culture Final Fungal Smear Result M. Tuberculosis PCR Path Cons Comment AFB Smear (Ref Lab) Add-On Test Request Range/Units 11/04/21 11/04/21 11/04/21 12:10 17:29 20:07 WBC (4.4-10.8) 10^3/uL RBC (3.93-5.22) 10^6/uL Hgb (11.2-15.7) g/dL Hct (36.0-46.0) % MCV (80-95) fL MCH (27.0-33.0) pg MCHC (32.0-36.0) % RDW (11.7-14.6) % Plt Count (130-400) 10^3/uL MPV (8.0-11.0) fL Immature Gran % Neutrophils % Lymphocytes % Monocytes % Eosinophils % Basophils % Nucleated RBC % % Absolute Neutrophils (1.2-6.7) 10^3/uL Absolute Lymphocytes (1.2-3.4) 10^3/uL Absolute Monocytes (0.1-0.8) 10^3/uL Absolute Eosinophils (0.0-0.7) 10^3/uL Absolute Basophils (0.0-0.2) 10^3/uL RBC Morphology Hypochromasia Poikilocytosis Basophilic Stippling Stomatocytes PT (9.3-11.0) sec INR (0.9-1.1) APTT (21.0-27.5) sec Fibrinogen (171-384) mg/dL D-Dimer (<500) ng/mlFEU Factor XII (55 - 180) % Sodium (136-145) mmol/L Potassium (3.5-5.1) mmol/L Chloride (98-107) mmol/L Carbon Dioxide (21.0-32.0) mmol/L Anion Gap (3-11) mmol/L BUN (7-18) mg/dL Creatinine (0.55-1.02) mg/dL Estimated GFR/1.73 m2 (mL/min/1.73m2) Glucose (74-106) mg/dL Hemoglobin A1c (<5.7) % Calcium (8.5-10.1) mg/dL Magnesium (1.8-2.4) mg/dL Iron (50-170) ug/dL TIBC (250-450) ug/dL Transferrin % Sat (15-50) % Ferritin (8-252) ng/mL Total Bilirubin (0.2-1.0) mg/dL AST (15-37) U/L ALT (14-59) U/L Alkaline Phosphatase (46-116) U/L Lactate Dehydrogenase (81-234) U/L C-Reactive Protein (0.0-0.3) mg/dL NT-Pro-B Natriuret Pep (<300) pg/mL Total Protein (6.4-8.2) g/dL Albumin (3.4-5.0) g/dL Vitamin B12 (193-986) pg/mL Folate (8.6-20.0) ng/mL Procalcitonin ng/mL TSH (0.36-3.74) uIU/mL Free T4 (0.76-1.46) ng/dL Urine Color (Yellow) Urine Clarity (Clear) Urine pH (5-8) Ur Specific [place] (1.005-1.025) Urine Protein (Negative) mg/dL Urine Ketones (Negative) mg/dL Urine Blood (Negative) Urine Nitrite (Negative) Urine Bilirubin (Negative) Urine Urobilinogen (Up TO 0.2) EU/dL Ur Leukocyte Esterase (Negative) Urine Glucose (Negative) mg/dL Fluid Type Fluid Source Pleural Cancelled Fluid Color Red Cancelled Fluid Clarity Cloudy Cancelled Fluid pH Fluid WBC 7 Cancelled Fld Polynuclear WBCs % % 97 Cancelled Fluid Mononuclear Cell % 3 Cancelled Fluid Other Cells Cancelled Fluid Glucose (See Note) mg/dL Fluid Total Protein g/dL Fluid Albumin Fluid LDH Fluid Lipase U/L Fluid Triglycerides mg/dL CSF Lyme DNA Comment CSF B.burgdorferi (PCR) CSF B.mayonii (PCR) CSF B.eron/afzel PCR Rheumatoid Factor (<12.0) IU/mL Cyclic Citrull Peptide (<5.0) U/mL MARITZA Titer MARITZA Titer 2 MARITZA Titer 3 MARITZA Interpretation (Negative) Proteinase 3 (PR3) U Myeloperoxidase Ab U Double Strand DNA Ab (<30.0) IU/mL Lyme Specimen Source COVID-19 Source Nasal/Nares SARS-CoV-2 (PCR) (Negative) Negative Influenza Type A (PCR) (Negative) Negative Influenza Type B (PCR) (Negative) Negative Urine Legionella Ag (Negative) RSV (PCR) (Negative) Negative AFB Source AFB Culture Final Res AFB Bld Cult Final Res AFB Report Status Fungal Specimen Source Fungal Culture Status Fungal Culture Final Fungal Smear Result M. Tuberculosis PCR Path Cons Comment SEE COMMENT Cancelled AFB Smear (Ref Lab) Add-On Test Request Range/Units 11/05/21 11/05/21 11/05/21 06:10 06:10 06:10 WBC (4.4-10.8) 10^3/uL 22.09 H D RBC (3.93-5.22) 10^6/uL 3.09 L Hgb (11.2-15.7) g/dL 8.5 L Hct (36.0-46.0) % 29.5 L MCV (80-95) fL 95.5 H MCH (27.0-33.0) pg 27.5 MCHC (32.0-36.0) % 28.8 L RDW (11.7-14.6) % 14.1 Plt Count (130-400) 10^3/uL 244 MPV (8.0-11.0) fL 8.8 Immature Gran % 0.4 Neutrophils % 88.8 Lymphocytes % 4.5 Monocytes % 2.8 Eosinophils % 3.1 Basophils % 0.4 Nucleated RBC % % 0 Absolute Neutrophils (1.2-6.7) 10^3/uL 19.62 H Absolute Lymphocytes (1.2-3.4) 10^3/uL 0.99 L Absolute Monocytes (0.1-0.8) 10^3/uL 0.62 Absolute Eosinophils (0.0-0.7) 10^3/uL 0.68 Absolute Basophils (0.0-0.2) 10^3/uL 0.09 RBC Morphology Hypochromasia Poikilocytosis Basophilic Stippling Stomatocytes PT (9.3-11.0) sec INR (0.9-1.1) APTT (21.0-27.5) sec Fibrinogen (171-384) mg/dL D-Dimer (<500) ng/mlFEU Factor XII (55 - 180) % Sodium (136-145) mmol/L 135 L Potassium (3.5-5.1) mmol/L 3.9 Chloride (98-107) mmol/L 102 Carbon Dioxide (21.0-32.0) mmol/L 30.7 Anion Gap (3-11) mmol/L 2.3 L BUN (7-18) mg/dL 16 Creatinine (0.55-1.02) mg/dL 0.8 Estimated GFR/1.73 m2 (mL/min/1.73m2) >= 60.00 Glucose (74-106) mg/dL 120 H Hemoglobin A1c (<5.7) % Calcium (8.5-10.1) mg/dL 8.2 L Magnesium (1.8-2.4) mg/dL Iron (50-170) ug/dL TIBC (250-450) ug/dL Transferrin % Sat (15-50) % Ferritin (8-252) ng/mL Total Bilirubin (0.2-1.0) mg/dL AST (15-37) U/L ALT (14-59) U/L Alkaline Phosphatase (46-116) U/L Lactate Dehydrogenase (81-234) U/L C-Reactive Protein (0.0-0.3) mg/dL NT-Pro-B Natriuret Pep (<300) pg/mL Total Protein (6.4-8.2) g/dL Albumin (3.4-5.0) g/dL Vitamin B12 (193-986) pg/mL Folate (8.6-20.0) ng/mL Procalcitonin ng/mL TSH (0.36-3.74) uIU/mL Free T4 (0.76-1.46) ng/dL Urine Color (Yellow) Urine Clarity (Clear) Urine pH (5-8) Ur Specific [place] (1.005-1.025) Urine Protein (Negative) mg/dL Urine Ketones (Negative) mg/dL Urine Blood (Negative) Urine Nitrite (Negative) Urine Bilirubin (Negative) Urine Urobilinogen (Up TO 0.2) EU/dL Ur Leukocyte Esterase (Negative) Urine Glucose (Negative) mg/dL Fluid Type Fluid Source Fluid Color Fluid Clarity Fluid pH Fluid WBC Fld Polynuclear WBCs % % Fluid Mononuclear Cell % Fluid Other Cells Fluid Glucose (See Note) mg/dL Fluid Total Protein g/dL Fluid Albumin Fluid LDH Fluid Lipase U/L Fluid Triglycerides mg/dL CSF Lyme DNA Comment CSF B.burgdorferi (PCR) CSF B.mayonii (PCR) CSF B.eron/afzel PCR Rheumatoid Factor (<12.0) IU/mL Cyclic Citrull Peptide (<5.0) U/mL MARITZA Titer MARITZA Titer 2 MARITZA Titer 3 MARITZA Interpretation (Negative) Proteinase 3 (PR3) U Myeloperoxidase Ab U Double Strand DNA Ab (<30.0) IU/mL Lyme Specimen Source COVID-19 Source SARS-CoV-2 (PCR) (Negative) Influenza Type A (PCR) (Negative) Influenza Type B (PCR) (Negative) Urine Legionella Ag (Negative) RSV (PCR) (Negative) AFB Source AFB Culture Final Res AFB Bld Cult Final Res AFB Report Status Fungal Specimen Source Fungal Culture Status Fungal Culture Final Fungal Smear Result M. Tuberculosis PCR Path Cons Comment AFB Smear (Ref Lab) Add-On Test Request DONE Range/Units 11/05/21 11/05/21 11/05/21 06:10 06:10 08:05 WBC (4.4-10.8) 10^3/uL RBC (3.93-5.22) 10^6/uL Hgb (11.2-15.7) g/dL Hct (36.0-46.0) % MCV (80-95) fL MCH (27.0-33.0) pg MCHC (32.0-36.0) % RDW (11.7-14.6) % Plt Count (130-400) 10^3/uL MPV (8.0-11.0) fL Immature Gran % Neutrophils % Lymphocytes % Monocytes % Eosinophils % Basophils % Nucleated RBC % % Absolute Neutrophils (1.2-6.7) 10^3/uL Absolute Lymphocytes (1.2-3.4) 10^3/uL Absolute Monocytes (0.1-0.8) 10^3/uL Absolute Eosinophils (0.0-0.7) 10^3/uL Absolute Basophils (0.0-0.2) 10^3/uL RBC Morphology Hypochromasia Poikilocytosis Basophilic Stippling Stomatocytes PT (9.3-11.0) sec 11.1 H INR (0.9-1.1) 1.1 APTT (21.0-27.5) sec 27.6 H Fibrinogen (171-384) mg/dL D-Dimer (<500) ng/mlFEU Factor XII (55 - 180) % Sodium (136-145) mmol/L Potassium (3.5-5.1) mmol/L Chloride (98-107) mmol/L Carbon Dioxide (21.0-32.0) mmol/L Anion Gap (3-11) mmol/L BUN (7-18) mg/dL Creatinine (0.55-1.02) mg/dL Estimated GFR/1.73 m2 (mL/min/1.73m2) Glucose (74-106) mg/dL Hemoglobin A1c (<5.7) % Calcium (8.5-10.1) mg/dL Magnesium (1.8-2.4) mg/dL Iron (50-170) ug/dL 14 L TIBC (250-450) ug/dL 235 L Transferrin % Sat (15-50) % 6 L Ferritin (8-252) ng/mL 189 Total Bilirubin (0.2-1.0) mg/dL AST (15-37) U/L ALT (14-59) U/L Alkaline Phosphatase (46-116) U/L Lactate Dehydrogenase (81-234) U/L C-Reactive Protein (0.0-0.3) mg/dL NT-Pro-B Natriuret Pep (<300) pg/mL Total Protein (6.4-8.2) g/dL Albumin (3.4-5.0) g/dL Vitamin B12 (193-986) pg/mL Folate (8.6-20.0) ng/mL Procalcitonin ng/mL TSH (0.36-3.74) uIU/mL Free T4 (0.76-1.46) ng/dL Urine Color (Yellow) Urine Clarity (Clear) Urine pH (5-8) Ur Specific [place] (1.005-1.025) Urine Protein (Negative) mg/dL Urine Ketones (Negative) mg/dL Urine Blood (Negative) Urine Nitrite (Negative) Urine Bilirubin (Negative) Urine Urobilinogen (Up TO 0.2) EU/dL Ur Leukocyte Esterase (Negative) Urine Glucose (Negative) mg/dL Fluid Type Fluid Source Fluid Color Fluid Clarity Fluid pH Fluid WBC Fld Polynuclear WBCs % % Fluid Mononuclear Cell % Fluid Other Cells Fluid Glucose (See Note) mg/dL Fluid Total Protein g/dL Fluid Albumin Fluid LDH Fluid Lipase U/L Fluid Triglycerides mg/dL CSF Lyme DNA Comment CSF B.burgdorferi (PCR) CSF B.mayonii (PCR) CSF B.eron/afzel PCR Rheumatoid Factor (<12.0) IU/mL Cyclic Citrull Peptide (<5.0) U/mL MARITZA Titer MARITZA Titer 2 MARITZA Titer 3 MARITZA Interpretation (Negative) Proteinase 3 (PR3) U Myeloperoxidase Ab U Double Strand DNA Ab (<30.0) IU/mL Lyme Specimen Source COVID-19 Source SARS-CoV-2 (PCR) (Negative) Influenza Type A (PCR) (Negative) Influenza Type B (PCR) (Negative) Urine Legionella Ag (Negative) RSV (PCR) (Negative) AFB Source AFB Culture Final Res AFB Bld Cult Final Res AFB Report Status Fungal Specimen Source Fungal Culture Status Fungal Culture Final Fungal Smear Result M. Tuberculosis PCR Path Cons Comment AFB Smear (Ref Lab) Add-On Test Request Range/Units 11/05/21 11/05/21 11/05/21 08:05 08:05 08:05 WBC (4.4-10.8) 10^3/uL RBC (3.93-5.22) 10^6/uL Hgb (11.2-15.7) g/dL Hct (36.0-46.0) % MCV (80-95) fL MCH (27.0-33.0) pg MCHC (32.0-36.0) % RDW (11.7-14.6) % Plt Count (130-400) 10^3/uL MPV (8.0-11.0) fL Immature Gran % Neutrophils % Lymphocytes % Monocytes % Eosinophils % Basophils % Nucleated RBC % % Absolute Neutrophils (1.2-6.7) 10^3/uL Absolute Lymphocytes (1.2-3.4) 10^3/uL Absolute Monocytes (0.1-0.8) 10^3/uL Absolute Eosinophils (0.0-0.7) 10^3/uL Absolute Basophils (0.0-0.2) 10^3/uL RBC Morphology Hypochromasia Poikilocytosis Basophilic Stippling Stomatocytes PT (9.3-11.0) sec INR (0.9-1.1) APTT (21.0-27.5) sec Fibrinogen (171-384) mg/dL 689 H D-Dimer (<500) ng/mlFEU Factor XII (55 - 180) % 50 L Sodium (136-145) mmol/L Potassium (3.5-5.1) mmol/L Chloride (98-107) mmol/L Carbon Dioxide (21.0-32.0) mmol/L Anion Gap (3-11) mmol/L BUN (7-18) mg/dL Creatinine (0.55-1.02) mg/dL Estimated GFR/1.73 m2 (mL/min/1.73m2) Glucose (74-106) mg/dL Hemoglobin A1c (<5.7) % Calcium (8.5-10.1) mg/dL Magnesium (1.8-2.4) mg/dL Iron (50-170) ug/dL TIBC (250-450) ug/dL Transferrin % Sat (15-50) % Ferritin (8-252) ng/mL Total Bilirubin (0.2-1.0) mg/dL AST (15-37) U/L ALT (14-59) U/L Alkaline Phosphatase (46-116) U/L Lactate Dehydrogenase (81-234) U/L C-Reactive Protein (0.0-0.3) mg/dL NT-Pro-B Natriuret Pep (<300) pg/mL Total Protein (6.4-8.2) g/dL Albumin (3.4-5.0) g/dL Vitamin B12 (193-986) pg/mL Folate (8.6-20.0) ng/mL Procalcitonin ng/mL TSH (0.36-3.74) uIU/mL Free T4 (0.76-1.46) ng/dL Urine Color (Yellow) Urine Clarity (Clear) Urine pH (5-8) Ur Specific [place] (1.005-1.025) Urine Protein (Negative) mg/dL Urine Ketones (Negative) mg/dL Urine Blood (Negative) Urine Nitrite (Negative) Urine Bilirubin (Negative) Urine Urobilinogen (Up TO 0.2) EU/dL Ur Leukocyte Esterase (Negative) Urine Glucose (Negative) mg/dL Fluid Type Fluid Source Fluid Color Fluid Clarity Fluid pH Fluid WBC Fld Polynuclear WBCs % % Fluid Mononuclear Cell % Fluid Other Cells Fluid Glucose (See Note) mg/dL Fluid Total Protein g/dL Fluid Albumin Fluid LDH Fluid Lipase U/L Fluid Triglycerides mg/dL CSF Lyme DNA Comment CSF B.burgdorferi (PCR) CSF B.mayonii (PCR) CSF B.eron/afzel PCR Rheumatoid Factor (<12.0) IU/mL Cyclic Citrull Peptide (<5.0) U/mL MARITZA Titer MARITZA Titer 2 MARITZA Titer 3 MARITZA Interpretation (Negative) Proteinase 3 (PR3) U Myeloperoxidase Ab U Double Strand DNA Ab (<30.0) IU/mL Lyme Specimen Source COVID-19 Source SARS-CoV-2 (PCR) (Negative) Influenza Type A (PCR) (Negative) Influenza Type B (PCR) (Negative) Urine Legionella Ag (Negative) RSV (PCR) (Negative) AFB Source AFB Culture Final Res AFB Bld Cult Final Res AFB Report Status Fungal Specimen Source Fungal Culture Status Fungal Culture Final Fungal Smear Result M. Tuberculosis PCR Path Cons Comment AFB Smear (Ref Lab) Add-On Test Request DONE Range/Units 11/05/21 11/05/21 11/05/21 12:02 12:03 12:16 WBC (4.4-10.8) 10^3/uL RBC (3.93-5.22) 10^6/uL Hgb (11.2-15.7) g/dL Hct (36.0-46.0) % MCV (80-95) fL MCH (27.0-33.0) pg MCHC (32.0-36.0) % RDW (11.7-14.6) % Plt Count (130-400) 10^3/uL MPV (8.0-11.0) fL Immature Gran % Neutrophils % Lymphocytes % Monocytes % Eosinophils % Basophils % Nucleated RBC % % Absolute Neutrophils (1.2-6.7) 10^3/uL Absolute Lymphocytes (1.2-3.4) 10^3/uL Absolute Monocytes (0.1-0.8) 10^3/uL Absolute Eosinophils (0.0-0.7) 10^3/uL Absolute Basophils (0.0-0.2) 10^3/uL RBC Morphology Hypochromasia Poikilocytosis Basophilic Stippling Stomatocytes PT (9.3-11.0) sec INR (0.9-1.1) APTT (21.0-27.5) sec Fibrinogen (171-384) mg/dL D-Dimer (<500) ng/mlFEU Factor XII (55 - 180) % Sodium (136-145) mmol/L Potassium (3.5-5.1) mmol/L Chloride (98-107) mmol/L Carbon Dioxide (21.0-32.0) mmol/L Anion Gap (3-11) mmol/L BUN (7-18) mg/dL Creatinine (0.55-1.02) mg/dL Estimated GFR/1.73 m2 (mL/min/1.73m2) Glucose (74-106) mg/dL Hemoglobin A1c (<5.7) % Calcium (8.5-10.1) mg/dL Magnesium (1.8-2.4) mg/dL Iron (50-170) ug/dL TIBC (250-450) ug/dL Transferrin % Sat (15-50) % Ferritin (8-252) ng/mL Total Bilirubin (0.2-1.0) mg/dL AST (15-37) U/L ALT (14-59) U/L Alkaline Phosphatase (46-116) U/L Lactate Dehydrogenase (81-234) U/L C-Reactive Protein (0.0-0.3) mg/dL NT-Pro-B Natriuret Pep (<300) pg/mL Total Protein (6.4-8.2) g/dL Albumin (3.4-5.0) g/dL Vitamin B12 (193-986) pg/mL Folate (8.6-20.0) ng/mL Procalcitonin ng/mL TSH (0.36-3.74) uIU/mL Free T4 (0.76-1.46) ng/dL Urine Color (Yellow) Urine Clarity (Clear) Urine pH (5-8) Ur Specific [place] (1.005-1.025) Urine Protein (Negative) mg/dL Urine Ketones (Negative) mg/dL Urine Blood (Negative) Urine Nitrite (Negative) Urine Bilirubin (Negative) Urine Urobilinogen (Up TO 0.2) EU/dL Ur Leukocyte Esterase (Negative) Urine Glucose (Negative) mg/dL Fluid Type Fluid Source Cancelled Fluid Color Cancelled Fluid Clarity Cancelled Fluid pH Fluid WBC Cancelled Fld Polynuclear WBCs % % Cancelled Fluid Mononuclear Cell % Cancelled Fluid Other Cells Cancelled Fluid Glucose (See Note) mg/dL Fluid Total Protein g/dL Fluid Albumin Fluid LDH Fluid Lipase U/L Fluid Triglycerides mg/dL CSF Lyme DNA Comment CSF B.burgdorferi (PCR) CSF B.mayonii (PCR) CSF B.eron/afzel PCR Rheumatoid Factor (<12.0) IU/mL Cyclic Citrull Peptide (<5.0) U/mL MARITZA Titer MARITZA Titer 2 MARITZA Titer 3 MARITZA Interpretation (Negative) Proteinase 3 (PR3) U Myeloperoxidase Ab U Double Strand DNA Ab (<30.0) IU/mL Lyme Specimen Source COVID-19 Source SARS-CoV-2 (PCR) (Negative) Influenza Type A (PCR) (Negative) Influenza Type B (PCR) (Negative) Urine Legionella Ag (Negative) RSV (PCR) (Negative) AFB Source Cancelled Cancelled AFB Culture Final Res Cancelled Cancelled AFB Bld Cult Final Res AFB Report Status Fungal Specimen Source Cancelled Fungal Culture Status Cancelled Fungal Culture Final Cancelled Fungal Smear Result Cancelled M. Tuberculosis PCR Cancelled Cancelled Path Cons Comment Cancelled AFB Smear (Ref Lab) Cancelled Cancelled Add-On Test Request Range/Units 11/05/21 11/05/21 11/05/21 12:16 12:17 17:00 WBC (4.4-10.8) 10^3/uL RBC (3.93-5.22) 10^6/uL Hgb (11.2-15.7) g/dL 8.1 L Hct (36.0-46.0) % 27.9 L MCV (80-95) fL MCH (27.0-33.0) pg MCHC (32.0-36.0) % RDW (11.7-14.6) % Plt Count (130-400) 10^3/uL MPV (8.0-11.0) fL Immature Gran % Neutrophils % Lymphocytes % Monocytes % Eosinophils % Basophils % Nucleated RBC % % Absolute Neutrophils (1.2-6.7) 10^3/uL Absolute Lymphocytes (1.2-3.4) 10^3/uL Absolute Monocytes (0.1-0.8) 10^3/uL Absolute Eosinophils (0.0-0.7) 10^3/uL Absolute Basophils (0.0-0.2) 10^3/uL RBC Morphology Hypochromasia Poikilocytosis Basophilic Stippling Stomatocytes PT (9.3-11.0) sec INR (0.9-1.1) APTT (21.0-27.5) sec Fibrinogen (171-384) mg/dL D-Dimer (<500) ng/mlFEU Factor XII (55 - 180) % Sodium (136-145) mmol/L Potassium (3.5-5.1) mmol/L Chloride (98-107) mmol/L Carbon Dioxide (21.0-32.0) mmol/L Anion Gap (3-11) mmol/L BUN (7-18) mg/dL Creatinine (0.55-1.02) mg/dL Estimated GFR/1.73 m2 (mL/min/1.73m2) Glucose (74-106) mg/dL Hemoglobin A1c (<5.7) % Calcium (8.5-10.1) mg/dL Magnesium (1.8-2.4) mg/dL Iron (50-170) ug/dL TIBC (250-450) ug/dL Transferrin % Sat (15-50) % Ferritin (8-252) ng/mL Total Bilirubin (0.2-1.0) mg/dL AST (15-37) U/L ALT (14-59) U/L Alkaline Phosphatase (46-116) U/L Lactate Dehydrogenase (81-234) U/L C-Reactive Protein (0.0-0.3) mg/dL NT-Pro-B Natriuret Pep (<300) pg/mL Total Protein (6.4-8.2) g/dL Albumin (3.4-5.0) g/dL Vitamin B12 (193-986) pg/mL Folate (8.6-20.0) ng/mL Procalcitonin ng/mL TSH (0.36-3.74) uIU/mL Free T4 (0.76-1.46) ng/dL Urine Color (Yellow) Urine Clarity (Clear) Urine pH (5-8) Ur Specific [place] (1.005-1.025) Urine Protein (Negative) mg/dL Urine Ketones (Negative) mg/dL Urine Blood (Negative) Urine Nitrite (Negative) Urine Bilirubin (Negative) Urine Urobilinogen (Up TO 0.2) EU/dL Ur Leukocyte Esterase (Negative) Urine Glucose (Negative) mg/dL Fluid Type Fluid Source Fluid Color Fluid Clarity Fluid pH Fluid WBC Fld Polynuclear WBCs % % Fluid Mononuclear Cell % Fluid Other Cells Fluid Glucose (See Note) mg/dL Fluid Total Protein g/dL Fluid Albumin Fluid LDH Fluid Lipase U/L Fluid Triglycerides mg/dL CSF Lyme DNA Comment CSF B.burgdorferi (PCR) CSF B.mayonii (PCR) CSF B.eron/afzel PCR Rheumatoid Factor (<12.0) IU/mL Cyclic Citrull Peptide (<5.0) U/mL MARITZA Titer MARITZA Titer 2 MARITZA Titer 3 MARITZA Interpretation (Negative) Proteinase 3 (PR3) U Myeloperoxidase Ab U Double Strand DNA Ab (<30.0) IU/mL Lyme Specimen Source COVID-19 Source SARS-CoV-2 (PCR) (Negative) Influenza Type A (PCR) (Negative) Influenza Type B (PCR) (Negative) Urine Legionella Ag (Negative) RSV (PCR) (Negative) AFB Source AFB Culture Final Res AFB Bld Cult Final Res AFB Report Status Fungal Specimen Source Cancelled Cancelled Fungal Culture Status Cancelled Cancelled Fungal Culture Final Cancelled Cancelled Fungal Smear Result Cancelled Cancelled M. Tuberculosis PCR Path Cons Comment AFB Smear (Ref Lab) Add-On Test Request Range/Units 11/05/21 11/06/21 11/06/21 18:30 06:12 06:12 WBC (4.4-10.8) 10^3/uL RBC (3.93-5.22) 10^6/uL Hgb (11.2-15.7) g/dL Hct (36.0-46.0) % MCV (80-95) fL MCH (27.0-33.0) pg MCHC (32.0-36.0) % RDW (11.7-14.6) % Plt Count (130-400) 10^3/uL MPV (8.0-11.0) fL Immature Gran % Neutrophils % Lymphocytes % Monocytes % Eosinophils % Basophils % Nucleated RBC % % Absolute Neutrophils (1.2-6.7) 10^3/uL Absolute Lymphocytes (1.2-3.4) 10^3/uL Absolute Monocytes (0.1-0.8) 10^3/uL Absolute Eosinophils (0.0-0.7) 10^3/uL Absolute Basophils (0.0-0.2) 10^3/uL RBC Morphology Hypochromasia Poikilocytosis Basophilic Stippling Stomatocytes PT (9.3-11.0) sec INR (0.9-1.1) APTT (21.0-27.5) sec Fibrinogen (171-384) mg/dL D-Dimer (<500) ng/mlFEU Factor XII (55 - 180) % Sodium (136-145) mmol/L 139 Potassium (3.5-5.1) mmol/L 4.2 Chloride (98-107) mmol/L 103 Carbon Dioxide (21.0-32.0) mmol/L 30.1 Anion Gap (3-11) mmol/L 5.9 BUN (7-18) mg/dL 12 Creatinine (0.55-1.02) mg/dL 0.7 Estimated GFR/1.73 m2 (mL/min/1.73m2) >= 60.00 Glucose (74-106) mg/dL 96 Hemoglobin A1c (<5.7) % Calcium (8.5-10.1) mg/dL 8.0 L Magnesium (1.8-2.4) mg/dL Iron (50-170) ug/dL TIBC (250-450) ug/dL Transferrin % Sat (15-50) % Ferritin (8-252) ng/mL Total Bilirubin (0.2-1.0) mg/dL AST (15-37) U/L ALT (14-59) U/L Alkaline Phosphatase (46-116) U/L Lactate Dehydrogenase (81-234) U/L C-Reactive Protein (0.0-0.3) mg/dL NT-Pro-B Natriuret Pep (<300) pg/mL Total Protein (6.4-8.2) g/dL Albumin (3.4-5.0) g/dL Vitamin B12 (193-986) pg/mL > 2000 H Folate (8.6-20.0) ng/mL 5.1 L Procalcitonin ng/mL TSH (0.36-3.74) uIU/mL Free T4 (0.76-1.46) ng/dL Urine Color (Yellow) Urine Clarity (Clear) Urine pH (5-8) Ur Specific [place] (1.005-1.025) Urine Protein (Negative) mg/dL Urine Ketones (Negative) mg/dL Urine Blood (Negative) Urine Nitrite (Negative) Urine Bilirubin (Negative) Urine Urobilinogen (Up TO 0.2) EU/dL Ur Leukocyte Esterase (Negative) Urine Glucose (Negative) mg/dL Fluid Type Fluid Source Fluid Color Fluid Clarity Fluid pH Fluid WBC Fld Polynuclear WBCs % % Fluid Mononuclear Cell % Fluid Other Cells Fluid Glucose (See Note) mg/dL Fluid Total Protein g/dL Fluid Albumin Fluid LDH Fluid Lipase U/L Fluid Triglycerides mg/dL CSF Lyme DNA Comment CSF B.burgdorferi (PCR) CSF B.mayonii (PCR) CSF B.eron/afzel PCR Rheumatoid Factor (<12.0) IU/mL Cyclic Citrull Peptide (<5.0) U/mL MARITZA Titer MARITZA Titer 2 MARITZA Titer 3 MARITZA Interpretation (Negative) Proteinase 3 (PR3) U Myeloperoxidase Ab U Double Strand DNA Ab (<30.0) IU/mL Lyme Specimen Source COVID-19 Source SARS-CoV-2 (PCR) (Negative) Influenza Type A (PCR) (Negative) Influenza Type B (PCR) (Negative) Urine Legionella Ag (Negative) Negative RSV (PCR) (Negative) AFB Source AFB Culture Final Res AFB Bld Cult Final Res AFB Report Status Fungal Specimen Source Fungal Culture Status Fungal Culture Final Fungal Smear Result M. Tuberculosis PCR Path Cons Comment AFB Smear (Ref Lab) Add-On Test Request Range/Units 11/06/21 11/06/21 11/07/21 06:12 06:12 06:00 WBC (4.4-10.8) 10^3/uL 13.88 H D RBC (3.93-5.22) 10^6/uL 2.78 L Hgb (11.2-15.7) g/dL 7.8 L Hct (36.0-46.0) % 26.3 L MCV (80-95) fL 94.6 MCH (27.0-33.0) pg 28.1 MCHC (32.0-36.0) % 29.7 L RDW (11.7-14.6) % 13.9 Plt Count (130-400) 10^3/uL 218 MPV (8.0-11.0) fL 9.0 Immature Gran % 0.5 Neutrophils % 81.1 Lymphocytes % 8.5 Monocytes % 4.5 Eosinophils % 5.0 Basophils % 0.4 Nucleated RBC % % 0 Absolute Neutrophils (1.2-6.7) 10^3/uL 11.26 H Absolute Lymphocytes (1.2-3.4) 10^3/uL 1.18 L Absolute Monocytes (0.1-0.8) 10^3/uL 0.62 Absolute Eosinophils (0.0-0.7) 10^3/uL 0.69 Absolute Basophils (0.0-0.2) 10^3/uL 0.06 RBC Morphology See Below Hypochromasia 2+ Poikilocytosis 1+ Basophilic Stippling Present Stomatocytes 2+ PT (9.3-11.0) sec INR (0.9-1.1) APTT (21.0-27.5) sec Fibrinogen (171-384) mg/dL D-Dimer (<500) ng/mlFEU Factor XII (55 - 180) % Sodium (136-145) mmol/L 138 Potassium (3.5-5.1) mmol/L 3.9 Chloride (98-107) mmol/L 104 Carbon Dioxide (21.0-32.0) mmol/L 34.0 H Anion Gap (3-11) mmol/L 0 L BUN (7-18) mg/dL 11 Creatinine (0.55-1.02) mg/dL 0.8 Estimated GFR/1.73 m2 (mL/min/1.73m2) >= 60.00 Glucose (74-106) mg/dL 98 Hemoglobin A1c (<5.7) % 5.2 Calcium (8.5-10.1) mg/dL 8.2 L Magnesium (1.8-2.4) mg/dL 2.0 Iron (50-170) ug/dL TIBC (250-450) ug/dL Transferrin % Sat (15-50) % Ferritin (8-252) ng/mL Total Bilirubin (0.2-1.0) mg/dL AST (15-37) U/L ALT (14-59) U/L Alkaline Phosphatase (46-116) U/L Lactate Dehydrogenase (81-234) U/L C-Reactive Protein (0.0-0.3) mg/dL NT-Pro-B Natriuret Pep (<300) pg/mL Total Protein (6.4-8.2) g/dL Albumin (3.4-5.0) g/dL Vitamin B12 (193-986) pg/mL Folate (8.6-20.0) ng/mL Procalcitonin ng/mL TSH (0.36-3.74) uIU/mL Free T4 (0.76-1.46) ng/dL Urine Color (Yellow) Urine Clarity (Clear) Urine pH (5-8) Ur Specific [place] (1.005-1.025) Urine Protein (Negative) mg/dL Urine Ketones (Negative) mg/dL Urine Blood (Negative) Urine Nitrite (Negative) Urine Bilirubin (Negative) Urine Urobilinogen (Up TO 0.2) EU/dL Ur Leukocyte Esterase (Negative) Urine Glucose (Negative) mg/dL Fluid Type Fluid Source Fluid Color Fluid Clarity Fluid pH Fluid WBC Fld Polynuclear WBCs % % Fluid Mononuclear Cell % Fluid Other Cells Fluid Glucose (See Note) mg/dL Fluid Total Protein g/dL Fluid Albumin Fluid LDH Fluid Lipase U/L Fluid Triglycerides mg/dL CSF Lyme DNA Comment CSF B.burgdorferi (PCR) CSF B.mayonii (PCR) CSF B.eron/afzel PCR Rheumatoid Factor (<12.0) IU/mL Cyclic Citrull Peptide (<5.0) U/mL MARITZA Titer MARITZA Titer 2 MARITZA Titer 3 MARITZA Interpretation (Negative) Proteinase 3 (PR3) U Myeloperoxidase Ab U Double Strand DNA Ab (<30.0) IU/mL Lyme Specimen Source COVID-19 Source SARS-CoV-2 (PCR) (Negative) Influenza Type A (PCR) (Negative) Influenza Type B (PCR) (Negative) Urine Legionella Ag (Negative) RSV (PCR) (Negative) AFB Source AFB Culture Final Res AFB Bld Cult Final Res AFB Report Status Fungal Specimen Source Fungal Culture Status Fungal Culture Final Fungal Smear Result M. Tuberculosis PCR Path Cons Comment AFB Smear (Ref Lab) Add-On Test Request Range/Units 11/07/21 11/07/21 11/08/21 06:00 06:00 06:20 WBC (4.4-10.8) 10^3/uL 9.52 D RBC (3.93-5.22) 10^6/uL 2.95 L Hgb (11.2-15.7) g/dL 8.2 L Hct (36.0-46.0) % 27.7 L MCV (80-95) fL 93.9 MCH (27.0-33.0) pg 27.8 MCHC (32.0-36.0) % 29.6 L RDW (11.7-14.6) % 13.7 Plt Count (130-400) 10^3/uL 214 MPV (8.0-11.0) fL 8.7 Immature Gran % 0.4 Neutrophils % 74.4 Lymphocytes % 11.0 Monocytes % 5.0 Eosinophils % 8.4 Basophils % 0.8 Nucleated RBC % % 0 Absolute Neutrophils (1.2-6.7) 10^3/uL 7.08 H Absolute Lymphocytes (1.2-3.4) 10^3/uL 1.05 L Absolute Monocytes (0.1-0.8) 10^3/uL 0.48 Absolute Eosinophils (0.0-0.7) 10^3/uL 0.80 H Absolute Basophils (0.0-0.2) 10^3/uL 0.08 RBC Morphology Hypochromasia Poikilocytosis Basophilic Stippling Stomatocytes PT (9.3-11.0) sec INR (0.9-1.1) APTT (21.0-27.5) sec Fibrinogen (171-384) mg/dL D-Dimer (<500) ng/mlFEU Factor XII (55 - 180) % Sodium (136-145) mmol/L 142 Potassium (3.5-5.1) mmol/L 3.8 Chloride (98-107) mmol/L 101 Carbon Dioxide (21.0-32.0) mmol/L 35.6 H Anion Gap (3-11) mmol/L 5.4 BUN (7-18) mg/dL 12 Creatinine (0.55-1.02) mg/dL 0.8 Estimated GFR/1.73 m2 (mL/min/1.73m2) >= 60.00 Glucose (74-106) mg/dL 96 Hemoglobin A1c (<5.7) % 5.4 Calcium (8.5-10.1) mg/dL 8.6 Magnesium (1.8-2.4) mg/dL 2.0 Iron (50-170) ug/dL TIBC (250-450) ug/dL Transferrin % Sat (15-50) % Ferritin (8-252) ng/mL Total Bilirubin (0.2-1.0) mg/dL AST (15-37) U/L ALT (14-59) U/L Alkaline Phosphatase (46-116) U/L Lactate Dehydrogenase (81-234) U/L C-Reactive Protein (0.0-0.3) mg/dL NT-Pro-B Natriuret Pep (<300) pg/mL Total Protein (6.4-8.2) g/dL Albumin (3.4-5.0) g/dL Vitamin B12 (193-986) pg/mL Folate (8.6-20.0) ng/mL Procalcitonin ng/mL TSH (0.36-3.74) uIU/mL 4.70 H Free T4 (0.76-1.46) ng/dL 1.18 Urine Color (Yellow) Urine Clarity (Clear) Urine pH (5-8) Ur Specific [place] (1.005-1.025) Urine Protein (Negative) mg/dL Urine Ketones (Negative) mg/dL Urine Blood (Negative) Urine Nitrite (Negative) Urine Bilirubin (Negative) Urine Urobilinogen (Up TO 0.2) EU/dL Ur Leukocyte Esterase (Negative) Urine Glucose (Negative) mg/dL Fluid Type Fluid Source Fluid Color Fluid Clarity Fluid pH Fluid WBC Fld Polynuclear WBCs % % Fluid Mononuclear Cell % Fluid Other Cells Fluid Glucose (See Note) mg/dL Fluid Total Protein g/dL Fluid Albumin Fluid LDH Fluid Lipase U/L Fluid Triglycerides mg/dL CSF Lyme DNA Comment CSF B.burgdorferi (PCR) CSF B.mayonii (PCR) CSF B.eron/afzel PCR Rheumatoid Factor (<12.0) IU/mL Cyclic Citrull Peptide (<5.0) U/mL MARITZA Titer MARITZA Titer 2 MARITZA Titer 3 MARITZA Interpretation (Negative) Proteinase 3 (PR3) U Myeloperoxidase Ab U Double Strand DNA Ab (<30.0) IU/mL Lyme Specimen Source COVID-19 Source SARS-CoV-2 (PCR) (Negative) Influenza Type A (PCR) (Negative) Influenza Type B (PCR) (Negative) Urine Legionella Ag (Negative) RSV (PCR) (Negative) AFB Source AFB Culture Final Res AFB Bld Cult Final Res AFB Report Status Fungal Specimen Source Fungal Culture Status Fungal Culture Final Fungal Smear Result M. Tuberculosis PCR Path Cons Comment AFB Smear (Ref Lab) Add-On Test Request Range/Units 11/08/21 11/08/21 11/09/21 06:20 06:20 06:15 WBC (4.4-10.8) 10^3/uL 6.21 D RBC (3.93-5.22) 10^6/uL 3.22 L Hgb (11.2-15.7) g/dL 8.9 L Hct (36.0-46.0) % 30.4 L MCV (80-95) fL 94.4 MCH (27.0-33.0) pg 27.6 MCHC (32.0-36.0) % 29.3 L RDW (11.7-14.6) % 13.4 Plt Count (130-400) 10^3/uL 262 MPV (8.0-11.0) fL 8.6 Immature Gran % 0.5 Neutrophils % 66.4 Lymphocytes % 17.2 Monocytes % 5.6 Eosinophils % 9.5 Basophils % 0.8 Nucleated RBC % % 0 Absolute Neutrophils (1.2-6.7) 10^3/uL 4.12 Absolute Lymphocytes (1.2-3.4) 10^3/uL 1.07 L Absolute Monocytes (0.1-0.8) 10^3/uL 0.35 Absolute Eosinophils (0.0-0.7) 10^3/uL 0.59 Absolute Basophils (0.0-0.2) 10^3/uL 0.05 RBC Morphology Hypochromasia Poikilocytosis Basophilic Stippling Stomatocytes PT (9.3-11.0) sec INR (0.9-1.1) APTT (21.0-27.5) sec Fibrinogen (171-384) mg/dL D-Dimer (<500) ng/mlFEU Factor XII (55 - 180) % Sodium (136-145) mmol/L 140 Potassium (3.5-5.1) mmol/L 4.2 Chloride (98-107) mmol/L 101 Carbon Dioxide (21.0-32.0) mmol/L 35.5 H Anion Gap (3-11) mmol/L 3.5 BUN (7-18) mg/dL 13 Creatinine (0.55-1.02) mg/dL 0.8 Estimated GFR/1.73 m2 (mL/min/1.73m2) >= 60.00 Glucose (74-106) mg/dL 94 Hemoglobin A1c (<5.7) % Calcium (8.5-10.1) mg/dL 8.6 Magnesium (1.8-2.4) mg/dL 2.1 Iron (50-170) ug/dL TIBC (250-450) ug/dL Transferrin % Sat (15-50) % Ferritin (8-252) ng/mL Total Bilirubin (0.2-1.0) mg/dL AST (15-37) U/L ALT (14-59) U/L Alkaline Phosphatase (46-116) U/L Lactate Dehydrogenase (81-234) U/L C-Reactive Protein (0.0-0.3) mg/dL NT-Pro-B Natriuret Pep (<300) pg/mL Total Protein (6.4-8.2) g/dL Albumin (3.4-5.0) g/dL Vitamin B12 (193-986) pg/mL Folate (8.6-20.0) ng/mL Procalcitonin ng/mL 2.6 TSH (0.36-3.74) uIU/mL Free T4 (0.76-1.46) ng/dL Urine Color (Yellow) Urine Clarity (Clear) Urine pH (5-8) Ur Specific [place] (1.005-1.025) Urine Protein (Negative) mg/dL Urine Ketones (Negative) mg/dL Urine Blood (Negative) Urine Nitrite (Negative) Urine Bilirubin (Negative) Urine Urobilinogen (Up TO 0.2) EU/dL Ur Leukocyte Esterase (Negative) Urine Glucose (Negative) mg/dL Fluid Type Fluid Source Fluid Color Fluid Clarity Fluid pH Fluid WBC Fld Polynuclear WBCs % % Fluid Mononuclear Cell % Fluid Other Cells Fluid Glucose (See Note) mg/dL Fluid Total Protein g/dL Fluid Albumin Fluid LDH Fluid Lipase U/L Fluid Triglycerides mg/dL CSF Lyme DNA Comment CSF B.burgdorferi (PCR) CSF B.mayonii (PCR) CSF B.eron/afzel PCR Rheumatoid Factor (<12.0) IU/mL Cyclic Citrull Peptide (<5.0) U/mL MARITZA Titer MARITZA Titer 2 MARITZA Titer 3 MARITZA Interpretation (Negative) Proteinase 3 (PR3) U Myeloperoxidase Ab U Double Strand DNA Ab (<30.0) IU/mL Lyme Specimen Source COVID-19 Source SARS-CoV-2 (PCR) (Negative) Influenza Type A (PCR) (Negative) Influenza Type B (PCR) (Negative) Urine Legionella Ag (Negative) RSV (PCR) (Negative) AFB Source AFB Culture Final Res AFB Bld Cult Final Res AFB Report Status Fungal Specimen Source Fungal Culture Status Fungal Culture Final Fungal Smear Result M. Tuberculosis PCR Path Cons Comment AFB Smear (Ref Lab) Add-On Test Request Range/Units 11/09/21 06:15 WBC (4.4-10.8) 10^3/uL 6.23 RBC (3.93-5.22) 10^6/uL 3.06 L Hgb (11.2-15.7) g/dL 8.4 L Hct (36.0-46.0) % 28.6 L MCV (80-95) fL 93.5 MCH (27.0-33.0) pg 27.5 MCHC (32.0-36.0) % 29.4 L RDW (11.7-14.6) % 13.4 Plt Count (130-400) 10^3/uL 238 MPV (8.0-11.0) fL 8.8 Immature Gran % 0.6 Neutrophils % 60.3 Lymphocytes % 20.2 Monocytes % 6.3 Eosinophils % 11.6 Basophils % 1.0 Nucleated RBC % % 0 Absolute Neutrophils (1.2-6.7) 10^3/uL 3.76 Absolute Lymphocytes (1.2-3.4) 10^3/uL 1.26 Absolute Monocytes (0.1-0.8) 10^3/uL 0.39 Absolute Eosinophils (0.0-0.7) 10^3/uL 0.72 H Absolute Basophils (0.0-0.2) 10^3/uL 0.06 RBC Morphology Hypochromasia Poikilocytosis Basophilic Stippling Stomatocytes PT (9.3-11.0) sec INR (0.9-1.1) APTT (21.0-27.5) sec Fibrinogen (171-384) mg/dL D-Dimer (<500) ng/mlFEU Factor XII (55 - 180) % Sodium (136-145) mmol/L Potassium (3.5-5.1) mmol/L Chloride (98-107) mmol/L Carbon Dioxide (21.0-32.0) mmol/L Anion Gap (3-11) mmol/L BUN (7-18) mg/dL Creatinine (0.55-1.02) mg/dL Estimated GFR/1.73 m2 (mL/min/1.73m2) Glucose (74-106) mg/dL Hemoglobin A1c (<5.7) % Calcium (8.5-10.1) mg/dL Magnesium (1.8-2.4) mg/dL Iron (50-170) ug/dL TIBC (250-450) ug/dL Transferrin % Sat (15-50) % Ferritin (8-252) ng/mL Total Bilirubin (0.2-1.0) mg/dL AST (15-37) U/L ALT (14-59) U/L Alkaline Phosphatase (46-116) U/L Lactate Dehydrogenase (81-234) U/L C-Reactive Protein (0.0-0.3) mg/dL NT-Pro-B Natriuret Pep (<300) pg/mL Total Protein (6.4-8.2) g/dL Albumin (3.4-5.0) g/dL Vitamin B12 (193-986) pg/mL Folate (8.6-20.0) ng/mL Procalcitonin ng/mL TSH (0.36-3.74) uIU/mL Free T4 (0.76-1.46) ng/dL Urine Color (Yellow) Urine Clarity (Clear) Urine pH (5-8) Ur Specific [place] (1.005-1.025) Urine Protein (Negative) mg/dL Urine Ketones (Negative) mg/dL Urine Blood (Negative) Urine Nitrite (Negative) Urine Bilirubin (Negative) Urine Urobilinogen (Up TO 0.2) EU/dL Ur Leukocyte Esterase (Negative) Urine Glucose (Negative) mg/dL Fluid Type Fluid Source Fluid Color Fluid Clarity Fluid pH Fluid WBC Fld Polynuclear WBCs % % Fluid Mononuclear Cell % Fluid Other Cells Fluid Glucose (See Note) mg/dL Fluid Total Protein g/dL Fluid Albumin Fluid LDH Fluid Lipase U/L Fluid Triglycerides mg/dL CSF Lyme DNA Comment CSF B.burgdorferi (PCR) CSF B.mayonii (PCR) CSF B.eron/afzel PCR Rheumatoid Factor (<12.0) IU/mL Cyclic Citrull Peptide (<5.0) U/mL MARITZA Titer MARITZA Titer 2 MARITZA Titer 3 MARITZA Interpretation (Negative) Proteinase 3 (PR3) U Myeloperoxidase Ab U Double Strand DNA Ab (<30.0) IU/mL Lyme Specimen Source COVID-19 Source SARS-CoV-2 (PCR) (Negative) Influenza Type A (PCR) (Negative) Influenza Type B (PCR) (Negative) Urine Legionella Ag (Negative) RSV (PCR) (Negative) AFB Source AFB Culture Final Res AFB Bld Cult Final Res AFB Report Status Fungal Specimen Source Fungal Culture Status Fungal Culture Final Fungal Smear Result M. Tuberculosis PCR Path Cons Comment AFB Smear (Ref Lab) Add-On Test Request
[2021-11-09 07:38] VITALS: BP 132/84; PULSE 90; RESP 19; TEMP 36.6; O2SAT 96
[2021-11-09] MEDS: buPROPion 100 MG TAB 200 MG PO ×2 (08:32→20:54)
[2021-11-09] MEDS: Celecoxib 100 MG CAP PO ×2 (08:32→20:54)
[2021-11-09] MEDS: busPIRone 5 MG TAB 10 MG PO ×2 (08:32→20:54)
[2021-11-09] MEDS: Baclofen 10 MG TAB PO ×3 (08:33→20:54)
[2021-11-09] MEDS: Cetirizine 10 MG TAB PO (08:33)
[2021-11-09] MEDS: Furosemide 20 MG TAB PO (08:33)
[2021-11-09] MEDS: Docusate Sodium 100 MG CAP PO ×3 (08:33→20:54)
[2021-11-09] MEDS: Gabapentin 600 MG TAB PO ×3 (08:33→20:54)
[2021-11-09] MEDS: Folic Acid 1 MG TAB PO (08:33)
[2021-11-09] MEDS: Normal Saline 500 ML 30 ML IVPB (08:34)
[2021-11-09] MEDS: Budesonide/Formoterol 160/4.5 6 GM 60 PUFF INH IH ×2 (10:12→22:44)
[2021-11-09 10:26] VITALS: PULSE 100; PULSE 80; PULSE 85; PULSE 95; RESP 20; RESP 24; RESP 25; O2SAT 86; O2SAT 93; O2SAT 95; O2SAT 97
[2021-11-09 10:28] VITALS: O2SAT 93
[2021-11-09 10:32] LABS: Fructosamine 163 mcmol/L (200 - 285)
--- NOTE | 2021-11-09 11:30 | PDOC.CMPRO ---
- If Service Date Differs Date of service: 11/09/21 Time of Service: 11:30 Care Management Progress Note S/O: Shirley was sitting up in a chair when CM met with her. 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 Teri was pleasant and open to conversation. She shared details of her current illness which she stated started at the beginning of September. Her partner Waldo had been sick at the same time and was treated at [facility]. Teri was treated at [facility] and had several ED visits and a hospital admission with no subjective improvement. She was told 2 weeks ago that she needed to have fluid removed from her lung and the earliest she could have the procedure at [facility] was on 11/09/21. As she was experiencing difficulty breathing, Teri sought care at [facility]. She informed CM that she is feeling much better asnd has been told that she may be able to go home at the end of the week. A: 41 year old female admitted to [facility] 11/03/21 for pleuritis, cough, PE P: Shirley will likely be discharge home, possibly with new home oxygen, when medically cleared. She will follow up with her community providers including surgery, Pulmonology and her PCP and transport via private vehicle with her partner Waldo. CM will continue to support Teri and her discharge planning needs.
[2021-11-09 11:35] LABS: Misc Referral (UVM) See Comments
[2021-11-09 11:37] LABS: Misc Referral (UVM) See Comments
--- NOTE | 2021-11-09 14:31 | PGE_ITS ---
Date of Service Date of service: 11/09/21 Time of Service: 14:31 Assessment and Plan Assessment and plan (1) Pleural effusion: Status: Acute Assessment and plan: Hemothorax. S/p removal of chest tube as well as s/p bronchoscopy (POD 4) Improving. No longer requiring O2. Pleural fluid cx w/ NGTD. Discussed with Dr Vizcarra: continue empiric cefepime and lasix. Echo w/ LVEF was 60%; no evidence of R heart failure. Continue empiric cefepime day 4/5. Plan for discharge home tomorrow after completing a 5 day course. (2) Pneumonia: Status: Acute Assessment and plan: Secretions seen in bronchoscopy were purulent. Continue empiric cefepime day 3/5. BAL cx are not yet back The patient missed about 24 hrs of abx due to lack of IV access. (3) Diabetes: Status: Chronic Assessment and plan: BGs here nml. A1C was 5.2, but done but may not be accurate in acute anemia. Fructosamine of 163 - A1C equivalent of <5.0. No role for carb restriction in diet. (4) Pleuritic chest pain: Status: Acute Assessment and plan: Due to above. The patient is on norco as outpatient and would benefit from being on a single opioid agent. D/c PO dilaudid, adjust dose of norco. (5) Folate deficiency anemia: Status: Acute Assessment and plan: replete folate. (6) DVT prophylaxis: Status: Acute Assessment and plan: Start chemical DVT ppx - ok with pulmonology. SCDs for the edema BLEs (7) Discharge planning issues: Status: Acute Assessment and plan: Full code. Anticipate discharge home tomorrow with levofloxacin and 1L of home o2 on ambulation. Discussed with Dr Vizcarra. Subjective Subjective Interval history since last seen: The patient slide to the floor yesterday evening while trying to berry picker crackers which had fallen, catching herself on her B arms. 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 Headache responded very well to fioricet. We discussed that on discharge, the patient can use excedrin migraine. She would also like to get off of dilaudid. She reports feeling constipated. Denies dizziness, shortness of breath, nausea. Feels she will be ready to go home tomorrow. Ambulated with PT, would like to do some more PT prior to discharge. On exercise oximetry, required 1L with ambulating, desaturating to 86% on RA. Does not require O2 at rest. Exam Narrative Exam Narrative: General: Pleasant obese female, sitting up in a chair, looks even better, wearing eye shadow; A&Ox3, no dyspnea/tachypnea on RA HEENT: EOMI, MMM Heart: RRR, no m/r/g Lungs: Breath sounds heard at B bases; CTAB. Abdomen: soft, nontender, nondistended Extremities: +1 BLE edema, symmetric Objective Last Vital Signs Temp 36.6 C 11/09/21 07:38 Pulse 90 11/09/21 07:38 Resp 19 11/09/21 07:38 BP 132/84 11/09/21 07:38 Pulse Ox 93 11/09/21 10:28 Laboratory Results - last 24 hr 11/05/21 11/05/21 11/07/21 11:43 11:43 06:15 WBC RBC Hgb Hct MCV MCH MCHC RDW Plt Count MPV Immature Gran % Neutrophils % Lymphocytes % Monocytes % Eosinophils % Basophils % Nucleated RBC % Absolute Neutrophils Absolute Lymphocytes Absolute Monocytes Absolute Eosinophils Absolute Basophils Sodium Potassium Chloride Carbon Dioxide Anion Gap BUN Creatinine Estimated GFR/1.73 m2 Glucose Fructosamine 163 L Calcium Magnesium Miscellaneous Test See Comments See Comments 11/09/21 11/09/21 06:15 06:15 WBC 6.23 RBC 3.06 L Hgb 8.4 L Hct 28.6 L MCV 93.5 MCH 27.5 MCHC 29.4 L RDW 13.4 Plt Count 238 MPV 8.8 Immature Gran % 0.6 Neutrophils % 60.3 Lymphocytes % 20.2 Monocytes % 6.3 Eosinophils % 11.6 Basophils % 1.0 Nucleated RBC % 0 Absolute Neutrophils 3.76 Absolute Lymphocytes 1.26 Absolute Monocytes 0.39 Absolute Eosinophils 0.72 H Absolute Basophils 0.06 Sodium 140 Potassium 4.2 Chloride 101 Carbon Dioxide 35.5 H Anion Gap 3.5 BUN 13 Creatinine 0.8 Estimated GFR/1.73 m2 >= 60.00 Glucose 94 Fructosamine Calcium 8.6 Magnesium 2.1 Miscellaneous Test
[2021-11-09] MEDS: Polyethylene Glycol 3350 17 GM PACKET PO (14:53)
[2021-11-09] MEDS: Senna TAB 1 TAB PO ×2 (14:54→20:54)
--- NOTE | 2021-11-09 15:05 | NUR.NOTE ---
Nursing Note: Patient refused chair alarm and bed alarm because she wiggles too much, pt is stand by assist only, and is independent in chair and bed with repositioning. Patient is alert and oriented x3. Pt has been using call moss appropriately.
--- NOTE | 2021-11-09 15:23 | PT.INTREAT ---
Date of service: 11/09/21 Time of Service: 09:38 PT Notes Visit Reasons: Pleuritis,Chronic Cough,Pleural Effusion Inpatient Physical Therapy Treatment Note [facility] Date: 11/09/2021 PRECAUTIONS: Fall, activity as tolerated SUBJECTIVE: Shirley is pleasant and agreeable to participating in PT. She hopes to discharge to home soon. She states that she is feeling better today. OBJECTIVE: PAIN: No c/o pain BED MOBILITY/TRANSFERS Sit-stand: I Stand-sit: I Bed-Chair: I Chair-bed: I GAIT Assistive Device: FWW Weight bearing: Full Assist: I Distance: 50' x2 + 25' x2 in a.m.; 30' x2 in p.m. Deviation: Seated rest x3 due to dizziness in a.m. STAIRS: Up/down 3x4 and 2x6 x~10 minutes, alternating between B rails support, U rail support, and without handrail support) utilizing a step-to pattern with S TOILETING: Patient toileted independently ASSESSMENT: Patient tolerated session well, although required seated rest x3 with gait training due to dizziness. She demonstrates appropriate gait and pacing with assistive device support. PLAN: Continue with stair training and gait training with least restrictive device for continued progression toward baseline level of function. TREATMENT CODE/TIME: Session 1: 30 minutes; 36434 x2 (09:38) Session 2: 25 minutes; 31303 x2 (13:19)
[2021-11-09 15:37] VITALS: BP 131/88; PULSE 103; RESP 18; TEMP 37.6; O2SAT 96
[2021-11-09 15:59] LABS: Streptococcus Pneumoniae Ag, U Negative (Negative)
[2021-11-09] MEDS: Lidocaine 5% Patch 1 PATCH TP (16:17)
[2021-11-09] MEDS: HYDROcodone 10/Acetaminophen 325 TAB PO ×2 (17:46→22:44)
[2021-11-09 22:43] VITALS: BP 137/88; PULSE 106; RESP 18; TEMP 36.7; O2SAT 94
[2021-11-09] MEDS: Amitriptyline 50 MG TAB 100 MG PO (22:45)
[2021-11-10] MEDS: Lidocaine Patch Removal 1 EACH TD (00:45)
[2021-11-10] MEDS: HYDROcodone 10/Acetaminophen 325 TAB PO ×3 (06:11→16:29)
[2021-11-10 06:13] VITALS: BP 147/94; PULSE 89; RESP 18; TEMP 36.3; O2SAT 98
[2021-11-10 07:59] VITALS: BP 119/81; PULSE 92; RESP 19; TEMP 36.4; O2SAT 95
--- NOTE | 2021-11-10 08:44 | PDOC.CMPRO ---
- If Service Date Differs Date of service: 11/10/21 Time of Service: 08:44 Care Management Progress Note S/O: Shirley is anticipating being discharged home later today. She shares with CM that she has a narcotic contract with her provider at [facility] [place]. KOBE notified Bella at [facility]'s office that Dr. Arevalo is planning on discharging Shirley with RX for 3 days. A: 41 year old female admitted to [facility] 11/03/21 for pleuritis, cough, PE P: Shirley will likely be discharge home, possibly with new home oxygen, when medically cleared. She will follow up with her community providers including surgery, Pulmonology and her PCP and transport via private vehicle with her partner Waldo. CM will continue to support Teri and her discharge planning needs.
[2021-11-10] MEDS: Cetirizine 10 MG TAB PO (08:53)
[2021-11-10] MEDS: buPROPion 100 MG TAB 200 MG PO (08:53)
[2021-11-10] MEDS: Docusate Sodium 100 MG CAP PO ×2 (08:53→13:39)
[2021-11-10] MEDS: Baclofen 10 MG TAB PO ×2 (08:53→13:39)
[2021-11-10] MEDS: Celecoxib 100 MG CAP PO (08:53)
[2021-11-10] MEDS: Gabapentin 600 MG TAB PO ×2 (08:53→13:39)
[2021-11-10] MEDS: Pantoprazole 40 MG TABCR PO (08:54)
[2021-11-10] MEDS: Furosemide 20 MG TAB PO (08:54)
[2021-11-10] MEDS: busPIRone 5 MG TAB 10 MG PO (08:55)
[2021-11-10] MEDS: Folic Acid 1 MG TAB PO (08:55)
[2021-11-10] MEDS: Normal Saline Flush 10 ML SYR IVP ×2 (08:56→11:03)
[2021-11-10] MEDS: Polyethylene Glycol 3350 17 GM PACKET PO (08:58)
[2021-11-10] MEDS: CEFEPIME 2 GM in Normal Saline 100 ML IVPB (08:59)
[2021-11-10] MEDS: Normal Saline 500 ML 30 ML IVPB (09:00)
[2021-11-10] MEDS: Budesonide/Formoterol 160/4.5 6 GM 60 PUFF INH IH (09:25)
[2021-11-10] MEDS: Acetaminophen 500 MG TAB 1000 MG PO (09:45)
[2021-11-10 11:15] VITALS: PULSE 88; PULSE 95; RESP 18; RESP 20; O2SAT 91; O2SAT 95
[2021-11-10] MEDS: Lidocaine 5% Patch 1 PATCH TP (13:39)
--- NOTE | 2021-11-10 14:16 | PDOC.HHF2F ---
Home Health Certification Home Health Certification: 1. Encounter Date and Reason I certify that Shirley Hooper was seen by Cristal Arevalo on 11/10/21 and that I had a [id number] encounter with this patient that meets the physician face to face encounter requirements. 2. Clinical Findings Supporting Skilled Need and Homebound Status I certify that home health services are medically necessary, include either intermittent senior care and/or physical/speech therapy, and that this patient is homebound in that absences from the home require considerable and taxing effort and are infrequent or of short duration, or are attributable to the need to receive medical care. [X] (a) Attached documentation from encounter provides clinical findings supporting skilled need and homebound status (including what assistance patient requires to leave the home). The encounter with the patient was in whole, or in part, for the following medical condition, which is the primary reason for home health care: Pleuritis,Chronic Cough,Pleural Effusion [facility]: Follow up after an admission for respiratory failure, pleural effusion, pneumonia Physical Therapy: eval and treat Homebound: unable to leave home without assistance 3. Certification and Authentication I certify that I composed the above information based on my clinical judgement relating to this patient's medical condition and, if applicable, clinical findings communicated to me by the NPP or inpatient physician who performed the Home Health Referral. All further orders will be obtained through __[facility] (Community Based Physician - PCP)
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
--- NOTE | 2021-11-10 14:51 | PDOC.CMDIS ---
- If Service Date Differs Date of service: 11/10/21 Time of Service: 14:51 LACE Index Scoring Tool - Questions: Length of Stay (in days): 7 - 13 Acuity (Admit via E.D.?): No Comorbidities: Chronic Pulmonary Disease E.D. Visits: 0 - Answers: Total Score: 7 Risk of Readmission: Low Risk Care Management Discharge Reason for Hospitalization: Pleuritis, Pleural Effusion Discharge Plan: Discharge home via private vehicle with family with new VNA SN/PT services through [facility]. No supplimental O2 is needed, CM notified [facility]. Shirley will follow up with community providers and discharge plan of care as prescribed. Patient/Family Education Needs: Review discharge instructions, medications, limitations and plan to follow up with pulmonology and community providers. ask me three. Services Needed at Discharge: Home Health Care Services ([facility] SN/PT, CM notified Agency. )
--- NOTE | 2021-11-10 15:18 | PT.INTREAT ---
Date of service: 11/10/21 Time of Service: 10:29 PT Notes Visit Reasons: Pleuritis,Chronic Cough,Pleural Effusion Inpatient Physical Therapy Treatment Note [facility] Date: 11/10/2021 PRECAUTIONS: Fall, activity as tolerated SUBJECTIVE: Shirley is pleasant and agreeable to participating in PT. She hopes to discharge to home soon, although states it's nice to have a working vacation here in the hospital. She states that she is feeling better today. OBJECTIVE: PAIN: No c/o pain BED MOBILITY/TRANSFERS Sit-stand: I Stand-sit: I Bed-Chair: I Chair-bed: I GAIT Assistive Device: FWW No AD Weight bearing: Full Assist: I with FWW S without AD Distance: 200' with FWW 200' without AD Deviation: Standing rest x2 without AD support due to dizziness VITALS: Session performed in collaboration with RT, SaO2 found to be WNL on RA. STAIRS: Up/down 10x6 using U rail (and at times no rail support) and a step-to pattern with SBA ASSESSMENT: Patient tolerated session well, although requiring standing rest x2 with gait training due to dizziness. She demonstrates appropriate gait and pacing with and without assistive device support. PLAN: Patient to discharge to home later today, per provider. Recommend follow up with PT. TREATMENT CODE/TIME: 23 minutes; [id number] x2 (10:29)
[2021-11-10] MEDS: Acetaminophen 250 mg/Aspirin 250 mg/Caffeine 65 mg TAB 2 EACH PO (16:27)
--- NOTE | 2021-11-10 18:40 | PT.INDS ---
Date of service: 11/10/21 PT Notes Visit Reasons: Pleuritis,Chronic Cough,Pleural Effusion Physical Therapy Inpatient Discharge Summary Date: 11/10/21 Dates of service: 11/06/2021 through 11/10/2021 This is a clinical summary of care provided for the duration of dates listed above. No charge was made in the completion of this documentation. Referring Doctor: Janine Hinton PT Orders: PT CONSULT: Eval and treat Precautions: Fall. Standard. Patient Profile/Admitting Diagnosis:?Shirley is a 41-year-old female that had pneumonia a month ago followed by pleuritis and pleaural effusion.? On 11/02/2021 she underwent thoracenthesis. On 11/05/21 she had bronchoscopy performed. Right sided chest pain present and increases with activity. Reports weakness in legs due to pneumonia. PMHX: See EMR Social History/Home Situation: Lives with storm and his child, 9 steps to enter, laundry is downstairs but does not have to access. No AD at baseline. Equipment Owned/DME: None Subjective: NT. See most recent SIMULATION TECHNICIAN notes. Objective:? General Observation: NT. See most recent SIMULATION TECHNICIAN notes. Mental Status: NT. See most recent SIMULATION TECHNICIAN notes. Pain: NT. See most recent SIMULATION TECHNICIAN notes. ROM: Right Upper Extremity: Shoulder Flexion WFL. Shoulder abduction WFL. Elbow flexion WFL. Wrist flexion WFL. Opening and closing of hand WFL. Left Upper Extremity: Shoulder Flexion WFL. Shoulder abduction WFL. Elbow flexion WFL. Wrist flexion WFL. Opening and closing of hand WFL. Right Lower Extremity: Hip flexion WFL. Hip abduction WFL. Knee flexion WFL. Ankle dorsiflexion WFL. Ankle plantarflexion WFL. Left Lower Extremity: Hip flexion WFL. Hip abduction WFL. Knee flexion WFL. Ankle dorsiflexion WFL. Ankle plantarflexion WFL. Strength: Right Upper Extremity: Grossly 4+/5 Left Upper Extremity: Grossly 4+/5 Right Lower Extremity: Grossly 4+/5 Left Lower Extremity: Grossly 4+/5 Sensation:?Intact as to pain and pressure on bilateral lower extremities. Bed Mobility/Transfers: Supine to sit: Independent Sit to supine: Independent Sit to stand: Independent Stand to sit: Independent Gait:?Able to tolerate up to 20 feet on level surface ambulation using front wheeled walker independently with full weightbearing on BLE. Without an assistive device patient is able to perform full weightbearing requiring supervision assist for the same distance with 2 standing rests. Stairs: Able to tolerate up-and-down 10 x 6 inch steps using one rail half of the time and no rails for the latter half of the activity using step to gait pattern requiring standby assist. Balance:? Static Sitting: Normal Dynamic Sitting: Good Static Standing: Good Dynamic Standing: Fair Assessment: Patient presents with clinical signs and symptoms consistent with current/admitting diagnoses that have resulted to mobility limitations, gait instability, generalized weakness, and impairment of motor control as demonstrated by the following impairment level findings: 1. Decreased strength to upper and lower extremity major muscle groups 2. Impaired sitting/standing balance 3. Impaired activity tolerance 4. Limitation of joint range of motion in right shoulder secondary to pain Impairments are contributing to the following functional limitations: 1.? Decreased efficiency with transfers 2. Inability to safely ambulate without assistive device 4. Increase completion time for mobility ADL performance 5. Increased fall risk 6. Inability to negotiate steps alone safely Goals: Goals x1 week 1. Supine-Sit: independent MET 2. Sit-Supine: independent MET 3. Sit-Stand: independent MET 4. Stand-Sit: independent MET 5. Bed-Chair: independent MET 6. Chair-Bed: independent MET 7. Independent gait on level surface with use of least restrictive device for at least 300 feet without report of pain nor dyspnea MET 8. Independent stair negotiation while holding onto bilateral rails for at least 10 steps without report of pain nor dyspnea MET 9. Independent with home exercise program NOT MET 10. Good static and dynamic standing balance/tolerance NOT MET Discharge Plan DISCHARGE RECOMMENDATIONS: Patient will benefit from home health PT services in order to progress mobility level using least restrictive assistive ambulatory device, assess home safety, identify additional equipment needs, and establish a functional maintenance program that will increase ability of patient to remain at home. TREATMENT CODE/TIME: CO Thank you for the opportunity to participate in the care of this patient. Judi Li PT, DPT, CLT [facility] [place], [place]
[2021-11-10 22:51] LABS: Blastomyces Ag Result Not Detected; Blastomyces Ag Value Not Detected
[2021-11-12 15:57] LABS: Coag Factor VII Assay 60 (65-180)
[2021-11-12 16:00] LABS: Factor VII Inhibitor Screen See Comments
[2021-12-03 12:09] LABS: Fungus Smear No Fungi Seen
== END 2021-11-10 16:50 | disposition home health service (06) | DRG 193 ==
LOC: MS 11-04 14:35 → ICU 11-05 08:05 → MS 11-08 16:38 → ICU 11-08 16:41
PROVIDERS: Family Medicine; Physical Therapy Assistant; Student in an Organized Health Care Education/Training Program; Surgery; Admitting Provider Surgery; PCP Nurse Practitioner; Visit Provider Internal Medicine
PROC: 0W9930Z Drainage of Right Pleural Cavity with Drainage Device, Percutaneous Approach (ICD-10-PCS; CPT 32554; principal; 2021-11-02 11:45)
PROC: 0W9900Z Drainage of Right Pleural Cavity with Drainage Device, Open Approach (ICD-10-PCS; CPT 32551; principal; 2021-11-04 16:00)
PROC: 0BJ08ZZ Inspection of Tracheobronchial Tree, Via Natural or Artificial Opening Endoscopic (ICD-10-PCS; CPT 31622; principal; 2021-11-05 11:00)
DX: J96.01 Acute respiratory failure with hypoxia; J90 Pleural effusion, not elsewhere classified; R04.2 Hemoptysis; J15.9 Unspecified bacterial pneumonia; T17.890A Other foreign object in other parts of respiratory tract causing asphyxiation, initial encounter; J94.2 Hemothorax; E11.9 Type 2 diabetes mellitus without complications; J45.909 Unspecified asthma, uncomplicated; F41.9 Anxiety disorder, unspecified; E66.9 Obesity, unspecified; I89.0 Lymphedema, not elsewhere classified; G89.29 Other chronic pain; F43.10 Post-traumatic stress disorder, unspecified; K90.0 Celiac disease; F60.3 Borderline personality disorder; M94.20 Chondromalacia, unspecified site; K52.9 Noninfective gastroenteritis and colitis, unspecified; R10.2 Pelvic and perineal pain; R53.82 Chronic fatigue, unspecified; F34.1 Dysthymic disorder; K21.9 Gastro-esophageal reflux disease without esophagitis; L73.2 Hidradenitis suppurativa; G47.00 Insomnia, unspecified; D50.9 Iron deficiency anemia, unspecified; F12.90 Cannabis use, unspecified, uncomplicated; G43.909 Migraine, unspecified, not intractable, without status migrainosus; E66.01 Morbid (severe) obesity due to excess calories; G47.30 Sleep apnea, unspecified; E55.9 Vitamin D deficiency, unspecified; R11.2 Nausea with vomiting, unspecified; R50.9 Fever, unspecified; D52.9 Folate deficiency anemia, unspecified; Z68.36 Body mass index [BMI] 36.0-36.9, adult; X58.XXXA Exposure to other specified factors, initial encounter; K59.00 Constipation, unspecified; R26.2 Difficulty in walking, not elsewhere classified
CPT/HCPCS: 32554; 32556; 32551; 31624; 36415; 71045; 71250; 74177; 80048; 80053; 80162; 82042; 83690; 84145; 85384; 86200; 87040; 87081; 87102; 87116; 87206; 87449; 87635; 87637; 89051; 94618; 94640; 97110; 97162; 97530; 99203; 99232; 99233; 99291; 71046; 71260; 81003; 81373; 82607; 82728; 82746; 82985; 83036; 83516; 83540; 83550; 83615; 83735; 83880; 83986; 84157; 84439; 84443; 84478; 85014; 85018; 85025; 85230; 85280; 85335; 85379; 85610; 85730; 86038; 86140; 86225; 86431; 87070; 87075; 87205; 87385; 87476; 87899; 88104; 93306; 94664; 94667; 94760; 99222; 99239; G0378; J0131; J1885; J1941; J1956; J2001; J2250; J2405; J3010; J3490; J7620

== ENCOUNTER 2021-11-17 13:24 | Outpatient (REF) | payer MEDICARE, MEDICAID, SELFPAY ==
[2021-11-17 16:50] LABS: Abs Immature Grans 0.03 10^3/uL (0.0-0.06); Absolute Basophil Count 0.04 10^3/uL (0.0-0.2); Absolute Eosinophil Count 0.32 10^3/uL (0.0-0.7); Absolute Lymphocyte Count 1.21 10^3/uL (1.2-3.4); Absolute Monocyte Count 0.35 10^3/uL (0.1-0.8); Absolute Neutrophil Count 4.96 10^3/uL (1.2-6.7); Basophils % 0.6; Eosinophils % 4.6; HCT 33.4 % (36.0-46.0); HGB 9.9 g/dL (11.2-15.7); Immature Grans % 0.4; Lymphocytes % 17.5; MCH 27.5 pg (27.0-33.0); MCHC 29.6 % (32.0-36.0); MCV 92.8 fL (80-95); Monocytes % 5.1; Neutrophils % 71.8; Nucleated RBC 0 %; Platelet Count 362 10^3/uL (130-400); RDW 13.7 % (11.7-14.6); RDW-SD 46.6 fL; WBC 6.91 10^3/uL (4.4-10.8)
[2021-11-17 16:55] LABS: Iron 37 ug/dL (50-170); Total Iron Binding Capacity 372 ug/dL (250-450); Transferrin Sat 10 % (15-50)
[2021-11-17 16:59] LABS: ALT 27 U/L (14-59); AST 23 U/L (15-37); Albumin 3.4 g/dL (3.4-5.0); Alkaline Phosphatase 138 U/L (46-116); Anion Gap 7.2 mmol/L (3-11); BUN 16 mg/dL (7-18); Bilirubin, Total 0.2 mg/dL (0.2-1.0); CO2 28.8 mmol/L (21.0-32.0); Calcium 8.6 mg/dL (8.5-10.1); Chloride 105 mmol/L (98-107); Glucose 102 mg/dL (74-106); Potassium 3.9 mmol/L (3.5-5.1); Sodium 141 mmol/L (136-145); Total Protein 7.1 g/dL (6.4-8.2)
== END 2021-11-17 13:25 | disposition home or self-care (01) ==
LOC: LBN 13:24
PROVIDERS: PCP Nurse Practitioner; Visit Provider Surgery
DX: E61.1 Iron deficiency (principal); E66.01 Morbid (severe) obesity due to excess calories; F34.1 Dysthymic disorder; F43.10 Post-traumatic stress disorder, unspecified; F60.3 Borderline personality disorder; G89.29 Other chronic pain; J45.909 Unspecified asthma, uncomplicated; K21.9 Gastro-esophageal reflux disease without esophagitis; K25.9 Gastric ulcer, unspecified as acute or chronic, without hemorrhage or perforation; K90.0 Celiac disease; M79.7 Fibromyalgia; R10.2 Pelvic and perineal pain; R53.82 Chronic fatigue, unspecified; R76.8 Other specified abnormal immunological findings in serum; E55.9 Vitamin D deficiency, unspecified; Z98.84 Bariatric surgery status
CPT/HCPCS: 80053; 83540; 83550; 85025

== ENCOUNTER 2022-02-02 00:08 | Outpatient (CLI) | payer MEDICARE, MEDICAID, SELFPAY ==
--- NOTE | 2022-02-02 06:45 | DI.CT_ITS ---
Exam(s) CT CHEST WO EXAM: CT CHEST WO CLINICAL HISTORY: f/u pulmonary infiltrate on prior imaging,trapped lung,j98.19,r91.8 TECHNIQUE: Imaging Protocol: Axial computed tomography images with coronal and sagittal reformatted images were created and reviewed CONTRAST MATERIAL: Noncontrast COMPARISON: CT CT CHEST WO from 11/02/2021 CR XR PORTABLE CHEST AP from 11/03/[address] CHEST/ABD/PEL W from 11/04/2021 CR XR PORTABLE CHEST AP from 11/04/2021 CR XR PORTABLE CHEST AP from 11/08/2021 FINDINGS: Tracheobronchial tree: No bronchiectasis or mucous plugging. Mediastinum and Mili: No dominant adenopathy or fluid collection. Pulmonary parenchyma: Mild residual scarring in the right upper and middle lobe. No infiltrates. Pleura: No effusion or pneumothorax. Heart: The heart is mildly dilated. No coronary artery calcifications are seen. Aorta: Thoracic aorta non-dilated. Upper abdomen: Status post cholecystectomy. Suture material at stomach. Few nonobstructing stones upper pole left kidney. Lymph nodes: Within normal limits. Bones: Normal. Tubes, Catheters, and Lines: None Soft tissues: Unremarkable. IMPRESSION: Resolution of previously noted infiltrates. Residual scarring right upper and right middle lobes. RADIATION DOSE DELIVERED: 690.67mGy.cm Total DLP DATA REPOSITORY: All CT scans at this facility are submitted to the National Radiology Data Registry (NRDR) Dose Index Registry (DIR) with the [employer] (A[employer]). RADIATION OPTIMIZATION: All CT scans at this facility use at least one of these dose optimization te chniques: automated exposure control; mA and/or kV adjustment per patient size (includes targeted exa ms where dose is matched to clinical indication); or iterative reconstruction.
== END 2022-02-02 00:28 ==
PROVIDERS: PCP Nurse Practitioner; Visit Provider Student in an Organized Health Care Education/Training Program
DX: J98.19 Other pulmonary collapse (principal); R91.8 Other nonspecific abnormal finding of lung field; J98.4 Other disorders of lung
CPT/HCPCS: 71250

== ENCOUNTER 2022-07-12 03:53 | Outpatient (CLI) | payer MEDICARE, MEDICAID, SELFPAY ==
[2022-07-12] MEDS: Albuterol HFA 18 GM 200 PUFF INH IH (11:00)
[2022-07-12] MEDS: Inhaler, Assist Device 1 EACH MC (11:01)
--- NOTE | 2022-07-15 10:36 | W.PFT ---
Date of service: 07/12/22 Time of Service: 08:20 Pulmonary Function Test Result Requesting Provider Carmita Indications: Asthma Interpretation Spirometry: There is no airflow limitation. There is restrictive appearing spirometry. There is a borderline improvement with bronchodilators. Lung Volumes: Technically normal lung volumes. Diffusion Capacity: Normal diffusion Airway Pressure: Normal airways resistance. Impression Normal pulmonary function testing Clinical Correlation therefore is recommended.
== END 2022-07-12 03:54 | disposition home or self-care (01) ==
LOC: RT 03:55
PROVIDERS: PCP Nurse Practitioner; Visit Provider Student in an Organized Health Care Education/Training Program
DX: J45.909 Unspecified asthma, uncomplicated (principal)
CPT/HCPCS: 94060; 94726; 94729

== ENCOUNTER 2024-07-11 08:45 | Outpatient (CLI) | payer MEDICARE, SELFPAY ==
--- NOTE | 2024-07-11 08:00 | DI.RAD_ITS ---
Exam(s) XR LUMBAR SPINE FLEX/EXT ONLY EXAM: XR LUMBAR SPINE FLEX/EXT ONLY CLINICAL HISTORY: Looking to see if movement at L4-L5,LOW BACK PAIN RADICULOPATHY, M54.50. TECHNIQUE: 2D digital imaging was performed of the lumbar spine. Three images were obtained. Flexi on and extension only views were obtained. COMPARISON: CR CR L-SP 2-3V from 10/14/2019 MR MRI Spine Lumbar w/o Contrast from 08/23/2023 FINDINGS: Degenerative changes are seen in the lower visualized thoracic spine and upper lumbar spine character ized by disc space narrowing and osteophytes. Findings are most marked at the T12-L1 disc level. Th ere is minimal anterolisthesis of L4 on L5 which is stable with both flexion and extension views. Po stsurgical changes are again seen across the left sacroiliac joint. There are again seen surgical cl ips in the upper abdomen. IMPRESSION: Stable mild anterolisthesis of L4 on L5 which does not change with flexion or extension. DATA REPOSITORY: RADIATION DOSE DELIVERED:
== END 2024-07-11 09:05 ==
LOC: DI 08:46
PROVIDERS: PCP Nurse Practitioner; Visit Provider Preventive Medicine Occupational Medicine
DX: M43.16 Spondylolisthesis, lumbar region (principal)
CPT/HCPCS: 72120